=== PATIENT | male | born 1970 | race Caucasian/White ===

== ENCOUNTER 2021-09-20 01:05 | Observation (INO) | payer OTHER ==
[2021-09-20] MEDS ORDERED: Sodium Chloride 0.9% 1000 ML 1,000 ML IV STA (01:18)
[2021-09-20] MEDS ORDERED: BABY ASPIRIN 81 MG CHEW PO ONE (01:19)
--- NOTE | 2021-09-20 01:22 | ERPHSYRPT ---
- History of Present Illness Time Seen by Provider: 09/20/21 01:08 Source: patient Exam Limitations: no limitations Physician History: Location: chest Quality: SOB Radiation: none Severity: moderate Duration: 4-5 days Timing: gradual Modifying factors/associated signs and symptoms: none tried, no PCP Patient having shortness of breath 4 to 5 days. Some very mild chest discomfort. Possibly lower extremity swelling. No falls no trauma. Patient does not follow with the PCP. He has no fever, chills, flulike illness. He has not anything make it better or worse. Patient denies smoking or other illicit drug use. He is up-to-date on his Covid vaccine. Allergies/Adverse Reactions: Penicillins Allergy (Verified 09/20/21 02:15) Home Medications: No Reportable Medications [No Reported Medications] 09/20/21 [History] Hx Tetanus, Diphtheria Vaccination/Date Given: Yes (up to date) Hx Influenza Vaccination/Date Given: No Hx Pneumococcal Vaccination/Date Given: No - Review of Systems Constitutional: No Fever, No Chills Eyes: No Symptoms Ears, Nose, & Throat: No Symptoms Respiratory: Dyspnea, No Cough Cardiac: No Chest Pain, No Edema, No Syncope Abdominal/Gastrointestinal: No Abdominal Pain, No Nausea, No Vomiting, No Diarrhea Genitourinary Symptoms: No Dysuria Musculoskeletal: No Back Pain, No Neck Pain Skin: No Rash Neurological: No Dizziness, No Focal Weakness, No Sensory Changes Psychological: No Symptoms Endocrine: No Symptoms All Other Systems: Reviewed and Negative - Past Medical History Pertinent Past Medical History: No - Past Surgical History Past Surgical History: No - Social History Smoking Status: Current every day smoker How long have you smoked: 24 Exposure to second hand smoke: No Drug Use: none Patient Lives Alone: No - Nursing Vital Signs Nursing Vital Signs: Initial Vital Signs Temperature 97.5 F 09/20/21 01:06 Pulse Rate 103 H 09/20/21 01:06 Respiratory Rate 18 09/20/21 01:06 Blood Pressure 183/136 09/20/21 01:06 O2 Sat by Pulse Oximetry 98 09/20/21 01:06 Pain Scale Pain Intensity 0 - Physical Exam General Appearance: no apparent distress, alert Eye Exam: PERRL/EOMI, eyes nml inspection Ears, Nose, Throat Exam: normal ENT inspection, TMs normal, pharynx normal, moist mucous membranes Neck Exam: normal inspection, non-tender, supple, full range of motion Respiratory Exam: normal breath sounds, lungs clear, No respiratory distress Cardiovascular Exam: regular rate/rhythm, normal heart sounds, normal peripheral pulses Gastrointestinal/Abdomen Exam: soft, normal bowel sounds, No tenderness, No mass Back Exam: normal inspection, normal range of motion, No CVA tenderness, No vertebral tenderness Extremity Exam: normal inspection, normal range of motion, pelvis stable Neurologic Exam: alert, oriented x 3, cooperative, normal mood/affect, nml cerebellar function, nml station & gait, sensation nml, No motor deficits Skin Exam: normal color, warm, dry, No rash Lymphatic Exam: No adenopathy SpO2: 98 - Course Nursing assessment & vital signs reviewed: Yes EKG Interpreted by Me: Sinus Rhythm Ordered Tests: Active Orders 24 hr Category Date Time Status EKG-ER Only STAT Care 09/20/21 01:18 Active IV Insertion STAT Care 09/20/21 01:18 Active CHEST 1 VIEW (PORTABLE) Stat Exams 09/20/21 01:19 Taken CHEST WITH CONTRAST [CT] Stat Exams 09/20/21 02:13 Ordered CBC W DIFF Stat Lab 09/20/21 01:35 Completed CMP Stat Lab 09/20/21 01:35 Completed D-DIMER QUANTITATIVE Stat Lab 09/20/21 01:35 Completed NT PRO BNP Stat Lab 09/20/21 01:35 Completed TROPONIN Q3H Lab 09/20/21 01:35 Completed TROPONIN Q3H Lab 09/20/21 04:10 Completed TROPONIN Q3H Lab 09/20/21 07:30 Ordered TROPONIN Q3H Lab 09/20/21 10:30 Ordered TROPONIN Q3H Lab 09/20/21 13:30 Ordered Medication Summary Discontinued Medications Generic Name Dose Route Start Last Admin Trade Name Freq PRN Reason Stop Dose Admin Aspirin 324 mg 09/20/21 01:19 09/20/21 01:59 Aspirin 81 Mg Tab.Chew PO 09/20/21 01:20 324 mg STAT ONE Administration Furosemide 60 mg 09/20/21 03:28 09/20/21 03:37 Furosemide 100 Mg/10 Ml Vial IV 09/20/21 03:29 60 mg STAT ONE Administration Furosemide Confirm 09/20/21 03:34 Furosemide 100 Mg/10 Ml Vial Administered 09/20/21 03:35 Dose 100 mg .ROUTE .STK-MED ONE Hydralazine HCl 10 mg 09/20/21 03:35 09/20/21 03:54 Hydralazine Hcl 20 Mg/Ml Vial IV 09/20/21 03:36 10 mg STAT ONE Administration Hydralazine HCl Confirm 09/20/21 03:51 Hydralazine Hcl 20 Mg/Ml Vial Administered 09/20/21 03:52 Dose 20 mg .ROUTE .STK-MED ONE Sodium Chloride 1,000 mls @ 999 mls/hr 09/20/21 01:18 09/20/21 04:14 Sodium Chloride 0.9% 1000 Ml IV 09/20/21 02:18 Not Given .Q1H1M STA Lab/Rad Data: Laboratory Result Diagrams 09/20/21 01:35 09/20/21 01:35 Laboratory Results 09/20/21 09/20/21 09/20/21 Range/Units 04:10 01:35 01:35 WBC (4.0-10.5) K/mm3 RBC (4.1-5.6) M/mm3 Hgb (12.5-18.0) gm/dl Hct (42-50) % MCV (78-100) fl MCH (26-32) pg MCHC (32-36) g/dl RDW (11.5-14.0) % Plt Count (150-450) K/mm3 MPV (7.5-11.0) fl Gran % (36.0-66.0) % Eos # (Auto) (0-0.5) Absolute Lymphs (auto) (1.0-4.6) Absolute Monos (auto) (0.0-1.3) Lymphocytes % (24.0-44.0) % Monocytes % (0.0-12.0) % Eosinophils % (0.00-5.0) % Basophils % (0.0-0.4) % Absolute Granulocytes (1.4-6.9) Basophils # (0-0.4) D-Dimer 733 H* (215-500) ng/mL Sodium (137-145) mmol/L Potassium (3.5-5.1) mmol/L Chloride (98-107) mmol/L Carbon Dioxide (22-30) mmol/L Anion Gap (5-15) MEQ/L BUN (9-20) mg/dL Creatinine (0.66-1.25) mg/dL Estimated GFR ML/MIN Glucose (74-106) mg/dL Calcium (8.4-10.2) mg/dL Total Bilirubin (0.2-1.3) mg/dL AST (17-59) U/L ALT (0-50) U/L Alkaline Phosphatase (38-126) U/L Troponin I 0.052 H* 0.055 H* (0.000-0.034) ng/mL NT-Pro-B Natriuret Pep (0-900) pg/mL Serum Total Protein (6.3-8.2) g/dL Albumin (3.5-5.0) g/dL 09/20/21 09/20/21 Range/Units 01:35 01:35 WBC 6.8 (4.0-10.5) K/mm3 RBC 4.74 (4.1-5.6) M/mm3 Hgb 15.1 (12.5-18.0) gm/dl Hct 46.1 (42-50) % MCV 97.3 (78-100) fl MCH 31.9 (26-32) pg MCHC 32.8 (32-36) g/dl RDW 13.3 (11.5-14.0) % Plt Count 245 (150-450) K/mm3 MPV 11.5 H (7.5-11.0) fl Gran % 67.3 H (36.0-66.0) % Eos # (Auto) 0.21 (0-0.5) Absolute Lymphs (auto) 1.22 (1.0-4.6) Absolute Monos (auto) 0.76 (0.0-1.3) Lymphocytes % 17.8 L (24.0-44.0) % Monocytes % 11.1 (0.0-12.0) % Eosinophils % 3.1 (0.00-5.0) % Basophils % 0.7 (0.0-0.4) % Absolute Granulocytes 4.60 (1.4-6.9) Basophils # 0.05 (0-0.4) D-Dimer (215-500) ng/mL Sodium 135 L (137-145) mmol/L Potassium 4.3 (3.5-5.1) mmol/L Chloride 94 L (98-107) mmol/L Carbon Dioxide 34 H (22-30) mmol/L Anion Gap 11.6 (5-15) MEQ/L BUN 12 (9-20) mg/dL Creatinine 1.14 (0.66-1.25) mg/dL Estimated GFR > 60.0 ML/MIN Glucose 315 H (74-106) mg/dL Calcium 9.2 (8.4-10.2) mg/dL Total Bilirubin 0.80 (0.2-1.3) mg/dL AST 57 (17-59) U/L ALT 60 H (0-50) U/L Alkaline Phosphatase 108 (38-126) U/L Troponin I (0.000-0.034) ng/mL NT-Pro-B Natriuret Pep 3980 H (0-900) pg/mL Serum Total Protein 7.3 (6.3-8.2) g/dL Albumin 4.0 (3.5-5.0) g/dL - Progress Progress: improved Progress Note: 09/20/21 01:21 Differential diagnosis includes STEMI, infection, pneumonia, pulmonary embolism. We'll obtain basic labs, fluids, EKG, troponin, chest x-ray - EKG shows no ST changes - my read. See full read below. - O2 saturations consistently greater than 95%. - CXR shows pulmonary effusion cardiomegaly -We will obtain D-dimer as a pretest probability for pulmonary embolism tonight. 09/20/21 03:35 D-dimer is positive. Patient has hyperglycemia. CT scan demonstrates pleural effusions with cardiomegaly. Patient was likely having new onset CHF. Patient has a slight elevation in his troponin as well. We discussed over the phone with on-call physician, Dr. Crawford. She requested a second troponin prior to admission. I do feel this is reasonable. We will make sure that the troponin is staying the same and not elevating. Patient most likely will need to be admitted to the hospital. Either here or transferred. Will give 60 mg of Lasix and IV hydralazine. Will attempt to get some fluid off the patient's lungs and that the patient's blood pressure down. 09/20/21 04:45 Second troponin returned at 0.052. Stable at this point time. We will meet the patient to the hospital. Discussed with Dr.: Federico Perry Will see patient in: hospital (full admit) Counseled pt/family regarding: lab results, diagnosis, need for follow-up, rad results - Departure Departure Disposition: Home Clinical Impression: Acute heart failure, Elevated troponin Condition: Stable Critical Care Time: Yes Critical Care Time(excluding separately billable procedures): Critical 30-74 mins Referrals: DOCTOR,NO FAMILY [Primary Care Provider] -
[2021-09-20 01:42] LABS: BASOPHIL % 0.7 % (0.0-0.4); Basophil (Absolute #) 0.05 (0-0.4); Eosinophil % 3.1 % (0.00-5.0); Eosinophil (Absolute #) 0.21 (0-0.5); Hematocrit 46.1 % (42-50); Hemoglobin 15.1 gm/dl (12.5-18.0); Lymphocyte (Absolute #) 1.22 (1.0-4.6); Lymphocytes % 17.8 % (24.0-44.0); Mean Cell Volume 97.3 fl (78-100); Mean Corpuscular Hemoglobin 31.9 pg (26-32); Mean Corpuscular Hgb Concent. 32.8 g/dl (32-36); Mean Platelet Volume 11.5 fl (7.5-11.0); Monocyte (Absolute #) 0.76 (0.0-1.3); Monocytes % 11.1 % (0.0-12.0); Neutrophil % 67.3 % (36.0-66.0); Platelet Count 245 K/mm3 (150-450); Red Blood Count 4.74 M/mm3 (4.1-5.6); Red Cell Distribution Width 13.3 % (11.5-14.0); White Blood Count 6.8 K/mm3 (4.0-10.5)
[2021-09-20 02:06] LABS: ALKALINE PHOSPHATASE 108 U/L (38-126); ANION GAP 11.6 MEQ/L (5-15); BLOOD UREA NITROGEN 12 mg/dL (9-20); CHLORIDE 94 mmol/L (98-107); Calcium 9.2 mg/dL (8.4-10.2); Carbon Dioxide 34 mmol/L (22-30); Creatinine 1 1.14 mg/dL (0.66-1.25); EST GLOMERULAR FILTRATION RATE > 60.0 ML/MIN; Glucose 315 mg/dL (74-106); NT PRO BNP 3980 pg/mL (0-900); Potassium 4.3 mmol/L (3.5-5.1); SGOT/AST 57 U/L (17-59); SGPT/ALT 60 U/L (0-50); SODIUM 135 mmol/L (137-145); Total Protein 7.3 g/dL (6.3-8.2)
[2021-09-20] MEDS ORDERED: Furosemide 100mg/10 ml Vial IV ONE (03:28)
[2021-09-20] MEDS ORDERED: Furosemide 100mg/10 ml Vial ONE (03:34)
[2021-09-20] MEDS ORDERED: APRESOLINE 20 MG/ML INJ IV ONE ×2 (03:35→11:43)
[2021-09-20] MEDS ORDERED: APRESOLINE 20 MG/ML INJ ONE (03:51)
[2021-09-20] MEDS ORDERED: GI COCKTAIL 45 ML (Maalox/Lidocaine) PO ONE ×2 (04:48→12:13)
[2021-09-20] MEDS ORDERED: MORPHINE SULFATE 4 MG INJ IV ONE (04:48)
[2021-09-20] MEDS ORDERED: Zofran 4 MG/2 ML VIAL IV ONE (04:48)
[2021-09-20] MEDS ORDERED: Zofran 4 MG/2 ML VIAL ONE ×2 (04:51→05:13)
[2021-09-20] MEDS ORDERED: MORPHINE SULFATE 4 MG INJ ONE (04:51)
[2021-09-20] MEDS ORDERED: XYLOCAINE HCl Viscous ONE (04:52)
[2021-09-20] MEDS ORDERED: MAALOX ES 30 ML UNIT DOSE ONE (04:52)
--- NOTE | 2021-09-20 09:02 | XRAY ---
Indication: Short of breath. Elevated d-dimer. Multiple contiguous axial images obtained through the chest using 80 cc Isovue 370 contrast and PE protocol. Comparison: None There is good opacification of the pulmonary arteries to include the lobar and segmental branches. No pulmonary embolus. Heart is enlarged. Aorta is normal in course and caliber. No pathologic mediastinal/hilar lymphadenopathy. Lungs demonstrates mild left and moderate right effusions in the dependent portion with minimal compressive atelectasis. Inferior lingula demonstrates fibrosis/scarring. Bony thorax intact. Limited upper abdomen demonstrates mild diffuse fatty liver and 3 cm left adrenal adenoma. Impression: 1. Negative pulmonary embolus. 2. Cardiomegaly with bilateral pleural effusions favoring cardiac decompensation/CHF. 3. Incidental fatty liver and left adrenal adenoma. Comment: Preliminary interpretation made by C. No critical discrepancy.
--- NOTE | 2021-09-20 09:02 | XRAY ---
Indication: Short of breath. Comparison: None Portable chest demonstrates cardiomegaly, mild central vascular prominence, and small bibasilar effusions favoring cardiac decompensation/CHF. Superimposed pneumonia not completely excluded. Bony thorax intact.
[2021-09-20] MEDS: Toprol-Xl 25MG Tablets PO SCH ×2 (09:03→09:06)
[2021-09-20] MEDS ORDERED: HUMALOG SQ PRN (09:23)
[2021-09-20] MEDS: Lotensin 10 MG PO SCH ×2 (09:26→09:31)
--- NOTE | 2021-09-20 09:37 | PCM.NOTE ---
Date and Time: 09/20/21 0936 OBJECTIVE DATA Vital Signs: Vital Signs - 24 hr Temp Pulse Resp BP Pulse Ox 09/20/21 06:50 97.1 F 99 H 16 167/105 99 09/20/21 06:40 96 09/20/21 05:55 101 H 18 159/100 100 09/20/21 05:00 99 H 16 165/102 100 09/20/21 04:46 98 09/20/21 04:40 104 H 18 142/111 100 09/20/21 04:15 74 16 166/114 99 09/20/21 03:56 102 H 16 180/130 100 09/20/21 02:09 101 H 18 178/131 98 09/20/21 01:12 18 98 09/20/21 01:06 97.5 F 103 H 18 183/136 98 Pain Assessment - Last Documented Pain Intensity 2 Pain Scale Used 0-10 Pain Scale Intake and Output: Intake & Output 09/17/21 09/18/21 09/19/21 09/20/21 11:59 11:59 11:59 11:59 Intake Total 240 Balance 240 Weight 110.4 kg Lab Results: Lab Results-Last 24 Hours 09/20/21 09/20/21 09/20/21 Range/Units 01:30 01:35 01:35 WBC 6.8 (4.0-10.5) K/mm3 RBC 4.74 (4.1-5.6) M/mm3 Hgb 15.1 (12.5-18.0) gm/dl Hct 46.1 (42-50) % MCV 97.3 (78-100) fl MCH 31.9 (26-32) pg MCHC 32.8 (32-36) g/dl RDW 13.3 (11.5-14.0) % Plt Count 245 (150-450) K/mm3 MPV 11.5 H (7.5-11.0) fl Gran % 67.3 H (36.0-66.0) % Eos # (Auto) 0.21 (0-0.5) Absolute Lymphs (auto) 1.22 (1.0-4.6) Absolute Monos (auto) 0.76 (0.0-1.3) Lymphocytes % 17.8 L (24.0-44.0) % Monocytes % 11.1 (0.0-12.0) % Eosinophils % 3.1 (0.00-5.0) % Basophils % 0.7 (0.0-0.4) % Absolute Granulocytes 4.60 (1.4-6.9) Basophils # 0.05 (0-0.4) D-Dimer (215-500) ng/mL Sodium 135 L (137-145) mmol/L Potassium 4.3 (3.5-5.1) mmol/L Chloride 94 L (98-107) mmol/L Carbon Dioxide 34 H (22-30) mmol/L Anion Gap 11.6 (5-15) MEQ/L BUN 12 (9-20) mg/dL Creatinine 1.14 (0.66-1.25) mg/dL Estimated GFR > 60.0 ML/MIN Glucose 315 H (74-106) mg/dL Hemoglobin A1c 11.10 H (4.5-6.0) % Calcium 9.2 (8.4-10.2) mg/dL Total Bilirubin 0.80 (0.2-1.3) mg/dL AST 57 (17-59) U/L ALT 60 H (0-50) U/L Alkaline Phosphatase 108 (38-126) U/L Troponin I (0.000-0.034) ng/mL NT-Pro-B Natriuret Pep 3980 H (0-900) pg/mL Serum Total Protein 7.3 (6.3-8.2) g/dL Albumin 4.0 (3.5-5.0) g/dL SARS-CoV-2 (PCR) (NEGATIVE) 09/20/21 09/20/21 09/20/21 Range/Units 01:35 01:35 04:10 WBC (4.0-10.5) K/mm3 RBC (4.1-5.6) M/mm3 Hgb (12.5-18.0) gm/dl Hct (42-50) % MCV (78-100) fl MCH (26-32) pg MCHC (32-36) g/dl RDW (11.5-14.0) % Plt Count (150-450) K/mm3 MPV (7.5-11.0) fl Gran % (36.0-66.0) % Eos # (Auto) (0-0.5) Absolute Lymphs (auto) (1.0-4.6) Absolute Monos (auto) (0.0-1.3) Lymphocytes % (24.0-44.0) % Monocytes % (0.0-12.0) % Eosinophils % (0.00-5.0) % Basophils % (0.0-0.4) % Absolute Granulocytes (1.4-6.9) Basophils # (0-0.4) D-Dimer 733 H* (215-500) ng/mL Sodium (137-145) mmol/L Potassium (3.5-5.1) mmol/L Chloride (98-107) mmol/L Carbon Dioxide (22-30) mmol/L Anion Gap (5-15) MEQ/L BUN (9-20) mg/dL Creatinine (0.66-1.25) mg/dL Estimated GFR ML/MIN Glucose (74-106) mg/dL Hemoglobin A1c (4.5-6.0) % Calcium (8.4-10.2) mg/dL Total Bilirubin (0.2-1.3) mg/dL AST (17-59) U/L ALT (0-50) U/L Alkaline Phosphatase (38-126) U/L Troponin I 0.055 H* 0.052 H* (0.000-0.034) ng/mL NT-Pro-B Natriuret Pep (0-900) pg/mL Serum Total Protein (6.3-8.2) g/dL Albumin (3.5-5.0) g/dL SARS-CoV-2 (PCR) (NEGATIVE) 09/20/21 09/20/21 Range/Units 05:01 07:32 WBC (4.0-10.5) K/mm3 RBC (4.1-5.6) M/mm3 Hgb (12.5-18.0) gm/dl Hct (42-50) % MCV (78-100) fl MCH (26-32) pg MCHC (32-36) g/dl RDW (11.5-14.0) % Plt Count (150-450) K/mm3 MPV (7.5-11.0) fl Gran % (36.0-66.0) % Eos # (Auto) (0-0.5) Absolute Lymphs (auto) (1.0-4.6) Absolute Monos (auto) (0.0-1.3) Lymphocytes % (24.0-44.0) % Monocytes % (0.0-12.0) % Eosinophils % (0.00-5.0) % Basophils % (0.0-0.4) % Absolute Granulocytes (1.4-6.9) Basophils # (0-0.4) D-Dimer (215-500) ng/mL Sodium (137-145) mmol/L Potassium (3.5-5.1) mmol/L Chloride (98-107) mmol/L Carbon Dioxide (22-30) mmol/L Anion Gap (5-15) MEQ/L BUN (9-20) mg/dL Creatinine (0.66-1.25) mg/dL Estimated GFR ML/MIN Glucose (74-106) mg/dL Hemoglobin A1c (4.5-6.0) % Calcium (8.4-10.2) mg/dL Total Bilirubin (0.2-1.3) mg/dL AST (17-59) U/L ALT (0-50) U/L Alkaline Phosphatase (38-126) U/L Troponin I 0.044 H* (0.000-0.034) ng/mL NT-Pro-B Natriuret Pep (0-900) pg/mL Serum Total Protein (6.3-8.2) g/dL Albumin (3.5-5.0) g/dL SARS-CoV-2 (PCR) NEGATIVE (NEGATIVE) Radiology Exams: Radiology Procedures Category Date Time Status CHEST 1 VIEW (PORTABLE) Stat Exams 09/20/21 01:19 Completed CHEST WITH CONTRAST [CT] Stat Exams 09/20/21 02:13 Completed ECHO W/2D AND DOPPLER [US] Routine Exams 09/20/21 Ordered
--- NOTE | 2021-09-20 09:44 | PCM.HP ---
History of Present Illness - Chief Complaint Chief Complaint: CHF History of Present Illness: is a 51 year old male presented to ER with 4 days of shortness of breath and also "mild mid chest pain" . States he does not have a PCP since Dr Biggs . Admits to "some diabetes" then states he has seen Dr Maguire in [place]. Legs have been swollen and left calf is "sore sometimes". ER eval dg Acute CHF with elevated troponin =0.055 ,repeat =0.052 and 0.044 this morning. He denies chest pain or sob right now seated in bedside chair. States he cannot take Beta blockers "terrible trouble breathing after the beta melly in the past". Is unaware of previous cardiac issues except had been on B/P meds that he stopped taking. Pharmacy reports Norvasc and Benazapril as previous Rx. - Review of Systems Constitutional: Fatigue Eyes: No Symptoms Ears, Nose, & Throat: No Symptoms Respiratory: Short Of Breath Cardiac: Chest Pain, Edema Abdominal/Gastrointestinal: Other (indigestion) Genitourinary Symptoms: No Symptoms Musculoskeletal: Other (no acute symptoms) Skin: No Symptoms Neurological: No Symptoms Medications & Allergies Home Medications: Home Medication List No Reportable Medications [No Reported Medications] 09/20/21 [History Confirmed 09/20/21] Allergies/Adverse Reactions: Allergies Allergy/AdvReac Type Severity Reaction Status Date / Time Penicillins Allergy Verified 09/20/21 06:25 Beta-Blockers AdvReac Wheezing Verified 09/20/21 09:44 (Beta-Adrenergic Bloc - Past Medical History Past Medical History: No Neurological History: No Pertinent History ENT History: No Pertinent History Cardiac History: Congestive Heart Failure, Hypertension Respiratory History: CHF Musculoskelatal History: No Pertinent History GI Medical History: No Pertinent History History: No Pertinent History Pyscho-Social History: No Pertinent History Male Reproductive Disorders: No Pertinent History - Past Surgical History Past Surgical History: No Neuro Surgical History: No Pertinent History Cardiac History: No Pertinent History Respiratory Surgery: No Pertinent History GI Surgical History: No Pertinent History Genitourinary Surgical Hx: No Pertinent History Musculskeletal Surgical Hx: No Pertinent History Male Surgical History: No Pertinent History - Social History Smoking Status: Never smoker How long have you smoked: 24 Exposure to second hand smoke: No Alcohol: Weekly Drug Use: none - Physical Exam Vital Signs: Vital Signs - 24 hr Temp Pulse Resp BP Pulse Ox 09/20/21 06:50 97.1 F 99 H 16 167/105 99 09/20/21 06:40 96 09/20/21 05:55 101 H 18 159/100 100 09/20/21 05:00 99 H 16 165/102 100 09/20/21 04:46 98 09/20/21 04:40 104 H 18 142/111 100 09/20/21 04:15 74 16 166/114 99 09/20/21 03:56 102 H 16 180/130 100 09/20/21 02:09 101 H 18 178/131 98 09/20/21 01:12 18 98 09/20/21 01:06 97.5 F 103 H 18 183/136 98 General Appearance: anxiety Neurologic Exam: alert, oriented x 3 (hesitant to take meds ,questioning ,fearful that they will make him feel funny) Eye Exam: eyes nml inspection Ears, Nose, Throat Exam: normal ENT inspection Neck Exam: normal inspection, other (no JVD,thyroid nontender not enlarged) Respiratory Exam: diminished breath sounds Cardiovascular Exam: regular rate/rhythm (with ectopy) Gastrointestinal/Abdomen Exam: soft (protruberant), normal bowel sounds (nontender) Rectal Exam: deferred Back Exam: normal inspection Extremity Exam: normal range of motion, calf tenderness (left), pedal edema (pitting edema 2+/4 left>right with left calf tenderness) Skin Exam: warm, dry, pale (dusky) Results - Labs Lab/Micro Results: Lab Results-Last 24 Hours 09/20/21 09/20/21 09/20/21 Range/Units 01:30 01:35 01:35 WBC 6.8 (4.0-10.5) K/mm3 RBC 4.74 (4.1-5.6) M/mm3 Hgb 15.1 (12.5-18.0) gm/dl Hct 46.1 (42-50) % MCV 97.3 (78-100) fl MCH 31.9 (26-32) pg MCHC 32.8 (32-36) g/dl RDW 13.3 (11.5-14.0) % Plt Count 245 (150-450) K/mm3 MPV 11.5 H (7.5-11.0) fl Gran % 67.3 H (36.0-66.0) % Eos # (Auto) 0.21 (0-0.5) Absolute Lymphs (auto) 1.22 (1.0-4.6) Absolute Monos (auto) 0.76 (0.0-1.3) Lymphocytes % 17.8 L (24.0-44.0) % Monocytes % 11.1 (0.0-12.0) % Eosinophils % 3.1 (0.00-5.0) % Basophils % 0.7 (0.0-0.4) % Absolute Granulocytes 4.60 (1.4-6.9) Basophils # 0.05 (0-0.4) D-Dimer (215-500) ng/mL Sodium 135 L (137-145) mmol/L Potassium 4.3 (3.5-5.1) mmol/L Chloride 94 L (98-107) mmol/L Carbon Dioxide 34 H (22-30) mmol/L Anion Gap 11.6 (5-15) MEQ/L BUN 12 (9-20) mg/dL Creatinine 1.14 (0.66-1.25) mg/dL Estimated GFR > 60.0 ML/MIN Glucose 315 H (74-106) mg/dL Hemoglobin A1c 11.10 H (4.5-6.0) % Calcium 9.2 (8.4-10.2) mg/dL Total Bilirubin 0.80 (0.2-1.3) mg/dL AST 57 (17-59) U/L ALT 60 H (0-50) U/L Alkaline Phosphatase 108 (38-126) U/L Troponin I (0.000-0.034) ng/mL NT-Pro-B Natriuret Pep 3980 H (0-900) pg/mL Serum Total Protein 7.3 (6.3-8.2) g/dL Albumin 4.0 (3.5-5.0) g/dL SARS-CoV-2 (PCR) (NEGATIVE) 09/20/21 09/20/21 09/20/21 Range/Units 01:35 01:35 04:10 WBC (4.0-10.5) K/mm3 RBC (4.1-5.6) M/mm3 Hgb (12.5-18.0) gm/dl Hct (42-50) % MCV (78-100) fl MCH (26-32) pg MCHC (32-36) g/dl RDW (11.5-14.0) % Plt Count (150-450) K/mm3 MPV (7.5-11.0) fl Gran % (36.0-66.0) % Eos # (Auto) (0-0.5) Absolute Lymphs (auto) (1.0-4.6) Absolute Monos (auto) (0.0-1.3) Lymphocytes % (24.0-44.0) % Monocytes % (0.0-12.0) % Eosinophils % (0.00-5.0) % Basophils % (0.0-0.4) % Absolute Granulocytes (1.4-6.9) Basophils # (0-0.4) D-Dimer 733 H* (215-500) ng/mL Sodium (137-145) mmol/L Potassium (3.5-5.1) mmol/L Chloride (98-107) mmol/L Carbon Dioxide (22-30) mmol/L Anion Gap (5-15) MEQ/L BUN (9-20) mg/dL Creatinine (0.66-1.25) mg/dL Estimated GFR ML/MIN Glucose (74-106) mg/dL Hemoglobin A1c (4.5-6.0) % Calcium (8.4-10.2) mg/dL Total Bilirubin (0.2-1.3) mg/dL AST (17-59) U/L ALT (0-50) U/L Alkaline Phosphatase (38-126) U/L Troponin I 0.055 H* 0.052 H* (0.000-0.034) ng/mL NT-Pro-B Natriuret Pep (0-900) pg/mL Serum Total Protein (6.3-8.2) g/dL Albumin (3.5-5.0) g/dL SARS-CoV-2 (PCR) (NEGATIVE) 09/20/21 09/20/21 Range/Units 05:01 07:32 WBC (4.0-10.5) K/mm3 RBC (4.1-5.6) M/mm3 Hgb (12.5-18.0) gm/dl Hct (42-50) % MCV (78-100) fl MCH (26-32) pg MCHC (32-36) g/dl RDW (11.5-14.0) % Plt Count (150-450) K/mm3 MPV (7.5-11.0) fl Gran % (36.0-66.0) % Eos # (Auto) (0-0.5) Absolute Lymphs (auto) (1.0-4.6) Absolute Monos (auto) (0.0-1.3) Lymphocytes % (24.0-44.0) % Monocytes % (0.0-12.0) % Eosinophils % (0.00-5.0) % Basophils % (0.0-0.4) % Absolute Granulocytes (1.4-6.9) Basophils # (0-0.4) D-Dimer (215-500) ng/mL Sodium (137-145) mmol/L Potassium (3.5-5.1) mmol/L Chloride (98-107) mmol/L Carbon Dioxide (22-30) mmol/L Anion Gap (5-15) MEQ/L BUN (9-20) mg/dL Creatinine (0.66-1.25) mg/dL Estimated GFR ML/MIN Glucose (74-106) mg/dL Hemoglobin A1c (4.5-6.0) % Calcium (8.4-10.2) mg/dL Total Bilirubin (0.2-1.3) mg/dL AST (17-59) U/L ALT (0-50) U/L Alkaline Phosphatase (38-126) U/L Troponin I 0.044 H* (0.000-0.034) ng/mL NT-Pro-B Natriuret Pep (0-900) pg/mL Serum Total Protein (6.3-8.2) g/dL Albumin (3.5-5.0) g/dL SARS-CoV-2 (PCR) NEGATIVE (NEGATIVE) - Radiology Impressions Radiology Exams & Impressions: Radiology Procedures Category Date Time Status CHEST 1 VIEW (PORTABLE) Stat Exams 09/20/21 01:19 Completed CHEST WITH CONTRAST [CT] Stat Exams 09/20/21 02:13 Completed ECHO W/2D AND DOPPLER [US] Routine Exams 09/20/21 Ordered Assessment/Plan (1) Acute heart failure Current Visit: Yes Status: Acute Assessment & Plan: ECHO results pending Code(s): I50.9 - HEART FAILURE, UNSPECIFIED (2) Elevated troponin Current Visit: Yes Status: Acute Assessment & Plan: Troponin trending down,c/o mild chest pain 3-4 days prior to admission Code(s): R77.8 - OTHER SPECIFIED ABNORMALITIES OF PLASMA PROTEINS (3) Hyperglycemia due to type 2 diabetes mellitus Current Visit: Yes Status: Chronic Assessment & Plan: A1C=11% has not been on meds or diet Code(s): E11.65 - TYPE 2 DIABETES MELLITUS WITH HYPERGLYCEMIA (4) Edema, lower extremity Current Visit: Yes Status: Acute Assessment & Plan: ? gradual onset Code(s): R60.0 - LOCALIZED EDEMA (5) Calf pain Current Visit: Yes Status: Acute Assessment & Plan: let calf pain on exam- Venous doppler bilaterall LE pending. Patient was given low dose Lovenox 40mg today. Code(s): M79.669 - PAIN IN UNSPECIFIED LOWER LEG (6) HTN (hypertension) Current Visit: Yes Status: Acute Assessment & Plan: Hx HTN not taking meds Code(s): I10 - ESSENTIAL (PRIMARY) HYPERTENSION (7) Anxiety Current Visit: Yes Status: Acute Assessment & Plan: Xanax given Code(s): F41.9 - ANXIETY DISORDER, UNSPECIFIED
[2021-09-20] MEDS ORDERED: Coreg 3.125 MG PO SCH (10:00)
[2021-09-20] MEDS ORDERED: NORVASC 5 MG PO SCH (10:00)
--- NOTE | 2021-09-20 12:39 | XRAY ---
Indication: Bilateral leg pain and swelling. Two-dimensional sonogram and color Doppler imaging of the major venous vessels of the left and right leg performed. Comparison: None No thrombus seen in the examined deep venous vessels of the left and right leg including greater saphenous vein. Veins demonstrate normal compressibility. Venous waveforms are normal with and without augmentation. Impression: Left and right legs negative for DVT.
[2021-09-20] MEDS: xanAX 0.5 MG PO PRN ×2 (12:50→16:25)
[2021-09-20] MEDS ORDERED: Nitrostat 0.4 MG Tablet SL PRN (13:10)
[2021-09-20] MEDS ORDERED: ENOXAPARIN SODIUM SQ ONE (13:46)
[2021-09-20 14:53] LABS: ANION GAP 16.2 MEQ/L (5-15); BLOOD UREA NITROGEN 15 mg/dL (9-20); CHLORIDE 92 mmol/L (98-107); Calcium 9.2 mg/dL (8.4-10.2); Carbon Dioxide 33 mmol/L (22-30); Creatinine 1 1.31 mg/dL (0.66-1.25); EST GLOMERULAR FILTRATION RATE > 60.0 ML/MIN; Glucose 266 mg/dL (74-106); Potassium 4.2 mmol/L (3.5-5.1); SODIUM 137 mmol/L (137-145)
[2021-09-20 21:21] VITALS: BP 141/79; PULSE 91; O2SAT 96
--- NOTE | 2021-09-22 14:53 | ECHO ---
DATE OF PROCEDURE: 09/20/2021 CLINICAL INFORMATION: Congestive heart failure. The M-mode 2D, and Doppler echocardiogram including color flow Doppler shows the left ventricle is normal in size at 5.3 cm. There is no thrombus present. The septal wall thickness is increased at 1.5 cm. The left ventricular posterior wall thickness is 1.0 cm. The left ventricular systolic function is moderately severe decreased. The ejection fraction is calculated to be 25 to 30%. The right ventricle is grossly normal. The left atrium is moderately dilated with a dimension of 5.1 cm. The interatrial septum is intact. The right atrium is dilated. The aortic valve opens well. There is no aortic regurgitation. There is mitral valve leaflet thickening associated with mild mitral regurgitation. There is mild tricuspid regurgitation. The right ventricular systolic pressure is calculated to be elevated at 47 mm of [place]. The pulmonic valve is not well visualized. The aortic root is borderline dilated with a dimension of 3.8 cm. There is no pericardial effusion present. IMPRESSION: 1) MODERATELY SEVERE LEFT VENTRICULAR SYSTOLIC DYSFUNCTION. 2) MILD MITRAL REGURGITATION. 3) MILD TRICUSPID REGURGITATION. 4) MODERATE PULMONARY HYPERTENSION. 5) MODERATE ASYMMETRIC LEFT VENTRICULAR HYPERTROPHY.
== END 2021-09-20 21:45 ==
LOC: ED 01:05 → INTOOBSV 06:01 → MED SURG 06:01
PROVIDERS: ADMIT Family Medicine; ATTEND Family Medicine
DX: I50.9 Heart failure, unspecified (principal); R07.9 Chest pain, unspecified; R77.8 Other specified abnormalities of plasma proteins; E11.65 Type 2 diabetes mellitus with hyperglycemia; R60.0 Localized edema; M79.662 Pain in left lower leg; M79.661 Pain in right lower leg; I10 Essential (primary) hypertension; F41.9 Anxiety disorder, unspecified; Z20.822 Contact with and (suspected) exposure to COVID-19
CPT/HCPCS: 36000; 36415; 71045; 71260; 80048; 80053; 82947; 83036; 83880; 84484; 85025; 85379; 93005; 93268; 93306; 93970; 94762; 96374; 96375; 99285; 99291; G0378; U0003; J0360; J1650; J1817; J1940; J2270; J2405; A9270-GY

== ENCOUNTER 2024-01-26 17:30 | Inpatient (IN) | payer OTHER ==
[2024-01-26] MEDS ORDERED: Sodium Chloride 0.9% 1000 ML 1,000 ML ONE (17:42)
[2024-01-26] MEDS ORDERED: D50W 50 ml Abboject IV ONE ×2 (17:42→19:19)
[2024-01-26 18:05] LABS: Absolute Neutrophil Ct (ANC) 5.95 x10^3/uL (1.4-6.9); BASOPHIL % 0.6 % (0.0-0.4); Basophil (Absolute #) 0.05 x10^3/uL (0-0.4); Eosinophil % 4.3 % (0.00-5.0); Eosinophil (Absolute #) 0.33 x10^3/uL (0-0.5); Hematocrit 33.4 % (42-50); Hemoglobin 10.3 g/dL (12.5-18.0); IMMATURE GRAN # 0.02 x10^3u/L (0.00-0.03); IMMATURE GRAN % 0.3 % (0.00-0.4); Lymphocyte (Absolute #) 0.87 x10^3/uL (1.0-4.6); Lymphocytes % 11.2 % (24.0-44.0); Mean Cell Volume 92.5 fL (78-100); Mean Corpuscular Hemoglobin 28.5 pg (26-32); Mean Corpuscular Hgb Concent. 30.8 g/dL (32-36); Mean Platelet Volume 11.8 fL (7.5-11.0); Monocyte (Absolute #) 0.52 x10^3/uL (0.0-1.3); Monocytes % 6.7 % (0.0-12.0); Neutrophil % 76.9 % (36.0-66.0); Platelet Count 327 x10^3/uL (150-450); Red Blood Count 3.61 x10^6/uL (4.1-5.6); Red Cell Distribution Width 18.1 % (11.5-14.0); White Blood Count 7.7 x10^3/uL (4.0-10.5)
[2024-01-26] MEDS: D50W 50 ml Abboject IV ONE ×3 (18:05→19:20)
[2024-01-26] MEDS: Sodium Chloride 0.9% 1000 ML 1,000 ML IV STA (18:05)
[2024-01-26 18:19] LABS: ALBUMIN 4.1 g/dL (3.5-5.0); ANION GAP 15.9 MEQ/L (5-15); BILIRUBIN,TOTAL 0.2 mg/dL (0.2-1.3); Calcium 10.3 mg/dL (8.4-10.2); Creatinine 1 1.25 mg/dL (0.66-1.25); EST GLOMERULAR FILTRATION RATE 68.9 ML/MIN; MAGNESIUM 1.3 mg/dL (1.6-2.3); Potassium 4.7 mmol/L (3.5-5.1); Total Protein 7.3 g/dL (6.3-8.2)
--- NOTE | 2024-01-26 18:23 | ERPHSYRPT ---
- History of Present Illness Source: patient, family Timing/Duration: day(s) (2-3 days) Severity: moderate Associated Symptoms: loss of appetite, malaise Hx Tetanus, Diphtheria Vaccination/Date Given: Yes Hx Influenza Vaccination/Date Given: Yes Hx Pneumococcal Vaccination/Date Given: Yes <GARRETT MONETSH - Last Filed: 01/26/24 18:54> <URIEL PEREZ - Last Filed: 01/27/24 00:40> - History of Present Illness Time Seen by Provider: 01/26/24 18:21 Physician History: Patient is 53-year-old male with long history of type 2 diabetes mellitus insulin-dependent has off-and-on multiple episode of hypoglycemia started having low blood sugar spells since morning. He has been having a weak spells for last 2 to 3 days but today it got worse. When he checked his sugar it was below 50. Patient called his son and his son brought him into the emergency room. In the emergency room patient was very lethargic but alert awake oriented to time place and person. He was complaining of generalized weakness. Patient was given D50 once he was admitted in the emergency room. (ORTIZ MONET) Allergies/Adverse Reactions: Penicillins Allergy (Verified 01/26/24 17:51) Beta-Blockers (Beta-Adrenergic Bloc Adverse Reaction (Verified 01/26/24 17:51) Wheezing Home Medications: Aspirin 81 gm Chew [Baby Aspirin 81 mg Chew] 1 tab PO DAILY 02/22/23 [History] Atorvastatin Calcium 80 mg PO HS 02/22/23 [History] Carvedilol 12.5 mg [Coreg 12.5 mg] 2 tab PO BID 02/22/23 [History] Empagliflozin [Jardiance] 25 mg PO DAILY 02/22/23 [History] Furosemide [Lasix] 20 mg PO DAILY 02/22/23 [History] Metformin HCl [Metformin ER Osmotic] 1,000 mg PO BID 02/22/23 [History] Nitroglycerin 0.4 mg Tablet [Nitrostat 0.4 MG Tablet] 1 tab PO UD PRN 02/22/23 [History] Sacubitril/Valsartan [Entresto 24 mg-26 mg Tablet] 1 tab PO BID 02/22/23 [History] Trazodone HCl 50 mg [Desyrel 50 mg] 150 mg PO HS 02/24/23 [History] Amlodipine Besylate [Norvasc] 10 mg PO DAILY 01/26/24 [History] Aripiprazole [Abilify] 2 mg PO DAILY 01/26/24 [History] Bumetanide 0.5 mg PO DAILY 01/26/24 [History] Citalopram Hydrobromide 20 mg* [ceLEXa 20 MG] 20 mg PO DAILY 01/26/24 [History] Folic Acid 1 mg [Folate 1 mg] 1 mg PO DAILY 01/26/24 [History] Glipizide 5 mg [Glucotrol 5 MG] 5 mg PO BID 01/26/24 [History] Losartan Potassium 100 mg PO DAILY 01/26/24 [History] Pioglitazone 30 mg [Actos 30 MG] 30 mg PO DAILY 01/26/24 [History] Potassium Chloride 1 tab PO DAILY 01/26/24 [History] Spironolactone 25 mg [Aldactone 25 MG] 25 mg PO DAILY 01/26/24 [History] Travel Risk - Vaccine Status Have you recieved a Covid-19 vaccination: Yes [employer]: [employer] - Vaccination Dates Date of 2cond Vaccination (if applicable): 2020 <CHIKI - Last Filed: 01/26/24 18:54> - Review of Systems Constitutional: Lethargy, Malaise, Weakness, No Fever, No Chills Eyes: No Symptoms Ears, Nose, & Throat: No Symptoms Respiratory: No Cough, No Dyspnea Cardiac: No Chest Pain, No Edema, No Syncope Abdominal/Gastrointestinal: No Abdominal Pain, No Nausea, No Vomiting, No Diarrhea Genitourinary Symptoms: No Dysuria Musculoskeletal: No Back Pain, No Neck Pain Skin: No Rash Neurological: No Dizziness, No Focal Weakness, No Sensory Changes Psychological: No Symptoms Endocrine: No Symptoms All Other Systems: Reviewed and Negative <CHIKI - Last Filed: 01/26/24 18:54> - Past Medical History Pertinent Past Medical History: Yes Neurological History: No Pertinent History, Peripheral Neuropathy ENT History: No Pertinent History Cardiac History: Angina, Congestive Heart Failure, Myocardial Infarction (MD), High Cholesterol, Hypertension Respiratory History: CHF Endocrine Medical History: Diabetes Type II Musculoskeletal History: No Pertinent History, Other GI Medical History: No Pertinent History, GERD History: No Pertinent History Psycho-Social History: No Pertinent History, Depression Male Reproductive Disorders: No Pertinent History Other Medical History: diabetic foot ulcer that spread and has BKA - Past Surgical History Past Surgical History: Yes Neuro Surgical History: No Pertinent History Cardiac: No Pertinent History Respiratory: No Pertinent History Gastrointestinal: No Pertinent History Genitourinary: No Pertinent History Musculoskeletal: No Pertinent History, Amputation Male Surgical History: No Pertinent History Other Surgical History: BKA - Social History Smoking Status: Former smoker How long have you smoked: 24 Exposure to second hand smoke: No Drug Use: marijuana, none Patient Lives Alone: No <CHIKI, - Last Filed: 01/26/24 18:54> - Physical Exam General Appearance: moderate distress, alert Eye Exam: PERRL/EOMI, eyes nml inspection Ears, Nose, Throat Exam: normal ENT inspection, TMs normal, pharynx normal, moist mucous membranes Neck Exam: normal inspection, non-tender, supple, full range of motion Respiratory Exam: normal breath sounds, lungs clear, No respiratory distress Cardiovascular Exam: regular rate/rhythm, normal heart sounds, normal peripheral pulses Gastrointestinal/Abdomen Exam: soft, normal bowel sounds, No tenderness, No mass Back Exam: normal inspection, normal range of motion, No CVA tenderness, No ve rtebral tenderness Extremity Exam: normal inspection, normal range of motion, pelvis stable Neurologic Exam: alert, oriented x 3, cooperative, normal mood/affect, nml cerebellar function, nml station & gait, sensation nml, No motor deficits Skin Exam: normal color, warm, dry, No rash Lymphatic Exam: No adenopathy SpO2: 95 <CHIKI, - Last Filed: 01/26/24 18:54> - Nursing Vital Signs Nursing Vital Signs: Initial Vital Signs Temperature 97.6 F 01/26/24 17:52 Pulse Rate 79 01/26/24 17:52 Respiratory Rate 20 01/26/24 17:52 Blood Pressure 171/104 01/26/24 17:52 O2 Sat by Pulse Oximetry 95 01/26/24 17:52 Pain Scale Pain Intensity 0 - Course Nursing assessment & vital signs reviewed: Yes <ORTIZ MONET - Last Filed: 01/26/24 18:54> - Course EKG Interpreted by Me: RATE (82), Sinus Rhythm, Right Bundle Branch Block, Other (QTc = 513) - CT Exams Chest CT Interpretation: Tele-radiologist Report (No evidence of PE. Consolidations/ground glass appearances at the lung bases, more prominent on the right side. Findings may be suggestive of pneumonia for clinical correlation. Bilateral pleural effusion with adjacent compression atelectasis. ) <URIEL PEREZ - Last Filed: 01/27/24 00:40> Ordered Tests: Active Orders 24 hr Category Date Time Status EKG-ER Only STAT Care 01/26/24 17:43 Active Oxygen-ED Only Nasal Cannula 2 lpm Care 01/26/24 17:43 Active POCT Glucose Check STAT Care 01/26/24 17:43 Active CHEST 1 VIEW (PORTABLE) Stat Exams 01/26/24 17:43 Completed CHEST WITH CONTRAST [CT] Stat Exams 01/26/24 20:55 Completed BLOOD CULTURE Stat Lab 01/27/24 00:24 Ordered CBC W DIFF Stat Lab 01/26/24 18:00 Completed CMP Stat Lab 01/26/24 18:00 Completed CULTURE,SPUTUM Stat Lab 01/27/24 00:24 Ordered MAGNESIUM Stat Lab 01/26/24 18:00 Completed POCT GLUCOSE Stat Lab 01/26/24 19:17 Completed POCT GLUCOSE Stat Lab 01/26/24 19:49 Completed POCT GLUCOSE Stat Lab 01/26/24 21:05 Completed TROPONIN Q4H Lab 01/26/24 18:00 Completed TROPONIN Q4H Lab 01/26/24 22:45 Completed TROPONIN Q4H Lab 01/27/24 04:30 Ordered UA W/RFX UR CULTURE Stat Lab 01/26/24 17:57 Completed Transfer Order Routine Transfer 01/27/24 Ordered Medication Summary Generic Name Dose Route Start Last Admin Trade Name Freq PRN Reason Stop Dose Admin Magnesium Sulfate/Dextrose 100 mls @ 100 mls/hr 01/26/24 18:45 01/26/24 20:24 Magnesium 1 Gm / 100 Ml D5w IV 01/26/24 20:44 100 mls/hr Q1H BRUNILDA Administration Dextrose 250 mls @ 100 mls/hr 01/26/24 19:30 01/26/24 23:24 Dextrose 10% 250 Ml IV 02/25/24 19:29 100 mls/hr .Q2H30M BRUNILDA Administration Azithromycin 500 mg in 250 mls @ 250 mls/hr 01/27/24 00:24 Zithromax 500 Mg/ 250 Ml Nacl Premix IV 01/27/24 01:23 STAT STA Discontinued Medications Generic Name Dose Route Start Last Admin Trade Name Freq PRN Reason Stop Dose Admin Albuterol Sulfate 2.5 mg 01/27/24 00:24 Albuterol Sulfate 2.5 Mg/3 Ml Neb IH 01/27/24 00:25 STAT ONE Dextrose Confirm 01/26/24 17:42 Dextrose 50%-Water 50 Ml Abboject Administered 01/26/24 17:43 Dose 50 ml IV .STK-MED ONE Dextrose 50 ml 01/26/24 17:43 01/26/24 18:05 Dextrose 50%-Water 50 Ml Abboject IV 01/26/24 17:44 50 ml STAT ONE Administration Dextrose 50 ml 01/26/24 18:31 01/26/24 19:06 Dextrose 50%-Water 50 Ml Abboject IV 01/26/24 18:32 Not Given STAT ONE Dextrose 50 ml 01/26/24 19:18 01/26/24 19:20 Dextrose 50%-Water 50 Ml Abboject IV 01/26/24 19:19 50 ml STAT ONE Administration Dextrose Confirm 01/26/24 19:19 Dextrose 50%-Water 50 Ml Abboject Administered 01/26/24 19:20 Dose 50 ml IV .STK-MED ONE Sodium Chloride Confirm 01/26/24 17:42 Sodium Chloride 0.9% 1000 Ml Administered 01/26/24 17:43 Dose 1,000 mls @ ud .ROUTE .STK-MED ONE Sodium Chloride 1,000 mls @ 999 mls/hr 01/26/24 17:43 01/26/24 19:21 Sodium Chloride 0.9% 1000 Ml IV 01/26/24 18:43 Infused .Q1H1M STA Infusion Ceftriaxone Sodium 1 gm in 100 mls @ 200 mls/hr 01/26/24 18:24 01/26/24 19:46 Rocephin 1 Gm / 100 Ml Nacl IV 01/26/24 18:53 Infused STAT ONE Infusion Ceftriaxone Sodium Confirm 01/26/24 19:07 Rocephin 1 Gm / 100 Ml Nacl Administered 01/26/24 19:08 Dose 1 gm in 100 mls @ IV .K-MED ONE Lab/Rad Data: Laboratory Result Diagrams 01/26/24 18:00 01/26/24 18:00 Laboratory Results 01/26/24 01/26/24 01/26/24 Range/Units 22:45 21:05 19:49 WBC (4.0-10.5) x10^3/uL RBC (4.1-5.6) x10^6/uL Hgb (12.5-18.0) g/dL Hct (42-50) % MCV (78-100) fL MCH (26-32) pg MCHC (32-36) g/dL RDW (11.5-14.0) % Plt Count (150-450) x10^3/uL MPV (7.5-11.0) fL Gran % (36.0-66.0) % Immature Gran % (Auto) (0.00-0.4) % Nucleat RBC Rel Count (0.00-0.1) % Eos # (Auto) (0-0.5) x10^3/uL Immature Gran # (Auto) (0.00-0.03) x10^3u/L Absolute Lymphs (auto) (1.0-4.6) x10^3/uL Absolute Monos (auto) (0.0-1.3) x10^3/uL Absolute Nucleated RBC (0.00-0.01) x10^3u/L Lymphocytes % (24.0-44.0) % Monocytes % (0.0-12.0) % Eosinophils % (0.00-5.0) % Basophils % (0.0-0.4) % Absolute Granulocytes (1.4-6.9) x10^3/uL Basophils # (0-0.4) x10^3/uL Sodium (135-145) mmol/L Potassium (3.5-5.1) mmol/L Chloride (98-107) mmol/L Carbon Dioxide (22-30) mmol/L Anion Gap (5-15) MEQ/L BUN (9-20) mg/dL Creatinine (0.66-1.25) mg/dL Estimated GFR ML/MIN Glucose (74-106) mg/dL POC Glucometer 93 105 (50 to 500) mg/dL Calcium (8.4-10.2) mg/dL Magnesium (1.6-2.3) mg/dL Total Bilirubin (0.2-1.3) mg/dL AST (17-59) U/L ALT (0-50) U/L Alkaline Phosphatase (38-126) U/L Troponin I 0.020 (0.000-0.034) ng/mL Serum Total Protein (6.3-8.2) g/dL Albumin (3.5-5.0) g/dL Urine Color (Yellow) Urine Appearance (Clear) Urine pH (4.6-8.0) Ur Specific [place] (1.005-1.030) Urine Protein (Negative) Urine Glucose (UA) (Negative) mg/dL Urine Ketones (Negative) Urine Blood (Negative) Urine Nitrite (Negative) Urine Bilirubin (Negative) Urine Urobilinogen (0.2) mg/dL Ur Leukocyte Esterase (Negative) U Hyaline Cast (Auto) (0-2) /LPF Urine Microscopic RBC (0-5) /HPF Urine Microscopic WBC (0-5) /HPF Ur Epithelial Cells (None Seen) /HPF Urine Bacteria (None Seen) /HPF Urine Culture Reflexed (NO) Influenza Type A Ag (NEGATIVE) Influenza Type B Ag (NEGATIVE) RSV (PCR) (NEGATIVE) SARS-CoV-2 (PCR) (NEGATIVE) 01/26/24 01/26/24 01/26/24 Range/Units 19:17 18:45 18:00 WBC (4.0-10.5) x10^3/uL RBC (4.1-5.6) x10^6/uL Hgb (12.5-18.0) g/dL Hct (42-50) % MCV (78-100) fL MCH (26-32) pg MCHC (32-36) g/dL RDW (11.5-14.0) % Plt Count (150-450) x10^3/uL MPV (7.5-11.0) fL Gran % (36.0-66.0) % Immature Gran % (Auto) (0.00-0.4) % Nucleat RBC Rel Count (0.00-0.1) % Eos # (Auto) (0-0.5) x10^3/uL Immature Gran # (Auto) (0.00-0.03) x10^3u/L Absolute Lymphs (auto) (1.0-4.6) x10^3/uL Absolute Monos (auto) (0.0-1.3) x10^3/uL Absolute Nucleated RBC (0.00-0.01) x10^3u/L Lymphocytes % (24.0-44.0) % Monocytes % (0.0-12.0) % Eosinophils % (0.00-5.0) % Basophils % (0.0-0.4) % Absolute Granulocytes (1.4-6.9) x10^3/uL Basophils # (0-0.4) x10^3/uL Sodium (135-145) mmol/L Potassium (3.5-5.1) mmol/L Chloride (98-107) mmol/L Carbon Dioxide (22-30) mmol/L Anion Gap (5-15) MEQ/L BUN (9-20) mg/dL Creatinine (0.66-1.25) mg/dL Estimated GFR ML/MIN Glucose (74-106) mg/dL POC Glucometer 36 L* (50 to 500) mg/dL Calcium (8.4-10.2) mg/dL Magnesium (1.6-2.3) mg/dL Total Bilirubin (0.2-1.3) mg/dL AST (17-59) U/L ALT (0-50) U/L Alkaline Phosphatase (38-126) U/L Troponin I 0.023 (0.000-0.034) ng/mL Serum Total Protein (6.3-8.2) g/dL Albumin (3.5-5.0) g/dL Urine Color (Yellow) Urine Appearance (Clear) Urine pH (4.6-8.0) Ur Specific [place] (1.005-1.030) Urine Protein (Negative) Urine Glucose (UA) (Negative) mg/dL Urine Ketones (Negative) Urine Blood (Negative) Urine Nitrite (Negative) Urine Bilirubin (Negative) Urine Urobilinogen (0.2) mg/dL Ur Leukocyte Esterase (Negative) U Hyaline Cast (Auto) (0-2) /LPF Urine Microscopic RBC (0-5) /HPF Urine Microscopic WBC (0-5) /HPF Ur Epithelial Cells (None Seen) /HPF Urine Bacteria (None Seen) /HPF Urine Culture Reflexed (NO) Influenza Type A Ag NEGATIVE (NEGATIVE) Influenza Type B Ag NEGATIVE (NEGATIVE) RSV (PCR) NEGATIVE (NEGATIVE) SARS-CoV-2 (PCR) NEGATIVE (NEGATIVE) 01/26/24 01/26/24 01/26/24 Range/Units 18:00 18:00 17:57 WBC 7.7 (4.0-10.5) x10^3/uL RBC 3.61 L (4.1-5.6) x10^6/uL Hgb 10.3 L (12.5-18.0) g/dL Hct 33.4 L (42-50) % MCV 92.5 (78-100) fL MCH 28.5 (26-32) pg MCHC 30.8 L (32-36) g/dL RDW 18.1 H (11.5-14.0) % Plt Count 327 (150-450) x10^3/uL MPV 11.8 H (7.5-11.0) fL Gran % 76.9 H (36.0-66.0) % Immature Gran % (Auto) 0.3 (0.00-0.4) % Nucleat RBC Rel Count 0.0 (0.00-0.1) % Eos # (Auto) 0.33 (0-0.5) x10^3/uL Immature Gran # (Auto) 0.02 (0.00-0.03) x10^3u/L Absolute Lymphs (auto) 0.87 L (1.0-4.6) x10^3/uL Absolute Monos (auto) 0.52 (0.0-1.3) x10^3/uL Absolute Nucleated RBC 0.00 (0.00-0.01) x10^3u/L Lymphocytes % 11.2 L (24.0-44.0) % Monocytes % 6.7 (0.0-12.0) % Eosinophils % 4.3 (0.00-5.0) % Basophils % 0.6 (0.0-0.4) % Absolute Granulocytes 5.95 (1.4-6.9) x10^3/uL Basophils # 0.05 (0-0.4) x10^3/uL Sodium 139 (135-145) mmol/L Potassium 4.7 (3.5-5.1) mmol/L Chloride 103 (98-107) mmol/L Carbon Dioxide 24 (22-30) mmol/L Anion Gap 15.9 H (5-15) MEQ/L BUN 21 H (9-20) mg/dL Creatinine 1.25 (0.66-1.25) mg/dL Estimated GFR 68.9 ML/MIN Glucose 32 L* (74-106) mg/dL POC Glucometer (50 to 500) mg/dL Calcium 10.3 H (8.4-10.2) mg/dL Magnesium 1.3 L (1.6-2.3) mg/dL Total Bilirubin 0.20 (0.2-1.3) mg/dL AST 44 (17-59) U/L ALT 36 (0-50) U/L Alkaline Phosphatase 55 (38-126) U/L Troponin I (0.000-0.034) ng/mL Serum Total Protein 7.3 (6.3-8.2) g/dL Albumin 4.1 (3.5-5.0) g/dL Urine Color Yellow (Yellow) Urine Appearance Clear (Clear) Urine pH 5.0 (4.6-8.0) Ur Specific [place] 1.015 (1.005-1.030) Urine Protein 100 A (Negative) Urine Glucose (UA) Negative (Negative) mg/dL Urine Ketones Negative (Negative) Urine Blood Trace (Negative) Urine Nitrite Negative (Negative) Urine Bilirubin Negative (Negative) Urine Urobilinogen 0.2 (0.2) mg/dL Ur Leukocyte Esterase Negative (Negative) U Hyaline Cast (Auto) 3-5 A (0-2) /LPF Urine Microscopic RBC 0-2 (0-5) /HPF Urine Microscopic WBC 0-2 (0-5) /HPF Ur Epithelial Cells None Seen (None Seen) /HPF Urine Bacteria None Seen (None Seen) /HPF Urine Culture Reflexed NO (NO) Influenza Type A Ag (NEGATIVE) Influenza Type B Ag (NEGATIVE) RSV (PCR) (NEGATIVE) SARS-CoV-2 (PCR) (NEGATIVE) - Progress Discussed with : Other (Spoke with & discussed case with Dr. Fernandez([id number]) - obs) Will see patient in: hospital (observation) Counseled pt/family regarding: lab results, diagnosis, rad results <URIEL PEREZ - Last Filed: 01/27/24 00:40> - Progress Progress Note: 01/26/24 19:[address] Perez @ 1918: perrl, eomi, pharynx pink, TM's not injected, lungs clear, no cardiac rub, abdominal B.S. normal, right BKA, alert & coop erative. (URIEL PEREZ) Medical Desision Making - Diagnostic Testing Diagnostic test were ordered, analyzed, and reviewed by me: Yes Radiological Interpretation: Teleradiologist Report <URIEL PEREZ - Last Filed: 01/27/24 00:40> <ORTIZ MONET - Last Filed: 01/26/24 18:54> - Departure Departure Disposition: Observation Critical Care Time: No <URIEL PEREZ - Last Filed: 01/27/24 00:40> - Departure Clinical Impression: Bilateral pneumonia, Hypoxia, Hypoglycemia, DM Condition: Stable Referrals: ARNOLDO OSHEA [NON-STAFF PHY W/O PRIVILEGES] - Follow up/PCP as directed
[2024-01-26 18:48] LABS: Appearance Clear (Clear); Bacteria None Seen /HPF (None Seen); Bilirubin Negative (Negative); Blood Trace (Negative); Epithelial Cells None Seen /HPF (None Seen); Glucose, Urine Negative (Negative); Ketones Negative (Negative); Leukocyte Esterase Negative (Negative); Nitrite Negative (Negative); Protein,Urine Dip 100 (Negative); RBC 0-2 /HPF (0-5); Specific Gravity 1.015 (1.005-1.030); Urobilinogen 0.2 mg/dL (0.2); WBC 0-2 /HPF (0-5)
[2024-01-26 18:49] LABS: ADD URINE CULTURE? NO (NO)
[2024-01-26] MEDS ORDERED: ROCEPHIN 1 GM / 100 ML NaCl 1 GM/100 ML IVPB IV ONE (19:07)
[2024-01-26] MEDS: ROCEPHIN 1 GM / 100 ML NaCl 1 GM/100 ML IVPB IV ONE (19:09)
[2024-01-26] MEDS ORDERED: DEXTROSE 10% 250 ML 250 ML IV ONE ×2 (19:19→21:54)
[2024-01-26] MEDS: DEXTROSE 10% 250 ML 250 ML IV SCH (19:20)
[2024-01-26 19:39] LABS: INFLUENZA A NEGATIVE (NEGATIVE); INFLUENZA B NEGATIVE (NEGATIVE); RESPIRATORY SYNCTIAL VIRUS NEGATIVE (NEGATIVE); SARS-CoV-2 Xpert Express NEGATIVE (NEGATIVE)
[2024-01-26] MEDS: Magnesium 1 Gm / 100 Ml D5W*** 100 ML IV SCH (19:49)
--- NOTE | 2024-01-26 20:07 | XRAY ---
Indication: Weakness. Comparison: September 20, 2021 Portable apical lordotic chest now demonstrates borderline cardiomegaly and minimal left base subsegmental atelectasis/scarring. Right lung clear. Bony thorax intact.
--- NOTE | 2024-01-26 23:35 | XRAY ---
CLINICAL HISTORY: hypoxia TECHNIQUE: Contiguous axial CT images of the chest were acquired with the administration of intravenous contrast, 80 CC [id number]. Coronal and sagittal reconstructions were obtained. One of the following dose reduction techniques were utilized for this exam: Automated exposure control, adjustment of the mA and/or kV according to patient size, use of iterative reconstruction. COMPARISON: Previous CT chest dated 09/20/2021. FINDINGS: Bilateral pleural effusion is seen up to 2.5 cm with adjacent compressional atelectasis. There are also mild consolidations with groundglass appearance at the lung bases, more prominent on the right side. No evidence of pulmonary embolism on either side. The scanned pulmonary parenchyma shows no definite consolidative lesions. No free or encysted pleural effusion. Heart size is normal, and there is no pericardial effusion. No pathologically enlarged mediastinal, hilar or axillary lymph node identified. There is no definite mass lesion in the chest wall. Scanned upper abdomen is unremarkable. Normal pulmonary arterial diameter on CT. IMPRESSION: 1. Bilateral pleural effusion with adjacent compressional atelectasis 2. Consolidations / groundglass appearances at the lung bases, more prominent on the right side. Findings may be suggestive of pneumonia for clinical correlation 3. No evidence of pulmonary embolism on either side. Electronically Signed by: Keara Tijerina MD. (01/26/2024 23:32:04 EST)
[2024-01-27] MEDS ORDERED: Zithromax 500 MG/ 250 ML NaCl Premix 500 MG/250 ML IVPB IV ONE (00:38)
[2024-01-27] MEDS: Zithromax 500 MG/ 250 ML NaCl Premix 500 MG/250 ML IVPB IV STA (00:39)
[2024-01-27] MEDS ORDERED: HUMALOG SQ PRN (00:50)
[2024-01-27] MEDS ORDERED: DUONEB 0.5-3 MG/3 ml Neb IH ONE (00:55)
[2024-01-27] MEDS: PROVENTIL 2.5 MG/3 ML NEB IH ONE (00:57)
--- NOTE | 2024-01-27 01:00 | PCM.HP ---
History of Present Illness - Chief Complaint Chief Complaint: pneumonia History of Present Illness: is a 53 year old male with a history of DMII, HTN, CAD, CHF, HLP presented tonight with c/o on-going low blood sugar of the past 2-3 days. His son insisted he came in. Here, BS was in the 30-40s. But he developed SOB while in ER< O2 sat dropped. CT chest negative for PE but shows BL ground glass infiltrates, R > L, and BL pleural effusions. Flu and covid negative. Now being admitted for hypoglycemia and BL pneumonia, with fluid overload. Denies fever, chills, cough, sputum, vomiting, diarrhea, syncope He is somnolent. He was in hospital last week for same complaint. He has poor appetite and his med list shows multiple hypoglycemic meds. He is unsure of what is actually taking. - Review of Systems Constitutional: Weakness Eyes: No Symptoms Ears, Nose, & Throat: No Symptoms Respiratory: Short Of Breath Cardiac: No Symptoms Abdominal/Gastrointestinal: No Symptoms Genitourinary Symptoms: No Symptoms Musculoskeletal: No Symptoms Skin: No Symptoms Neurological: Other (weakness) Psychological: No Symptoms Endocrine: No Symptoms Hematologic/Lymphatic: No Symptoms Immunological/Allergic: No Symptoms Medications & Allergies Home Medications: Home Medication List Aspirin 81 gm Chew [Baby Aspirin 81 mg Chew] 1 tab PO DAILY 02/22/23 [History Confirmed 01/26/24] Atorvastatin Calcium 80 mg PO HS 02/22/23 [History Confirmed 01/26/24] Carvedilol 12.5 mg [Coreg 12.5 mg] 2 tab PO BID 02/22/23 [History Confirmed 01/26/24] Empagliflozin [Jardiance] 25 mg PO DAILY 02/22/23 [History Confirmed 01/26/24] Furosemide [Lasix] 20 mg PO DAILY 02/22/23 [History Confirmed 01/26/24] Metformin HCl [Metformin ER Osmotic] 1,000 mg PO BID 02/22/23 [History Confirmed 01/26/24] Nitroglycerin 0.4 mg Tablet [Nitrostat 0.4 MG Tablet] 1 tab PO UD PRN 02/22/23 [History Confirmed 01/26/24] Sacubitril/Valsartan [Entresto 24 mg-26 mg Tablet] 1 tab PO BID 02/22/23 [History Confirmed 01/26/24] Trazodone HCl 50 mg [Desyrel 50 mg] 150 mg PO HS 02/24/23 [History Conf irmed 01/26/24] Amlodipine Besylate [Norvasc] 10 mg PO DAILY 01/26/24 [History Confirmed 01/26/24] Aripiprazole [Abilify] 2 mg PO DAILY 01/26/24 [History Confirmed 01/26/24] Bumetanide 0.5 mg PO DAILY 01/26/24 [History Confirmed 01/26/24] Citalopram Hydrobromide 20 mg* [ceLEXa 20 MG] 20 mg PO DAILY 01/26/24 [History Confirmed 01/26/24] Folic Acid 1 mg [Folate 1 mg] 1 mg PO DAILY 01/26/24 [History Confirmed 01/26/24] Glipizide 5 mg [Glucotrol 5 MG] 5 mg PO BID 01/26/24 [History Confirmed 01/26/24] Losartan Potassium 100 mg PO DAILY 01/26/24 [History Confirmed 01/26/24] Pioglitazone 30 mg [Actos 30 MG] 30 mg PO DAILY 01/26/24 [History Confirmed 01/26/24] Potassium Chloride 1 tab PO DAILY 01/26/24 [History Confirmed 01/26/24] Spironolactone 25 mg [Aldactone 25 MG] 25 mg PO DAILY 01/26/24 [History Confirmed 01/26/24] Allergies/Adverse Reactions: Allergies Allergy/AdvReac Type Severity Reaction Status Date / Time Penicillins Allergy Verified 01/26/24 17:51 Beta-Blockers AdvReac Wheezing Verified 01/26/24 17:51 (Beta-Adrenergic Bloc - Past Medical History Past Medical History: Yes Neurological History: No Pertinent History, Peripheral Neuropathy ENT History: No Pertinent History Cardiac History: Angina, Congestive Heart Failure, Myocardial Infarction (ID), High Cholesterol, Hypertension Respiratory History: CHF Endocrine Medical History: Diabetes Type II Musculoskelatal History: No Pertinent History, Other GI Medical History: No Pertinent History, GERD History: No Pertinent History Pyscho-Social History: No Pertinent History, Depression Male Reproductive Disorders: No Pertinent History Comment: diabetic foot ulcer that spread and has BKA - Past Surgical History Past Surgical History: Yes Neuro Surgical History: No Pertinent History Cardiac History: No Pertinent History Respiratory Surgery: No Pertinent History GI Surgical History: No Pertinent History Genitourinary Surgical Hx: No Pertinent History Musculskeletal Surgical Hx: No Pertinent History, Amputation Male Surgical History: No Pertinent History Other Surgical History: BKA Significant Family History: no pertinent family hx - Social History Smoking Status: Former smoker How long have you smoked: 24 Exposure to second hand smoke: No Alcohol: Occasionally, Weekly Drug Use: marijuana, none - Physical Exam Vital Signs: Vital Signs - 24 hr Temp Pulse Resp BP BP Pulse Ox 01/27/24 00:00 85 13 143/93 96 01/26/24 23:30 84 16 149/99 01/26/24 23:00 86 16 136/80 96 01/26/24 22:42 82 17 156/104 98 01/26/24 22:41 87 21 93 L 01/26/24 22:40 87 15 93 L 01/26/24 22:38 96 01/26/24 21:30 159/93 01/26/24 21:00 83 16 149/90 97 01/26/24 20:30 87 23 167/95 94 L 01/26/24 20:00 86 17 169/99 92 L 01/26/24 19:30 87 19 157/92 90 L 01/26/24 19:13 80 157/92 93 L 01/26/24 18:54 95 01/26/24 17:52 97.6 F 79 20 171/104 95 General Appearance: mild distress, alert Neurologic Exam: alert, oriented x 3, cooperative Eye Exam: PERRL/EOMI, eyes nml inspection Ears, Nose, Throat Exam: normal ENT inspection, dry mucous membranes Neck Exam: normal inspection, supple, full range of motion Respiratory Exam: diminished breath sounds Cardiovascular Exam: regular rate/rhythm, normal heart sounds Gastrointestinal/Abdomen Exam: soft, normal bowel sounds Rectal Exam: deferred Back Exam: normal inspection Extremity Exam: normal inspection Skin Exam: normal color, dry Results - Labs Lab/Micro Results: Lab Results-Last 24 Hours 01/26/24 01/26/24 01/26/24 Range/Units 17:57 18:00 18:00 WBC 7.7 (4.0-10.5) x10^3/uL RBC 3.61 L (4.1-5.6) x10^6/uL Hgb 10.3 L (12.5-18.0) g/dL Hct 33.4 L (42-50) % MCV 92.5 (78-100) fL MCH 28.5 (26-32) pg MCHC 30.8 L (32-36) g/dL RDW 18.1 H (11.5-14.0) % Plt Count 327 (150-450) x10^3/uL MPV 11.8 H (7.5-11.0) fL Gran % 76.9 H (36.0-66.0) % Immature Gran % (Auto) 0.3 (0.00-0.4) % Nucleat RBC Rel Count 0.0 (0.00-0.1) % Eos # (Auto) 0.33 (0-0.5) x10^3/uL Immature Gran # (Auto) 0.02 (0.00-0.03) x10^3u/L Absolute Lymphs (auto) 0.87 L (1.0-4.6) x10^3/uL Absolute Monos (auto) 0.52 (0.0-1.3) x10^3/uL Absolute Nucleated RBC 0.00 (0.00-0.01) x10^3u/L Lymphocytes % 11.2 L (24.0-44.0) % Monocytes % 6.7 (0.0-12.0) % Eosinophils % 4.3 (0.00-5.0) % Basophils % 0.6 (0.0-0.4) % Absolute Granulocytes 5.95 (1.4-6.9) x10^3/uL Basophils # 0.05 (0-0.4) x10^3/uL Sodium 139 (135-145) mmol/L Potassium 4.7 (3.5-5.1) mmol/L Chloride 103 (98-107) mmol/L Carbon Dioxide 24 (22-30) mmol/L Anion Gap 15.9 H (5-15) MEQ/L BUN 21 H (9-20) mg/dL Creatinine 1.25 (0.66-1.25) mg/dL Estimated GFR 68.9 ML/MIN Glucose 32 L* (74-106) mg/dL POC Glucometer (50 to 500) mg/dL Calcium 10.3 H (8.4-10.2) mg/dL Magnesium 1.3 L (1.6-2.3) mg/dL Total Bilirubin 0.20 (0.2-1.3) mg/dL AST 44 (17-59) U/L ALT 36 (0-50) U/L Alkaline Phosphatase 55 (38-126) U/L Troponin I (0.000-0.034) ng/mL Serum Total Protein 7.3 (6.3-8.2) g/dL Albumin 4.1 (3.5-5.0) g/dL Urine Color Yellow (Yellow) Urine Appearance Clear (Clear) Urine pH 5.0 (4.6-8.0) Ur Specific [place] 1.015 (1.005-1.030) Urine Protein 100 A (Negative) Urine Glucose (UA) Negative (Negative) mg/dL Urine Ketones Negative (Negative) Urine Blood Trace (Negative) Urine Nitrite Negative (Negative) Urine Bilirubin Negative (Negative) Urine Urobilinogen 0.2 (0.2) mg/dL Ur Leukocyte Esterase Negative (Negative) U Hyaline Cast (Auto) 3-5 A (0-2) /LPF Urine Microscopic RBC 0-2 (0-5) /HPF Urine Microscopic WBC 0-2 (0-5) /HPF Ur Epithelial Cells None Seen (None Seen) /HPF Urine Bacteria None Seen (None Seen) /HPF Urine Culture Reflexed NO (NO) Influenza Type A Ag (NEGATIVE) Influenza Type B Ag (NEGATIVE) RSV (PCR) (NEGATIVE) SARS-CoV-2 (PCR) (NEGATIVE) 01/26/24 01/26/24 01/26/24 Range/Units 18:00 18:45 19:17 WBC (4.0-10.5) x10^3/uL RBC (4.1-5.6) x10^6/uL Hgb (12.5-18.0) g/dL Hct (42-50) % MCV (78-100) fL MCH (26-32) pg MCHC (32-36) g/dL RDW (11.5-14.0) % Plt Count (150-450) x10^3/uL MPV (7.5-11.0) fL Gran % (36.0-66.0) % Immature Gran % (Auto) (0.00-0.4) % Nucleat RBC Rel Count (0.00-0.1) % Eos # (Auto) (0-0.5) x10^3/uL Immature Gran # (Auto) (0.00-0.03) x10^3u/L Absolute Lymphs (auto) (1.0-4.6) x10^3/uL Absolute Monos (auto) (0.0-1.3) x10^3/uL Absolute Nucleated RBC (0.00-0.01) x10^3u/L Lymphocytes % (24.0-44.0) % Monocytes % (0.0-12.0) % Eosinophils % (0.00-5.0) % Basophils % (0.0-0.4) % Absolute Granulocytes (1.4-6.9) x10^3/uL Basophils # (0-0.4) x10^3/uL Sodium (135-145) mmol/L Potassium (3.5-5.1) mmol/L Chloride (98-107) mmol/L Carbon Dioxide (22-30) mmol/L Anion Gap (5-15) MEQ/L BUN (9-20) mg/dL Creatinine (0.66-1.25) mg/dL Estimated GFR ML/MIN Glucose (74-106) mg/dL POC Glucometer 36 L* (50 to 500) mg/dL Calcium (8.4-10.2) mg/dL Magnesium (1.6-2.3) mg/dL Total Bilirubin (0.2-1.3) mg/dL AST (17-59) U/L ALT (0-50) U/L Alkaline Phosphatase (38-126) U/L Troponin I 0.023 (0.000-0.034) ng/mL Serum Total Protein (6.3-8.2) g/dL Albumin (3.5-5.0) g/dL Urine Color (Yellow) Urine Appearance (Clear) Urine pH (4.6-8.0) Ur Specific [place] (1.005-1.030) Urine Protein (Negative) Urine Glucose (UA) (Negative) mg/dL Urine Ketones (Negative) Urine Blood (Negative) Urine Nitrite (Negative) Urine Bilirubin (Negative) Urine Urobilinogen (0.2) mg/dL Ur Leukocyte Esterase (Negative) U Hyaline Cast (Auto) (0-2) /LPF Urine Microscopic RBC (0-5) /HPF Urine Microscopic WBC (0-5) /HPF Ur Epithelial Cells (None Seen) /HPF Urine Bacteria (None Seen) /HPF Urine Culture Reflexed (NO) Influenza Type A Ag NEGATIVE (NEGATIVE) Influenza Type B Ag NEGATIVE (NEGATIVE) RSV (PCR) NEGATIVE (NEGATIVE) SARS-CoV-2 (PCR) NEGATIVE (NEGATIVE) 01/26/24 01/26/24 01/26/24 Range/Units 19:49 21:05 22:45 WBC (4.0-10.5) x10^3/uL RBC (4.1-5.6) x10^6/uL Hgb (12.5-18.0) g/dL Hct (42-50) % MCV (78-100) fL MCH (26-32) pg MCHC (32-36) g/dL RDW (11.5-14.0) % Plt Count (150-450) x10^3/uL MPV (7.5-11.0) fL Gran % (36.0-66.0) % Immature Gran % (Auto) (0.00-0.4) % Nucleat RBC Rel Count (0.00-0.1) % Eos # (Auto) (0-0.5) x10^3/uL Immature Gran # (Auto) (0.00-0.03) x10^3u/L Absolute Lymphs (auto) (1.0-4.6) x10^3/uL Absolute Monos (auto) (0.0-1.3) x10^3/uL Absolute Nucleated RBC (0.00-0.01) x10^3u/L Lymphocytes % (24.0-44.0) % Monocytes % (0.0-12.0) % Eosinophils % (0.00-5.0) % Basophils % (0.0-0.4) % Absolute Granulocytes (1.4-6.9) x10^3/uL Basophils # (0-0.4) x10^3/uL Sodium (135-145) mmol/L Potassium (3.5-5.1) mmol/L Chloride (98-107) mmol/L Carbon Dioxide (22-30) mmol/L Anion Gap (5-15) MEQ/L BUN (9-20) mg/dL Creatinine (0.66-1.25) mg/dL Estimated GFR ML/MIN Glucose (74-106) mg/dL POC Glucometer 105 93 (50 to 500) mg/dL Calcium (8.4-10.2) mg/dL Magnesium (1.6-2.3) mg/dL Total Bilirubin (0.2-1.3) mg/dL AST (17-59) U/L ALT (0-50) U/L Alkaline Phosphatase (38-126) U/L Troponin I 0.020 (0.000-0.034) ng/mL Serum Total Protein (6.3-8.2) g/dL Albumin (3.5-5.0) g/dL Urine Color (Yellow) Urine Appearance (Clear) Urine pH (4.6-8.0) Ur Specific [place] (1.005-1.030) Urine Protein (Negative) Urine Glucose (UA) (Negative) mg/dL Urine Ketones (Negative) Urine Blood (Negative) Urine Nitrite (Negative) Urine Bilirubin (Negative) Urine Urobilinogen (0.2) mg/dL Ur Leukocyte Esterase (Negative) U Hyaline Cast (Auto) (0-2) /LPF Urine Microscopic RBC (0-5) /HPF Urine Microscopic WBC (0-5) /HPF Ur Epithelial Cells (None Seen) /HPF Urine Bacteria (None Seen) /HPF Urine Culture Reflexed (NO) Influenza Type A Ag (NEGATIVE) Influenza Type B Ag (NEGATIVE) RSV (PCR) (NEGATIVE) SARS-CoV-2 (PCR) (NEGATIVE) Microbiology 01/27/24 00:24 Blood Culture Gram Stain - Final Blood Not Reportable 01/27/24 00:24 Blood Culture Gram Stain - Final Blood Not Reportable Accuchecks Date 01/26/24 Date 01/26/24 Time 18:21 Time 17:31 - Radiology Impressions Radiology Exams & Impressions: Radiology Procedures Category Date Time Status CHEST 1 VIEW (PORTABLE) Stat Exams 01/26/24 17:43 Completed CHEST WITH CONTRAST [CT] Stat Exams 01/26/24 20:55 Completed - Other Procedures and Tests Respiratory Therapy 01/27/24 00:50 Oxygen Nasal Cannula 2 lpm Assessment/Plan (1) Bilateral pneumonia Current Visit: Yes Status: Acute Assessment & Plan: Seen on CT. No PE. Covid and flu negative. BC and sputum cultures ordered. Rocephin and Azithromycin started Code(s): J18.9 - PNEUMONIA, UNSPECIFIED ORGANISM (2) Hypoxia Current Visit: Yes Status: Acute Assessment & Plan: 2/2 CHF and PNA. Treating each in turn. O2 protocol to keep O2 sat > 92%. [facility] prn Code(s): R09.02 - HYPOXEMIA (3) Acute heart failure Current Visit: No Status: Acute Assessment & Plan: Hx of CHF, unknown EF for me. On diuretic at home. Will give Lasix 40mg IV daily. Reduce D10 to 50-60ml/hr. Has BL pleural effusions - if significant, will need thoracentesis, as diuretic alone will now be effective in moving this 3rd space fluid Code(s): I50.9 - HEART FAILURE, UNSPECIFIED (4) Hypoglycemia Current Visit: Yes Status: Acute Assessment & Plan: Unsure why? perhaps due to poor intake + a multiple hypoglycemic meds. Holding these meds, on D10 at 60ml/hr. Encouraged adequate oral intake He has not been eating qwell and confused as to what meds he is actually taking. Likely will have to reduce the number of oral hypoglycemics for him prior to leaving this time. And he needs to see his PCP soon to help fine-tune his BS and medical management. I told him if he is not eating much, he may not need to take all these DM meds because the combination could be dangerous for him. May need to bring his son in for same discussion and plan Code(s): E16.2 - HYPOGLYCEMIA, UNSPECIFIED (5) Essential (primary) hypertension Current Visit: Yes Status: Acute Assessment & Plan: BP is elevated. On IVF for low BS. Resumed home meds Code(s): I10 - ESSENTIAL (PRIMARY) HYPERTENSION (6) Anemia Current Visit: Yes Status: Acute Assessment & Plan: Hgb 10.3. No black or bloody stools reported. Check iron and monitor Code(s): D64.9 - ANEMIA, UNSPECIFIED (7) Diabetes mellitus Current Visit: Yes Status: Acute Assessment & Plan: He is here with low BS. Holding oral hypoglyccemic for which he is on multiple. D10 at 60ml/hr, monitor Code(s): E11.9 - TYPE 2 DIABETES MELLITUS WITHOUT COMPLICATIONS (8) Hypercalcemia Current Visit: Yes Status: Acute Assessment & Plan: Ca 10.3, barely above normal range. On IVF with D10 for low BS, and Lasix. Both of these should help. Monitor Code(s): E83.52 - HYPERCALCEMIA Telemedicine Encounter - Telemedicine Encounter Telemedicine Encounter: The entirety of this encounter was performed via Telemedicine" Pt gave me verbal consent to have this telemedicine visit
[2024-01-27] MEDS: DUONEB 0.5-3 MG/3 ml Neb IH SCH (01:02)
[2024-01-27] MEDS: PROVENTIL 2.5 MG/3 ML NEB IH SCH (03:02)
[2024-01-27] MEDS: DEXTROSE 10% 250 ML 250 ML IV SCH (03:08)
[2024-01-27] MEDS: ROCEPHIN 1 GM / 100 ML NaCl 1 GM/100 ML IVPB IV SCH ×3 (03:50→22:46)
[2024-01-27] MEDS: TYLENOL 325 MG PO PRN (05:09)
[2024-01-27 06:17] LABS: Hematocrit 28.8 % (42-50); Mean Cell Volume 90.9 fL (78-100); Mean Corpuscular Hemoglobin 28.4 pg (26-32); Mean Corpuscular Hgb Concent. 31.3 g/dL (32-36); Mean Platelet Volume 11.9 fL (7.5-11.0); Platelet Count 291 x10^3/uL (150-450); Red Blood Count 3.17 x10^6/uL (4.1-5.6); Red Cell Distribution Width 18.5 % (11.5-14.0); White Blood Count 9.2 x10^3/uL (4.0-10.5)
[2024-01-27 06:38] LABS: ALBUMIN 3.7 g/dL (3.5-5.0); ANION GAP 11.5 MEQ/L (5-15); BILIRUBIN,TOTAL 0.3 mg/dL (0.2-1.3); Calcium 9.4 mg/dL (8.4-10.2); Creatinine 1 1.08 mg/dL (0.66-1.25); EST GLOMERULAR FILTRATION RATE 82.1 ML/MIN; MAGNESIUM 1.7 mg/dL (1.6-2.3); Potassium 3.9 mmol/L (3.5-5.1); Total Protein 6.9 g/dL (6.3-8.2)
[2024-01-27] MEDS ORDERED: PROVENTIL Solution 2.5 MG/0.5 ML IH ONE (07:48)
[2024-01-27] MEDS ORDERED: Ativan 2 MG/1 ML VIAL IV PRN (08:24)
[2024-01-27] MEDS: ceLEXa 20 MG PO SCH (08:34)
[2024-01-27] MEDS ORDERED: MEDICATION INTERVENTION MC SCH (08:45)
[2024-01-27] MEDS ORDERED: NON-FORMULARY ITEM (Aripiprazole [Abilify] 2 MG Tablet) PO SCH (10:00)
[2024-01-27] MEDS ORDERED: NON-FORMULARY ITEM (Sacubitril/Valsartan [Entresto 24 Mg-26 Mg Tablet] 1 EACH Tablet) PO SCH (10:00)
[2024-01-27] MEDS ORDERED: NON-FORMULARY ITEM (Losartan Potassium [Losartan Potassium] 100 MG Tablet) PO SCH (10:00)
[2024-01-27] MEDS ORDERED: NON-FORMULARY ITEM (Amlodipine Besylate [Norvasc] 10 MG Tablet) PO SCH (10:00)
[2024-01-27] MEDS ORDERED: BABY ASPIRIN 81 MG CHEW PO SCH (10:00)
[2024-01-27] MEDS ORDERED: Zithromax 500 MG/ 250 ML NaCl Premix 500 MG/250 ML IVPB IV SCH (10:00)
[2024-01-27] MEDS: ENOXAPARIN SODIUM SQ SCH (10:49)
[2024-01-27] MEDS: FOLATE 1 MG PO SCH (10:49)
[2024-01-27] MEDS: ENTRESTO 49 MG-51 MG TABLET PO SCH (10:50)
[2024-01-27] MEDS: ECOTRIN 81 MG PO SCH (10:50)
[2024-01-27] MEDS: Lasix 40 MG/4 ML IV SCH (10:51)
[2024-01-27] MEDS: NORVASC 5 MG PO SCH (10:51)
[2024-01-27] MEDS: COREG 12.5 MG PO SCH (10:51)
[2024-01-27] MEDS: Cozaar 50 MG PO SCH (10:51)
[2024-01-27] MEDS: JARDIANCE PO SCH (10:52)
[2024-01-27] MEDS: Aldactone 25 MG PO SCH (10:52)
--- NOTE | 2024-01-27 11:04 | PCM.NOTE ---
is a 53 year old male with a history of DMII, HTN, CAD, CHF, HLP presented tonight with c/o on-going low blood sugar of the past 2-3 days. His son insisted he came in. Here, BS was in the 30-40s. But he developed SOB while in ER< O2 sat dropped. CT chest negative for PE but shows BL ground glass infiltrates, R > L, and BL pleural effusions. Flu and covid negative. Now being admitted for hypoglycemia and BL pneumonia, with fluid overload. Glucose levels stabilizing. Patient with poor appetite chronically. Patient is a chronic daily alcohol consumer, 1 pint of whiskey, with up to 5 beers daily. Will initiate CIWA protocol. Continue current management with AZITH/Rocephin. Hold diabetic meds for now. Denies fever,cough, sob, cp, abdominal pain, DENISE, dizziness, N/V/D. Titrate oxygen, patient baseline RA.
[2024-01-27 13:13] LABS: Basophil 1 % (0.0-1.0); Eosinophil 2 % (0.00-3.0); Lymphocytes 10 % (24-44); Monocyte 4 % (0.0-12.0); Neutrophils 83 % (36.-66.); Platelet Estimate NORMAL (NORMAL); Polychromasia 1+; Total Cells Counted 100
[2024-01-27] MEDS: NORCO 5/325 MG PO PRN (13:25)
[2024-01-27] MEDS ORDERED: NON-FORMULARY ITEM (Atorvastatin Calcium [Atorvastatin Calcium] 80 MG Tablet) PO SCH (22:00)
[2024-01-27] MEDS: ZOCOR 20MG PO SCH (22:44)
[2024-01-27] MEDS: DESYREL 50 MG PO SCH (22:44)
[2024-01-27] MEDS: Zithromax 500 MG/ 250 ML NaCl Premix 500 MG/250 ML IVPB IV SCH (23:30)
[2024-01-28 04:45] VITALS: O2SAT 98
[2024-01-28] MEDS ORDERED: PROVENTIL 2.5 MG/3 ML NEB IH PRN (06:54)
[2024-01-28 07:31] LABS: Hematocrit 28.2 % (42-50); Hemoglobin 8.5 g/dL (12.5-18.0); Mean Cell Volume 93.7 fL (78-100); Mean Corpuscular Hemoglobin 28.2 pg (26-32); Mean Corpuscular Hgb Concent. 30.1 g/dL (32-36); Mean Platelet Volume 10.9 fL (7.5-11.0); Platelet Count 248 x10^3/uL (150-450); Red Blood Count 3.01 x10^6/uL (4.1-5.6); Red Cell Distribution Width 18.8 % (11.5-14.0); White Blood Count 7.3 x10^3/uL (4.0-10.5)
[2024-01-28 07:46] LABS: ALBUMIN 3.5 g/dL (3.5-5.0); ANION GAP 8.9 MEQ/L (5-15); BILIRUBIN,TOTAL 0.4 mg/dL (0.2-1.3); Calcium 9.1 mg/dL (8.4-10.2); Creatinine 1 1.19 mg/dL (0.66-1.25); MAGNESIUM 1.5 mg/dL (1.6-2.3); Total Protein 6.5 g/dL (6.3-8.2)
--- NOTE | 2024-01-28 09:30 | PCM.DS ---
Discharge Summary Date of Admission: 01/27/24 01:38 Date of Discharge: 01/28/24 Admitting Physician: OWEN MUKHERJEE DO Primary Care Provider: MARLYN NOEL MD Allergies Allergies Penicillins Allergy (Verified 01/26/24 17:51) Beta-Blockers (Beta-Adrenergic Bloc Adverse Reaction (Verified 01/26/24 17:51) Wheezing Hospital Summary - Hospital Course Hospital Course: is a 53 year old male with a history of DMII, HTN, CAD, CHF, HLP presented tonight with c/o on-going low blood sugar of the past 2-3 days. His son insisted he came in. Here, BS was in the 30-40s. But he developed SOB while in ER< O2 sat dropped. CT chest negative for PE but shows BL ground glass infiltrates, R > L, and BL pleural effusions. Flu and covid negative. Admitted for hypoglycemia and BL pneumonia, with fluid overload. He was in hospital last week for same complaint. He has poor appetite and his med list shows multiple hypoglycemic meds. He is unsure of what is actually taking. He has an appointment with with his PCP today Dr. Noel and would like to go to this appointment. He is RA 98%. Glucose levels stabilized, Dextrose IVFD stopped. Patient has poor appetite chronically. He is a chronic daily alcohol consumer, 1 pint of whiskey, with up to 5 beers daily. CIWA protocol in place. Continue current management with AZITH/Rocephin. Will d/c with antibiotics. Denies fever,cough, sob, cp, abdominal pain, DENISE, dizziness, N/V/D. - Vitals & Intake/Output Vital Signs: Vital Signs Temperature 97.8 F 01/28/24 07:10 Pulse Rate 85 01/28/24 07:32 Respiratory Rate 18 01/28/24 07:32 Blood Pressure 98/55 01/28/24 07:10 O2 Sat by Pulse Oximetry 98 01/28/24 07:32 Intake & Output: Intake & Output 01/25/24 01/26/24 01/27/24 01/28/24 10:59 10:59 11:59 11:59 Intake Total 3494 Output Total 2300 Balance 1194 Weight - Lab Result Diagrams: 01/28/24 07:25 01/28/24 07:25 Lab Results-Last 24 Hrs: Lab Results-Last 24 Hours 01/27/24 01/27/24 01/27/24 Range/Units 05:53 10:51 11:37 WBC (4.0-10.5) x10^3/uL RBC (4.1-5.6) x10^6/uL Hgb (12.5-18.0) g/dL Hct (42-50) % MCV (78-100) fL MCH (26-32) pg MCHC (32-36) g/dL RDW (11.5-14.0) % Plt Count (150-450) x10^3/uL MPV (7.5-11.0) fL Segmented Neutrophils 83 H (36.-66.) % Lymphocytes (Manual) 10 L (24-44) % Monocytes (Manual) 4 (0.0-12.0) % Eosinophils (Manual) 2 (0.00-3.0) % Basophils (Manual) 1 (0.0-1.0) % Platelet Estimate NORMAL (NORMAL) RBC Morphology NORMAL Polychromasia 1+ Sodium (135-145) mmol/L Potassium (3.5-5.1) mmol/L Chloride (98-107) mmol/L Carbon Dioxide (22-30) mmol/L Anion Gap (5-15) MEQ/L BUN (9-20) mg/dL Creatinine (0.66-1.25) mg/dL Estimated GFR ML/MIN Glucose (74-106) mg/dL POC Glucometer 86 77 (74 to 106) mg/dL Calcium (8.4-10.2) mg/dL Magnesium (1.6-2.3) mg/dL Total Bilirubin (0.2-1.3) mg/dL AST (17-59) U/L ALT (0-50) U/L Alkaline Phosphatase (38-126) U/L Serum Total Protein (6.3-8.2) g/dL Albumin (3.5-5.0) g/dL 01/27/24 01/27/24 01/28/24 Range/Units 16:09 21:01 00:00 WBC (4.0-10.5) x10^3/uL RBC (4.1-5.6) x10^6/uL Hgb (12.5-18.0) g/dL Hct (42-50) % MCV (78-100) fL MCH (26-32) pg MCHC (32-36) g/dL RDW (11.5-14.0) % Plt Count (150-450) x10^3/uL MPV (7.5-11.0) fL Segmented Neutrophils (36.-66.) % Lymphocytes (Manual) (24-44) % Monocytes (Manual) (0.0-12.0) % Eosinophils (Manual) (0.00-3.0) % Basophils (Manual) (0.0-1.0) % Platelet Estimate (NORMAL) RBC Morphology Polychromasia Sodium (135-145) mmol/L Potassium (3.5-5.1) mmol/L Chloride (98-107) mmol/L Carbon Dioxide (22-30) mmol/L Anion Gap (5-15) MEQ/L BUN (9-20) mg/dL Creatinine (0.66-1.25) mg/dL Estimated GFR ML/MIN Glucose (74-106) mg/dL POC Glucometer 99 78 105 (74 to 106) mg/dL Calcium (8.4-10.2) mg/dL Magnesium (1.6-2.3) mg/dL Total Bilirubin (0.2-1.3) mg/dL AST (17-59) U/L ALT (0-50) U/L Alkaline Phosphatase (38-126) U/L Serum Total Protein (6.3-8.2) g/dL Albumin (3.5-5.0) g/dL 01/28/24 01/28/24 01/28/24 Range/Units 04:22 07:19 07:25 WBC 7.3 (4.0-10.5) x10^3/uL RBC 3.01 L (4.1-5.6) x10^6/uL Hgb 8.5 L (12.5-18.0) g/dL Hct 28.2 L (42-50) % MCV 93.7 (78-100) fL MCH 28.2 (26-32) pg MCHC 30.1 L (32-36) g/dL RDW 18.8 H (11.5-14.0) % Plt Count 248 (150-450) x10^3/uL MPV 10.9 (7.5-11.0) fL Segmented Neutrophils (36.-66.) % Lymphocytes (Manual) (24-44) % Monocytes (Manual) (0.0-12.0) % Eosinophils (Manual) (0.00-3.0) % Basophils (Manual) (0.0-1.0) % Platelet Estimate (NORMAL) RBC Morphology Polychromasia Sodium (135-145) mmol/L Potassium (3.5-5.1) mmol/L Chloride (98-107) mmol/L Carbon Dioxide (22-30) mmol/L Anion Gap (5-15) MEQ/L BUN (9-20) mg/dL Creatinine (0.66-1.25) mg/dL Estimated GFR ML/MIN Glucose (74-106) mg/dL POC Glucometer 103 108 H (74 to 106) mg/dL Calcium (8.4-10.2) mg/dL Magnesium (1.6-2.3) mg/dL Total Bilirubin (0.2-1.3) mg/dL AST (17-59) U/L ALT (0-50) U/L Alkaline Phosphatase (38-126) U/L Serum Total Protein (6.3-8.2) g/dL Albumin (3.5-5.0) g/dL 01/28/24 Range/Units 07:25 WBC (4.0-10.5) x10^3/uL RBC (4.1-5.6) x10^6/uL Hgb (12.5-18.0) g/dL Hct (42-50) % MCV (78-100) fL MCH (26-32) pg MCHC (32-36) g/dL RDW (11.5-14.0) % Plt Count (150-450) x10^3/uL MPV (7.5-11.0) fL Segmented Neutrophils (36.-66.) % Lymphocytes (Manual) (24-44) % Monocytes (Manual) (0.0-12.0) % Eosinophils (Manual) (0.00-3.0) % Basophils (Manual) (0.0-1.0) % Platelet Estimate (NORMAL) RBC Morphology Polychromasia Sodium 138 (135-145) mmol/L Potassium 4.0 (3.5-5.1) mmol/L Chloride 104 (98-107) mmol/L Carbon Dioxide 30 (22-30) mmol/L Anion Gap 8.9 (5-15) MEQ/L BUN 13 (9-20) mg/dL Creatinine 1.19 (0.66-1.25) mg/dL Estimated GFR 73.0 ML/MIN Glucose 105 (74-106) mg/dL POC Glucometer (74 to 106) mg/dL Calcium 9.1 (8.4-10.2) mg/dL Magnesium 1.5 L (1.6-2.3) mg/dL Total Bilirubin 0.40 (0.2-1.3) mg/dL AST 37 (17-59) U/L ALT 29 (0-50) U/L Alkaline Phosphatase 50 (38-126) U/L Serum Total Protein 6.5 (6.3-8.2) g/dL Albumin 3.5 (3.5-5.0) g/dL Micro Results-Entire Visit: Microbiology 01/27/24 01:20 Blood Culture - Preliminary Blood 01/27/24 01:25 Blood Culture - Preliminary Blood Accuchecks Date 01/28/24 Date 01/27/24 Date 01/27/24 Date 01/27/24 Date 01/27/24 Date 01/27/24 Time 07:40 Time 17:24 Time 13:33 Time 13:33 Time 11:41 Time 11:09 - Radiology Exams Ordered Rad Exams-Entire Visit: Radiology Procedures Category Date Time Status CHEST 1 VIEW (PORTABLE) Stat Exams 01/26/24 17:43 Completed CHEST WITH CONTRAST [CT] Stat Exams 01/26/24 20:55 Completed - Procedures and Test Procedures and Tests throughout Hospitalization: Therapy Orders & Screens 01/27/24 01:03 Respiratory Therapy Assessment DAILY Comment: Diagnosis: pneumonia 01/27/24 01:50 EKG REPEAT IN AM Comment: Oxygen Nasal Cannula 4 lpm Comment: Respiratory Therapy Consult ONCE Comment: Reason For Exam: 01/27/24 19:51 Incentive Spirometry UD Comment: Diagnosis: pneumonia Discharge Exam General Appearance: no apparent distress, alert Neurologic Exam: alert, oriented x 3, cooperative, normal mood/affect, nml cerebellar function, sensation nml, No motor deficits Eye Exam: PERRL, EOMI, eyes nml inspection Ears, Nose, Throat Exam: normal ENT inspection, pharynx normal, moist mucous membranes Neck Exam: normal inspection, non-tender, supple, full range of motion Respiratory Exam: normal breath sounds, lungs clear, No respiratory distress Cardiovascular Exam: regular rate/rhythm, normal heart sounds Gastrointestinal/Abdomen Exam: soft, No tenderness, No mass Male Genitalia Exam: deferred Rectal Exam: deferred Back Exam: normal inspection, normal range of motion, No CVA tenderness, No vertebral tenderness Extremity Exam: normal inspection, normal range of motion Skin Exam: normal color, warm, dry Final Diagnosis/Problem List - Final Discharge Diagnosis/Problem (1) Hypoglycemia Current Visit: Yes Status: Chronic Assessment & Plan: - 2:2 poor intake and multiple hypoglycemic meds. - D10 stopped today - Encouraged adequate oral intake - Has appointment with PCP today- needs help fine-tune his BS and medical management. If he is not eating much, he may not need to take all these DM meds because the combination could be dangerous for him. Code(s): E16.2 - HYPOGLYCEMIA, UNSPECIFIED (2) Bilateral pneumonia Current Visit: Yes Status: Acute Assessment & Plan: - Seen on CT. - No PE. - Covid and flu negative. - BC x2 negative - sputum culture pending - Rocephin and Azithromycin - will d/c with doxycycline Code(s): J18.9 - PNEUMONIA, UNSPECIFIED ORGANISM (3) Anemia Current Visit: Yes Status: Acute Assessment & Plan: - Hgb stable at 8.5 - F/U with PCP OP for repeat labs Code(s): D64.9 - ANEMIA, UNSPECIFIED (4) Diabetes mellitus Current Visit: Yes Status: Chronic Assessment & Plan: - continue jardiance as this is for heart failure. - discuss all other meds with PCP today. Code(s): E11.9 - TYPE 2 DIABETES MELLITUS WITHOUT COMPLICATIONS (5) Essential (primary) hypertension Current Visit: Yes Status: Chronic Assessment & Plan: - continue home meds - BP stable Code(s): I10 - ESSENTIAL (PRIMARY) HYPERTENSION (6) Hypercalcemia Current Visit: Yes Status: Resolved Assessment & Plan: - Ca+ 9.1 Code(s): E83.52 - HYPERCALCEMIA (7) Hypoxia Current Visit: Yes Status: Resolved Assessment & Plan: - resolved - RA 98% Code(s): R09.02 - HYPOXEMIA (8) Acute heart failure Current Visit: No Status: Resolved Assessment & Plan: -Hx of CHF, unknown EF for me. -On diuretic at home. Will give Lasix 40mg IV daily. - IVF stopped -Has BL pleural effusions - if significant, will need thoracentesis, as diuretic alone will now be effective in moving this 3rd space fluid - RA 98% Code(s): I50.9 - HEART FAILURE, UNSPECIFIED - Discharge Disposition: Home, Self-Care Condition: Stable Prescriptions: Continue Sacubitril/Valsartan [Entresto 24 mg-26 mg Tablet] 1 tab PO BID Nitroglycerin 0.4 mg Tablet [Nitrostat 0.4 MG Tablet] 1 tab PO UD PRN PRN Reason: Chest Pain Furosemide [Lasix] 20 mg PO DAILY Empagliflozin [Jardiance] 25 mg PO DAILY Carvedilol 12.5 mg [Coreg 12.5 mg] 2 tab PO BID Atorvastatin Calcium 80 mg PO HS Aspirin 81 gm Chew [Baby Aspirin 81 mg Chew] 1 tab PO DAILY Trazodone HCl 50 mg [Desyrel 50 mg] 150 mg PO HS Spironolactone 25 mg [Aldactone 25 MG] 25 mg PO DAILY Amlodipine Besylate [Norvasc] 10 mg PO DAILY Folic Acid 1 mg [Folate 1 mg] 1 mg PO DAILY Citalopram Hydrobromide 20 mg* [ceLEXa 20 MG] 20 mg PO DAILY Aripiprazole [Abilify] 2 mg PO DAILY Losartan Potassium 100 mg PO DAILY Bumetanide 0.5 mg PO DAILY Potassium Chloride 1 tab PO DAILY Discontinued Metformin HCl [Metformin ER Osmotic] 1,000 mg PO BID Glipizide 5 mg [Glucotrol 5 MG] 5 mg PO BID Pioglitazone 30 mg [Actos 30 MG] 30 mg PO DAILY Additional Instructions: Discuss with Dr. Noel what meds to restart as you have had 2 episodes of hypoglycemia in 2 weeks with hospital admission. Continue Jardiance as this is also used for heart failure and diabetes. Make sure you are eating well at home. Follow up with: MARLYN NOEL MD [Primary Care Provider] - 02/07/24 1:00 pm
[2024-01-28] MEDS ORDERED: HOLD METFORMIN PRODUCTS FOR 48 HOURS MC SCH (10:20)
[2024-01-28 11:43] VITALS: BP 117/68; PULSE 78; RESP 16; TEMP 97.5
== END 2024-01-28 12:10 | disposition home or self-care (01) | DRG 640 ==
LOC: ED 17:30 → MED SURG 01-27 01:38
PROVIDERS: ADMIT Internal Medicine; ATTEND Internal Medicine
DX: E16.2 Hypoglycemia, unspecified (principal); J18.9 Pneumonia, unspecified organism; D64.9 Anemia, unspecified; I10 Essential (primary) hypertension; E83.52 Hypercalcemia; R09.02 Hypoxemia; I11.0 Hypertensive heart disease with heart failure; I50.9 Heart failure, unspecified; I25.10 Atherosclerotic heart disease of native coronary artery without angina pectoris; I25.2 Old myocardial infarction; Z79.899 Other long term (current) drug therapy; Z20.828 Contact with and (suspected) exposure to other viral communicable diseases; Z89.519 Acquired absence of unspecified leg below knee
CPT/HCPCS: 0241U; 36000; 36415; 71045; 71260; 80053; 81001; 82077; 82947; 83036; 83735; 84484; 85025; 85027; 87040; 93005; 94640; 94760; 94762; 96360; 96361; 96374; 96376; 99285; J0456; J0696; J1650; J1940; J3475; J7609; Q3014; A9270-GY

== ENCOUNTER 2024-02-08 18:43 | Emergency (ER) | payer OTHER ==
--- NOTE | 2024-02-08 18:48 | ERPHSYRPT ---
- History of Present Illness Time Seen by Provider: 02/08/24 18:48 Source: patient Exam Limitations: no limitations Physician History: This is a 53-year-old white male patient of Dr. Canchola who was brought to the emergency department by the ambulance service/paramedics. Patient is a diabetic and has had a right below the knee amputation in the past. Recently, 01/27/2024, patient was seen in our emergency department and admitted to the hospital to treat hypoglycemia. I reviewed that entire hospital stay and note. Today, the patient complained that he was having bilateral hip pain. Patient admits to drinking alcohol daily and had significant amount of alcohol consumption this morning. He also smokes marijuana. Patient denies chest pain. Patient denies shortness of breath. Patient is very teary-eyed. When asked about his tearfulness, he said that he is stressed about his health issues. He also states he is having a hard time dealing with the fact his father recently. Patient denies having any suicidal thoughts or homicidal thoughts. Patient has multiple medical problems including hyperlipidemia, hypertension, diabetes, depression, anxiety, chronic angina, CHF, coronary disease, gastroesophageal reflux disease and peripheral neuropathy. Timing/Duration: today Severity: moderate Modifying Factors: Improves With: nothing Associated Symptoms: denies symptoms Allergies/Adverse Reactions: Penicillins Allergy (Verified 02/08/24 18:54) Beta-Blockers (Beta-Adrenergic Bloc Adverse Reaction (Verified 02/08/24 18:54) Wheezing Home Medications: Aspirin 81 gm Chew [Baby Aspirin 81 mg Chew] 1 tab PO DAILY 02/22/23 [History] Atorvastatin Calcium 80 mg PO HS 02/22/23 [History] Carvedilol 12.5 mg [Coreg 12.5 mg] 2 tab PO BID 02/22/23 [History] Empagliflozin [Jardiance] 25 mg PO DAILY 02/22/23 [History] Furosemide [Lasix] 20 mg PO DAILY 02/22/23 [History] Nitroglycerin 0.4 mg Tablet [Nitrostat 0.4 MG Tablet] 1 tab PO UD PRN 02/22/23 [History] Sacubitril/Valsartan [Entresto 24 mg-26 mg Tablet] 1 tab PO BID 02/22/23 [History] Trazodone HCl 50 mg [Desyrel 50 mg] 150 mg PO HS 02/24/23 [History] Amlodipine Besylate [Norvasc] 10 mg PO DAILY 01/26/24 [History] Aripiprazole [Abilify] 2 mg PO DAILY 01/26/24 [History] Bumetanide 0.5 mg PO DAILY 01/26/24 [History] Citalopram Hydrobromide 20 mg* [ceLEXa 20 MG] 20 mg PO DAILY 01/26/24 [History] Folic Acid 1 mg [Folate 1 mg] 1 mg PO DAILY 01/26/24 [History] Losartan Potassium 100 mg PO DAILY 01/26/24 [History] Potassium Chloride 1 tab PO DAILY 01/26/24 [History] Spironolactone 25 mg [Aldactone 25 MG] 25 mg PO DAILY 01/26/24 [History] Hx Tetanus, Diphtheria Vaccination/Date Given: Yes Hx Influenza Vaccination/Date Given: Yes Hx Pneumococcal Vaccination/Date Given: Yes Travel Risk - International Travel Have you traveled outside of the country in past 3 weeks: No - Emerging Infectious Disease Are you exhibiting symptoms associated with any current EIDs: No - Vaccine Status Hx Covid Vaccintation/Booster/Date Given: No - Review of Systems Constitutional: Other (Patient states "I just feel crappy") Eyes: No Symptoms Ears, Nose, & Throat: No Symptoms Respiratory: No Symptoms Cardiac: No Symptoms Abdominal/Gastrointestinal: No Symptoms Genitourinary Symptoms: No Symptoms Musculoskeletal: Joint Pain (Bilateral hip pain) Skin: No Symptoms Neurological: No Symptoms Psychological: No Symptoms Endocrine: No Symptoms Hematologic/Lymphatic: No Symptoms Immunological/Allergic: No Symptoms All Other Systems: Reviewed and Negative - Past Medical History Pertinent Past Medical History: Yes Neurological History: No Pertinent History, Peripheral Neuropathy ENT History: No Pertinent History Cardiac History: Angina, Congestive Heart Failure, Myocardial Infarction (MD), High Cholesterol, Hypertension Respiratory History: CHF Endocrine Medical History: Diabetes Type II Musculoskeletal History: No Pertinent History, Other GI Medical History: No Pertinent History, GERD History: No Pertinent History Psycho-Social History: No Pertinent History, Depression Male Reproductive Disorders: No Pertinent History Other Medical History: diabetic foot ulcer that spread and has BKA - Past Surgical History Past Surgical History: Yes Neuro Surgical History: No Pertinent History Cardiac: No Pertinent History Respiratory: No Pertinent History Gastrointestinal: No Pertinent History Genitourinary: No Pertinent History Musculoskeletal: No Pertinent History, Amputation Male Surgical History: No Pertinent History Other Surgical History: BKA Significant Family History: no pertinent family hx - Social History Smoking Status: Former smoker How long have you smoked: 24 Exposure to second hand smoke: No Drug Use: marijuana, none Patient Lives Alone: No - Nursing Vital Signs Nursing Vital Signs: Initial Vital Signs Pulse Rate 62 02/08/24 18:44 Blood Pressure 101/72 02/08/24 18:44 O2 Sat by Pulse Oximetry 96 02/08/24 18:44 Pain Scale Pain Intensity 8 - Physical Exam General Appearance: no apparent distress, alert, anxiety Eye Exam: PERRL/EOMI, eyes nml inspection Ears, Nose, Throat Exam: normal ENT inspection, moist mucous membranes Neck Exam: normal inspection, non-tender, supple, full range of motion Respiratory Exam: normal breath sounds, lungs clear, airway intact, No chest tenderness, No respiratory distress Cardiovascular Exam: regular rate/rhythm, normal heart sounds, normal peripheral pulses Gastrointestinal/Abdomen Exam: soft, normal bowel sounds, No tenderness Rectal Exam: not done Back Exam: normal inspection, normal range of motion, No CVA tenderness, No vertebral tenderness Extremity Exam: pelvis stable, tenderness (Complains of bilateral hip pain.), other (BKA site within normal limits) Neurologic Exam: alert, oriented x 3, cooperative, fur cutter II-XII nml as tested, depressed mood/affect Skin Exam: normal color, warm, dry Lymphatic Exam: No adenopathy SpO2 Interpretation: normal O2 Delivery: Room Air - Course Nursing assessment & vital signs reviewed: Yes EKG Interpreted by Me: RATE (62), Sinus Rhythm, NORMAL AXIS, NORMAL INTERVALS, Right Bundle Branch Block, Other (No acute ischemic changes on today's twelve- lead EKG.) Ordered Tests: Active Orders 24 hr Category Date Time Status EKG-ER Only STAT Care 02/08/24 20:13 Active IV Insertion STAT Care 02/08/24 19:36 Active Pulse Oximetry (ED) STAT Care 02/08/24 19:36 Active cath [Cath for Specimen-Straight] STAT Care 02/08/24 20:02 Active CBC W DIFF Stat Lab 02/08/24 19:50 Completed CMP Stat Lab 02/08/24 19:50 Completed CULTURE,URINE Stat Lab 02/08/24 20:02 Received ETHYL ALCOHOL Stat Lab 02/08/24 19:50 Completed Lactic Acid Urgent Lab 02/08/24 19:55 Completed MAGNESIUM Stat Lab 02/08/24 19:50 Completed POCT GLUCOSE Stat Lab 02/08/24 20:19 Completed TROPONIN Q4H Lab 02/08/24 20:15 Completed TROPONIN Q4H Lab 02/09/24 00:15 Ordered TROPONIN Q4H Lab 02/09/24 04:15 Ordered UA W/RFX UR CULTURE Stat Lab 02/08/24 20:01 Completed Urine Triage Profile Stat Lab 02/08/24 20:02 Completed VENOUS BLOOD GAS Urgent Lab 02/08/24 19:55 Completed Medication Summary Discontinued Medications Generic Name Dose Route Start Last Admin Trade Name Freq PRN Reason Stop Dose Admin Sodium Chloride 1,000 mls @ 999 mls/hr 02/08/24 19:36 02/08/24 19:48 Sodium Chloride 0.9% 1000 Ml IV 02/08/24 20:36 999 mls/hr .Q1H1M STA Administration Sodium Chloride Confirm 02/08/24 19:40 Sodium Chloride 0.9% 1000 Ml Administered 02/08/24 19:41 Dose 1,000 mls @ ud .ROUTE .STK-MED ONE Morphine Sulfate 4 mg 02/08/24 19:36 02/08/24 19:49 Morphine Sulfate 4 Mg/Ml Injection IV 02/08/24 19:37 4 mg STAT ONE Administration Morphine Sulfate Confirm 02/08/24 19:40 Morphine Sulfate 4 Mg/Ml Injection Administered 02/08/24 19:41 Dose 4 mg .ROUTE .STK-MED ONE Ondansetron HCl 4 mg 02/08/24 19:36 02/08/24 19:49 Ondansetron Hcl 4 Mg/2 Ml Vial IV 02/08/24 19:37 4 mg STAT ONE Administration Ondansetron HCl Confirm 02/08/24 19:39 Ondansetron Hcl 4 Mg/2 Ml Vial Administered 02/08/24 19:40 Dose 4 mg .ROUTE .STK-MED ONE Lab/Rad Data: Laboratory Result Diagrams 02/08/24 19:50 02/08/24 19:50 Laboratory Results 02/08/24 02/08/24 02/08/24 Range/Units 20:19 20:15 20:02 WBC (4.0-10.5) x10^3/uL RBC (4.1-5.6) x10^6/uL Hgb (12.5-18.0) g/dL Hct (42-50) % MCV (78-100) fL MCH (26-32) pg MCHC (32-36) g/dL RDW (11.5-14.0) % Plt Count (150-450) x10^3/uL MPV (7.5-11.0) fL Gran % (36.0-66.0) % Immature Gran % (Auto) (0.00-0.4) % Nucleat RBC Rel Count (0.00-0.1) % Eos # (Auto) (0-0.5) x10^3/uL Immature Gran # (Auto) (0.00-0.03) x10^3u/L Absolute Lymphs (auto) (1.0-4.6) x10^3/uL Absolute Monos (auto) (0.0-1.3) x10^3/uL Absolute Nucleated RBC (0.00-0.01) x10^3u/L Lymphocytes % (24.0-44.0) % Monocytes % (0.0-12.0) % Eosinophils % (0.00-5.0) % Basophils % (0.0-0.4) % Absolute Granulocytes (1.4-6.9) x10^3/uL Basophils # (0-0.4) x10^3/uL pO2/FiO2 Ratio % VBG pH (7.32-7.42) VBG pCO2 at Pat Temp (42-55) mm/Hg VBG pO2 at Pat Temp (25-40) mm/Hg VBG HCO3 (22-28) meq/L VBG O2 Sat (Mattie) (95-100) VBG Base Excess (-2.0-2.0) VBG Hemoglobin VBG Carboxyhemoglobin (0.0-6.9) % T HGB POC Potassium (3.5-5.1) Sodium (135-145) mmol/L Potassium (3.5-5.1) mmol/L Chloride (98-107) mmol/L Carbon Dioxide (22-30) mmol/L Anion Gap (5-15) MEQ/L BUN (9-20) mg/dL Creatinine (0.66-1.25) mg/dL Estimated GFR ML/MIN Glucose (74-106) mg/dL POC Glucometer 154 H (74 to 106) mg/dL Lactic Acid (0.4-2.0) Calcium (8.4-10.2) mg/dL Magnesium (1.6-2.3) mg/dL Total Bilirubin (0.2-1.3) mg/dL AST (17-59) U/L ALT (0-50) U/L Alkaline Phosphatase (38-126) U/L Troponin I 0.017 (0.000-0.034) ng/mL Serum Total Protein (6.3-8.2) g/dL Albumin (3.5-5.0) g/dL Urine Color (Yellow) Urine Appearance (Clear) Urine pH (4.6-8.0) Ur Specific [place] (1.005-1.030) Urine Protein (Negative) Urine Glucose (UA) (Negative) mg/dL Urine Ketones (Negative) Urine Blood (Negative) Urine Nitrite (Negative) Urine Bilirubin (Negative) Urine Urobilinogen (0.2) mg/dL Ur Leukocyte Esterase (Negative) U Hyaline Cast (Auto) (0-2) /LPF Urine Microscopic RBC (0-5) /HPF Urine Microscopic WBC (0-5) /HPF Ur Epithelial Cells (None Seen) /HPF Urine Bacteria (None Seen) /HPF Urine Culture Reflexed (NO) Urine Opiates Level NEGATIVE (NEGATIVE) Ur Methadone NEGATIVE (NEGATIVE) Urine Barbiturates NEGATIVE (NEGATIVE) Ur Phencyclidine (PCP) NEGATIVE (NEGATIVE) Urine Amphetamine NEGATIVE (NEGATIVE) U Benzodiazepine Level POSITIVE A (NEGATIVE) Urine Cocaine NEGATIVE (NEGATIVE) Urine Marijuana (THC) POSITIVE A (NEGATIVE) Ethyl Alcohol (0-10) mg/dL 02/08/24 02/08/24 02/08/24 Range/Units 20:01 19:55 19:50 WBC (4.0-10.5) x10^3/uL RBC (4.1-5.6) x10^6/uL Hgb (12.5-18.0) g/dL Hct (42-50) % MCV (78-100) fL MCH (26-32) pg MCHC (32-36) g/dL RDW (11.5-14.0) % Plt Count (150-450) x10^3/uL MPV (7.5-11.0) fL Gran % (36.0-66.0) % Immature Gran % (Auto) (0.00-0.4) % Nucleat RBC Rel Count (0.00-0.1) % Eos # (Auto) (0-0.5) x10^3/uL Immature Gran # (Auto) (0.00-0.03) x10^3u/L Absolute Lymphs (auto) (1.0-4.6) x10^3/uL Absolute Monos (auto) (0.0-1.3) x10^3/uL Absolute Nucleated RBC (0.00-0.01) x10^3u/L Lymphocytes % (24.0-44.0) % Monocytes % (0.0-12.0) % Eosinophils % (0.00-5.0) % Basophils % (0.0-0.4) % Absolute Granulocytes (1.4-6.9) x10^3/uL Basophils # (0-0.4) x10^3/uL pO2/FiO2 Ratio 21.0 % VBG pH 7.43 H (7.32-7.42) VBG pCO2 at Pat Temp 37 L (42-55) mm/Hg VBG pO2 at Pat Temp 57 H (25-40) mm/Hg VBG HCO3 24.6 (22-28) meq/L VBG O2 Sat (Mattie) 88.7 L (95-100) VBG Base Excess 0.4 (-2.0-2.0) VBG Hemoglobin 10.7 VBG Carboxyhemoglobin 3.2 (0.0-6.9) % T HGB POC Potassium 4.0 (3.5-5.1) Sodium 141 (135-145) mmol/L Potassium 4.0 (3.5-5.1) mmol/L Chloride 106 (98-107) mmol/L Carbon Dioxide 24 (22-30) mmol/L Anion Gap 14.8 (5-15) MEQ/L BUN 10 (9-20) mg/dL Creatinine 1.63 H (0.66-1.25) mg/dL Estimated GFR 50.1 ML/MIN Glucose 165 H (74-106) mg/dL POC Glucometer (74 to 106) mg/dL Lactic Acid 2.1 H (0.4-2.0) Calcium 10.2 (8.4-10.2) mg/dL Magnesium 1.9 (1.6-2.3) mg/dL Total Bilirubin 0.30 (0.2-1.3) mg/dL AST 37 (17-59) U/L ALT 34 (0-50) U/L Alkaline Phosphatase 52 (38-126) U/L Troponin I (0.000-0.034) ng/mL Serum Total Protein 7.1 (6.3-8.2) g/dL Albumin 3.8 (3.5-5.0) g/dL Urine Color Yellow (Yellow) Urine Appearance Clear (Clear) Urine pH 5.0 (4.6-8.0) Ur Specific [place] 1.020 (1.005-1.030) Urine Protein Trace A (Negative) Urine Glucose (UA) >=1000 A (Negative) mg/dL Urine Ketones Negative (Negative) Urine Blood Negative (Negative) Urine Nitrite Negative (Negative) Urine Bilirubin Negative (Negative) Urine Urobilinogen 0.2 (0.2) mg/dL Ur Leukocyte Esterase Negative (Negative) U Hyaline Cast (Auto) NONE SEEN (0-2) /LPF Urine Microscopic RBC 0-2 (0-5) /HPF Urine Microscopic WBC 0-2 (0-5) /HPF Ur Epithelial Cells None Seen (None Seen) /HPF Urine Bacteria None Seen (None Seen) /HPF Urine Culture Reflexed ORDERED SEPARATELY (NO) Urine Opiates Level (NEGATIVE) Ur Methadone (NEGATIVE) Urine Barbiturates (NEGATIVE) Ur Phencyclidine (PCP) (NEGATIVE) Urine Amphetamine (NEGATIVE) U Benzodiazepine Level (NEGATIVE) Urine Cocaine (NEGATIVE) Urine Marijuana (THC) (NEGATIVE) Ethyl Alcohol 111 H (0-10) mg/dL 02/08/24 Range/Units 19:50 WBC 6.9 (4.0-10.5) x10^3/uL RBC 3.69 L (4.1-5.6) x10^6/uL Hgb 10.5 L (12.5-18.0) g/dL Hct 34.3 L (42-50) % MCV 93.0 (78-100) fL MCH 28.5 (26-32) pg MCHC 30.6 L (32-36) g/dL RDW 19.8 H (11.5-14.0) % Plt Count 412 (150-450) x10^3/uL MPV 11.3 H (7.5-11.0) fL Gran % 73.4 H (36.0-66.0) % Immature Gran % (Auto) 0.3 (0.00-0.4) % Nucleat RBC Rel Count 0.0 (0.00-0.1) % Eos # (Auto) 0.22 (0-0.5) x10^3/uL Immature Gran # (Auto) 0.02 (0.00-0.03) x10^3u/L Absolute Lymphs (auto) 0.92 L (1.0-4.6) x10^3/uL Absolute Monos (auto) 0.62 (0.0-1.3) x10^3/uL Absolute Nucleated RBC 0.00 (0.00-0.01) x10^3u/L Lymphocytes % 13.4 L (24.0-44.0) % Monocytes % 9.0 (0.0-12.0) % Eosinophils % 3.2 (0.00-5.0) % Basophils % 0.7 (0.0-0.4) % Absolute Granulocytes 5.04 (1.4-6.9) x10^3/uL Basophils # 0.05 (0-0.4) x10^3/uL pO2/FiO2 Ratio % VBG pH (7.32-7.42) VBG pCO2 at Pat Temp (42-55) mm/Hg VBG pO2 at Pat Temp (25-40) mm/Hg VBG HCO3 (22-28) meq/L VBG O2 Sat (Mattie) (95-100) VBG Base Excess (-2.0-2.0) VBG Hemoglobin VBG Carboxyhemoglobin (0.0-6.9) % T HGB POC Potassium (3.5-5.1) Sodium (135-145) mmol/L Potassium (3.5-5.1) mmol/L Chloride (98-107) mmol/L Carbon Dioxide (22-30) mmol/L Anion Gap (5-15) MEQ/L BUN (9-20) mg/dL Creatinine (0.66-1.25) mg/dL Estimated GFR ML/MIN Glucose (74-106) mg/dL POC Glucometer (74 to 106) mg/dL Lactic Acid (0.4-2.0) Calcium (8.4-10.2) mg/dL Magnesium (1.6-2.3) mg/dL Total Bilirubin (0.2-1.3) mg/dL AST (17-59) U/L ALT (0-50) U/L Alkaline Phosphatase (38-126) U/L Troponin I (0.000-0.034) ng/mL Serum Total Protein (6.3-8.2) g/dL Albumin (3.5-5.0) g/dL Urine Color (Yellow) Urine Appearance (Clear) Urine pH (4.6-8.0) Ur Specific [place] (1.005-1.030) Urine Protein (Negative) Urine Glucose (UA) (Negative) mg/dL Urine Ketones (Negative) Urine Blood (Negative) Urine Nitrite (Negative) Urine Bilirubin (Negative) Urine Urobilinogen (0.2) mg/dL Ur Leukocyte Esterase (Negative) U Hyaline Cast (Auto) (0-2) /LPF Urine Microscopic RBC (0-5) /HPF Urine Microscopic WBC (0-5) /HPF Ur Epithelial Cells (None Seen) /HPF Urine Bacteria (None Seen) /HPF Urine Culture Reflexed (NO) Urine Opiates Level (NEGATIVE) Ur Methadone (NEGATIVE) Urine Barbiturates (NEGATIVE) Ur Phencyclidine (PCP) (NEGATIVE) Urine Amphetamine (NEGATIVE) U Benzodiazepine Level (NEGATIVE) Urine Cocaine (NEGATIVE) Urine Marijuana (THC) (NEGATIVE) Ethyl Alcohol (0-10) mg/dL - Progress Progress: improved, re-examined Progress Note: 02/08/24 20:16 This patient's medical issue is 1 of moderate complexity. The level of complexity in the workup performed is based on review of the patient's past medical history, review the patient's medication list, review patient drug allergy list, history present illness and physical findings on examination. The workup in this patient includes placement of intravenous line, troponin level, twelve-lead EKG, CBC, CMP, urinalysis, urine drug screen, blood alcohol level and Accu-Chek. Patient complains of bilateral hip pain and we will provide him with intravenous Zofran and intravenous morphine injection. 02/08/24 20:57 I reviewed and interpreted all the laboratory data results. There are no lab oratory results that are concerning for an acute or emergent medical issue. In fact, the patient's troponin level is the lowest its ever been and in the normal range over multiple visits over the last several years. Patient is now feeling much improved. He has no shortness of breath and he does not have chest pain. His blood sugar is 154. Counseled pt/family regarding: lab results, diagnosis Medical Desision Making - Social Determinants of Health Limited access to: transportation, medical care - Diagnostic Testing Diagnostic test were ordered, analyzed, and reviewed by me: Yes - Risk of complications Low Risk: Low risk of morbidity from additional dx testing or treatment - Departure Departure Disposition: Home Clinical Impression: Hyperglycemia, Hip pain, bilateral, Stress at home Condition: Stable Critical Care Time: No Referrals: MARLYN NOEL MD [Primary Care Provider] - Follow up/PCP as directed Additional Instructions: Continue your medication as prescribed. Continue monitoring your blood sugar closely. Make sure you are consuming a diabetic diet. Call your primary care provider on 02/11/2024, to make arrangements for follow-up appointment next 3 to 5 days.
[2024-02-08] MEDS ORDERED: Zofran 4 MG/2 ML VIAL ONE (19:39)
[2024-02-08] MEDS ORDERED: MORPHINE SULFATE 4 MG INJ ONE (19:40)
[2024-02-08] MEDS ORDERED: Sodium Chloride 0.9% 1000 ML 1,000 ML ONE (19:40)
[2024-02-08] MEDS: Sodium Chloride 0.9% 1000 ML 1,000 ML IV STA (19:48)
[2024-02-08] MEDS: MORPHINE SULFATE 4 MG INJ IV ONE (19:49)
[2024-02-08] MEDS: Zofran 4 MG/2 ML VIAL IV ONE (19:49)
[2024-02-08 20:08] LABS: Lactic Acid 2.1 (0.4-2.0); VBG BASE EXCESS 0.4 (-2.0-2.0); VBG CARBOXYHEMOGLOBIN 3.2 % T HGB (0.0-6.9); VBG HCO3- 24.6 meq/L (22-28); VBG HEMOGLOBIN 10.7; VBG O2 SATURATION 88.7 (95-100); VBG pH 7.43 (7.32-7.42)
[2024-02-08 20:23] VITALS: PULSE 77
[2024-02-08 20:24] LABS: Absolute Neutrophil Ct (ANC) 5.04 x10^3/uL (1.4-6.9); BASOPHIL % 0.7 % (0.0-0.4); Basophil (Absolute #) 0.05 x10^3/uL (0-0.4); Eosinophil % 3.2 % (0.00-5.0); Eosinophil (Absolute #) 0.22 x10^3/uL (0-0.5); Hematocrit 34.3 % (42-50); Hemoglobin 10.5 g/dL (12.5-18.0); IMMATURE GRAN # 0.02 x10^3u/L (0.00-0.03); IMMATURE GRAN % 0.3 % (0.00-0.4); Lymphocyte (Absolute #) 0.92 x10^3/uL (1.0-4.6); Lymphocytes % 13.4 % (24.0-44.0); Mean Corpuscular Hemoglobin 28.5 pg (26-32); Mean Corpuscular Hgb Concent. 30.6 g/dL (32-36); Mean Platelet Volume 11.3 fL (7.5-11.0); Monocyte (Absolute #) 0.62 x10^3/uL (0.0-1.3); Neutrophil % 73.4 % (36.0-66.0); Platelet Count 412 x10^3/uL (150-450); Red Blood Count 3.69 x10^6/uL (4.1-5.6); Red Cell Distribution Width 19.8 % (11.5-14.0); White Blood Count 6.9 x10^3/uL (4.0-10.5)
[2024-02-08 20:32] LABS: Appearance Clear (Clear); Bacteria None Seen /HPF (None Seen); Bilirubin Negative (Negative); Blood Negative (Negative); Epithelial Cells None Seen /HPF (None Seen); Glucose, Urine >=1000 mg/dL (Negative); Hyaline Casts NONE SEEN /LPF (0-2); Ketones Negative (Negative); Leukocyte Esterase Negative (Negative); Nitrite Negative (Negative); Protein,Urine Dip Trace (Negative); RBC 0-2 /HPF (0-5); Urobilinogen 0.2 mg/dL (0.2); WBC 0-2 /HPF (0-5)
[2024-02-08 20:33] LABS: ALBUMIN 3.8 g/dL (3.5-5.0); ANION GAP 14.8 MEQ/L (5-15); BILIRUBIN,TOTAL 0.3 mg/dL (0.2-1.3); Calcium 10.2 mg/dL (8.4-10.2); Creatinine 1 1.63 mg/dL (0.66-1.25); EST GLOMERULAR FILTRATION RATE 50.1 ML/MIN; MAGNESIUM 1.9 mg/dL (1.6-2.3); Total Protein 7.1 g/dL (6.3-8.2)
[2024-02-08 20:36] LABS: ADD URINE CULTURE? ORDERED SEPARATELY (NO)
[2024-02-08 20:47] LABS: Amphetamine,Urine NEGATIVE (NEGATIVE); Barbiturate,Urine NEGATIVE (NEGATIVE); Benzodiazepine,Urine POSITIVE (NEGATIVE); Cocaine,Urine NEGATIVE (NEGATIVE); Methadone,Urine NEGATIVE (NEGATIVE); Opiate,Urine NEGATIVE (NEGATIVE); PCP,Urine NEGATIVE (NEGATIVE); THC,Urine POSITIVE (NEGATIVE)
[2024-02-08 21:19] VITALS: BP 107/71; RESP 16; O2SAT 96
== END 2024-02-08 21:40 | disposition home or self-care (01) ==
LOC: ED 18:43
DX: M25.551 Pain in right hip (principal); M25.552 Pain in left hip; E11.65 Type 2 diabetes mellitus with hyperglycemia; Z63.4 Disappearance and death of family member; Z75.9 Unspecified problem related to medical facilities and other health care; Z59.82 Transportation insecurity; E78.5 Hyperlipidemia, unspecified; I11.0 Hypertensive heart disease with heart failure; I50.9 Heart failure, unspecified; E11.42 Type 2 diabetes mellitus with diabetic polyneuropathy; Z79.84 Long term (current) use of oral hypoglycemic drugs; Z79.899 Other long term (current) drug therapy; Z28.310 Unvaccinated for COVID-19
CPT/HCPCS: 36000; 36415; 80053; 80307; 81001; 82077; 82805; 82947; 83605; 83735; 84484; 85025; 87086; 93005; 94760; 96374; 96375; 99284; P9612; J2270; J2405

== ENCOUNTER 2024-02-25 17:02 | Emergency (ER) | payer OTHER ==
[2024-02-25 17:21] VITALS: TEMP 98.9
[2024-02-25] MEDS ORDERED: DUONEB 0.5-3 MG/3 ml Neb IH ONE (17:21)
[2024-02-25] MEDS: DUONEB 0.5-3 MG/3 ml Neb IH ONE (17:27)
[2024-02-25 17:48] LABS: Hematocrit 30.7 % (42-50); Hemoglobin 9.5 g/dL (12.5-18.0); Mean Cell Volume 92.2 fL (78-100); Mean Corpuscular Hemoglobin 28.5 pg (26-32); Mean Corpuscular Hgb Concent. 30.9 g/dL (32-36); Mean Platelet Volume 10.8 fL (7.5-11.0); Platelet Count 305 x10^3/uL (150-450); Red Blood Count 3.33 x10^6/uL (4.1-5.6); Red Cell Distribution Width 19.8 % (11.5-14.0); White Blood Count 15.5 x10^3/uL (4.0-10.5)
--- NOTE | 2024-02-25 18:11 | ERPHSYRPT ---
- History of Present Illness Source: patient Exam Limitations: no limitations Patient Subjective Stated Complaint: SOB Triage Nursing Assessment: Patient brought into per EMS and transferred to bed with assist of 3. Patient A+O X 3. Patient's skin pale, warm and dry. Patient complains of SOB for the past 2 days. Patient complains of non productive dry cough for 2 days. EMS was called for SOB. Upon arrival O2 sat was 87% on room air. Patient was placed on O2 per EMS at 3 liters. Upon assessment O2 sat noted to be 86% on 5 liters per N/C. RT came to bedside to assess and oxymask was applied at 10 liters. Patient denies pain or discomfort, but did state he had been having chest pain earlier in the day. Lungs noted to be diminished throughout. Hx Tetanus, Diphtheria Vaccination/Date Given: Yes Hx Influenza Vaccination/Date Given: Yes Hx Pneumococcal Vaccination/Date Given: Yes Immunizations Up to Date: Yes <RENNY RIZZO - Last Filed: 02/25/24 18:54> <TROY MARTINEZ - Last Filed: 02/25/24 23:09> - History of Present Illness Time Seen by Provider: 02/25/24 17:06 Physician History: Patient brought in via EMS. Patient has a right below the knee amputation. Pat ient complains of shortness of breath and chest pain over the past few days. Dry productive cough for 2 days. Patient's initial O2 is 87% upon room air. However did not improve with cannula, eventually was on 86% on 5 L nasal cannula. Patient eventually placed on oxymask at 10 L. Improved. No active chest pain or discomfort. Was having chest pain earlier today. Lung sounds are diminished throughout. (RENNY RIZZO) Allergies/Adverse Reactions: Penicillins Allergy (Verified 02/25/24 17:12) Beta-Blockers (Beta-Adrenergic Bloc Adverse Reaction (Verified 02/25/24 17:12) Wheezing Home Medications: Aspirin 81 gm Chew [Baby Aspirin 81 mg Chew] 1 tab PO DAILY 02/22/23 [History] Atorvastatin Calcium 80 mg PO HS 02/22/23 [History] Carvedilol 12.5 mg [Coreg 12.5 mg] 2 tab PO BID 02/22/23 [History] Empagliflozin [Jardiance] 25 mg PO DAILY 02/22/23 [History] Furosemide [Lasix] 20 mg PO DAILY 02/22/23 [History] Nitroglycerin 0.4 mg Tablet [Nitrostat 0.4 MG Tablet] 1 tab PO UD PRN 02/22/23 [History] Sacubitril/Valsartan [Entresto 24 mg-26 mg Tablet] 1 tab PO BID 02/22/23 [History] Trazodone HCl 50 mg [Desyrel 50 mg] 150 mg PO HS 02/24/23 [History] Amlodipine Besylate [Norvasc] 10 mg PO DAILY 01/26/24 [History] Aripiprazole [Abilify] 2 mg PO DAILY 01/26/24 [History] Bumetanide 0.5 mg PO DAILY 01/26/24 [History] Citalopram Hydrobromide 20 mg* [ceLEXa 20 MG] 20 mg PO DAILY 01/26/24 [Hi story] Folic Acid 1 mg [Folate 1 mg] 1 mg PO DAILY 01/26/24 [History] Losartan Potassium 100 mg PO DAILY 01/26/24 [History] Potassium Chloride 1 tab PO DAILY 01/26/24 [History] Spironolactone 25 mg [Aldactone 25 MG] 25 mg PO DAILY 01/26/24 [History] Travel Risk - International Travel Have you traveled outside of the country in past 3 weeks: No - Emerging Infectious Disease Are you exhibiting symptoms associated with any current EIDs: Yes Symptoms: Cough: New Onset, Shortness of Breath <RENNY RIZZO - Last Filed: 02/25/24 18:54> - Past Medical History Pertinent Past Medical History: Yes Neurological History: No Pertinent History, Peripheral Neuropathy ENT History: No Pertinent History Cardiac History: Angina, Congestive Heart Failure, Myocardial Infarction ([place]), High Cholesterol, Hypertension Respiratory History: CHF Endocrine Medical History: Diabetes Type II Musculoskeletal History: No Pertinent History, Other GI Medical History: No Pertinent History, GERD History: No Pertinent History Psycho-Social History: No Pertinent History, Depression Male Reproductive Disorders: No Pertinent History Other Medical History: diabetic foot ulcer that spread and has BKA - Past Surgical History Past Surgical History: Yes Neuro Surgical History: No Pertinent History Cardiac: No Pertinent History Respiratory: No Pertinent History Gastrointestinal: No Pertinent History Genitourinary: No Pertinent History Musculoskeletal: No Pertinent History, Amputation Male Surgical History: No Pertinent History Other Surgical History: BKA Significant Family History: no pertinent family hx - Social History Smoking Status: Former smoker How long have you smoked: 24 Exposure to second hand smoke: No Drug Use: marijuana Patient Lives Alone: No <RIZZORENNY LAURA - Last Filed: 02/25/24 18:54> - Physical Exam SpO2 Interpretation: normal SpO2: 94 <RIZZORENNY - Last Filed: 02/25/24 18:54> - Nursing Vital Signs Nursing Vital Signs: Initial Vital Signs Temperature 98.9 F 02/25/24 17:13 Pulse Rate 83 02/25/24 17:13 Respiratory Rate 30 H 02/25/24 17:13 Blood Pressure 144/83 02/25/24 17:13 O2 Sat by Pulse Oximetry 86 L 02/25/24 17:13 Pain Scale Pain Intensity 3 - Physical Exam Comments: 02/25/24 18:11 Review of Systems Constitutional: Negative for fever. HENT: Negative for congestion. Respiratory: Negative for shortness of breath. Cardiovascular: Negative for chest pain. Gastrointestinal: Negative for abdominal pain. Genitourinary: Negative for dysuria. Musculoskeletal: Negative for back pain. Skin: Negative for rash. Neurological: Negative for headaches. Psychiatric/Behavioral: Negative for behavioral problems. All other systems reviewed and are negative. Physical Exam Vitals signs and nursing note reviewed. Constitutional: Appearance: Patient is well-developed. HENT: Head: Normocephalic and atraumatic. Eyes: Conjunctiva/sclera: Conjunctivae normal. Neck: Musculoskeletal: Normal range of motion. Trachea: No tracheal deviation. Cardiovascular: Rate and Rhythm: Normal rate. Pulmonary: Effort: Tachypnea, on the OxyMask, respiratory distress, decreased breath sounds throughout Abdominal: Palpations: Abdomen is soft. Musculoskeletal: General: Right below the knee amputation Skin: General: Skin is warm and dry. Neurological/ Psychiatric: Mental Status: Mental status, behavior, interaction with environment is appropriate for patient's age and condition (RENNY RIZZO) - Course Nursing assessment & vital signs reviewed: Yes EKG Interpreted by Me: Sinus Rhythm (Sinus rhythm, rate of 87, IA interval 160, QRS 155, QTc is 549) <RENNY RIZZO - Last Filed: 02/25/24 18:54> Ordered Tests: Active Orders 24 hr Category Date Time Status Strip Tank Tender STAT Care 02/25/24 17:16 Completed EKG-ER Only STAT Care 02/25/24 17:15 Completed IV Insertion STAT Care 02/25/24 17:15 Completed CHEST 1 VIEW (PORTABLE) Stat Exams 02/25/24 17:16 Taken CHEST WITH CONTRAST [CT] Stat Exams 02/25/24 18:29 Taken BLOOD CULTURE Stat Lab 02/25/24 18:15 Received CBC W DIFF Stat Lab 02/25/24 17:35 Completed CMP Stat Lab 02/25/24 17:35 Completed CULTURE,URINE Stat Lab 02/25/24 20:57 Received Lactic Acid Stat Lab 02/25/24 17:15 Completed Manual Differential NC Stat Lab 02/25/24 17:35 Completed NT PRO BNPII Stat Lab 02/25/24 17:35 Completed PROCALCITONIN Stat Lab 02/25/24 17:35 Completed TROPONIN Q4H Lab 02/25/24 17:35 Completed TROPONIN Q4H Lab 02/25/24 21:35 Completed UA W/RFX UR CULTURE Stat Lab 02/25/24 20:57 Completed Respiratory Therapy Assessment DAILY RT 02/25/24 17:27 Completed Medication Summary Discontinued Medications Generic Name Dose Route Start Last Admin Trade Name Freq PRN Reason Stop Dose Admin Albuterol/Ipratropium 3 ml 02/25/24 17:15 02/25/24 17:27 Ipratropium/Albuterol Sulfate 3 Ml Ampul.Neb IH 02/25/24 17:16 3 ml STAT ONE Administration Albuterol/Ipratropium Confirm 02/25/24 17:21 Ipratropium/Albuterol Sulfate 3 Ml Ampul.Neb Administered 02/25/24 17:22 Dose 3 ml IH .STK-MED ONE Cefepime HCl Confirm 02/25/24 18:42 Cefepime Hcl 2 Gm Vial Administered 02/25/24 18:43 Dose 2 g .ROUTE .STK-MED ONE Methylprednisolone Sodium 0 mg 02/25/24 17:15 02/25/24 18:46 Succinate 125 mg/ Sterile IV 02/25/24 17:16 125 mg Water 2 ml STAT ONE Administration Furosemide 40 mg 02/25/24 21:30 02/25/24 21:50 Furosemide 40 Mg/4 Ml Vial IV 02/25/24 21:31 40 mg STAT ONE Administration Furosemide Confirm 02/25/24 21:45 Furosemide 40 Mg/4 Ml Vial Administered 02/25/24 21:46 Dose 40 mg .ROUTE .STK-MED ONE Sodium Chloride 1,000 mls @ 999 mls/hr 02/25/24 17:15 02/25/24 20:16 Sodium Chloride 0.9% 1000 Ml IV 02/25/24 18:15 Infused .Q1H1M STA Infusion Cefepime HCl 2 g/ Sodium 100 mls @ 200 mls/hr 02/25/24 17:18 02/25/24 18:49 Chloride IV 02/25/24 17:47 200 mls/hr STAT STA Administration Vancomycin HCl 1 gm in 200 mls @ 125 mls/hr 02/25/24 17:19 02/25/24 21:11 Vancomycin 1 Gram/200 Ml Bag IV 02/25/24 18:54 Infused STAT ONE Infusion Sodium Chloride Confirm 02/25/24 18:43 Sodium Chloride 0.9% 1000 Ml Administered 02/25/24 18:44 Dose 1,000 mls @ ud .ROUTE .STK-MED ONE Sodium Chloride Confirm 02/25/24 18:43 Sodium Chloride 0.9% Administered 02/25/24 18:44 Dose 100 mls @ ud .ROUTE .STK-MED ONE Vancomycin HCl Confirm 02/25/24 19:25 Vancomycin 1 Gram/200 Ml Bag Administered 02/25/24 19:26 Dose 1 gm in 200 mls @ ud IV .STK-MED ONE Sodium Chloride 1,000 mls @ 999 mls/hr 02/25/24 19:34 02/25/24 20:17 Sodium Chloride 0.9% 1000 Ml IV 02/25/24 20:34 Not Given .Q1H1M STA Methylprednisolone Sodium Succinate Confirm 02/25/24 18:42 Methylprednis Sod Succ 125 Mg/2 Ml Vial Administered 02/25/24 18:43 Dose 125 mg .ROUTE .STK-MED ONE Sterile Water Confirm 02/25/24 18:42 Water For Injection,Sterile 10 Ml Vial Administered 02/25/24 18:43 Dose 10 ml IJ .STK-MED ONE Lab/Rad Data: Laboratory Result Diagrams 02/25/24 17:35 04/08/24 17:35 Laboratory Results 02/25/24 02/25/24 02/25/24 Range/Units 21:35 20:57 17:38 WBC (4.0-10.5) x10^3/uL RBC (4.1-5.6) x10^6/uL Hgb (12.5-18.0) g/dL Hct (42-50) % MCV (78-100) fL MCH (26-32) pg MCHC (32-36) g/dL RDW (11.5-14.0) % Plt Count (150-450) x10^3/uL MPV (7.5-11.0) fL Segmented Neutrophils (36.-66.) % Lymphocytes (Manual) (24-44) % Monocytes (Manual) (0.0-12.0) % Eosinophils (Manual) (0.00-3.0) % Hypochromia Toxic Granulation Platelet Estimate (NORMAL) RBC Morphology Anisocytosis Sodium (135-145) mmol/L Potassium (3.5-5.1) mmol/L Chloride (98-107) mmol/L Carbon Dioxide (22-30) mmol/L Anion Gap (5-15) MEQ/L BUN (9-20) mg/dL Creatinine (0.66-1.25) mg/dL Estimated GFR ML/MIN Glucose (74-106) mg/dL Lactic Acid (0.4-2.0) Calcium (8.4-10.2) mg/dL Total Bilirubin (0.2-1.3) mg/dL AST (17-59) U/L ALT (0-50) U/L Alkaline Phosphatase (38-126) U/L Troponin I 0.027 (0.000-0.033) ng/mL NT-Pro-B Natriuret Pep (<300) pg/mL Serum Total Protein (6.3-8.2) g/dL Albumin (3.5-5.0) g/dL Procalcitonin (0.030-0.080) ng/mL Urine Color Yellow (Yellow) Urine Appearance Cloudy A (Clear) Urine pH 5.5 (4.6-8.0) Ur Specific [place] >=1.030 A (1.005-1.030) Urine Protein 100 A (Negative) Urine Glucose (UA) >=1000 A (Negative) mg/dL Urine Ketones Negative (Negative) Urine Blood Moderate A (Negative) Urine Nitrite Negative (Negative) Urine Bilirubin Negative (Negative) Urine Urobilinogen 0.2 (0.2) mg/dL Ur Leukocyte Esterase Moderate A (Negative) U Hyaline Cast (Auto) NONE SEEN (0-2) /LPF Urine Microscopic RBC 3-5 (0-5) /HPF Urine Microscopic WBC 51-100 A (0-5) /HPF Ur Epithelial Cells Rare (None Seen) /HPF Urine Bacteria Rare A (None Seen) /HPF Urine Yeast (Budding) Moderate A (None Seen) /HPF Urine Culture Reflexed YES (NO) Influenza Type A Ag NEGATIVE (NEGATIVE) Influenza Type B Ag NEGATIVE (NEGATIVE) RSV (PCR) NEGATIVE (NEGATIVE) SARS-CoV-2 (PCR) NEGATIVE (NEGATIVE) 02/25/24 02/25/24 02/25/24 Range/Units 17:35 17:35 17:35 WBC 15.5 H (4.0-10.5) x10^3/uL RBC 3.33 L (4.1-5.6) x10^6/uL Hgb 9.5 L (12.5-18.0) g/dL Hct 30.7 L (42-50) % MCV 92.2 (78-100) fL MCH 28.5 (26-32) pg MCHC 30.9 L (32-36) g/dL RDW 19.8 H (11.5-14.0) % Plt Count 305 (150-450) x10^3/uL MPV 10.8 (7.5-11.0) fL Segmented Neutrophils 90 H (36.-66.) % Lymphocytes (Manual) 5 L (24-44) % Monocytes (Manual) 2 (0.0-12.0) % Eosinophils (Manual) 3 (0.00-3.0) % Hypochromia 2+ Toxic Granulation 1+ Platelet Estimate NORMAL (NORMAL) RBC Morphology ABNORMAL Anisocytosis 2+ Sodium 141 (135-145) mmol/L Potassium 3.6 (3.5-5.1) mmol/L Chloride 110 H (98-107) mmol/L Carbon Dioxide 24 (22-30) mmol/L Anion Gap 11.4 (5-15) MEQ/L BUN 11 (9-20) mg/dL Creatinine 1.52 H (0.66-1.25) mg/dL Estimated GFR 54.5 ML/MIN Glucose 138 H (74-106) mg/dL Lactic Acid (0.4-2.0) Calcium 9.4 (8.4-10.2) mg/dL Total Bilirubin 0.40 (0.2-1.3) mg/dL AST 53 (17-59) U/L ALT 37 (0-50) U/L Alkaline Phosphatase 67 (38-126) U/L Troponin I 0.024 (0.000-0.033) ng/mL NT-Pro-B Natriuret Pep 6390 (<300) pg/mL Serum Total Protein 7.6 (6.3-8.2) g/dL Albumin 3.8 (3.5-5.0) g/dL Procalcitonin 0.166 H (0.030-0.080) ng/mL Urine Color (Yellow) Urine Appearance (Clear) Urine pH (4.6-8.0) Ur Specific [place] (1.005-1.030) Urine Protein (Negative) Urine Glucose (UA) (Negative) mg/dL Urine Ketones (Negative) Urine Blood (Negative) Urine Nitrite (Negative) Urine Bilirubin (Negative) Urine Urobilinogen (0.2) mg/dL Ur Leukocyte Esterase (Negative) U Hyaline Cast (Auto) (0-2) /LPF Urine Microscopic RBC (0-5) /HPF Urine Microscopic WBC (0-5) /HPF Ur Epithelial Cells (None Seen) /HPF Urine Bacteria (None Seen) /HPF Urine Yeast (Budding) (None Seen) /HPF Urine Culture Reflexed (NO) Influenza Type A Ag (NEGATIVE) Influenza Type B Ag (NEGATIVE) RSV (PCR) (NEGATIVE) SARS-CoV-2 (PCR) (NEGATIVE) 02/25/24 Range/Units 17:15 WBC (4.0-10.5) x10^3/uL RBC (4.1-5.6) x10^6/uL Hgb (12.5-18.0) g/dL Hct (42-50) % MCV (78-100) fL MCH (26-32) pg MCHC (32-36) g/dL RDW (11.5-14.0) % Plt Count (150-450) x10^3/uL MPV (7.5-11.0) fL Segmented Neutrophils (36.-66.) % Lymphocytes (Manual) (24-44) % Monocytes (Manual) (0.0-12.0) % Eosinophils (Manual) (0.00-3.0) % Hypochromia Toxic Granulation Platelet Estimate (NORMAL) RBC Morphology Anisocytosis Sodium (135-145) mmol/L Potassium (3.5-5.1) mmol/L Chloride (98-107) mmol/L Carbon Dioxide (22-30) mmol/L Anion Gap (5-15) MEQ/L BUN (9-20) mg/dL Creatinine (0.66-1.25) mg/dL Estimated GFR ML/MIN Glucose (74-106) mg/dL Lactic Acid 0.9 (0.4-2.0) Calcium (8.4-10.2) mg/dL Total Bilirubin (0.2-1.3) mg/dL AST (17-59) U/L ALT (0-50) U/L Alkaline Phosphatase (38-126) U/L Troponin I (0.000-0.033) ng/mL NT-Pro-B Natriuret Pep (<300) pg/mL Serum Total Protein (6.3-8.2) g/dL Albumin (3.5-5.0) g/dL Procalcitonin (0.030-0.080) ng/mL Urine Color (Yellow) Urine Appearance (Clear) Urine pH (4.6-8.0) Ur Specific [place] (1.005-1.030) Urine Protein (Negative) Urine Glucose (UA) (Negative) mg/dL Urine Ketones (Negative) Urine Blood (Negative) Urine Nitrite (Negative) Urine Bilirubin (Negative) Urine Urobilinogen (0.2) mg/dL Ur Leukocyte Esterase (Negative) U Hyaline Cast (Auto) (0-2) /LPF Urine Microscopic RBC (0-5) /HPF Urine Microscopic WBC (0-5) /HPF Ur Epithelial Cells (None Seen) /HPF Urine Bacteria (None Seen) /HPF Urine Yeast (Budding) (None Seen) /HPF Urine Culture Reflexed (NO) Influenza Type A Ag (NEGATIVE) Influenza Type B Ag (NEGATIVE) RSV (PCR) (NEGATIVE) SARS-CoV-2 (PCR) (NEGATIVE) - Progress Counseled pt/family regarding: lab results, diagnosis, need for follow-up, rad results, smoking cessation <RENNY RIZZO - Last Filed: 02/25/24 18:54> - Progress Progress: re-examined <TROY MARTINEZ - Last Filed: 02/25/24 23:09> - Progress Progress Note: 02/25/24 18:13 Differential diagnosis includes: PNA, STEMI, NSTEMI, other infection, musculoskeletal pain, pneumothorax - We'll obtain basic labs, fluids, EKG, troponin, chest x-ray - EKG shows no ST changes - my read - O2 saturations consistently greater than 90% on oxymask 02/25/24 18:55 Chest x-ray appears to show pneumonia, breathing treatment, steroids, broad- spectrum antibiotics. Patient meeting our sepsis criteria and will need appropriate resuscitation for his acute hypoxic respiratory failure. CTA of the chest pending. Patient will need to be admitted to the hospital. Transfer of care to Dr. Troy Martinez at 7 PM. He will follow-up on all labs and images. Disposition through Dr. Martinez. (RENNY RIZZO) 02/25/24 19:11 I took over care for this pt from Dr Rizzo at 1900. 02/25/24 21:26 CT chest w/ contrast showed: compared to 01/26/24. Continued negative PE worsening CM and worsening moderate b/l effusions/ATX - r/o CHF stable small L adrenal adenoma and tiny gallstone will plan for transfer for sepsis, pna, CHF exacerbation, acute hypoxic respiratory failure 02/25/24 23:05 discussed transfer w/ [facility] - Dr Person - accept for ED-ED transfer at 22:02 transport arranged and pt taken by ALS ground transport to [facility] (TROY MARTINEZ) Medical Desision Making - Discussion of managment Care discussed with:: specialist (Dr Person ER) Reviewed:: Test results, Need for additional workup Agreed on:: Treatment plan, need for follow-up Will see patient: in ED - Diagnostic Testing Diagnostic test were ordered, analyzed, and reviewed by me: Yes Radiological Interpretation: Reviewed by me, Teleradiologist Report - Risk of complications The pt has a high risk of morbidity or mortality based on: Decision regarding hospitilization or escalation of hosp level of care <TROY MARTINEZ - Last Filed: 02/25/24 23:09> - Departure Critical Care Time: Yes Critical Care Time(excluding separately billable procedures): Critical 30-74 mins (Acute hypoxic respiratory failure from pneumonia requiring oxygen support and antibiotics) <RENNY RIZZO - Last Filed: 02/25/24 18:54> - Departure Critical Care Time: Yes Critical Care Time(excluding separately billable procedures): Critical 30-74 m ins <TROY MARTINEZ - Last Filed: 02/25/24 23:09> - Departure Clinical Impression: Acute hypoxic respiratory failure Pneumonia Qualifiers: Pneumonia type: due to unspecified organism Laterality: bilateral Lung location: lower lobe of lung Qualified Code(s): J18.9 - Pneumonia, unspecified organism Sepsis Qualifiers: Sepsis type: sepsis due to unspecified organism Sepsis acute organ dysfunction status: without acute organ dysfunction Qualified Code(s): A41.9 - Sepsis, unspecified organism Condition: Stable Referrals: MARLYN NOEL MD [Primary Care Provider] - Follow up/PCP as directed
[2024-02-25 18:16] LABS: ALBUMIN 3.8 g/dL (3.5-5.0); ANION GAP 11.4 MEQ/L (5-15); BILIRUBIN,TOTAL 0.4 mg/dL (0.2-1.3); Calcium 9.4 mg/dL (8.4-10.2); Creatinine 1 1.52 mg/dL (0.66-1.25); EST GLOMERULAR FILTRATION RATE 54.5 ML/MIN; PROCALCITONIN 0.166 ng/mL (0.030-0.080); Potassium 3.6 mmol/L (3.5-5.1); Total Protein 7.6 g/dL (6.3-8.2)
[2024-02-25 18:23] LABS: INFLUENZA A NEGATIVE (NEGATIVE); INFLUENZA B NEGATIVE (NEGATIVE); RESPIRATORY SYNCTIAL VIRUS NEGATIVE (NEGATIVE); SARS-CoV-2 Xpert Express NEGATIVE (NEGATIVE)
[2024-02-25] MEDS ORDERED: Sterile H2O 10 ml IJ ONE (18:42)
[2024-02-25] MEDS ORDERED: Maxipime 2 GM ONE (18:42)
[2024-02-25] MEDS ORDERED: solu-MEDROL ONE (18:42)
[2024-02-25] MEDS ORDERED: Sodium Chloride 0.9% 100 ML ONE (18:43)
[2024-02-25] MEDS ORDERED: Sodium Chloride 0.9% 1000 ML 1,000 ML ONE (18:43)
[2024-02-25] MEDS: Sodium Chloride 0.9% 1000 ML 1,000 ML IV STA ×2 (18:44→20:17)
[2024-02-25] MEDS: solu-MEDROL 125 MG, Sterile H2O 10 ml 2 ML IV ONE (18:46)
[2024-02-25] MEDS: Maxipime 2 GM** 2 G in Sodium Chloride 0.9% 100 ML IV STA (18:49)
[2024-02-25] MEDS ORDERED: VANCOMYCIN 1 GRAM/200 ML BAG 1 GM/200 ML PIGGYBACK IV ONE (19:25)
[2024-02-25] MEDS: VANCOMYCIN 1 GRAM/200 ML BAG 1 GM/200 ML PIGGYBACK IV ONE (19:29)
[2024-02-25 20:03] LABS: Eosinophil 3 % (0.00-3.0); Lymphocytes 5 % (24-44); Monocyte 2 % (0.0-12.0); Neutrophils 90 % (36.-66.); Total Cells Counted 100
[2024-02-25 20:04] LABS: ANISOCYTOSIS 2+; Hypochromia 2+; Platelet Estimate NORMAL (NORMAL); Toxic Granulation 1+
[2024-02-25 21:27] LABS: ADD URINE CULTURE? YES (NO); Appearance Cloudy (Clear); Bacteria Rare /HPF (None Seen); Bilirubin Negative (Negative); Blood Moderate (Negative); Budding Yeast Moderate /HPF (None Seen); Epithelial Cells Rare /HPF (None Seen); Glucose, Urine >=1000 mg/dL (Negative); Hyaline Casts NONE SEEN /LPF (0-2); Ketones Negative (Negative); Leukocyte Esterase Moderate (Negative); Nitrite Negative (Negative); Ph 5.5 (4.6-8.0); Protein,Urine Dip 100 (Negative); Specific Gravity >=1.030 (1.005-1.030); Urobilinogen 0.2 mg/dL (0.2); WBC 51-100 /HPF (0-5)
[2024-02-25] MEDS ORDERED: Lasix 40 MG/4 ML ONE (21:45)
[2024-02-25] MEDS: Lasix 40 MG/4 ML IV ONE (21:50)
[2024-02-25 22:40] VITALS: BP 154/89; PULSE 78; RESP 22; O2SAT 96
--- NOTE | 2024-02-26 08:38 | XRAY ---
Indication: Short of breath and cough. Pulmonary embolus. Multiple contiguous axial images obtained through the chest using 100 cc Isovue 370 contrast and PE protocol. Comparison: January 26, 2024 Good opacification of the pulmonary arteries to include the lobar and segmental branches. No pulmonary embolus. Heart is now enlarged again with scattered coronary calcifications. Aorta is normal in course and caliber. No pathologic mediastinal/hilar lymphadenopathy. Lungs demonstrates worsening moderate bilateral pleural effusions and worsening bibasilar compressive atelectasis. Bony thorax intact again with minimal degenerative changes throughout the spine. Limited upper abdomen again demonstrates small left adrenal adenoma and tiny gallstone. Impression: 1. Continued negative pulmonary embolus. 2. Cardiomegaly with worsening moderate bilateral effusions/atelectasis. Rule out cardiac decompensation/CHF. 3. Again chronic findings including degenerative spondylosis, left adrenal adenoma, and gallstone.
--- NOTE | 2024-02-26 08:40 | XRAY ---
Indication: Pneumonia. Short of breath and cough. Comparison: January 26, 2024 Portable chest again demonstrates cardiomegaly. New bibasilar infiltrates/atelectasis/effusions along with cardiomegaly concerning for cardiac decompensation/CHF. Superimposed pneumonia not completely excluded.
== END 2024-02-25 22:56 | disposition short-term general hospital (02) ==
LOC: ED 17:02
DX: A41.9 Sepsis, unspecified organism (principal); J18.9 Pneumonia, unspecified organism; J96.01 Acute respiratory failure with hypoxia; I11.0 Hypertensive heart disease with heart failure; I50.9 Heart failure, unspecified; R05.1 Acute cough; R07.9 Chest pain, unspecified; E78.5 Hyperlipidemia, unspecified; E11.42 Type 2 diabetes mellitus with diabetic polyneuropathy; Z79.84 Long term (current) use of oral hypoglycemic drugs; Z79.899 Other long term (current) drug therapy
CPT/HCPCS: 0241U; 36000; 36415; 71045; 71260; 80053; 81001; 83605; 83880; 84145; 84484; 85025; 87040; 87086; 93005; 93041; 94640; 96360; 96365; 96367; 96374; 96375; 99285; 99291; J0692; J1940; J2930; A9270-GY; J3370

== ENCOUNTER 2024-03-06 07:45 | Inpatient (IN) | payer OTHER ==
--- NOTE | 2024-03-06 08:12 | ERPHSYRPT ---
- History of Present Illness Time Seen by Provider: 03/06/24 08:02 Source: patient, EMS Exam Limitations: no limitations Patient Subjective Stated Complaint: pt here for increase sob, was recently admitted at [facility] for CHF. states low grade fever, cough, pain to left hip, states he feel this morning trying to get in wc. Triage Nursing Assessment: pt arrived per ambulance, alert, moaning out in pain, resp labored at times, o2 on arrival at 3 l nc, skin w/d/p. is bka on right leg, has large abrasion to stump he states is from falling today, has bruising to upper left arm he states from last hosptial stay. swelling to lower left leg. occ dry cough Physician History: 53 years old male with history of congestive heart failure, diabetes mellitus with right below-knee amputations presented in the ER with increasing shortness of breath for the last 2 to 3 days with minimal productive cough. Patient reports taking diuretics as recommended on recent admission at [place] but does not seem helping. Patient oxygen saturation was in 80s on EMS arrival, was given DuoNeb and placed on 2 L oxygen and currently in mid 90s. Reports generalized chest congestion and tightness. Subjective feeling of fever and chills as well. Earlier today he was trying to transfer himself from wheelchair to his car and fell and hit the stump and is complaining of pain in the right leg/stump area. Denies any known sick contact Allergies/Adverse Reactions: Penicillins Allergy (Verified 02/25/24 17:12) Beta-Blockers (Beta-Adrenergic Bloc Adverse Reaction (Verified 02/25/24 17:12) Wheezing Home Medications: Aspirin 81 gm Chew [Baby Aspirin 81 mg Chew] 1 tab PO DAILY 02/22/23 [History] Atorvastatin Calcium 80 mg PO HS 02/22/23 [History] Carvedilol 12.5 mg [Coreg 12.5 mg] 2 tab PO BID 02/22/23 [History] Empagliflozin [Jardiance] 25 mg PO DAILY 02/22/23 [History] Furosemide [Lasix] 20 mg PO DAILY 02/22/23 [History] Nitroglycerin 0.4 mg Tablet [Nitrostat 0.4 MG Tablet] 1 tab PO UD PRN 02/22/23 [History] Sacubitril/Valsartan [Entresto 24 mg-26 mg Tablet] 1 tab PO BID 02/22/23 [History] Trazodone HCl 50 mg [Desyrel 50 mg] 150 mg PO HS 02/24/23 [History] Amlodipine Besylate [Norvasc] 10 mg PO DAILY 01/26/24 [History] Aripiprazole [Abilify] 2 mg PO DAILY 01/26/24 [History] Bumetanide 0.5 mg PO DAILY 01/26/24 [History] Citalopram Hydrobromide 20 mg* [ceLEXa 20 MG] 20 mg PO DAILY 01/26/24 [History] Folic Acid 1 mg [Folate 1 mg] 1 mg PO DAILY 01/26/24 [History] Losartan Potassium 100 mg PO DAILY 01/26/24 [History] Potassium Chloride 1 tab PO DAILY 01/26/24 [History] Spironolactone 25 mg [Aldactone 25 MG] 25 mg PO DAILY 01/26/24 [History] Hx Tetanus, Diphtheria Vaccination/Date Given: Yes Hx Influenza Vaccination/Date Given: Yes Hx Pneumococcal Vaccination/Date Given: Yes Immunizations Up to Date: Yes Travel Risk - International Travel Have you traveled outside of the country in past 3 weeks: No - Emerging Infectious Disease Are you exhibiting symptoms associated with any current EIDs: Yes Symptoms: Cough: New Onset, Shortness of Breath - Review of Systems Constitutional: Fever, Chills, Fatigue Eyes: No Symptoms Ears, Nose, & Throat: No Symptoms Respiratory: Cough, Dyspnea Cardiac: Edema Abdominal/Gastrointestinal: No Symptoms Genitourinary Symptoms: No Symptoms Musculoskeletal: Injury Skin: No Symptoms Neurological: No Symptoms Endocrine: No Symptoms Hematologic/Lymphatic: No Symptoms - Past Medical History Pertinent Past Medical History: Yes Neurological History: No Pertinent History, Peripheral Neuropathy ENT History: No Pertinent History Cardiac History: Angina, Congestive Heart Failure, Myocardial Infarction ([place]), High Cholesterol, Hypertension Respiratory History: CHF Endocrine Medical History: Diabetes Type II Musculoskeletal History: No Pertinent History, Other GI Medical History: No Pertinent History, GERD History: No Pertinent History Psycho-Social History: No Pertinent History, Depression Male Reproductive Disorders: No Pertinent History Other Medical History: diabetic foot ulcer that spread and has BKA - Past Surgical History Past Surgical History: Yes Neuro Surgical History: No Pertinent History Cardiac: No Pertinent History Respiratory: No Pertinent History Gastrointestinal: No Pertinent History Genitourinary: No Pertinent History Musculoskeletal: No Pertinent History, Amputation Male Surgical History: No Pertinent History Other Surgical History: BKA Significant Family History: no pertinent family hx - Social History Smoking Status: Former smoker How long have you smoked: 24 Exposure to second hand smoke: No Drug Use: marijuana Patient Lives Alone: No - Nursing Vital Signs Nursing Vital Signs: Initial Vital Signs Temperature 98.1 F 03/06/24 07:48 Pulse Rate 81 03/06/24 07:48 Respiratory Rate 24 03/06/24 07:48 Blood Pressure 150/91 03/06/24 07:48 O2 Sat by Pulse Oximetry 85 L 03/06/24 07:48 Pain Scale Pain Intensity 4 - Physical Exam General Appearance: no apparent distress, alert Eye Exam: PERRL/EOMI Ears, Nose, Throat Exam: hearing grossly normal, normal ENT inspection, normal pharynx Neck Exam: normal inspection, supple, full range of motion Respiratory Exam: diminished breath sounds, rhonchi Cardiovascular/Chest Exam: normal heart sounds, regular rate/rhythm Abdominal/Gastrointestinal Exam: normal bowel sounds, No tenderness Extremity Exam: swelling (Swelling right below-knee the stump area with skin abrasion.) Neurologic Exam: alert, oriented x 3, cooperative, 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 II-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 nml as tested Skin Exam: normal color SpO2 Interpretation: hypoxic, O2 applied SpO2: 92 O2 Delivery: Nasal Cannula (2 L) - Course EKG Interpreted by Me: RATE (82), Sinus Rhythm, Right [place] Deviation, prolonged QT interval, Right Bundle Branch Block, Other (ST depression in lateral leads) Ordered Tests: Active Orders 24 hr Category Date Time Status Endoscopy Support Specialist STAT Care 03/06/24 08:03 Active EKG-ER Only STAT Care 03/06/24 08:02 Active Oxygen-ED Only Nasal Cannula 2 lpm Care 03/06/24 08:02 Active CHEST 1 VIEW (PORTABLE) Stat Exams 03/06/24 08:03 Completed CHEST WITH CONTRAST [CT] Stat Exams 03/06/24 12:25 Completed HIP UNI (2V) INCL PEL IF DONE Stat Exams 03/06/24 10:49 Completed KNEE (3 VIEWS) Stat Exams 03/06/24 10:49 Completed BLOOD CULTURE Stat Lab 03/06/24 09:52 Received CBC W DIFF Stat Lab 03/06/24 08:02 Completed CK-Creatinine Phosphokinase Stat Lab 03/06/24 08:35 Completed CMP Stat Lab 03/06/24 08:35 Completed Lactic Acid Stat Lab 03/06/24 08:03 Completed MAGNESIUM Stat Lab 03/06/24 08:35 Completed NT PRO BNPII Stat Lab 03/06/24 08:35 Completed PROCALCITONIN Stat Lab 03/06/24 08:35 Completed TROPONIN Q4H Lab 03/06/24 08:35 Completed TROPONIN Q4H Lab 03/06/24 11:55 Completed TROPONIN Q4H Lab 03/06/24 16:15 Ordered Respiratory Therapy Assessment DAILY RT 03/06/24 12:47 Active Transfer Order Routine Transfer 03/06/24 Ordered Medication Summary Discontinued Medications Generic Name Dose Route Start Last Admin Trade Name Freq PRN Reason Stop Dose Admin Albuterol/Ipratropium 3 ml 03/06/24 12:38 03/06/24 12:47 Ipratropium/Albuterol Sulfate 3 Ml Ampul.Neb IH 03/06/24 12:39 3 ml STAT ONE Administration Albuterol/Ipratropium Confirm 03/06/24 12:43 Ipratropium/Albuterol Sulfate 3 Ml Ampul.Neb Administered 03/06/24 12:44 Dose 3 ml IH .STK-MED ONE Aspirin 324 mg 03/06/24 08:02 03/06/24 08:21 Aspirin 81 Mg Tab.Chew PO 03/06/24 08:03 324 mg STAT ONE Administration Aspirin Confirm 03/06/24 08:15 Aspirin 81 Mg Tab.Chew Administered 03/06/24 08:16 Dose 324 mg .ROUTE .STK-MED ONE Fentanyl Citrate 50 mcg 03/06/24 08:02 03/06/24 08:22 Fentanyl Citrate 100 Mcg/2 Ml* Vial IV 03/06/24 08:03 50 mcg STAT ONE Administration Fentanyl Citrate Confirm 03/06/24 08:15 Fentanyl Citrate 100 Mcg/2 Ml* Vial Administered 03/06/24 08:16 Dose 100 mcg .ROUTE .STK-MED ONE Furosemide 40 mg 03/06/24 08:04 03/06/24 08:21 Furosemide 40 Mg/4 Ml Vial IV 03/06/24 08:05 40 mg STAT ONE Administration Furosemide Confirm 03/06/24 08:16 Furosemide 40 Mg/4 Ml Vial Administered 03/06/24 08:17 Dose 40 mg .ROUTE .STK-MED ONE Levofloxacin/Dextrose 750 mg in 150 mls @ 100 mls/hr 03/06/24 11:02 03/06/24 13:17 Levofloxacin 750mg/150ml D5w IV 03/06/24 12:31 Infused STAT STA Infusion Levofloxacin/Dextrose Confirm 03/06/24 11:17 Levofloxacin 750mg/150ml D5w Administered 03/06/24 11:18 Dose 750 mg in 150 mls @ ud IV .STK-MED ONE Ondansetron HCl 4 mg 03/06/24 08:02 03/06/24 08:21 Ondansetron Hcl 4 Mg/2 Ml Vial IV 03/06/24 08:03 4 mg STAT ONE Administration Ondansetron HCl Confirm 03/06/24 08:15 Ondansetron Hcl 4 Mg/2 Ml Vial Administered 03/06/24 08:16 Dose 4 mg .ROUTE .STK-MED ONE Lab/Rad Data: Laboratory Result Diagrams 03/06/24 08:02 03/06/24 08:35 Laboratory Results 03/06/24 03/06/24 03/06/24 Range/Units 11:55 08:35 08:35 WBC (4.0-10.5) x10^3/uL RBC (4.1-5.6) x10^6/uL Hgb (12.5-18.0) g/dL Hct (42-50) % MCV (78-100) fL MCH (26-32) pg MCHC (32-36) g/dL RDW (11.5-14.0) % Plt Count (150-450) x10^3/uL MPV (7.5-11.0) fL Gran % (36.0-66.0) % Immature Gran % (Auto) (0.00-0.4) % Nucleat RBC Rel Count (0.00-0.1) % Eos # (Auto) (0-0.5) x10^3/uL Immature Gran # (Auto) (0.00-0.03) x10^3u/L Absolute Lymphs (auto) (1.0-4.6) x10^3/uL Absolute Monos (auto) (0.0-1.3) x10^3/uL Absolute Nucleated RBC (0.00-0.01) x10^3u/L Lymphocytes % (24.0-44.0) % Monocytes % (0.0-12.0) % Eosinophils % (0.00-5.0) % Basophils % (0.0-0.4) % Absolute Granulocytes (1.4-6.9) x10^3/uL Basophils # (0-0.4) x10^3/uL Sodium (135-145) mmol/L Potassium (3.5-5.1) mmol/L Chloride (98-107) mmol/L Carbon Dioxide (22-30) mmol/L Anion Gap (5-15) MEQ/L BUN (9-20) mg/dL Creatinine (0.66-1.25) mg/dL Estimated GFR ML/MIN Glucose (74-106) mg/dL Lactic Acid (0.4-2.0) Calcium (8.4-10.2) mg/dL Magnesium (1.6-2.3) mg/dL Total Bilirubin (0.2-1.3) mg/dL AST (17-59) U/L ALT (0-50) U/L Alkaline Phosphatase (38-126) U/L Creatine Kinase (55-170) U/L Troponin I 0.030 0.025 (0.000-0.033) ng/mL NT-Pro-B Natriuret Pep (<300) pg/mL Serum Total Protein (6.3-8.2) g/dL Albumin (3.5-5.0) g/dL Procalcitonin (0.030-0.080) ng/mL Influenza Type A Ag NEGATIVE (NEGATIVE) Influenza Type B Ag NEGATIVE (NEGATIVE) RSV (PCR) NEGATIVE (NEGATIVE) SARS-CoV-2 (PCR) NEGATIVE (NEGATIVE) 03/06/24 03/06/24 03/06/24 Range/Units 08:35 08:03 08:02 WBC 12.6 H (4.0-10.5) x10^3/uL RBC 2.91 L (4.1-5.6) x10^6/uL Hgb 8.3 L (12.5-18.0) g/dL Hct 26.7 L (42-50) % MCV 91.8 (78-100) fL MCH 28.5 (26-32) pg MCHC 31.1 L (32-36) g/dL RDW 19.0 H (11.5-14.0) % Plt Count 337 (150-450) x10^3/uL MPV 12.2 H (7.5-11.0) fL Gran % 80.1 H (36.0-66.0) % Immature Gran % (Auto) 0.5 H (0.00-0.4) % Nucleat RBC Rel Count 0.0 (0.00-0.1) % Eos # (Auto) 0.32 (0-0.5) x10^3/uL Immature Gran # (Auto) 0.06 H (0.00-0.03) x10^3u/L Absolute Lymphs (auto) 0.71 L (1.0-4.6) x10^3/uL Absolute Monos (auto) 1.37 H (0.0-1.3) x10^3/uL Absolute Nucleated RBC 0.00 (0.00-0.01) x10^3u/L Lymphocytes % 5.6 L (24.0-44.0) % Monocytes % 10.9 (0.0-12.0) % Eosinophils % 2.5 (0.00-5.0) % Basophils % 0.4 (0.0-0.4) % Absolute Granulocytes 10.07 H (1.4-6.9) x10^3/uL Basophils # 0.05 (0-0.4) x10^3/uL Sodium 141 (135-145) mmol/L Potassium 3.7 (3.5-5.1) mmol/L Chloride 104 (98-107) mmol/L Carbon Dioxide 28 (22-30) mmol/L Anion Gap 13.1 (5-15) MEQ/L BUN 18 (9-20) mg/dL Creatinine 1.22 (0.66-1.25) mg/dL Estimated GFR 70.9 ML/MIN Glucose 191 H (74-106) mg/dL Lactic Acid 1.8 (0.4-2.0) Calcium 10.9 H (8.4-10.2) mg/dL Magnesium 1.9 (1.6-2.3) mg/dL Total Bilirubin 0.30 (0.2-1.3) mg/dL AST 32 (17-59) U/L ALT 27 (0-50) U/L Alkaline Phosphatase 58 (38-126) U/L Creatine Kinase 369 H (55-170) U/L Troponin I (0.000-0.033) ng/mL NT-Pro-B Natriuret Pep 4060 (<300) pg/mL Serum Total Protein 7.4 (6.3-8.2) g/dL Albumin 3.8 (3.5-5.0) g/dL Procalcitonin 0.108 H (0.030-0.080) ng/mL Influenza Type A Ag (NEGATIVE) Influenza Type B Ag (NEGATIVE) RSV (PCR) (NEGATIVE) SARS-CoV-2 (PCR) (NEGATIVE) - Progress Progress: improved, re-examined Air Movement: fair Progress Note: 03/06/24 14:20 53 years old is evaluated for worsening shortness of breath with minimal productive cough. Patient was hypoxic, placed on oxygen, given DuoNeb, feeling better on reevaluation but still having trouble with maintaining saturation, placed on a Venturi mask with 6 L. Patient saturation is around 95%. He is given a dose of IV Lasix and symptomatic treatment for pain. Chest x-ray did show some improvement from previous infiltrative process but does have some congestion reviewed by me followed by official read. Patient troponins are negative. White count is 12, has positive procalcitonin of point 1 and chemistries fairly unremarkable. With positive Pro-Aubrey I have given a dose of Levaquin as patient possibly have some leftover element of pneumonia. I have obtained CTA chest as patient continues to need oxygen with no obvious infiltrative process, does have congestion and cardiomegaly but BNP is not excessively elevated. CTA is negative for PE but did show finding consistent wi th CHF exacerbation. Patient discussed with Dr. Amato, reviewed history, workup and agreed with admission. I have shared the results of workup with patient, agreed with admission. X-rays right knee and hip are negative for fracture dislocation reviewed by me and official report as patient fell earlier. CK level is mildly elevated but patient has CHF, will hold off on fluids. 03/06/24 14:25 Blood Culture(s) Obtained: Yes Antibiotics given: Yes Discussed with : Other (Dr. Amato) Will see patient in: hospital (observation) Counseled pt/family regarding: lab results, diagnosis, rad results Medical Desision Making - Independent Historian Additional History obtained from: Showplace Manager/EMT - Discussion of managment Care discussed with:: hospitalist (:) Reviewed:: Test results, Need for additional workup Agreed on:: Treatment plan Will see patient: in hospital - Diagnostic Testing Diagnostic test were ordered, analyzed, and reviewed by me: Yes Radiological Interpretation: Interpreted by me, Reviewed by me - Risk of complications The pt has a high risk of morbidity or mortality based on: Decision regarding hospitilization or escalation of hosp level of care - Departure Departure Disposition: Observation Clinical Impression: CHF exacerbation, Pneumonia Respiratory failure Qualifiers: Chronicity: acute Respiratory failure complication: hypoxia Qualified Code(s): J96.01 - Acute respiratory failure with hypoxia Condition: Stable Critical Care Time: No Referrals: MARLYN NOEL MD [Primary Care Provider] - Follow up/PCP as directed Instructions: Heart Failure
[2024-03-06] MEDS ORDERED: BABY ASPIRIN 81 MG CHEW ONE (08:15)
[2024-03-06] MEDS ORDERED: Zofran 4 MG/2 ML VIAL ONE (08:15)
[2024-03-06] MEDS ORDERED: SUBLIMAZE 100 MCG/2 ML ONE (08:15)
[2024-03-06] MEDS ORDERED: Lasix 40 MG/4 ML ONE (08:16)
[2024-03-06] MEDS: Zofran 4 MG/2 ML VIAL IV ONE (08:21)
[2024-03-06] MEDS: Lasix 40 MG/4 ML IV ONE (08:21)
[2024-03-06] MEDS: BABY ASPIRIN 81 MG CHEW PO ONE (08:21)
[2024-03-06] MEDS: SUBLIMAZE 100 MCG/2 ML IV ONE (08:22)
[2024-03-06 08:47] LABS: Absolute Neutrophil Ct (ANC) 10.07 x10^3/uL (1.4-6.9); BASOPHIL % 0.4 % (0.0-0.4); Basophil (Absolute #) 0.05 x10^3/uL (0-0.4); Eosinophil % 2.5 % (0.00-5.0); Eosinophil (Absolute #) 0.32 x10^3/uL (0-0.5); Hematocrit 26.7 % (42-50); Hemoglobin 8.3 g/dL (12.5-18.0); IMMATURE GRAN # 0.06 x10^3u/L (0.00-0.03); IMMATURE GRAN % 0.5 % (0.00-0.4); Lymphocyte (Absolute #) 0.71 x10^3/uL (1.0-4.6); Lymphocytes % 5.6 % (24.0-44.0); Mean Cell Volume 91.8 fL (78-100); Mean Corpuscular Hemoglobin 28.5 pg (26-32); Mean Corpuscular Hgb Concent. 31.1 g/dL (32-36); Mean Platelet Volume 12.2 fL (7.5-11.0); Monocyte (Absolute #) 1.37 x10^3/uL (0.0-1.3); Monocytes % 10.9 % (0.0-12.0); Neutrophil % 80.1 % (36.0-66.0); Platelet Count 337 x10^3/uL (150-450); Red Blood Count 2.91 x10^6/uL (4.1-5.6); White Blood Count 12.6 x10^3/uL (4.0-10.5)
--- NOTE | 2024-03-06 08:47 | XRAY ---
Indication: Short of breath. Comparison: February 25, 2024 Portable chest demonstrates clearing previous bilateral infiltrates/atelectasis/effusions with mild residual left base. Heart remains enlarged. No new cardiopulmonary abnormalities.
[2024-03-06 09:18] LABS: ALBUMIN 3.8 g/dL (3.5-5.0); ANION GAP 13.1 MEQ/L (5-15); BILIRUBIN,TOTAL 0.3 mg/dL (0.2-1.3); Calcium 10.9 mg/dL (8.4-10.2); Creatinine 1 1.22 mg/dL (0.66-1.25); EST GLOMERULAR FILTRATION RATE 70.9 ML/MIN; MAGNESIUM 1.9 mg/dL (1.6-2.3); PROCALCITONIN 0.108 ng/mL (0.030-0.080); Potassium 3.7 mmol/L (3.5-5.1); Total Protein 7.4 g/dL (6.3-8.2)
[2024-03-06 09:33] LABS: INFLUENZA A NEGATIVE (NEGATIVE); INFLUENZA B NEGATIVE (NEGATIVE); RESPIRATORY SYNCTIAL VIRUS NEGATIVE (NEGATIVE); SARS-CoV-2 Xpert Express NEGATIVE (NEGATIVE)
[2024-03-06] MEDS ORDERED: LEVOFLOXACIN 750MG/150ML D5W 750 MG/150 ML BAG IV ONE (11:17)
[2024-03-06] MEDS: LEVOFLOXACIN 750MG/150ML D5W 750 MG/150 ML BAG IV STA (11:47)
--- NOTE | 2024-03-06 12:12 | XRAY ---
Indication: Pain following fall. Comparison: None AP pelvis and 2 view right hip demonstrates osteopenia and extensive scattered vascular calcifications. No other bony, articular, or soft tissue abnormalities.
--- NOTE | 2024-03-06 12:12 | XRAY ---
Indication: Pain following fall. Comparison: None 3 view right knee demonstrates osteopenia, below-knee amputation, and extensive scatter vascular calcifications. No other bony, articular, or soft tissue abnormalities.
[2024-03-06] MEDS ORDERED: DUONEB 0.5-3 MG/3 ml Neb IH ONE (12:43)
[2024-03-06] MEDS: DUONEB 0.5-3 MG/3 ml Neb IH ONE (12:47)
--- NOTE | 2024-03-06 14:03 | XRAY ---
Indication: Short of breath. Multiple contiguous images obtained through the chest using 100 cc Isovue 370 contrast and pulmonary most protocol. Comparison: January 25 and February 25, 2024. Good opacification of the pulmonary arteries to include the lobar and segmental branches. However mild respiration artifact limits evaluation of the more distal lobar and segmental branches. No obvious pulmonary embolus. Heart remains enlarged. Aorta remains normal in course and caliber. No pathologic mediastinal/hilar lymphadenopathy. Lungs again demonstrates moderate bilateral pleural effusions with moderate bibasilar compressive atelectasis, both less than before. Bony thorax intact again with minimal degenerative changes throughout the spine. Limited upper abdomen again demonstrates small left adrenal adenoma and tiny gallstone. Impression: 1. Continued negative for pulmonary embolus compared to the [address] chest pulmonary embolus exams. 2. Again cardiomegaly with bilateral effusions/atelectasis favoring cardiac decompensation/CHF versus fluid overload. No new cardiopulmonary abnormalities. 3. Again chronic findings including degenerative spondylosis, left adrenal adenoma, and gallstone.
--- NOTE | 2024-03-06 15:10 | PCM.HP ---
History of Present Illness - Chief Complaint Chief Complaint: SOB, fever Date: 03/06/24 History of Present Illness: is a 53 year old male with pmhx congestive heart failure, diabetes mellitus with right below-knee amputations, ME, HLD, HTN, GERD, and peripheral neuropathy presented to ED 03/06/24 experiencing a two day history of progressive shortness of breath. Patient reports he was just released from [facility] for CHF exacerbation 03/02/24. He denies fever, cough, sick contacts, chest pain, abdominal pain, nausea, or vomiting. He does endorse that his pants have felt tighter the last few days and he has had some burning when he urinates. He also fell with transfer from his wheelchair to vehicle to his right side hitting his right stump and hip. He endorses 8/10 right hip/stump pain. Upon presentation, patient hypoxic with spo2 at 85% on RA and hypertensive. EKG -Sinus Rhythm, Right [place] Deviation, prolonged QT interval, Right Bundle Branch Block, Other (ST depression in lateral leads)CXR with no new cardiopulmonary abnormalities. CT chest negative for PE demonstrating cardiomegaly with bilateral effusions/atelectasis favoring cardiac decompensation/CHF versus fluid overload. Right knee xray with no acute findings. Right hip XR with no acute findings. Lab findings remarkable for leukocytosis with WBC at 12.4, normocytic anemia with hgb at 8.3, CK elevated at 369, procal elevated at 0.108, hypercalcemia at 10.9. BNP 4060. Patient admitted with CHF exacerbation and residual pneumonia. Patient given lasix in ED as well as levaquin. - Review of Systems Constitutional: Weakness Eyes: No Symptoms Ears, Nose, & Throat: No Symptoms Respiratory: Short Of Breath Cardiac: Edema (LLE 4+ pitting edema) Abdominal/Gastrointestinal: No Symptoms Genitourinary Symptoms: Dysuria Musculoskeletal: Joint Pain (right hip/right stump) Skin: Skin Lesions (LLE, Right stump with abrasion) Neurological: No Symptoms Psychological: No Symptoms Endocrine: No Symptoms Hematologic/Lymphatic: Anemia Immunological/Allergic: No Symptoms Medications & Allergies Home Medications: Home Medication List Aspirin 81 gm Chew [Baby Aspirin 81 mg Chew] 1 tab PO DAILY 02/22/23 [History Confirmed 03/06/24] Atorvastatin Calcium 80 mg PO HS 02/22/23 [History Confirmed 03/06/24] Carvedilol 12.5 mg [Coreg 12.5 mg] 2 tab PO BID 02/22/23 [History Confirmed 03/06/24] Empagliflozin [Jardiance] 25 mg PO DAILY 02/22/23 [History Confirmed 03/06/24] Furosemide [Lasix] 20 mg PO DAILY 02/22/23 [History Confirmed 03/06/24] Nitroglycerin 0.4 mg Tablet [Nitrostat 0.4 MG Tablet] 1 tab PO UD PRN 02/22/23 [History Confirmed 03/06/24] Sacubitril/Valsartan [Entresto 24 mg-26 mg Tablet] 1 tab PO BID 02/22/23 [History Confirmed 03/06/24] Trazodone HCl 50 mg [Desyrel 50 mg] 150 mg PO HS 02/24/23 [History Confirmed 03/06/24] Amlodipine Besylate [Norvasc] 10 mg PO DAILY 01/26/24 [History Confirmed 03/06/24] Aripiprazole [Abilify] 2 mg PO DAILY 01/26/24 [History Confirmed 03/06/24] Bumetanide 0.5 mg PO DAILY 01/26/24 [History Confirmed 03/06/24] Citalopram Hydrobromide 20 mg* [ceLEXa 20 MG] 20 mg PO DAILY 01/26/24 [History Confirmed 03/06/24] Folic Acid 1 mg [Folate 1 mg] 1 mg PO DAILY 01/26/24 [History Confirmed 03/06/24] Losartan Potassium 100 mg PO DAILY 01/26/24 [History Confirmed 03/06/24] Potassium Chloride 1 tab PO DAILY 01/26/24 [History Confirmed 03/06/24] Spironolactone 25 mg [Aldactone 25 MG] 25 mg PO DAILY 01/26/24 [History Confirmed 03/06/24] Allergies/Adverse Reactions: Allergies Allergy/AdvReac Type Severity Reaction Status Date / Time Penicillins Allergy Verified 02/25/24 17:12 Beta-Blockers AdvReac Wheezing Verified 02/25/24 17:12 (Beta-Adrenergic Bloc - Past Medical History Past Medical History: Yes Neurological History: No Pertinent History, Peripheral Neuropathy ENT History: No Pertinent History Cardiac History: Angina, Congestive Heart Failure, Myocardial Infarction (ME), High Cholesterol, Hypertension Respiratory History: CHF Endocrine Medical History: Diabetes Type II Musculoskelatal History: No Pertinent History, Other GI Medical History: No Pertinent History, GERD History: No Pertinent History Pyscho-Social History: No Pertinent History, Depression Male Reproductive Disorders: No Pertinent History Comment: diabetic foot ulcer that spread and has BKA - Past Surgical History Past Surgical History: Yes Neuro Surgical History: No Pertinent History Cardiac History: No Pertinent History Respiratory Surgery: No Pertinent History GI Surgical History: No Pertinent History Genitourinary Surgical Hx: No Pertinent History Musculskeletal Surgical Hx: No Pertinent History, Amputation Male Surgical History: No Pertinent History Other Surgical History: BKA Significant Family History: no pertinent family hx - Social History Smoking Status: Former smoker How long have you smoked: 24 Exposure to second hand smoke: No Alcohol: None Drug Use: marijuana - Social Determinants of Health Will the patient participate in the screening: Yes Do you worry about a steady place to live?: No Do you have any problems with any of the following?: No known problems In the past 12 months,have you had to go without utilities?: No Have you or anyone in your house had to go without enough: No Transportation Issues: No Has anyone in your support network made you feel unsafe?: No Does the patient want assistance with any of the above?: No - Physical Exam Vital Signs: Vital Signs - 24 hr Temp Pulse Resp BP BP Pulse Ox 03/06/24 14:25 92 L 03/06/24 14:11 72 20 148/87 96 03/06/24 13:00 0 L 157/89 03/06/24 12:52 76 20 93 L 03/06/24 12:30 71 19 158/91 03/06/24 12:00 89 16 149/96 03/06/24 11:40 75 19 147/79 94 L 03/06/24 11:00 167/98 03/06/24 10:30 79 21 166/99 03/06/24 10:00 75 21 172/100 03/06/24 09:31 75 22 153/96 03/06/24 09:00 75 20 187/99 94 L 03/06/24 08:02 24 92 L 03/06/24 08:00 79 19 155/88 84 L 03/06/24 07:48 98.1 F 81 24 150/91 85 L General Appearance: no apparent distress Neurologic Exam: alert, oriented x 3, cooperative Eye Exam: PERRL/EOMI Ears, Nose, Throat Exam: moist mucous membranes Neck Exam: full range of motion Respiratory Exam: crackles/rales Cardiovascular Exam: regular rate/rhythm, normal heart sounds Gastrointestinal/Abdomen Exam: soft, normal bowel sounds Rectal Exam: deferred Back Exam: normal inspection Extremity Exam: amputations (RBKA) Skin Exam: pale Results - Labs Lab/Micro Results: Lab Results-Last 24 Hours 03/06/24 03/06/24 03/06/24 Range/Units 08:02 08:03 08:35 WBC 12.6 H (4.0-10.5) x10^3/uL RBC 2.91 L (4.1-5.6) x10^6/uL Hgb 8.3 L (12.5-18.0) g/dL Hct 26.7 L (42-50) % MCV 91.8 (78-100) fL MCH 28.5 (26-32) pg MCHC 31.1 L (32-36) g/dL RDW 19.0 H (11.5-14.0) % Plt Count 337 (150-450) x10^3/uL MPV 12.2 H (7.5-11.0) fL Gran % 80.1 H (36.0-66.0) % Immature Gran % (Auto) 0.5 H (0.00-0.4) % Nucleat RBC Rel Count 0.0 (0.00-0.1) % Eos # (Auto) 0.32 (0-0.5) x10^3/uL Immature Gran # (Auto) 0.06 H (0.00-0.03) x10^3u/L Absolute Lymphs (auto) 0.71 L (1.0-4.6) x10^3/uL Absolute Monos (auto) 1.37 H (0.0-1.3) x10^3/uL Absolute Nucleated RBC 0.00 (0.00-0.01) x10^3u/L Lymphocytes % 5.6 L (24.0-44.0) % Monocytes % 10.9 (0.0-12.0) % Eosinophils % 2.5 (0.00-5.0) % Basophils % 0.4 (0.0-0.4) % Absolute Granulocytes 10.07 H (1.4-6.9) x10^3/uL Basophils # 0.05 (0-0.4) x10^3/uL Sodium 141 (135-145) mmol/L Potassium 3.7 (3.5-5.1) mmol/L Chloride 104 (98-107) mmol/L Carbon Dioxide 28 (22-30) mmol/L Anion Gap 13.1 (5-15) MEQ/L BUN 18 (9-20) mg/dL Creatinine 1.22 (0.66-1.25) mg/dL Estimated GFR 70.9 ML/MIN Glucose 191 H (74-106) mg/dL Lactic Acid 1.8 (0.4-2.0) Calcium 10.9 H (8.4-10.2) mg/dL Magnesium 1.9 (1.6-2.3) mg/dL Total Bilirubin 0.30 (0.2-1.3) mg/dL AST 32 (17-59) U/L ALT 27 (0-50) U/L Alkaline Phosphatase 58 (38-126) U/L Creatine Kinase 369 H (55-170) U/L Troponin I (0.000-0.033) ng/mL NT-Pro-B Natriuret Pep 4060 (<300) pg/mL Serum Total Protein 7.4 (6.3-8.2) g/dL Albumin 3.8 (3.5-5.0) g/dL Procalcitonin 0.108 H (0.030-0.080) ng/mL Influenza Type A Ag (NEGATIVE) Influenza Type B Ag (NEGATIVE) RSV (PCR) (NEGATIVE) SARS-CoV-2 (PCR) (NEGATIVE) 03/06/24 03/06/24 03/06/24 Range/Units 08:35 08:35 11:55 WBC (4.0-10.5) x10^3/uL RBC (4.1-5.6) x10^6/uL Hgb (12.5-18.0) g/dL Hct (42-50) % MCV (78-100) fL MCH (26-32) pg MCHC (32-36) g/dL RDW (11.5-14.0) % Plt Count (150-450) x10^3/uL MPV (7.5-11.0) fL Gran % (36.0-66.0) % Immature Gran % (Auto) (0.00-0.4) % Nucleat RBC Rel Count (0.00-0.1) % Eos # (Auto) (0-0.5) x10^3/uL Immature Gran # (Auto) (0.00-0.03) x10^3u/L Absolute Lymphs (auto) (1.0-4.6) x10^3/uL Absolute Monos (auto) (0.0-1.3) x10^3/uL Absolute Nucleated RBC (0.00-0.01) x10^3u/L Lymphocytes % (24.0-44.0) % Monocytes % (0.0-12.0) % Eosinophils % (0.00-5.0) % Basophils % (0.0-0.4) % Absolute Granulocytes (1.4-6.9) x10^3/uL Basophils # (0-0.4) x10^3/uL Sodium (135-145) mmol/L Potassium (3.5-5.1) mmol/L Chloride (98-107) mmol/L Carbon Dioxide (22-30) mmol/L Anion Gap (5-15) MEQ/L BUN (9-20) mg/dL Creatinine (0.66-1.25) mg/dL Estimated GFR ML/MIN Glucose (74-106) mg/dL Lactic Acid (0.4-2.0) Calcium (8.4-10.2) mg/dL Magnesium (1.6-2.3) mg/dL Total Bilirubin (0.2-1.3) mg/dL AST (17-59) U/L ALT (0-50) U/L Alkaline Phosphatase (38-126) U/L Creatine Kinase (55-170) U/L Troponin I 0.025 0.030 (0.000-0.033) ng/mL NT-Pro-B Natriuret Pep (<300) pg/mL Serum Total Protein (6.3-8.2) g/dL Albumin (3.5-5.0) g/dL Procalcitonin (0.030-0.080) ng/mL Influenza Type A Ag NEGATIVE (NEGATIVE) Influenza Type B Ag NEGATIVE (NEGATIVE) RSV (PCR) NEGATIVE (NEGATIVE) SARS-CoV-2 (PCR) NEGATIVE (NEGATIVE) - Radiology Impressions Radiology Exams & Impressions: Radiology Procedures Category Date Time Status CHEST 1 VIEW (PORTABLE) Stat Exams 03/06/24 08:03 Completed CHEST WITH CONTRAST [CT] Stat Exams 03/06/24 12:25 Completed HIP UNI (2V) INCL PEL IF DONE Stat Exams 03/06/24 10:49 Completed KNEE (3 VIEWS) Stat Exams 03/06/24 10:49 Completed - Other Procedures and Tests Respiratory Therapy 03/06/24 14:38 Oxygen Nasal Cannula 4 lpm Respiratory Therapy Consult ONCE Assessment/Plan (1) CHF exacerbation Current Visit: Yes Status: Acute Assessment & Plan: -Supplemental oxygen with spo2 goal 88-92% -Elevated HOB -Daily weight -Strict I&) -tele -BNP reviewed at 4060 -ECHO reviewed from 02/23/23: In the parasternal long axis view the ejection fraction is estimated to be 25 and 30%. In the apical view the ejection fraction was calculated to be 60%. IMPRESSION: 1) MILD DECREASE IN LEFT VENTRICULAR SYSTOLIC FUNCTION. 2) MILD CONCENTRIC LEFT VENTRICULAR HYPERTROPHY. 3) MILD MITRAL REGURGITATION. 4) MILD TRICUSPID REGURGITATION. 5) NORMAL RIGHT VENTRICULAR SYSTOLIC PRESSURE. 6) MODERATE LEFT ATRIAL DILATATION -Lasix 40mg BID -Monitor renal/lytes , Keep K>4, Mg>2 -Continue home meds entresto/jardiance Code(s): I50.9 - HEART FAILURE, UNSPECIFIED (2) Pneumonia Current Visit: Yes Status: Acute Assessment & Plan: -CT favoring CHF vs pna -Levaquin given in ED, procal is mildly elevated, will continue -Supplemental oxygen with spo2 goal 88-92% -RT eval -Nebs/INH prn Code(s): J18.9 - PNEUMONIA, UNSPECIFIED ORGANISM (3) Acute hypoxic respiratory failure Current Visit: No Status: Acute Assessment & Plan: -Secondary to CHF/pneumonia -see above Code(s): J96.01 - ACUTE RESPIRATORY FAILURE WITH HYPOXIA (4) Anemia Current Visit: No Status: Acute Assessment & Plan: -chronic, baseline around 9 - will order iron studies Code(s): D64.9 - ANEMIA, UNSPECIFIED (5) HTN (hypertension) Current Visit: No Status: Acute Assessment & Plan: -continue home meds Code(s): I10 - ESSENTIAL (PRIMARY) HYPERTENSION (6) Diabetes mellitus Current Visit: No Status: Chronic Assessment & Plan: -Most recent a1c 01/27/24 showing good glycemic control at 6.24 -ADA diet -SSI Code(s): E11.9 - TYPE 2 DIABETES MELLITUS WITHOUT COMPLICATIONS (7) Dysuria Current Visit: Yes Status: Acute Assessment & Plan: -will order UA for evaluation, recent ucult 02/25/24 with no growth VTE: lovenox PPI PRotonix Dispo: 1-2 days Code(s): R30.0 - DYSURIA Telemedicine Encounter - Telemedicine Encounter Telemedicine Encounter: The entirety of this encounter was performed via Telemedicine"
[2024-03-06] MEDS ORDERED: HUMALOG SQ PRN (15:47)
[2024-03-06] MEDS: NORCO 5/325 MG PO PRN (16:29)
[2024-03-06] MEDS: Lasix 40 MG/4 ML IV SCH (16:30)
[2024-03-06] MEDS: TYLENOL 325 MG PO PRN (17:58)
[2024-03-06 18:29] LABS: Iron 33 ug/dL (49-181); Iron Saturation 10 % (20-39); TIBC 345 ug/dL (261-497)
[2024-03-06 19:30] LABS: Ferritin 41.1 ng/mL (17.9-464); Folate (Folic Acid) > 16.6 ng/mL (2.76 - >20); Vitamin B12 882 pg/mL (239-931)
[2024-03-06 21:35] LABS: Appearance Turbid (Clear); Bilirubin Negative (Negative); Blood Moderate (Negative); Epithelial Cells None Seen /HPF (None Seen); Glucose, Urine 500 mg/dL (Negative); Hyaline Casts NONE SEEN /LPF (0-2); Ketones Negative (Negative); Leukocyte Esterase Large (Negative); Nitrite Negative (Negative); Protein,Urine Dip 100 (Negative); RBC 0-2 /HPF (0-5); Specific Gravity 1.025 (1.005-1.030); Urobilinogen 0.2 mg/dL (0.2); WBC >100 /HPF (0-5)
[2024-03-06 21:36] LABS: ADD URINE CULTURE? YES (NO); Bacteria Rare /HPF (None Seen); Budding Yeast Moderate /HPF (None Seen)
[2024-03-06] MEDS: NYSTOP POWDER 15 GM TP SCH (23:12)
[2024-03-07] MEDS ORDERED: Ativan 2 MG/1 ML VIAL ONE (01:06)
[2024-03-07 05:36] LABS: Hematocrit 24.1 % (42-50); Hemoglobin 7.4 g/dL (12.5-18.0); Mean Cell Volume 93.8 fL (78-100); Mean Corpuscular Hemoglobin 28.8 pg (26-32); Mean Corpuscular Hgb Concent. 30.7 g/dL (32-36); Mean Platelet Volume 12.3 fL (7.5-11.0); Platelet Count 283 x10^3/uL (150-450); Red Blood Count 2.57 x10^6/uL (4.1-5.6); Red Cell Distribution Width 19.5 % (11.5-14.0); White Blood Count 8.5 x10^3/uL (4.0-10.5)
[2024-03-07 06:07] LABS: ALBUMIN 3.3 g/dL (3.5-5.0); ALKALINE PHOSPHATASE 48 U/L (38-126); ANION GAP 7.4 MEQ/L (5-15); BLOOD UREA NITROGEN 20 mg/dL (9-20); CHLORIDE 103 mmol/L (98-107); Calcium 9.7 mg/dL (8.4-10.2); Carbon Dioxide 31 mmol/L (22-30); Creatinine 1 1.34 mg/dL (0.66-1.25); EST GLOMERULAR FILTRATION RATE 63.3 ML/MIN; ETHYL ALCOHOL < 10 mg/dL (0-10); Glucose 103 mg/dL (74-106); MAGNESIUM 1.7 mg/dL (1.6-2.3); Potassium 3.4 mmol/L (3.5-5.1); SGOT/AST 21 U/L (17-59); SGPT/ALT 22 U/L (0-50); SODIUM 137 mmol/L (135-145); Total Protein 6.8 g/dL (6.3-8.2)
[2024-03-07 06:33] LABS: Eosinophil 2 % (0.00-3.0); Lymphocytes 9 % (24-44); Monocyte 8 % (0.0-12.0); Neutrophils 81 % (36.-66.); Total Cells Counted 100
[2024-03-07 06:34] LABS: ANISOCYTOSIS 1+; Hypochromia 2+; Platelet Estimate NORMAL (NORMAL)
[2024-03-07] MEDS: Klor Con PO SCH (08:33)
--- NOTE | 2024-03-07 09:50 | PCM.NOTE ---
Date and Time: 03/07/24 0950 Subjective Assessment: is a 53 year old male with pmhx congestive heart failure, diabetes mellitus with right below-knee amputations, CA, HLD, HTN, GERD, and peripheral neuropathy presented to ED 03/06/24 experiencing a two day history of progressive shortness of breath admitted with CHF exacerbation and pneumonia. Upon presentation, patient hypoxic with spo2 at 85% on RA and hypertensive. EKG - Sinus Rhythm, Right [place] Deviation, prolonged QT interval, Right Bundle Branch Block, Other (ST depression in lateral leads)CXR with no new cardiopulmonary abnormalities. CT chest negative for PE demonstrating cardiomegaly with bilateral effusions/atelectasis favoring cardiac decompensation/CHF versus fluid overload. Right knee xray with no acute findings. Right hip XR with no acute findings. Lab findings remarkable for leukocytosis with WBC at 12.4, normocytic anemia with hgb at 8.3, CK elevated at 369, procal elevated at 0.108, hypercalcemia at 10.9. BNP 4060. IP treatment with IV lasix and ceftriaxone. 03/07/24: Met with patient bedside. Endorses improvement of shortness of breath, feeling emotional this morning and tearful during interview. Patient states he has been consuming 1 pint of whiskey every other day and he has been trying to quit. Last drink 3 days ago. Patient states he doesn't think he abusing alcohol, nor does he want op treatment. [facility] has been consulted. [facility] protocol initiated. Patient is diuresing well with 8.8 pound weight loss. Currently on 4L oxygen which we will attempt to wean. Hgb is at 7.4 today, patient appears to have chronic iron deficiency anemia with TIBC at 10%, denies hematuria, hematemesis , or hematochezia. Will infusion iron today, may need further GI /hematology consult pending stool results. - Review of Systems Constitutional: No Symptoms Eyes: No Symptoms Ears, Nose, & Throat: No Symptoms Respiratory: Short Of Breath Cardiac: No Symptoms, Edema (LLE 4+ pitting) Abdominal/Gastrointestinal: No Symptoms Genitourinary Symptoms: Dysuria Musculoskeletal: Joint Pain (right hip/right stump) Neurological: No Symptoms Psychological: Alcohol Abuse, Anxiety, Depression Endocrine: No Symptoms Hematologic/Lymphatic: No Symptoms Immunological/Allergic: No Symptoms Objective Exam General Appearance: no apparent distress Neurologic Exam: alert, oriented x 3, cooperative Skin Exam: pale Wound Assessment: Skin/Wound Assessment Wound/Incision Assessment Start: 03/06/24 15:18 Text: Status: Active Freq: Q6H Protocol: Document 03/07/24 02:00 NIMESH (Rec: 03/07/24 03:09 JJarod [id number]) Wound/Incision Assessment LEFT ANTERIOR SECOND TOE Wound Assessment Shift Assessment Wound Stage Non Pressure Wound Drainage Amount None Drainage Odor None/Absent General Appearance Well Approximated Comment HEALING WOUND NOTED TO ANTERIOR SECOND TOE, OPEN TO AIR, DRY AND INTACT, PT DENIES KNOWING HOW LONG WOUND HAS BEEN THERE OR HOW IT HAPPENED. DOES NOT APPEAR TO BE A PRESSURE WOUND, SURROUNDING SKIN IS VERY DRY AND SCALEY. Remains true Right Posterior Finger Wound Assessment Shift Assessment Wound Type Burn Wound Stage Non Pressure Wound Drainage Amount None Drainage Odor None/Absent General Appearance Well Approximated Comment WOUND APPEARS TO BE A HEALING BURN, PT STATES HE DOES NOT KNOW WHAT HAPPENED, NO DRAINAGE OR BLEEDING NOTED, OPEN TO AIR. Remains true. Left Lower Posterior Calf Wound Assessment Shift Assessment Wound Type Abrasion Wound Stage Non Pressure Wound Drainage Odor None/Absent General Appearance Well Approximated Wound Bed Greatest Portion Red (Granulation) Surrounding Tissue [place] Comment OPEN TO AIR, SCABBED AREAS NOTED TO POSTERIOR LLE, OPEN AREA WHERE SCAB HAS BEEN SCRAPPED OFF BY MOVEMENT PER PT. Remains true. RIGHT STUMP Wound Assessment Shift Assessment Wound Type Abrasion Wound Stage Non Pressure Wound Drainage Amount Minimal Drainage Description Serous Drainage Odor None/Absent General Appearance Well Approximated Wound Bed Greatest Portion Red (Granulation) Surrounding Tissue [place] Comment OPEN TO AIR, MILD WEEPING NOTED ON SHEET. Remains true. Pt refuses dressing. Left Knee Wound Assessment Shift Assessment Wound Type Abrasion Wound Stage Non Pressure Wound Drainage Amount None Drainage Odor None/Absent General Appearance Well Approximated Surrounding Tissue [place] Comment SCABBED AREAS NOTED, NO DRAINAGE OR BLEEDING, Open to air. Remains true. Eye Exam: PERRL Ears, Nose, Throat Exam: moist mucous membranes Neck Exam: normal inspection Respiratory Exam: crackles/rales Cardiovascular Exam: regular rate/rhythm, normal heart sounds Gastrointestinal/Abdomen Exam: soft, normal bowel sounds Extremity Exam: amputations (RBKA) Back Exam: normal inspection Male Genitalia Exam: deferred Rectal Exam: deferred Objective Data Vital Signs: Vital Signs - 24 hr Temp Pulse Resp BP BP Pulse Ox 03/07/24 07:05 97.9 F 76 16 126/66 96 03/07/24 05:04 92 L 03/07/24 04:00 97.1 F 70 20 127/71 94 L 03/06/24 23:30 98.4 F 66 20 116/64 92 L 03/06/24 20:46 96 03/06/24 20:00 98 F 71 19 129/75 96 03/06/24 19:31 94 L 03/06/24 19:16 95 03/06/24 15:26 93 L 03/06/24 14:39 97.4 F 72 20 125/72 96 03/06/24 14:38 96 03/06/24 14:25 92 L 03/06/24 14:11 72 20 148/87 96 03/06/24 13:00 0 L 157/89 03/06/24 12:52 76 20 93 L 03/06/24 12:30 71 19 158/91 03/06/24 12:00 89 16 149/96 03/06/24 11:40 75 19 147/79 94 L 03/06/24 11:00 167/98 03/06/24 10:30 79 21 166/99 03/06/24 10:00 75 21 172/100 Pain Assessment - Last Documented Pain Intensity 7 Pain Scale Used 0-10 Pain Scale Intake and Output: Intake & Output 03/04/24 03/05/24 03/06/24 03/07/24 11:59 11:59 11:59 11:59 Intake Total 1220 Output Total 550 Balance 670 Weight 136 kg 132.1 kg Lab Results: Lab Results-Last 24 Hours 03/06/24 03/06/24 03/06/24 Range/Units 11:55 16:21 16:30 WBC (4.0-10.5) x10^3/uL RBC (4.1-5.6) x10^6/uL Hgb (12.5-18.0) g/dL Hct (42-50) % MCV (78-100) fL MCH (26-32) pg MCHC (32-36) g/dL RDW (11.5-14.0) % Plt Count (150-450) x10^3/uL MPV (7.5-11.0) fL Segmented Neutrophils (36.-66.) % Lymphocytes (Manual) (24-44) % Monocytes (Manual) (0.0-12.0) % Eosinophils (Manual) (0.00-3.0) % Hypochromia Platelet Estimate (NORMAL) RBC Morphology Anisocytosis Sodium (135-145) mmol/L Potassium (3.5-5.1) mmol/L Chloride (98-107) mmol/L Carbon Dioxide (22-30) mmol/L Anion Gap (5-15) MEQ/L BUN (9-20) mg/dL Creatinine (0.66-1.25) mg/dL Estimated GFR ML/MIN Glucose (74-106) mg/dL POC Glucometer 117 H (74 to 106) mg/dL Calcium (8.4-10.2) mg/dL Magnesium (1.6-2.3) mg/dL Iron (49-181) ug/dL TIBC (261-497) ug/dL Iron Saturation (20-39) % Ferritin (17.9-464) ng/mL Total Bilirubin (0.2-1.3) mg/dL AST (17-59) U/L ALT (0-50) U/L Alkaline Phosphatase (38-126) U/L Troponin I 0.030 0.048 H* (0.000-0.033) ng/mL Serum Total Protein (6.3-8.2) g/dL Albumin (3.5-5.0) g/dL Prealbumin (17.6-36.0) mg/dL Vitamin B12 (239-931) pg/mL Folic Acid (2.76 - >20) ng/mL Urine Color (Yellow) Urine Appearance (Clear) Urine pH (4.6-8.0) Ur Specific [place] (1.005-1.030) Urine Protein (Negative) Urine Glucose (UA) (Negative) mg/dL Urine Ketones (Negative) Urine Blood (Negative) Urine Nitrite (Negative) Urine Bilirubin (Negative) Urine Urobilinogen (0.2) mg/dL Ur Leukocyte Esterase (Negative) U Hyaline Cast (Auto) (0-2) /LPF Urine Microscopic RBC (0-5) /HPF Urine Microscopic WBC (0-5) /HPF Ur Epithelial Cells (None Seen) /HPF Urine Bacteria (None Seen) /HPF Urine Yeast (Budding) (None Seen) /HPF Urine Culture Reflexed (NO) Ethyl Alcohol (0-10) mg/dL 03/06/24 03/06/24 03/06/24 Range/Units 16:30 16:30 21:02 WBC (4.0-10.5) x10^3/uL RBC (4.1-5.6) x10^6/uL Hgb (12.5-18.0) g/dL Hct (42-50) % MCV (78-100) fL MCH (26-32) pg MCHC (32-36) g/dL RDW (11.5-14.0) % Plt Count (150-450) x10^3/uL MPV (7.5-11.0) fL Segmented Neutrophils (36.-66.) % Lymphocytes (Manual) (24-44) % Monocytes (Manual) (0.0-12.0) % Eosinophils (Manual) (0.00-3.0) % Hypochromia Platelet Estimate (NORMAL) RBC Morphology Anisocytosis Sodium (135-145) mmol/L Potassium (3.5-5.1) mmol/L Chloride (98-107) mmol/L Carbon Dioxide (22-30) mmol/L Anion Gap (5-15) MEQ/L BUN (9-20) mg/dL Creatinine (0.66-1.25) mg/dL Estimated GFR ML/MIN Glucose (74-106) mg/dL POC Glucometer 115 H (74 to 106) mg/dL Calcium (8.4-10.2) mg/dL Magnesium (1.6-2.3) mg/dL Iron 33 L (49-181) ug/dL TIBC 345 (261-497) ug/dL Iron Saturation 10 L (20-39) % Ferritin 41.1 (17.9-464) ng/mL Total Bilirubin (0.2-1.3) mg/dL AST (17-59) U/L ALT (0-50) U/L Alkaline Phosphatase (38-126) U/L Troponin I (0.000-0.033) ng/mL Serum Total Protein (6.3-8.2) g/dL Albumin (3.5-5.0) g/dL Prealbumin (17.6-36.0) mg/dL Vitamin B12 882 (239-931) pg/mL Folic Acid > 16.6 (2.76 - >20) ng/mL Urine Color (Yellow) Urine Appearance (Clear) Urine pH (4.6-8.0) Ur Specific [place] (1.005-1.030) Urine Protein (Negative) Urine Glucose (UA) (Negative) mg/dL Urine Ketones (Negative) Urine Blood (Negative) Urine Nitrite (Negative) Urine Bilirubin (Negative) Urine Urobilinogen (0.2) mg/dL Ur Leukocyte Esterase (Negative) U Hyaline Cast (Auto) (0-2) /LPF Urine Microscopic RBC (0-5) /HPF Urine Microscopic WBC (0-5) /HPF Ur Epithelial Cells (None Seen) /HPF Urine Bacteria (None Seen) /HPF Urine Yeast (Budding) (None Seen) /HPF Urine Culture Reflexed (NO) Ethyl Alcohol (0-10) mg/dL 03/06/24 03/07/24 03/07/24 Range/Units 21:16 05:05 05:05 WBC 8.5 (4.0-10.5) x10^3/uL RBC 2.57 L (4.1-5.6) x10^6/uL Hgb 7.4 L (12.5-18.0) g/dL Hct 24.1 L (42-50) % MCV 93.8 (78-100) fL MCH 28.8 (26-32) pg MCHC 30.7 L (32-36) g/dL RDW 19.5 H (11.5-14.0) % Plt Count 283 (150-450) x10^3/uL MPV 12.3 H (7.5-11.0) fL Segmented Neutrophils 81 H (36.-66.) % Lymphocytes (Manual) 9 L (24-44) % Monocytes (Manual) 8 (0.0-12.0) % Eosinophils (Manual) 2 (0.00-3.0) % Hypochromia 2+ Platelet Estimate NORMAL (NORMAL) RBC Morphology ABNORMAL Anisocytosis 1+ Sodium 137 (135-145) mmol/L Potassium 3.4 L (3.5-5.1) mmol/L Chloride 103 (98-107) mmol/L Carbon Dioxide 31 H (22-30) mmol/L Anion Gap 7.4 (5-15) MEQ/L BUN 20 (9-20) mg/dL Creatinine 1.34 H (0.66-1.25) mg/dL Estimated GFR 63.3 ML/MIN Glucose 103 (74-106) mg/dL POC Glucometer (74 to 106) mg/dL Calcium 9.7 (8.4-10.2) mg/dL Magnesium 1.7 (1.6-2.3) mg/dL Iron (49-181) ug/dL TIBC (261-497) ug/dL Iron Saturation (20-39) % Ferritin (17.9-464) ng/mL Total Bilirubin 0.50 (0.2-1.3) mg/dL AST 21 (17-59) U/L ALT 22 (0-50) U/L Alkaline Phosphatase 48 (38-126) U/L Troponin I (0.000-0.033) ng/mL Serum Total Protein 6.8 (6.3-8.2) g/dL Albumin 3.3 L (3.5-5.0) g/dL Prealbumin 21.00 (17.6-36.0) mg/dL Vitamin B12 (239-931) pg/mL Folic Acid (2.76 - >20) ng/mL Urine Color Yellow (Yellow) Urine Appearance Turbid A (Clear) Urine pH 5.0 (4.6-8.0) Ur Specific [place] 1.025 (1.005-1.030) Urine Protein 100 A (Negative) Urine Glucose (UA) 500 A (Negative) mg/dL Urine Ketones Negative (Negative) Urine Blood Moderate A (Negative) Urine Nitrite Negative (Negative) Urine Bilirubin Negative (Negative) Urine Urobilinogen 0.2 (0.2) mg/dL Ur Leukocyte Esterase Large A (Negative) U Hyaline Cast (Auto) NONE SEEN (0-2) /LPF Urine Microscopic RBC 0-2 (0-5) /HPF Urine Microscopic WBC >100 A (0-5) /HPF Ur Epithelial Cells None Seen (None Seen) /HPF Urine Bacteria Rare A (None Seen) /HPF Urine Yeast (Budding) Moderate A (None Seen) /HPF Urine Culture Reflexed YES (NO) Ethyl Alcohol < 10 (0-10) mg/dL 03/07/24 03/07/24 Range/Units 05:05 07:12 WBC (4.0-10.5) x10^3/uL RBC (4.1-5.6) x10^6/uL Hgb (12.5-18.0) g/dL Hct (42-50) % MCV (78-100) fL MCH (26-32) pg MCHC (32-36) g/dL RDW (11.5-14.0) % Plt Count (150-450) x10^3/uL MPV (7.5-11.0) fL Segmented Neutrophils (36.-66.) % Lymphocytes (Manual) (24-44) % Monocytes (Manual) (0.0-12.0) % Eosinophils (Manual) (0.00-3.0) % Hypochromia Platelet Estimate (NORMAL) RBC Morphology Anisocytosis Sodium (135-145) mmol/L Potassium (3.5-5.1) mmol/L Chloride (98-107) mmol/L Carbon Dioxide (22-30) mmol/L Anion Gap (5-15) MEQ/L BUN (9-20) mg/dL Creatinine (0.66-1.25) mg/dL Estimated GFR ML/MIN Glucose (74-106) mg/dL POC Glucometer 90 (74 to 106) mg/dL Calcium (8.4-10.2) mg/dL Magnesium (1.6-2.3) mg/dL Iron (49-181) ug/dL TIBC (261-497) ug/dL Iron Saturation (20-39) % Ferritin (17.9-464) ng/mL Total Bilirubin (0.2-1.3) mg/dL AST (17-59) U/L ALT (0-50) U/L Alkaline Phosphatase (38-126) U/L Troponin I 0.045 H* (0.000-0.033) ng/mL Serum Total Protein (6.3-8.2) g/dL Albumin (3.5-5.0) g/dL Prealbumin (17.6-36.0) mg/dL Vitamin B12 (239-931) pg/mL Folic Acid (2.76 - >20) ng/mL Urine Color (Yellow) Urine Appearance (Clear) Urine pH (4.6-8.0) Ur Specific [place] (1.005-1.030) Urine Protein (Negative) Urine Glucose (UA) (Negative) mg/dL Urine Ketones (Negative) Urine Blood (Negative) Urine Nitrite (Negative) Urine Bilirubin (Negative) Urine Urobilinogen (0.2) mg/dL Ur Leukocyte Esterase (Negative) U Hyaline Cast (Auto) (0-2) /LPF Urine Microscopic RBC (0-5) /HPF Urine Microscopic WBC (0-5) /HPF Ur Epithelial Cells (None Seen) /HPF Urine Bacteria (None Seen) /HPF Urine Yeast (Budding) (None Seen) /HPF Urine Culture Reflexed (NO) Ethyl Alcohol (0-10) mg/dL Radiology Exams: Radiology Procedures Category Date Time Status CHEST 1 VIEW (PORTABLE) Stat Exams 03/06/24 08:03 Completed CHEST WITH CONTRAST [CT] Stat Exams 03/06/24 12:25 Completed HIP UNI (2V) INCL PEL IF DONE Stat Exams 03/06/24 10:49 Completed KNEE (3 VIEWS) Stat Exams 03/06/24 10:49 Completed Assessment/Plan (1) CHF exacerbation Current Visit: Yes Status: Acute Assessment & Plan: -Supplemental oxygen with spo2 goal 88-92% -Elevated HOB -Daily weight -Strict I&) -tele -BNP reviewed at 4060 -ECHO reviewed from 02/23/23: In the parasternal long axis view the ejection fraction is estimated to be 25 and 30%. In the apical view the ejection fraction was calculated to be 60%. IMPRESSION: 1) MILD DECREASE IN LEFT VENTRICULAR SYSTOLIC FUNCTION. 2) MILD CONCENTRIC LEFT VENTRICULAR HYPERTROPHY. 3) MILD MITRAL REGURGITATION. 4) MILD TRICUSPID REGURGITATION. 5) NORMAL RIGHT VENTRICULAR SYSTOLIC PRESSURE. 6) MODERATE LEFT ATRIAL DILATATION -Lasix 40mg BID -Monitor renal/lytes , Keep K>4, Mg>2 -Continue home meds entresto/jardiance 03/07/24: -Diuresing well, 8 lb weight loss -Continue lasix BID - Code(s): I50.9 - HEART FAILURE, UNSPECIFIED (2) Pneumonia Current Visit: Yes Status: Acute Assessment & Plan: -CT favoring CHF vs pna -Levaquin given in ED, procal is mildly elevated, will continue -Supplemental oxygen with spo2 goal 88-92% -RT eval -Nebs/INH prn 03/07: -Levaquin interaction with home meds, has tolerated ceftriaxone in the past, will switch Code(s): J18.9 - PNEUMONIA, UNSPECIFIED ORGANISM (3) Acute hypoxic respiratory failure Current Visit: No Status: Acute Assessment & Plan: -Secondary to CHF/pneumonia -see above Code(s): J96.01 - ACUTE RESPIRATORY FAILURE WITH HYPOXIA (4) Anemia Current Visit: No Status: Acute Assessment & Plan: -chronic, baseline around 9 - will order iron studies 03/07: -Hgb at 7.4, iron studies showing iron deficiency -Injectafer x 1 dose with TIBC at 10% -Monitor H&H Q6, if hgb <7 will transfuse -Occult stools -Consider surg consult for egd/colo if + occult stools -Consider heme/onc consult for further anemia workup op Code(s): D64.9 - ANEMIA, UNSPECIFIED (5) HTN (hypertension) Current Visit: No Status: Acute Assessment & Plan: -continue home meds Code(s): I10 - ESSENTIAL (PRIMARY) HYPERTENSION (6) Diabetes mellitus Current Visit: No Status: Chronic Assessment & Plan: -Most recent a1c 01/27/24 showing good glycemic control at 6.24 -ADA diet -SSI Code(s): E11.9 - TYPE 2 DIABETES MELLITUS WITHOUT COMPLICATIONS (7) Dysuria Current Visit: Yes Status: Acute Assessment & Plan: -will order UA for evaluation, recent ucult 02/25/24 with no growth 03/07: -abx changed to ceftriaxone (8) hypokalemia/ GHANSHYAM -most likely secondary to diuresis, will decrease lasix to BID -Replenish potassium per protocol VTE: lovenox PPI PRotonix Dispo: 1-2 days Code(s): R30.0 - DYSURIA Code(s): I50.9 - HEART FAILURE, UNSPECIFIED (2) Pneumonia Current Visit: Yes Status: Acute Code(s): J18.9 - PNEUMONIA, UNSPECIFIED ORGANISM (3) Acute hypoxic respiratory failure Current Visit: No Status: Acute Code(s): J96.01 - ACUTE RESPIRATORY FAILURE WITH HYPOXIA (4) Anemia Current Visit: No Status: Acute Code(s): D64.9 - ANEMIA, UNSPECIFIED (5) HTN (hypertension) Current Visit: No Status: Acute Code(s): I10 - ESSENTIAL (PRIMARY) HYPERTENSION (6) Diabetes mellitus Current Visit: No Status: Chronic Code(s): E11.9 - TYPE 2 DIABETES MELLITUS WITHOUT COMPLICATIONS (7) Dysuria Current Visit: Yes Status: Acute Code(s): R30.0 - DYSURIA (8) Hypokalemia Current Visit: Yes Status: Acute Code(s): E87.6 - HYPOKALEMIA (9) GHANSHYAM (acute kidney injury) Current Visit: Yes Status: Acute Code(s): N17.9 - ACUTE KIDNEY FAILURE, UNSPECIFIED
[2024-03-07] MEDS ORDERED: INJECTAFER 750 MG IV ONE (10:00)
[2024-03-07] MEDS ORDERED: Levofloxacin 500MG/100ML D5W 500 MG/100 ML BAG IV SCH (10:00)
[2024-03-07] MEDS ORDERED: Klor Con PO SCH (10:00)
[2024-03-07] MEDS ORDERED: LEVOFLOXACIN 750MG/150ML D5W 750 MG/150 ML BAG IV SCH (10:00)
[2024-03-07] MEDS: Abilify 10 MG PO SCH (10:06)
[2024-03-07] MEDS: ENTRESTO 49 MG-51 MG TABLET PO SCH (10:07)
[2024-03-07] MEDS: FOLATE 1 MG PO SCH (10:08)
[2024-03-07] MEDS: ECOTRIN 81 MG PO SCH (10:09)
[2024-03-07] MEDS: Lexapro PO SCH (10:09)
[2024-03-07] MEDS: ceLEXa 20 MG PO SCH (10:09)
[2024-03-07] MEDS: Protonix 40MG Tablet PO SCH (10:09)
[2024-03-07] MEDS: Pepcid 20 MG PO SCH (10:10)
[2024-03-07] MEDS: COREG 12.5 MG PO SCH (10:10)
[2024-03-07] MEDS: Cozaar 50 MG PO SCH (10:10)
[2024-03-07] MEDS: NORVASC 5 MG PO SCH (10:11)
[2024-03-07] MEDS: ENOXAPARIN SODIUM SQ SCH (10:17)
[2024-03-07] MEDS: INJECTAFER 750 MG 750 MG in Sodium Chloride 0.9% 250 ML 250 ML IV SCH (10:23)
[2024-03-07] MEDS: ROCEPHIN 2 GM/100 ML NACL 2 GM/100 ML IVPB IV SCH (10:24)
[2024-03-07 14:26] LABS: Hematocrit 22.7 % (42-50)
[2024-03-07] MEDS: Ativan 2 MG/1 ML VIAL IV PRN (14:46)
[2024-03-07 15:51] LABS: ABO TYPING A; Antibody Screen NEGATIVE (NEGATIVE); RH TYPING POSITIVE
[2024-03-07 15:52] LABS: CROSS MATCH (PRBC) COMPATIBLE (COMPATIBLE)
[2024-03-07] MEDS ORDERED: Sodium Chloride 0.9% 500 ML 500 ML IV ONE (16:11)
[2024-03-07 20:20] LABS: Hematocrit 25.1 % (42-50); Hemoglobin 7.7 g/dL (12.5-18.0)
[2024-03-07] MEDS: Desyrel 150 MG PO SCH (23:27)
[2024-03-07] MEDS: ZOCOR 20MG PO SCH (23:28)
[2024-03-07] MEDS: Lasix 40 MG/4 ML IV SCH (23:29)
[2024-03-08 06:04] LABS: Hematocrit 24.2 % (42-50); Hemoglobin 7.4 g/dL (12.5-18.0); Mean Cell Volume 91.3 fL (78-100); Mean Corpuscular Hemoglobin 27.9 pg (26-32); Mean Corpuscular Hgb Concent. 30.6 g/dL (32-36); Mean Platelet Volume 12.4 fL (7.5-11.0); Platelet Count 268 x10^3/uL (150-450); Red Blood Count 2.65 x10^6/uL (4.1-5.6); Red Cell Distribution Width 19.1 % (11.5-14.0)
[2024-03-08 06:35] LABS: ALBUMIN 3.4 g/dL (3.5-5.0); ANION GAP 10.8 MEQ/L (5-15); BILIRUBIN,TOTAL 0.8 mg/dL (0.2-1.3); Calcium 9.5 mg/dL (8.4-10.2); Creatinine 1 2.15 mg/dL (0.66-1.25); EST GLOMERULAR FILTRATION RATE 35.9 ML/MIN; MAGNESIUM 1.8 mg/dL (1.6-2.3)
[2024-03-08 06:57] LABS: Potassium 4.1 mmol/L (3.5-5.1)
[2024-03-08] MEDS: PROVENTIL 2.5 MG/3 ML NEB IH PRN (08:09)
[2024-03-08 08:24] LABS: ANISOCYTOSIS 1+; BAND 1 % (0.0-2.0); Basophil 2 % (0.0-1.0); Lymphocytes 9 % (24-44); Monocyte 13 % (0.0-12.0); Neutrophils 75 % (36.-66.); Platelet Estimate NORMAL (NORMAL); Total Cells Counted 100
--- NOTE | 2024-03-08 10:28 | PCM.NOTE ---
Date and Time: 03/08/24 1023 Subjective Assessment: is a 53 year old male with pmhx congestive heart failure, diabetes mellitus with right below-knee amputations, [place], HLD, HTN, GERD, and peripheral neuropathy presented to ED 03/06/24 experiencing a two day history of progressive shortness of breath admitted with CHF exacerbation and pneumonia. Upon presentation, patient hypoxic with spo2 at 85% on RA and hypertensive. EKG - Sinus Rhythm, Right Lorimor Deviation, prolonged QT interval, Right Bundle Branch Block, Other (ST depression in lateral leads)CXR with no new cardiopulmonary abnormalities. CT chest negative for PE demonstrating cardiomegaly with bilateral effusions/atelectasis favoring cardiac decompensation/CHF versus fluid overload. Right knee xray with no acute findings. Right hip XR with no acute findings. Lab findings remarkable for leukocytosis with WBC at 12.4, normocytic anemia with hgb at 8.3, CK elevated at 369, procal elevated at 0.108, hypercalcemia at 10.9. BNP 4060. IP treatment with IV lasix and ceftriaxone. 03/07/24: Met with patient bedside. Endorses improvement of shortness of breath, feeling emotional this morning and tearful during interview. Patient states he has been consuming 1 pint of whiskey every other day and he has been trying to quit. Last drink 3 days ago. Patient states he doesn't think he abusing alcohol, nor does he want op treatment. [facility] has been consulted. [facility] protocol initiated. Patient is diuresing well with 8.8 pound weight loss. Currently on 4L oxygen which we will attempt to wean. Hgb is at 7.4 today, patient appears to have chronic iron deficiency anemia with TIBC at 10%, denies hematuria, hematemesis , or hematochezia. Will infusion iron today, may need further GI /hematology consult pending stool results. 03/07/24: Met with patient this morning. Mood has improved, no longer tearful. No signs/symptoms of withdrawal. Patient still requiring oxygen at 5l Oxymask. He reports shortness of breath has improved. LLE edema improving. Patient did receiving IV iron and 1 unit of blood yesterday. Hemoglobin remains low at 7.4 today. Occult stools are pending collection. Creat level is elevated today, will cut back on lasix, hold entresto, hold losartan. - Review of Systems Constitutional: No Symptoms Eyes: No Symptoms Ears, Nose, & Throat: No Symptoms Respiratory: Cough, Short Of Breath Cardiac: Edema Abdominal/Gastrointestinal: No Symptoms Genitourinary Symptoms: No Symptoms Musculoskeletal: No Symptoms Skin: No Symptoms Neurological: No Symptoms Psychological: No Symptoms Endocrine: No Symptoms Hematologic/Lymphatic: Anemia Immunological/Allergic: No Symptoms Objective Exam General Appearance: no apparent distress Neurologic Exam: alert, oriented x 3, cooperative Skin Exam: pale Wound Assessment: Skin/Wound Assessment Wound/Incision Assessment Start: 03/06/24 15:18 Text: Status: Active Freq: Q6H Protocol: Document 03/08/24 03:00 AF (Rec: 03/08/24 03:12 AF [id number]) Wound/Incision Assessment LEFT ANTERIOR SECOND TOE Wound Assessment Shift Assessment Wound Stage Non Pressure Wound Drainage Amount None Drainage Odor None/Absent General Appearance Well Approximated Comment HEALING WOUND NOTED TO ANTERIOR SECOND TOE, OPEN TO AIR, DRY AND INTACT, PT DENIES KNOWING HOW LONG WOUND HAS BEEN THERE OR HOW IT HAPPENED. DOES NOT APPEAR TO BE A PRESSURE WOUND, SURROUNDING SKIN IS VERY DRY AND SCALEY. Remains true Right Posterior Finger Wound Assessment Shift Assessment Wound Type Burn Wound Stage Non Pressure Wound Drainage Amount None Drainage Odor None/Absent General Appearance Well Approximated Comment WOUND APPEARS TO BE A HEALING BURN, PT STATES HE DOES NOT KNOW WHAT HAPPENED, NO DRAINAGE OR BLEEDING NOTED, OPEN TO AIR. Remains true. Left Lower Posterior Calf Wound Assessment Shift Assessment Wound Type Abrasion Wound Stage Non Pressure Wound Drainage Odor None/Absent General Appearance Well Approximated Wound Bed Greatest Portion Red (Granulation) Surrounding Tissue Betances Comment OPEN TO AIR, SCABBED AREAS NOTED TO POSTERIOR LLE, OPEN AREA WHERE SCAB HAS BEEN SCRAPPED OFF BY MOVEMENT PER PT. Remains true. RIGHT STUMP Wound Assessment Shift Assessment Wound Type Abrasion Wound Stage Non Pressure Wound Drainage Amount Minimal Drainage Description Serous Drainage Odor None/Absent General Appearance Well Approximated Wound Bed Greatest Portion Red (Granulation) Surrounding Tissue Betances Comment OPEN TO AIR, MILD WEEPING NOTED ON SHEET. Remains true. Pt refuses dressing. Left Knee Wound Assessment Shift Assessment Wound Type Abrasion Wound Stage Non Pressure Wound Drainage Amount None Drainage Odor None/Absent General Appearance Well Approximated Surrounding Tissue Betances Comment SCABBED AREAS NOTED, NO DRAINAGE OR BLEEDING, Open to air. Remains true. Wound Photo Photo Taken Yes Date: 03/06/24 Time: 17:00 Ears, Nose, Throat Exam: moist mucous membranes Neck Exam: full range of motion Respiratory Exam: crackles/rales Cardiovascular Exam: regular rate/rhythm, normal heart sounds Gastrointestinal/Abdomen Exam: distention Extremity Exam: amputations (RBKA), other (LLE edema +3 pitting) Back Exam: normal range of motion Objective Data Vital Signs: Vital Signs - 24 hr Temp Pulse Resp BP BP Pulse Ox 03/08/24 08:12 65 16 95 03/08/24 08:00 97.5 F 64 19 130/74 92 L 03/08/24 04:00 97.9 F 61 14 118/76 94 L 03/07/24 23:46 98.4 F 66 22 129/83 94 L 03/07/24 20:57 68 20 108/52 03/07/24 19:41 97.8 F 68 20 106/51 89 L 03/07/24 19:14 95 03/07/24 16:00 97.8 F 67 16 126/73 87 L 03/07/24 14:46 72 16 03/07/24 14:19 88 L 03/07/24 11:04 98.2 F 72 16 105/55 96 Pain Assessment - Last Documented Pain Intensity 6 Pain Scale Used 0-10 Pain Scale Intake and Output: Intake & Output 03/05/24 03/06/24 03/07/24 03/08/24 11:59 11:59 11:59 11:59 Intake Total 1600 1180 Output Total 550 400 Balance 1050 780 Weight 136 kg 132.1 kg 133.7 kg Lab Results: Lab Results-Last 24 Hours 03/07/24 03/07/24 03/07/24 Range/Units 11:18 13:50 14:31 WBC (4.0-10.5) x10^3/uL RBC (4.1-5.6) x10^6/uL Hgb 7.0 L* (12.5-18.0) g/dL Hct 22.7 L (42-50) % MCV (78-100) fL MCH (26-32) pg MCHC (32-36) g/dL RDW (11.5-14.0) % Plt Count (150-450) x10^3/uL MPV (7.5-11.0) fL Segmented Neutrophils (36.-66.) % Band Neutrophils (0.0-2.0) % Lymphocytes (Manual) (24-44) % Monocytes (Manual) (0.0-12.0) % Basophils (Manual) (0.0-1.0) % Platelet Estimate (NORMAL) RBC Morphology Anisocytosis Sodium (135-145) mmol/L Potassium (3.5-5.1) mmol/L Chloride (98-107) mmol/L Carbon Dioxide (22-30) mmol/L Anion Gap (5-15) MEQ/L BUN (9-20) mg/dL Creatinine (0.66-1.25) mg/dL Estimated GFR ML/MIN Glucose (74-106) mg/dL POC Glucometer 86 (74 to 106) mg/dL Calcium (8.4-10.2) mg/dL Magnesium (1.6-2.3) mg/dL Total Bilirubin (0.2-1.3) mg/dL AST (17-59) U/L ALT (0-50) U/L Alkaline Phosphatase (38-126) U/L NT-Pro-B Natriuret Pep (<300) pg/mL Serum Total Protein (6.3-8.2) g/dL Albumin (3.5-5.0) g/dL ABO Group A Rh Factor POSITIVE Antibody Screen NEGATIVE (NEGATIVE) Crossmatch (COMPATIBLE) 03/07/24 03/07/24 03/07/24 Range/Units 14:32 16:33 20:10 WBC (4.0-10.5) x10^3/uL RBC (4.1-5.6) x10^6/uL Hgb 7.7 L (12.5-18.0) g/dL Hct 25.1 L (42-50) % MCV (78-100) fL MCH (26-32) pg MCHC (32-36) g/dL RDW (11.5-14.0) % Plt Count (150-450) x10^3/uL MPV (7.5-11.0) fL Segmented Neutrophils (36.-66.) % Band Neutrophils (0.0-2.0) % Lymphocytes (Manual) (24-44) % Monocytes (Manual) (0.0-12.0) % Basophils (Manual) (0.0-1.0) % Platelet Estimate (NORMAL) RBC Morphology Anisocytosis Sodium (135-145) mmol/L Potassium (3.5-5.1) mmol/L Chloride (98-107) mmol/L Carbon Dioxide (22-30) mmol/L Anion Gap (5-15) MEQ/L BUN (9-20) mg/dL Creatinine (0.66-1.25) mg/dL Estimated GFR ML/MIN Glucose (74-106) mg/dL POC Glucometer 93 (74 to 106) mg/dL Calcium (8.4-10.2) mg/dL Magnesium (1.6-2.3) mg/dL Total Bilirubin (0.2-1.3) mg/dL AST (17-59) U/L ALT (0-50) U/L Alkaline Phosphatase (38-126) U/L NT-Pro-B Natriuret Pep (<300) pg/mL Serum Total Protein (6.3-8.2) g/dL Albumin (3.5-5.0) g/dL ABO Group Rh Factor Antibody Screen (NEGATIVE) Crossmatch COMPATIBLE (COMPATIBLE) 03/07/24 03/08/24 03/08/24 Range/Units 21:28 05:00 05:51 WBC 8.0 (4.0-10.5) x10^3/uL RBC 2.65 L (4.1-5.6) x10^6/uL Hgb 7.4 L (12.5-18.0) g/dL Hct 24.2 L (42-50) % MCV 91.3 (78-100) fL MCH 27.9 (26-32) pg MCHC 30.6 L (32-36) g/dL RDW 19.1 H (11.5-14.0) % Plt Count 268 (150-450) x10^3/uL MPV 12.4 H (7.5-11.0) fL Segmented Neutrophils 75 H (36.-66.) % Band Neutrophils 1 (0.0-2.0) % Lymphocytes (Manual) 9 L (24-44) % Monocytes (Manual) 13 H (0.0-12.0) % Basophils (Manual) 2 H (0.0-1.0) % Platelet Estimate NORMAL (NORMAL) RBC Morphology ABNORMAL Anisocytosis 1+ Sodium (135-145) mmol/L Potassium (3.5-5.1) mmol/L Chloride (98-107) mmol/L Carbon Dioxide (22-30) mmol/L Anion Gap (5-15) MEQ/L BUN (9-20) mg/dL Creatinine (0.66-1.25) mg/dL Estimated GFR ML/MIN Glucose (74-106) mg/dL POC Glucometer 95 (74 to 106) mg/dL Calcium (8.4-10.2) mg/dL Magnesium (1.6-2.3) mg/dL Total Bilirubin (0.2-1.3) mg/dL AST (17-59) U/L ALT (0-50) U/L Alkaline Phosphatase (38-126) U/L NT-Pro-B Natriuret Pep 6810 (<300) pg/mL Serum Total Protein (6.3-8.2) g/dL Albumin (3.5-5.0) g/dL ABO Group Rh Factor Antibody Screen (NEGATIVE) Crossmatch (COMPATIBLE) 03/08/24 03/08/24 Range/Units 05:51 08:09 WBC (4.0-10.5) x10^3/uL RBC (4.1-5.6) x10^6/uL Hgb (12.5-18.0) g/dL Hct (42-50) % MCV (78-100) fL MCH (26-32) pg MCHC (32-36) g/dL RDW (11.5-14.0) % Plt Count (150-450) x10^3/uL MPV (7.5-11.0) fL Segmented Neutrophils (36.-66.) % Band Neutrophils (0.0-2.0) % Lymphocytes (Manual) (24-44) % Monocytes (Manual) (0.0-12.0) % Basophils (Manual) (0.0-1.0) % Platelet Estimate (NORMAL) RBC Morphology Anisocytosis Sodium 137 (135-145) mmol/L Potassium 4.1 D (3.5-5.1) mmol/L Chloride 104 (98-107) mmol/L Carbon Dioxide 27 (22-30) mmol/L Anion Gap 10.8 (5-15) MEQ/L BUN 30 H (9-20) mg/dL Creatinine 2.15 H (0.66-1.25) mg/dL Estimated GFR 35.9 ML/MIN Glucose 93 (74-106) mg/dL POC Glucometer 70 L (74 to 106) mg/dL Calcium 9.5 (8.4-10.2) mg/dL Magnesium 1.8 (1.6-2.3) mg/dL Total Bilirubin 0.80 (0.2-1.3) mg/dL AST 28 (17-59) U/L ALT 23 (0-50) U/L Alkaline Phosphatase 55 (38-126) U/L NT-Pro-B Natriuret Pep (<300) pg/mL Serum Total Protein 7.0 (6.3-8.2) g/dL Albumin 3.4 L (3.5-5.0) g/dL ABO Group Rh Factor Antibody Screen (NEGATIVE) Crossmatch (COMPATIBLE) Radiology Exams: Radiology Procedures Category Date Time Status CHEST WITH CONTRAST [CT] Stat Exams 03/06/24 12:25 Completed HIP UNI (2V) INCL PEL IF DONE Stat Exams 03/06/24 10:49 Completed KNEE (3 VIEWS) Stat Exams 03/06/24 10:49 Completed Multi-Disciplinary Progress Notes: Multi-Disciplinary Progress Notes 03/07/24 18:12 Nutrition Note by Adriana Saldivar patient received one unit of PRBC's. Tolerated well. Start time 1630. End time 1850. Initialized on 03/07/24 18:12 - END OF NOTE 03/07/24 18:06 Respiratory Note by Julieth Patterson NURSE CALLED THAT SATS 83% ON 6L NC. PT LOOKS LIKE HE HAS KASANDRA. PLACED ON 10L OXYMASK. SATS TO THE LOW 90S. Initialized on 03/07/24 18:06 - END OF NOTE 03/07/24 12:48 Case Management Note by Thuy Merrill OXYGEN ORDER FORM GIVEN TO MUSIC ENGRAVER FOR USE OVER THE WEEKEND IF NEEDED Initialized on 03/07/24 12:48 - END OF NOTE Assessment/Plan (1) CHF exacerbation Current Visit: Yes Status: Acute Assessment & Plan: -Supplemental oxygen with spo2 goal 88-92% -Elevated HOB -Daily weight -Strict I&) -tele -BNP reviewed at 4060 -ECHO reviewed from 02/23/23: In the parasternal long axis view the ejection fraction is estimated to be 25 and 30%. In the apical view the ejection fraction was calculated to be 60%. IMPRESSION: 1) MILD DECREASE IN LEFT VENTRICULAR SYSTOLIC FUNCTION. 2) MILD CONCENTRIC LEFT VENTRICULAR HYPERTROPHY. 3) MILD MITRAL REGURGITATION. 4) MILD TRICUSPID REGURGITATION. 5) NORMAL RIGHT VENTRICULAR SYSTOLIC PRESSURE. 6) MODERATE LEFT ATRIAL DILATATION -Lasix 40mg BID -Monitor renal/lytes , Keep K>4, Mg>2 -Continue home meds entresto/jardiance 03/07/24: -Diuresing well, 8 lb weight loss -Continue lasix BID - Code(s): I50.9 - HEART FAILURE, UNSPECIFIED (2) Pneumonia Current Visit: Yes Status: Acute Assessment & Plan: -CT favoring CHF vs pna -Levaquin given in ED, procal is mildly elevated, will continue -Supplemental oxygen with spo2 goal 88-92% -RT eval -Nebs/INH prn 03/07: -Levaquin interaction with home meds, has tolerated ceftriaxone in the past, will switch Code(s): J18.9 - PNEUMONIA, UNSPECIFIED ORGANISM (3) Acute hypoxic respiratory failure Current Visit: No Status: Acute Assessment & Plan: -Secondary to CHF/pneumonia -see above Code(s): J96.01 - ACUTE RESPIRATORY FAILURE WITH HYPOXIA (4) Anemia Current Visit: No Status: Acute Assessment & Plan: -chronic, baseline around 9 - will order iron studies 03/07: -Hgb at 7.4, iron studies showing iron deficiency -Injectafer x 1 dose with TIBC at 10% -Monitor H&H Q6, if hgb <7 will transfuse -Occult stools -Consider surg consult for egd/colo if + occult stools -Consider heme/onc consult for further anemia workup op 03/08: -Patient received 1 unit of blood 03/07, Hgb at 7.4, occult stools pending collection -s/p iron infusion -Hold asa Code(s): D64.9 - ANEMIA, UNSPECIFIED (5) HTN (hypertension) Current Visit: No Status: Acute Assessment & Plan: -continue home meds Code(s): I10 - ESSENTIAL (PRIMARY) HYPERTENSION (6) Diabetes mellitus Current Visit: No Status: Chronic Assessment & Plan: -Most recent a1c 01/27/24 showing good glycemic control at 6.24 -ADA diet -SSI Code(s): E11.9 - TYPE 2 DIABETES MELLITUS WITHOUT COMPLICATIONS (7) Dysuria Current Visit: Yes Status: Acute Assessment & Plan: -will order UA for evaluation, recent ucult 02/25/24 with no growth 03/07: -abx changed to ceftriaxone 03/08: -Urine culture with no growth, will d/c abx (8) hypokalemia/ GHANSHYAM -most likely secondary to diuresis, will decrease lasix to BID -Replenish potassium per protocol 03/08: -hypokalemia resolved -GHANSHYAM worsening, will decrease lasix to 40mg daily, hold losartan, hold entresto VTE: lovenox PPI PRotonix Dispo: 1-2 days Code(s): I50.9 - HEART FAILURE, UNSPECIFIED (2) Pneumonia Current Visit: Yes Status: Acute Code(s): J18.9 - PNEUMONIA, UNSPECIFIED ORGANISM (3) Acute hypoxic respiratory failure Current Visit: No Status: Acute Code(s): J96.01 - ACUTE RESPIRATORY FAILURE WITH HYPOXIA (4) Anemia Current Visit: No Status: Acute Code(s): D64.9 - ANEMIA, UNSPECIFIED (5) HTN (hypertension) Current Visit: No Status: Acute Code(s): I10 - ESSENTIAL (PRIMARY) HYPERTENSION (6) Diabetes mellitus Current Visit: No Status: Chronic Code(s): E11.9 - TYPE 2 DIABETES MELLITUS WITHOUT COMPLICATIONS (7) Dysuria Current Visit: Yes Status: Acute Code(s): R30.0 - DYSURIA (8) Hypokalemia Current Visit: Yes Status: Acute Code(s): E87.6 - HYPOKALEMIA (9) GHANSHYAM (acute kidney injury) Current Visit: Yes Status: Acute Code(s): N17.9 - ACUTE KIDNEY FAILURE, UNSPECIFIED
[2024-03-08] MEDS: Lasix 40 MG/4 ML IV SCH (10:32)
[2024-03-08] MEDS: NORVASC 5 MG PO SCH (10:34)
[2024-03-08 19:29] LABS: BASOPHIL % 0.5 % (0.0-0.4); Basophil (Absolute #) 0.04 x10^3/uL (0-0.4); Eosinophil % 2.1 % (0.00-5.0); Eosinophil (Absolute #) 0.18 x10^3/uL (0-0.5); Hematocrit 24.7 % (42-50); Hemoglobin 7.8 g/dL (12.5-18.0); IMMATURE GRAN # 0.03 x10^3u/L (0.00-0.03); IMMATURE GRAN % 0.4 % (0.00-0.4); Lymphocyte (Absolute #) 0.47 x10^3/uL (1.0-4.6); Lymphocytes % 5.5 % (24.0-44.0); Mean Cell Volume 91.8 fL (78-100); Mean Corpuscular Hgb Concent. 31.6 g/dL (32-36); Mean Platelet Volume 11.8 fL (7.5-11.0); Monocyte (Absolute #) 0.84 x10^3/uL (0.0-1.3); Monocytes % 9.8 % (0.0-12.0); Neutrophil % 81.7 % (36.0-66.0); Platelet Count 275 x10^3/uL (150-450); Red Blood Count 2.69 x10^6/uL (4.1-5.6); Red Cell Distribution Width 18.9 % (11.5-14.0); White Blood Count 8.6 x10^3/uL (4.0-10.5)
[2024-03-08 20:51] LABS: Slide Review 1 YES
[2024-03-09 05:35] LABS: Absolute Neutrophil Ct (ANC) 6.26 x10^3/uL (1.4-6.9); BASOPHIL % 0.5 % (0.0-0.4); Basophil (Absolute #) 0.04 x10^3/uL (0-0.4); Eosinophil % 2.7 % (0.00-5.0); Eosinophil (Absolute #) 0.22 x10^3/uL (0-0.5); Hematocrit 24.5 % (42-50); Hemoglobin 7.6 g/dL (12.5-18.0); IMMATURE GRAN # 0.02 x10^3u/L (0.00-0.03); IMMATURE GRAN % 0.2 % (0.00-0.4); Lymphocyte (Absolute #) 0.67 x10^3/uL (1.0-4.6); Lymphocytes % 8.4 % (24.0-44.0); Mean Cell Volume 91.8 fL (78-100); Mean Corpuscular Hemoglobin 28.5 pg (26-32); Mean Platelet Volume 11.8 fL (7.5-11.0); Monocyte (Absolute #) 0.81 x10^3/uL (0.0-1.3); Monocytes % 10.1 % (0.0-12.0); Neutrophil % 78.1 % (36.0-66.0); Platelet Count 288 x10^3/uL (150-450); Red Blood Count 2.67 x10^6/uL (4.1-5.6); Red Cell Distribution Width 18.7 % (11.5-14.0)
[2024-03-09 05:55] LABS: ALBUMIN 3.4 g/dL (3.5-5.0); ANION GAP 12.5 MEQ/L (5-15); BILIRUBIN,TOTAL 0.8 mg/dL (0.2-1.3); Calcium 9.3 mg/dL (8.4-10.2); Creatinine 1 2.14 mg/dL (0.66-1.25); EST GLOMERULAR FILTRATION RATE 36.1 ML/MIN; MAGNESIUM 1.9 mg/dL (1.6-2.3); Potassium 3.9 mmol/L (3.5-5.1); Total Protein 7.2 g/dL (6.3-8.2)
[2024-03-09] MEDS: ROCEPHIN 1 GM / 100 ML NaCl 1 GM/100 ML IVPB IV SCH (08:13)
--- NOTE | 2024-03-09 09:37 | PCM.NOTE ---
Date and Time: 03/09/24 0932 Subjective Assessment: is a 53 year old male with pmhx congestive heart failure, diabetes mellitus with right below-knee amputations, VT, HLD, HTN, GERD, and peripheral neuropathy presented to ED 03/06/24 experiencing a two day history of progressive shortness of breath admitted with CHF exacerbation and pneumonia. Upon presentation, patient hypoxic with spo2 at 85% on RA and hypertensive. EKG - Sinus Rhythm, Right [place] Deviation, prolonged QT interval, Right Bundle Branch Block, Other (ST depression in lateral leads)CXR with no new cardiopulmonary abnormalities. CT chest negative for PE demonstrating cardiomegaly with bilateral effusions/atelectasis favoring cardiac decompensation/CHF versus fluid overload. Right knee xray with no acute findings. Right hip XR with no acute findings. Lab findings remarkable for leukocytosis with WBC at 12.4, normocytic anemia with hgb at 8.3, CK elevated at 369, procal elevated at 0.108, hypercalcemia at 10.9. BNP 4060. IP treatment with IV lasix and ceftriaxone. 03/07/24: Met with patient bedside. Endorses improvement of shortness of breath, feeling emotional this morning and tearful during interview. Patient states he has been consuming 1 pint of whiskey every other day and he has been trying to quit. Last drink 3 days ago. Patient states he doesn't think he abusing alcohol, nor does he want op treatment. [facility] has been consulted. [facility] protocol initiated. Patient is diuresing well with 8.8 pound weight loss. Currently on 4L oxygen which we will attempt to wean. Hgb is at 7.4 today, patient appears to have chronic iron deficiency anemia with TIBC at 10%, denies hematuria, hematemesis , or hematochezia. Will infusion iron today, may need further GI /hematology consult pending stool results. 03/07/24: Met with patient this morning. Mood has improved, no longer tearful. No signs/symptoms of withdrawal. Patient still requiring oxygen at 5l Oxymask. He reports shortness of breath has improved. LLE edema improving. Patient did receiving IV iron and 1 unit of blood yesterday. Hemoglobin remains low at 7.4 today. Occult stools are pending collection. Creat level is elevated today, will cut back on lasix, hold entresto, hold losartan. 4/20/24: Patient endorsing increased shortness of breath most likely from his chf exacerbation but there may be a component of pneumonia as well. Of note, patient was not wearing his oxygen both times I was in there. I did discuss the importance of keeping it on. LLE edema is improving although vitals showing a 4lb weight gain since admission. Bladder scan with 150ml. Plan for blood transfusion today. Increase lasix to BID dosing. Continue ceftriaxone. - Review of Systems Constitutional: No Symptoms Eyes: No Symptoms Ears, Nose, & Throat: No Symptoms Respiratory: Cough, Short Of Breath Cardiac: Edema (LLE) Abdominal/Gastrointestinal: No Symptoms Genitourinary Symptoms: No Symptoms Musculoskeletal: No Symptoms Skin: No Symptoms Neurological: No Symptoms Psychological: Alcohol Abuse Endocrine: No Symptoms Hematologic/Lymphatic: No Symptoms Objective Exam General Appearance: no apparent distress Neurologic Exam: alert, oriented x 3, cooperative Skin Exam: normal color Wound Assessment: Skin/Wound Assessment Wound/Incision Assessment Start: 03/06/24 15:18 Text: Status: Active Freq: Q6H Protocol: Document 03/09/24 03:00 AF (Rec: 03/09/24 03:30 AF [id number]) Wound/Incision Assessment LEFT ANTERIOR SECOND TOE Wound Assessment Shift Assessment Wound Stage Non Pressure Wound Drainage Amount None Drainage Odor None/Absent General Appearance Well Approximated Comment HEALING WOUND NOTED TO ANTERIOR SECOND TOE, OPEN TO AIR, DRY AND INTACT, PT DENIES KNOWING HOW LONG WOUND HAS BEEN THERE OR HOW IT HAPPENED. DOES NOT APPEAR TO BE A PRESSURE WOUND, SURROUNDING SKIN IS VERY DRY AND SCALEY. Remains true Right Posterior Finger Wound Assessment Shift Assessment Wound Type Burn Wound Stage Non Pressure Wound Drainage Amount None Drainage Odor None/Absent General Appearance Well Approximated Comment WOUND APPEARS TO BE A HEALING BURN, PT STATES HE DOES NOT KNOW WHAT HAPPENED, NO DRAINAGE OR BLEEDING NOTED, OPEN TO AIR. Remains true. Left Lower Posterior Calf Wound Assessment Shift Assessment Wound Type Abrasion Wound Stage Non Pressure Wound Drainage Odor None/Absent General Appearance Well Approximated Wound Bed Greatest Portion Red (Granulation) Surrounding Tissue [place] Comment OPEN TO AIR, SCABBED AREAS NOTED TO POSTERIOR LLE, OPEN AREA WHERE SCAB HAS BEEN SCRAPPED OFF BY MOVEMENT PER PT. Remains true. RIGHT STUMP Wound Assessment Shift Assessment Wound Type Abrasion Wound Stage Non Pressure Wound Drainage Amount Minimal Drainage Description Serous Drainage Odor None/Absent General Appearance Well Approximated Wound Bed Greatest Portion Red (Granulation) Surrounding Tissue [place] Comment OPEN TO AIR, MILD WEEPING NOTED ON SHEET. Remains true. Pt refuses dressing. Left Knee Wound Assessment Shift Assessment Wound Type Abrasion Wound Stage Non Pressure Wound Drainage Amount None Drainage Odor None/Absent General Appearance Well Approximated Surrounding Tissue [place] Comment SCABBED AREAS NOTED, NO DRAINAGE OR BLEEDING, Open to air. Remains true. Wound Photo Photo Taken Yes Date: 03/06/24 Time: 17:00 Ears, Nose, Throat Exam: moist mucous membranes Neck Exam: full range of motion, No JVD Respiratory Exam: crackles/rales Cardiovascular Exam: regular rate/rhythm, normal heart sounds Gastrointestinal/Abdomen Exam: soft, normal bowel sounds Extremity Exam: amputations (RBKA, LLE 2+ pitting edema) Back Exam: normal inspection Male Genitalia Exam: deferred Rectal Exam: deferred Objective Data Vital Signs: Vital Signs - 24 hr Temp Pulse Resp BP BP Pulse Ox 03/09/24 07:59 92 L 03/09/24 07:00 98.2 F 67 20 136/82 94 L 03/09/24 03:59 88 20 122/81 03/09/24 03:55 97.5 F 73 18 120/72 99 03/09/24 01:00 97.8 F 73 19 122/75 91 L 03/09/24 00:03 97.8 F 73 19 122/75 91 L 03/08/24 22:26 90 20 03/08/24 21:00 99.5 F 72 20 128/64 91 L 03/08/24 19:46 99.5 F 72 20 128/64 91 L 03/08/24 19:27 92 L 03/08/24 16:00 98.7 F 75 18 156/81 89 L 03/08/24 12:27 67 18 89 L 03/08/24 12:00 98.4 F 72 18 136/76 89 L Pain Assessment - Last Documented Pain Intensity 2 Pain Scale Used 0-10 Pain Scale Intake and Output: Intake & Output 03/06/24 03/07/24 03/08/24 03/09/24 11:59 11:59 11:59 11:59 Intake Total 1600 1180 1322 Output Total 550 400 825 Balance 1050 780 497 Weight 136 kg 132.1 kg 133.7 kg 135.1 kg Lab Results: Lab Results-Last 24 Hours 03/06/24 03/08/24 03/08/24 Range/Units 16:30 11:53 16:23 WBC (4.0-10.5) x10^3/uL RBC (4.1-5.6) x10^6/uL Hgb (12.5-18.0) g/dL Hct (42-50) % MCV (78-100) fL MCH (26-32) pg MCHC (32-36) g/dL RDW (11.5-14.0) % Plt Count (150-450) x10^3/uL MPV (7.5-11.0) fL Gran % (36.0-66.0) % Immature Gran % (Auto) (0.00-0.4) % Nucleat RBC Rel Count (0.00-0.1) % Eos # (Auto) (0-0.5) x10^3/uL Immature Gran # (Auto) (0.00-0.03) x10^3u/L Absolute Lymphs (auto) (1.0-4.6) x10^3/uL Absolute Monos (auto) (0.0-1.3) x10^3/uL Absolute Nucleated RBC (0.00-0.01) x10^3u/L Lymphocytes % (24.0-44.0) % Monocytes % (0.0-12.0) % Eosinophils % (0.00-5.0) % Basophils % (0.0-0.4) % Absolute Granulocytes (1.4-6.9) x10^3/uL Basophils # (0-0.4) x10^3/uL Haptoglobin 263 (29-370) mg/dL Sodium (135-145) mmol/L Potassium (3.5-5.1) mmol/L Chloride (98-107) mmol/L Carbon Dioxide (22-30) mmol/L Anion Gap (5-15) MEQ/L BUN (9-20) mg/dL Creatinine (0.66-1.25) mg/dL Estimated GFR ML/MIN Glucose (74-106) mg/dL POC Glucometer 77 79 (74 to 106) mg/dL Calcium (8.4-10.2) mg/dL Magnesium (1.6-2.3) mg/dL Total Bilirubin (0.2-1.3) mg/dL AST (17-59) U/L ALT (0-50) U/L Alkaline Phosphatase (38-126) U/L Serum Total Protein (6.3-8.2) g/dL Albumin (3.5-5.0) g/dL Slides for Path Review 03/08/24 03/08/24 03/09/24 Range/Units 19:25 22:19 05:31 WBC 8.6 8.0 (4.0-10.5) x10^3/uL RBC 2.69 L 2.67 L (4.1-5.6) x10^6/uL Hgb 7.8 L 7.6 L (12.5-18.0) g/dL Hct 24.7 L 24.5 L (42-50) % MCV 91.8 91.8 (78-100) fL MCH 29.0 28.5 (26-32) pg MCHC 31.6 L 31.0 L (32-36) g/dL RDW 18.9 H 18.7 H (11.5-14.0) % Plt Count 275 288 (150-450) x10^3/uL MPV 11.8 H 11.8 H (7.5-11.0) fL Gran % 81.7 H 78.1 H (36.0-66.0) % Immature Gran % (Auto) 0.4 0.2 (0.00-0.4) % Nucleat RBC Rel Count 0.0 0.0 (0.00-0.1) % Eos # (Auto) 0.18 0.22 (0-0.5) x10^3/uL Immature Gran # (Auto) 0.03 0.02 (0.00-0.03) x10^3u/L Absolute Lymphs (auto) 0.47 L 0.67 L (1.0-4.6) x10^3/uL Absolute Monos (auto) 0.84 0.81 (0.0-1.3) x10^3/uL Absolute Nucleated RBC 0.00 0.00 (0.00-0.01) x10^3u/L Lymphocytes % 5.5 L 8.4 L (24.0-44.0) % Monocytes % 9.8 10.1 (0.0-12.0) % Eosinophils % 2.1 2.7 (0.00-5.0) % Basophils % 0.5 0.5 (0.0-0.4) % Absolute Granulocytes 7.00 H 6.26 (1.4-6.9) x10^3/uL Basophils # 0.04 0.04 (0-0.4) x10^3/uL Haptoglobin (29-370) mg/dL Sodium (135-145) mmol/L Potassium (3.5-5.1) mmol/L Chloride (98-107) mmol/L Carbon Dioxide (22-30) mmol/L Anion Gap (5-15) MEQ/L BUN (9-20) mg/dL Creatinine (0.66-1.25) mg/dL Estimated GFR ML/MIN Glucose (74-106) mg/dL POC Glucometer 75 (74 to 106) mg/dL Calcium (8.4-10.2) mg/dL Magnesium (1.6-2.3) mg/dL Total Bilirubin (0.2-1.3) mg/dL AST (17-59) U/L ALT (0-50) U/L Alkaline Phosphatase (38-126) U/L Serum Total Protein (6.3-8.2) g/dL Albumin (3.5-5.0) g/dL Slides for Path Review YES 03/09/24 03/09/24 Range/Units 05:31 07:50 WBC (4.0-10.5) x10^3/uL RBC (4.1-5.6) x10^6/uL Hgb (12.5-18.0) g/dL Hct (42-50) % MCV (78-100) fL MCH (26-32) pg MCHC (32-36) g/dL RDW (11.5-14.0) % Plt Count (150-450) x10^3/uL MPV (7.5-11.0) fL Gran % (36.0-66.0) % Immature Gran % (Auto) (0.00-0.4) % Nucleat RBC Rel Count (0.00-0.1) % Eos # (Auto) (0-0.5) x10^3/uL Immature Gran # (Auto) (0.00-0.03) x10^3u/L Absolute Lymphs (auto) (1.0-4.6) x10^3/uL Absolute Monos (auto) (0.0-1.3) x10^3/uL Absolute Nucleated RBC (0.00-0.01) x10^3u/L Lymphocytes % (24.0-44.0) % Monocytes % (0.0-12.0) % Eosinophils % (0.00-5.0) % Basophils % (0.0-0.4) % Absolute Granulocytes (1.4-6.9) x10^3/uL Basophils # (0-0.4) x10^3/uL Haptoglobin (29-370) mg/dL Sodium 139 (135-145) mmol/L Potassium 3.9 (3.5-5.1) mmol/L Chloride 104 (98-107) mmol/L Carbon Dioxide 26 (22-30) mmol/L Anion Gap 12.5 (5-15) MEQ/L BUN 34 H (9-20) mg/dL Creatinine 2.14 H (0.66-1.25) mg/dL Estimated GFR 36.1 ML/MIN Glucose 100 (74-106) mg/dL POC Glucometer 95 (74 to 106) mg/dL Calcium 9.3 (8.4-10.2) mg/dL Magnesium 1.9 (1.6-2.3) mg/dL Total Bilirubin 0.80 (0.2-1.3) mg/dL AST 26 (17-59) U/L ALT 22 (0-50) U/L Alkaline Phosphatase 57 (38-126) U/L Serum Total Protein 7.2 (6.3-8.2) g/dL Albumin 3.4 L (3.5-5.0) g/dL Slides for Path Review Multi-Disciplinary Progress Notes: Multi-Disciplinary Progress Notes 03/08/24 19:28 Respiratory Note by Pao Dey Patient was 90% on 6LNC, Per Christina PUBLICATIONS EDITOR, SPO2 goal is greater that 92%, placed on 10L oxymask. SPO2 92% Initialized on 03/08/24 19:28 - END OF NOTE Assessment/Plan (1) CHF exacerbation Current Visit: Yes Status: Acute Assessment & Plan: -Supplemental oxygen with spo2 goal >92% -Elevated HOB -Daily weight -Strict I&) -tele -BNP reviewed at 4060 -ECHO reviewed from 02/23/23: In the parasternal long axis view the ejection fraction is estimated to be 25 and 30%. In the apical view the ejection fraction was calculated to be 60%. IMPRESSION: 1) MILD DECREASE IN LEFT VENTRICULAR SYSTOLIC FUNCTION. 2) MILD CONCENTRIC LEFT VENTRICULAR HYPERTROPHY. 3) MILD MITRAL REGURGITATION. 4) MILD TRICUSPID REGURGITATION. 5) NORMAL RIGHT VENTRICULAR SYSTOLIC PRESSURE. 6) MODERATE LEFT ATRIAL DILATATION -Lasix 40mg BID -Monitor renal/lytes , Keep K>4, Mg>2 -Continue home meds entresto/jardiance 03/07/24: -Diuresing well, 8 lb weight loss -Continue lasix 03/08: -Lasix decrease to daily due to kidney function 03/09: -3lb weight gain overnight, will increase lasix bid -Hold entresto/losartan due to renal function Code(s): I50.9 - HEART FAILURE, UNSPECIFIED (2) Pneumonia Current Visit: Yes Status: Acute Assessment & Plan: -CT favoring CHF vs pna -Levaquin given in ED, procal is mildly elevated, will continue -Supplemental oxygen with spo2 goal >92% -RT eval -Nebs/INH prn 03/07: -Levaquin interaction with home meds, has tolerated ceftriaxone in the past, will switch Code(s): J18.9 - PNEUMONIA, UNSPECIFIED ORGANISM (3) Acute hypoxic respiratory failure Current Visit: No Status: Acute Assessment & Plan: -Secondary to CHF/pneumonia -see above Code(s): J96.01 - ACUTE RESPIRATORY FAILURE WITH HYPOXIA (4) Anemia Current Visit: No Status: Acute Assessment & Plan: -chronic, baseline around 9 - will order iron studies 03/07: -Hgb at 7.4, iron studies showing iron deficiency -Injectafer x 1 dose with TIBC at 10% -Monitor H&H Q6, if hgb <7 will transfuse -Occult stools -Consider surg consult for egd/colo if + occult stools -Consider heme/onc consult for further anemia workup op 03/08: -Patient received 1 unit of blood 03/07, Hgb at 7.4, occult stools pending collection -s/p iron infusion -Hold asa 03/09: -1 unit of blood Code(s): D64.9 - ANEMIA, UNSPECIFIED (5) HTN (hypertension) Current Visit: No Status: Acute Assessment & Plan: -continue home meds Code(s): I10 - ESSENTIAL (PRIMARY) HYPERTENSION (6) Diabetes mellitus Current Visit: No Status: Chronic Assessment & Plan: -Most recent a1c 01/27/24 showing good glycemic control at 6.24 -ADA diet -SSI Code(s): E11.9 - TYPE 2 DIABETES MELLITUS WITHOUT COMPLICATIONS (7) Dysuria Current Visit: Yes Status: Acute Assessment & Plan: -will order UA for evaluation, recent ucult 02/25/24 with no growth 03/07: -abx changed to ceftriaxone 03/08: -Urine culture with no growth (8) hypokalemia/ GHANSHYAM -most likely secondary to diuresis, will decrease lasix to BID -Replenish potassium per protocol 03/08: -hypokalemia resolved -GHANSHYAM worsening, will decrease lasix to 40mg daily, hold losartan, hold entresto 03/09: -lasix increased to bid dosing, continue to hold entresto/losartan, creat minimally improved VTE: lovenox PPI PRotonix Dispo: 1-2 days Code(s): I50.9 - HEART FAILURE, UN Code(s): I50.9 - HEART FAILURE, UNSPECIFIED (2) Pneumonia Current Visit: Yes Status: Acute Code(s): J18.9 - PNEUMONIA, UNSPECIFIED ORGANISM (3) Acute hypoxic respiratory failure Current Visit: No Status: Acute Code(s): J96.01 - ACUTE RESPIRATORY FAILURE WITH HYPOXIA (4) Anemia Current Visit: No Status: Acute Code(s): D64.9 - ANEMIA, UNSPECIFIED (5) HTN (hypertension) Current Visit: No Status: Acute Code(s): I10 - ESSENTIAL (PRIMARY) HYPERTENSION (6) Diabetes mellitus Current Visit: No Status: Chronic Code(s): E11.9 - TYPE 2 DIABETES MELLITUS WITHOUT COMPLICATIONS (7) Dysuria Current Visit: Yes Status: Acute Code(s): R30.0 - DYSURIA (8) Hypokalemia Current Visit: Yes Status: Acute Code(s): E87.6 - HYPOKALEMIA (9) GHANSHYAM (acute kidney injury) Current Visit: Yes Status: Acute Code(s): N17.9 - ACUTE KIDNEY FAILURE, UNSPECIFIED
[2024-03-09] MEDS: Lasix 40 MG/4 ML IV SCH (09:58)
[2024-03-09 10:18] LABS: CROSS MATCH (PRBC) COMPATIBLE (COMPATIBLE)
[2024-03-09] MEDS: Sodium Chloride 0.9% 500 ML 500 ML IV SCH (13:01)
--- NOTE | 2024-03-09 14:08 | XRAY ---
CLINICAL HISTORY: increased sob COMPARISON: 01/26/2024 CT, a comparison was made with rubber compounder mixer and axial images. TECHNIQUE: X-ray chest, AP upright portable. FINDINGS: There is diffuse faint airspace opacity is seen involving the right lung. Clear left lung field with no evidence of gross consolidations. Clear both costophrenic angles. Evaluation of the cardiac size is limited given an AP projection. No acute osseous abnormality. IMPRESSION: 1. Right lung diffuse airspace opacity which has progressed since the last study. Follow-up by CT is advised. 2. Clear both costophrenic angles. However, this doesn't exclude pleural effusions as the rubber compounder mixer images (resembling the X-ray images) of the previous study showed normal costophrenic angles yet axial images revealed bilateral pleural effusions. 3. Evaluation of the cardiac size is limited given an AP projection yet no significant time interval changes. Electronically Signed by: Keara Tijeirna MD. (03/09/2024 14:05:02 EDT)
[2024-03-10 04:50] LABS: Absolute Neutrophil Ct (ANC) 7.07 x10^3/uL (1.4-6.9); BASOPHIL % 0.6 % (0.0-0.4); Basophil (Absolute #) 0.05 x10^3/uL (0-0.4); Eosinophil (Absolute #) 0.26 x10^3/uL (0-0.5); Hematocrit 26.3 % (42-50); Hemoglobin 8.3 g/dL (12.5-18.0); IMMATURE GRAN # 0.02 x10^3u/L (0.00-0.03); IMMATURE GRAN % 0.2 % (0.00-0.4); Lymphocyte (Absolute #) 0.52 x10^3/uL (1.0-4.6); Lymphocytes % 5.9 % (24.0-44.0); Mean Cell Volume 90.7 fL (78-100); Mean Corpuscular Hemoglobin 28.6 pg (26-32); Mean Corpuscular Hgb Concent. 31.6 g/dL (32-36); Mean Platelet Volume 11.8 fL (7.5-11.0); Monocyte (Absolute #) 0.89 x10^3/uL (0.0-1.3); Monocytes % 10.1 % (0.0-12.0); Neutrophil % 80.2 % (36.0-66.0); Platelet Count 339 x10^3/uL (150-450); Red Cell Distribution Width 18.4 % (11.5-14.0); White Blood Count 8.8 x10^3/uL (4.0-10.5)
[2024-03-10 05:16] LABS: ALBUMIN 3.4 g/dL (3.5-5.0); ANION GAP 12.7 MEQ/L (5-15); Calcium 8.7 mg/dL (8.4-10.2); Creatinine 1 1.71 mg/dL (0.66-1.25); EST GLOMERULAR FILTRATION RATE 47.3 ML/MIN; MAGNESIUM 1.9 mg/dL (1.6-2.3); Potassium 3.8 mmol/L (3.5-5.1); Total Protein 7.1 g/dL (6.3-8.2)
[2024-03-10 07:05] LABS: Slide Review 1 YES
[2024-03-10 09:12] LABS: INR 1.07 (0.8-3.0); PROTIME 11.6 SECONDS (9.4-12.5)
[2024-03-10 09:22] LABS: IFOB TEST RESULTS NEGATIVE (NEGATIVE)
--- NOTE | 2024-03-10 09:36 | PCM.NOTE ---
Date and Time: 03/10/2420 Subjective Assessment: is a 53 year old male with pmhx congestive heart failure, diabetes mellitus with right below-knee amputations, MA, HLD, HTN, GERD, and peripheral neuropathy presented to ED 03/06/24 experiencing a two day history of progressive shortness of breath admitted with CHF exacerbation and pneumonia. Upon presentation, patient hypoxic with spo2 at 85% on RA and hypertensive. EKG - Sinus Rhythm, Right [place] Deviation, prolonged QT interval, Right Bundle Branch Block, Other (ST depression in lateral leads)CXR with no new cardiopulmonary abnormalities. CT chest negative for PE demonstrating cardiomegaly with bilateral effusions/atelectasis favoring cardiac decompensation/CHF versus fluid overload. Right knee xray with no acute findings. Right hip XR with no acute findings. Pt again feeling emotional this morning and tearful during interview. Patient admitted on 03/07 consuming 1 pint of whiskey every other day and he has been trying to quit. Last drink 3 days prior to admission. Patient stated he doesn't think he abusing alcohol, nor does he want op treatment. Psych consulted, CIWA protocol initiated on 03/07. On 03/08 pt received 1 unit of blood and IV iron. Hgb is 8.3 and improved. He is still requiring 10L of O2 and on oxymizer at 95%. Baseline is room air at home. CXR and chest CT show mod BL pleural effusions. BL thoracentesis ordered for today with labs. If this does not improve his breathing will order cardiology consult. Pt's EJ on 02/23/23 was 25-30%. Since Echo was over 1 year ago will order new echo today. Kidney function appears near baseline today per old labs reviewed. He denies CP, Abd. pain, N/V/D. - Review of Systems Constitutional: No Fever, No Chills Eyes: No Symptoms Ears, Nose, & Throat: No Symptoms Respiratory: Short Of Breath, No Cough Cardiac: No Chest Pain, No Edema, No Syncope Abdominal/Gastrointestinal: No Abdominal Pain, No Nausea, No Vomiting, No Diarrhea Genitourinary Symptoms: No Dysuria Musculoskeletal: Other (R BKA), No Back Pain, No Neck Pain Skin: No Rash Neurological: No Dizziness, No Focal Weakness, No Sensory Changes Psychological: No Symptoms, Anxiety, Emotional Lability Endocrine: No Symptoms Hematologic/Lymphatic: No Symptoms Immunological/Allergic: No Symptoms Objective Exam General Appearance: no apparent distress, alert, obese Neurologic Exam: alert, oriented x 3, cooperative, normal mood/affect, nml cerebellar function, sensation nml, depressed mood/affect, No motor deficits Skin Exam: normal color, warm, dry Wound Assessment: Skin/Wound Assessment Wound/Incision Assessment Start: 03/06/24 15:18 Text: Status: Active Freq: Q6H Protocol: Document 03/10/24 03:00 AF (Rec: 03/10/24 03:27 AF [id number]) Wound/Incision Assessment LEFT ANTERIOR SECOND TOE Wound Assessment Shift Assessment Wound Stage Non Pressure Wound Drainage Amount None Drainage Odor None/Absent General Appearance Well Approximated Comment HEALING WOUND NOTED TO ANTERIOR SECOND TOE, OPEN TO AIR, DRY AND INTACT, PT DENIES KNOWING HOW LONG WOUND HAS BEEN THERE OR HOW IT HAPPENED. DOES NOT APPEAR TO BE A PRESSURE WOUND, SURROUNDING SKIN IS VERY DRY AND SCALEY. Remains true Right Posterior Finger Wound Assessment Shift Assessment Wound Type Burn Wound Stage Non Pressure Wound Drainage Amount None Drainage Odor None/Absent General Appearance Well Approximated Comment WOUND APPEARS TO BE A HEALING BURN, PT STATES HE DOES NOT KNOW WHAT HAPPENED, NO DRAINAGE OR BLEEDING NOTED, OPEN TO AIR. Remains true. Left Lower Posterior Calf Wound Assessment Shift Assessment Wound Type Abrasion Wound Stage Non Pressure Wound Drainage Odor None/Absent General Appearance Well Approximated Wound Bed Greatest Portion Red (Granulation) Surrounding Tissue [place] Comment OPEN TO AIR, SCABBED AREAS NOTED TO POSTERIOR LLE, OPEN AREA WHERE SCAB HAS BEEN SCRAPPED OFF BY MOVEMENT PER PT. Remains true. RIGHT STUMP Wound Assessment Shift Assessment Wound Type Abrasion Wound Stage Non Pressure Wound Dressing Status Changed Drainage Odor None/Absent General Appearance Well Approximated,Open to air Wound Bed Greatest Portion Red (Granulation) Surrounding Tissue [place] Topical Solution/Irrigant Saline Irrigant Primary Dressing Bandaid Comment pt picked open part of scab causing partial bleeding Left Knee Wound Assessment Shift Assessment Wound Type Abrasion Wound Stage Non Pressure Wound Drainage Amount None Drainage Odor None/Absent General Appearance Well Approximated,Clean/Dry Surrounding Tissue [place] Comment SCABBED AREAS NOTED, NO DRAINAGE OR BLEEDING, Open to air. Remains true. Wound Photo Photo Taken Yes Date: 03/06/24 Time: 17:00 Eye Exam: PERRL, EOMI, eyes nml inspection Ears, Nose, Throat Exam: normal ENT inspection, pharynx normal, moist mucous membranes Neck Exam: normal inspection, non-tender, supple, full range of motion Respiratory Exam: normal breath sounds, lungs clear, diminished breath sounds (BLLL), No respiratory distress Cardiovascular Exam: regular rate/rhythm, normal heart sounds Gastrointestinal/Abdomen Exam: soft, No tenderness, No mass Extremity Exam: normal inspection, normal range of motion, other (R BKA) Back Exam: normal inspection, normal range of motion, No CVA tenderness, No vertebral tenderness Male Genitalia Exam: deferred Rectal Exam: deferred Objective Data Vital Signs: Vital Signs - 24 hr Temp Pulse Resp BP Pulse Ox 03/10/24 07:13 63 16 95 03/10/24 07:00 97.5 F 66 20 131/81 97 03/10/24 03:00 97.8 F 67 16 141/73 90 L 03/09/24 23:00 98.1 F 65 18 130/77 95 03/09/24 20:32 69 16 94 L 03/09/24 19:00 98.2 F 69 26 H 132/80 93 L 03/09/24 15:00 98.4 F 69 20 139/83 90 L 03/09/24 11:00 97.8 F 73 20 139/80 94 L Pain Assessment - Last Documented Pain Intensity 6 Pain Scale Used 0-10 Pain Scale Intake and Output: Intake & Output 03/07/24 03/08/24 03/09/24 03/10/24 11:59 11:59 11:59 11:59 Intake Total 1600 1180 1322 1458 Output Total 550 400 825 780 Balance 1050 780 497 678 Weight 132.1 kg 133.7 kg 135.1 kg 135.1 kg Lab Results: Lab Results-Last 24 Hours 03/07/24 03/09/24 03/09/24 Range/Units 14:32 11:41 16:36 WBC (4.0-10.5) x10^3/uL RBC (4.1-5.6) x10^6/uL Hgb (12.5-18.0) g/dL Hct (42-50) % MCV (78-100) fL MCH (26-32) pg MCHC (32-36) g/dL RDW (11.5-14.0) % Plt Count (150-450) x10^3/uL MPV (7.5-11.0) fL Gran % (36.0-66.0) % Immature Gran % (Auto) (0.00-0.4) % Nucleat RBC Rel Count (0.00-0.1) % Eos # (Auto) (0-0.5) x10^3/uL Immature Gran # (Auto) (0.00-0.03) x10^3u/L Absolute Lymphs (auto) (1.0-4.6) x10^3/uL Absolute Monos (auto) (0.0-1.3) x10^3/uL Absolute Nucleated RBC (0.00-0.01) x10^3u/L Lymphocytes % (24.0-44.0) % Monocytes % (0.0-12.0) % Eosinophils % (0.00-5.0) % Basophils % (0.0-0.4) % Absolute Granulocytes (1.4-6.9) x10^3/uL Basophils # (0-0.4) x10^3/uL PT (9.4-12.5) SECONDS INR (0.8-3.0) APTT (25.1-36.5) SECONDS Sodium (135-145) mmol/L Potassium (3.5-5.1) mmol/L Chloride (98-107) mmol/L Carbon Dioxide (22-30) mmol/L Anion Gap (5-15) MEQ/L BUN (9-20) mg/dL Creatinine (0.66-1.25) mg/dL Estimated GFR ML/MIN Glucose (74-106) mg/dL POC Glucometer 89 92 (74 to 106) mg/dL Calcium (8.4-10.2) mg/dL Magnesium (1.6-2.3) mg/dL Total Bilirubin (0.2-1.3) mg/dL AST (17-59) U/L ALT (0-50) U/L Alkaline Phosphatase (38-126) U/L Lactate Dehydrogenase (120-246) U/L Serum Total Protein (6.3-8.2) g/dL Albumin (3.5-5.0) g/dL Slides for Path Review Crossmatch COMPATIBLE (COMPATIBLE) 04/22/24 04/22/24 04/22/24 Range/Units 04:35 04:35 07:26 WBC 8.8 (4.0-10.5) x10^3/uL RBC 2.90 L (4.1-5.6) x10^6/uL Hgb 8.3 L (12.5-18.0) g/dL Hct 26.3 L (42-50) % MCV 90.7 (78-100) fL MCH 28.6 (26-32) pg MCHC 31.6 L (32-36) g/dL RDW 18.4 H (11.5-14.0) % Plt Count 339 (150-450) x10^3/uL MPV 11.8 H (7.5-11.0) fL Gran % 80.2 H (36.0-66.0) % Immature Gran % (Auto) 0.2 (0.00-0.4) % Nucleat RBC Rel Count 0.0 (0.00-0.1) % Eos # (Auto) 0.26 (0-0.5) x10^3/uL Immature Gran # (Auto) 0.02 (0.00-0.03) x10^3u/L Absolute Lymphs (auto) 0.52 L (1.0-4.6) x10^3/uL Absolute Monos (auto) 0.89 (0.0-1.3) x10^3/uL Absolute Nucleated RBC 0.00 (0.00-0.01) x10^3u/L Lymphocytes % 5.9 L (24.0-44.0) % Monocytes % 10.1 (0.0-12.0) % Eosinophils % 3.0 (0.00-5.0) % Basophils % 0.6 (0.0-0.4) % Absolute Granulocytes 7.07 H (1.4-6.9) x10^3/uL Basophils # 0.05 (0-0.4) x10^3/uL PT (9.4-12.5) SECONDS INR (0.8-3.0) APTT (25.1-36.5) SECONDS Sodium 138 (135-145) mmol/L Potassium 3.8 (3.5-5.1) mmol/L Chloride 105 (98-107) mmol/L Carbon Dioxide 24 (22-30) mmol/L Anion Gap 12.7 (5-15) MEQ/L BUN 32 H (9-20) mg/dL Creatinine 1.71 H (0.66-1.25) mg/dL Estimated GFR 47.3 ML/MIN Glucose 88 (74-106) mg/dL POC Glucometer 89 (74 to 106) mg/dL Calcium 8.7 (8.4-10.2) mg/dL Magnesium 1.9 (1.6-2.3) mg/dL Total Bilirubin 1.00 (0.2-1.3) mg/dL AST 29 (17-59) U/L ALT 22 (0-50) U/L Alkaline Phosphatase 52 (38-126) U/L Lactate Dehydrogenase (120-246) U/L Serum Total Protein 7.1 (6.3-8.2) g/dL Albumin 3.4 L (3.5-5.0) g/dL Slides for Path Review YES Crossmatch (COMPATIBLE) 03/10/24 03/10/24 03/10/24 Range/Units 08:15 08:15 08:44 WBC (4.0-10.5) x10^3/uL RBC (4.1-5.6) x10^6/uL Hgb (12.5-18.0) g/dL Hct (42-50) % MCV (78-100) fL MCH (26-32) pg MCHC (32-36) g/dL RDW (11.5-14.0) % Plt Count (150-450) x10^3/uL MPV (7.5-11.0) fL Gran % (36.0-66.0) % Immature Gran % (Auto) (0.00-0.4) % Nucleat RBC Rel Count (0.00-0.1) % Eos # (Auto) (0-0.5) x10^3/uL Immature Gran # (Auto) (0.00-0.03) x10^3u/L Absolute Lymphs (auto) (1.0-4.6) x10^3/uL Absolute Monos (auto) (0.0-1.3) x10^3/uL Absolute Nucleated RBC (0.00-0.01) x10^3u/L Lymphocytes % (24.0-44.0) % Monocytes % (0.0-12.0) % Eosinophils % (0.00-5.0) % Basophils % (0.0-0.4) % Absolute Granulocytes (1.4-6.9) x10^3/uL Basophils # (0-0.4) x10^3/uL PT 11.6 (9.4-12.5) SECONDS INR 1.07 (0.8-3.0) APTT 38.2 H (25.1-36.5) SECONDS Sodium (135-145) mmol/L Potassium (3.5-5.1) mmol/L Chloride (98-107) mmol/L Carbon Dioxide (22-30) mmol/L Anion Gap (5-15) MEQ/L BUN (9-20) mg/dL Creatinine (0.66-1.25) mg/dL Estimated GFR ML/MIN Glucose (74-106) mg/dL POC Glucometer (74 to 106) mg/dL Calcium (8.4-10.2) mg/dL Magnesium (1.6-2.3) mg/dL Total Bilirubin (0.2-1.3) mg/dL AST (17-59) U/L ALT (0-50) U/L Alkaline Phosphatase (38-126) U/L Lactate Dehydrogenase 222 (120-246) U/L Serum Total Protein (6.3-8.2) g/dL Albumin (3.5-5.0) g/dL Slides for Path Review Crossmatch (COMPATIBLE) Radiology Exams: Radiology Procedures Category Date Time Status CHEST 1 VIEW (PORTABLE) Urgent Exams 03/09/24 09:45 Completed THORACENTESIS [US] Routine Exams 03/10/24 07:25 Ordered Assessment/Plan (1) CHF exacerbation Current Visit: Yes Status: Acute Assessment & Plan: -ECHO reviewed from 02/23/23: In the parasternal long axis view the ejection fraction is estimated to be 25 and 30%. In the apical view the ejection fraction was calculated to be 60%. IMPRESSION: 1) MILD DECREASE IN LEFT VENTRICULAR SYSTOLIC FUNCTION. 2) MILD CONCENTRIC LEFT VENTRICULAR HYPERTROPHY. 3) MILD MITRAL REGURGITATION. 4) MILD TRICUSPID REGURGITATION. 5) NORMAL RIGHT VENTRICULAR SYSTOLIC PRESSURE. 6) MODERATE LEFT ATRIAL DILATATION - Echo ordered 03/10 - Lasix BID - Kidney function near baseline per old records, Creat 1.71 - restart Entresto 03/10 - On 10L oxymizer @ 95%- Baseline room air - CXR 03/09 IMPRESSION: 1. Right lung diffuse airspace opacity which has progressed since the last study. Follow-up by CT is advised. 2. Clear both costophrenic angles. However, this doesn't exclude pleural effusions as the set up person images (resembling the X-ray images) of the previous study showed normal costophrenic angles yet axial images revealed bilateral pleural effusions. 3. Evaluation of the cardiac size is limited given an AP projection yet no significant time interval changes. - Thoracentesis ordered for today - Initial trops + x2 2:2 CHF exacerbation. - denies CP Code(s): I50.9 - HEART FAILURE, UNSPECIFIED (2) Alcohol withdrawal Current Visit: Yes Status: Acute Assessment & Plan: - ciwa protocol in place Code(s): F10.939 - ALCOHOL USE, UNSPECIFIED WITH WITHDRAWAL, UNSPECIFIED (3) Dysuria Current Visit: Yes Status: Resolved Assessment & Plan: - UC negative- antibiotics stopped Code(s): R30.0 - DYSURIA (4) Pneumonia Current Visit: Yes Status: Resolved Assessment & Plan: - WBC normal - Antibiotics stopped - Appears to be more CHF - BC x2 negative Code(s): J18.9 - PNEUMONIA, UNSPECIFIED ORGANISM (5) Acute hypoxic respiratory failure Current Visit: No Status: Acute Assessment & Plan: - On 10l oxymizer- baseline RA - 2:2 CHF - Continue lasix Code(s): J96.01 - ACUTE RESPIRATORY FAILURE WITH HYPOXIA (6) Anemia Current Visit: No Status: Chronic Qualifiers: Anemia type: due to chronic kidney disease Assessment & Plan: - Creat improved 1.71 - 1 unit of blood gave on 03/08 + IV iron infusion - Hgb stable 8.3 - ferrous sulfate daily Code(s): D64.9 - ANEMIA, UNSPECIFIED (7) HTN (hypertension) Current Visit: No Status: Acute Qualifiers: Hypertension type: renovascular hypertension Qualified Code(s): I15.0 - Renovascular hypertension Assessment & Plan: - stable- continue home meds Code(s): I10 - ESSENTIAL (PRIMARY) HYPERTENSION (8) Diabetes mellitus Current Visit: No Status: Chronic Qualifiers: Diabetes mellitus type: type 2 Diabetes mellitus rodent exterminator insulin use: without rodent exterminator use Diabetes mellitus complication status: with circulatory complication Assessment & Plan: - last A1C 01/27/24 6.24- controlled - ADA diet - SSI - Hx right BKA 2:2 DM per pt. Code(s): E11.9 - TYPE 2 DIABETES MELLITUS WITHOUT COMPLICATIONS (9) Obesity, morbid, BMI 40.0-49.9 Current Visit: Yes Status: Acute Assessment & Plan: - advised ADA diet and exercise control Code(s): E66.01 - MORBID (SEVERE) OBESITY DUE TO EXCESS CALORIES (10) Pleural effusion due to CHF (congestive heart failure) Current Visit: Yes Status: Acute Assessment & Plan: - As seen on CXR and Chest CT - BL US guided thoracentesis today with labs - O2 10L oxymizer 95%- baseline RA - NPO until procedure completed - Hold Lovenox today - Torsemide BID VTE: Hold lovenox today PPI: Pantoprazole Next of KIN: Billy Cuevas [phone] Code status: Full code D/c plan: when oxygen status improves Code(s): I50.9 - HEART FAILURE, UNSPECIFIED
[2024-03-10] MEDS: ENTRESTO 49 MG-51 MG TABLET PO SCH (13:03)
[2024-03-10] MEDS: FEOSOL 325 MG PO SCH (13:04)
[2024-03-10] MEDS: VITAMIN B-1 100 MG PO SCH (13:42)
[2024-03-10 13:46] LABS: BODY FLUID CELL COUNT RBC 0.002 x10^6u/L; BODY FLUID CELL COUNT WBC 0.244 x10^3u/L
[2024-03-10 13:50] LABS: BF CLARITY CLEAR (CLEAR); BF SPECIMEN TYPE PLEURAL; BF-COLOR XANTHROCHORMIC (COLORLESS)
--- NOTE | 2024-03-10 13:56 | XRAY ---
Indication: Bilateral pleural effusions. Procedure was performed bedside. Informed consent obtained. Initial bilateral chest ultrasound performed for localization. Largest on the right. The right back was prepped and draped in sterile fashion. 1% lidocaine plain was used for local anesthesia. Tiny skin incision made. 5 [place] [employer] paracentesis needle/catheter was then percutaneously inserted. Once fluid was aspirating, the outer catheter was then advanced with the inner needle removed. Catheter was connected to a Vacutainer. Approximately 1.3 L of brown tea colored fluid aspirated and was disposed of properly. Approximately 60 cc was collected and sent to laboratory for analysis as ordered by the clinician. Repeat sonogram demonstrates near complete aspiration. Catheter removed. Hemostasis achieved using digital pressure over the puncture site. Band-Aid applied over the puncture site. Postthoracentesis chest radiograph pending. Impression: Technically successful ultrasound guided right thoracentesis for both diagnostic and therapeutic purpose. No immediate complications or blood loss.
--- NOTE | 2024-03-10 14:04 | XRAY ---
Indication: Status post right thoracentesis. Comparison: One day earlier Portable chest demonstrates clearing right effusion consistent with recent thoracentesis. No pneumothorax. Remaining chest unchanged again with right mid to upper lung groundglass airspace opacities, cardiomegaly and mild left base infiltrate/atelectasis/effusion.
[2024-03-10] MEDS: Zithromax 500 MG/ 250 ML NaCl Premix 500 MG/250 ML IVPB IV SCH (15:12)
[2024-03-11 04:55] LABS: Absolute Neutrophil Ct (ANC) 6.49 x10^3/uL (1.4-6.9); BASOPHIL % 0.7 % (0.0-0.4); Basophil (Absolute #) 0.06 x10^3/uL (0-0.4); Eosinophil % 4.3 % (0.00-5.0); Eosinophil (Absolute #) 0.36 x10^3/uL (0-0.5); Hematocrit 27.5 % (42-50); Hemoglobin 8.7 g/dL (12.5-18.0); IMMATURE GRAN # 0.03 x10^3u/L (0.00-0.03); IMMATURE GRAN % 0.4 % (0.00-0.4); Lymphocytes % 7.2 % (24.0-44.0); Mean Cell Volume 91.1 fL (78-100); Mean Corpuscular Hemoglobin 28.8 pg (26-32); Mean Corpuscular Hgb Concent. 31.6 g/dL (32-36); Mean Platelet Volume 11.7 fL (7.5-11.0); Monocyte (Absolute #) 0.84 x10^3/uL (0.0-1.3); Neutrophil % 77.4 % (36.0-66.0); Platelet Count 372 x10^3/uL (150-450); Red Blood Count 3.02 x10^6/uL (4.1-5.6); Red Cell Distribution Width 18.4 % (11.5-14.0); White Blood Count 8.4 x10^3/uL (4.0-10.5)
[2024-03-11 05:12] LABS: ALBUMIN 3.3 g/dL (3.5-5.0); ANION GAP 12.3 MEQ/L (5-15); Calcium 8.9 mg/dL (8.4-10.2); Creatinine 1 1.38 mg/dL (0.66-1.25); EST GLOMERULAR FILTRATION RATE 61.2 ML/MIN; MAGNESIUM 1.9 mg/dL (1.6-2.3); Potassium 3.7 mmol/L (3.5-5.1); Total Protein 7.2 g/dL (6.3-8.2)
[2024-03-11] MEDS: Zofran 4 MG/2 ML VIAL IV PRN (08:54)
--- NOTE | 2024-03-11 10:51 | PCM.NOTE ---
Date and Time: 03/11/24 1046 Subjective Assessment: 03/10/24 is a 53 year old male with pmhx congestive heart failure, diabetes mellitus with right below-knee amputations, MD, HLD, HTN, GERD, and peripheral neuropathy presented to ED 03/06/24 experiencing a two day history of progressive shortness of breath admitted with CHF exacerbation and pneumonia. Upon presentation, patient hypoxic with spo2 at 85% on RA and hypertensive. EKG - Sinus Rhythm, Right [place] Deviation, prolonged QT interval, Right Bundle Branch Block, Other (ST depression in lateral leads)CXR with no new cardiopulmonary abnormalities. CT chest negative for PE demonstrating cardiomegaly with bilateral effusions/atelectasis favoring cardiac decompensation/CHF versus fluid overload. Right knee xray with no acute findings. Right hip XR with no acute findings. Pt again feeling emotional this morning and tearful during interview. Patient admitted on 03/07 consuming 1 pint of whiskey every other day and he has been trying to quit. Last drink 3 days prior to admission. Patient stated he doesn't think he abusing alcohol, nor does he want op treatment. Psych consulted, CIWA protocol initiated on 03/07. On 03/08 pt received 1 unit of blood and IV iron. Hgb is 8.3 and improved. He is still requiring 10L of O2 and on oxymizer at 95%. Baseline is room air at home. CXR and chest CT show mod BL pleural effusions. BL thoracentesis ordered for today with labs. If this does not improve his breathing will order cardiology consult. Pt's EJ on 02/23/23 was 25-30%. Since Echo was over 1 year ago will order new echo today. Kidney function appears near baseline today per old labs reviewed. He denies CP, Abd. pain, N/V/D. 03/11/24 Pt resting in bed. He reports SOB has improved with thoracentesis yesterday, 60ml removed from right side. He is now n 6lNC, baseline RA. Will continue Lasix BID. Pt up to chair with total assist x3. Pt refusing to go to rehab. He wants to go home with son and HHC. Creat at baseline. Hgb stable. Most likley will d/c tomorrow. Will continue to encourage pt to consider rehab as he is very weak. He denies CP, SOB, abd. pain, N/V/D. - Review of Systems Constitutional: Weakness, No Fever, No Chills Eyes: No Symptoms Ears, Nose, & Throat: No Symptoms Respiratory: No Cough, No Short Of Breath Cardiac: No Chest Pain, No Edema, No Syncope Abdominal/Gastrointestinal: No Abdominal Pain, No Nausea, No Vomiting, No Diarrhea Genitourinary Symptoms: No Dysuria Musculoskeletal: No Back Pain, No Neck Pain Skin: No Rash Neurological: No Dizziness, No Focal Weakness, No Sensory Changes Psychological: No Symptoms Endocrine: No Symptoms Hematologic/Lymphatic: No Symptoms Immunological/Allergic: No Symptoms Objective Exam General Appearance: no apparent distress, alert, obese Neurologic Exam: alert, oriented x 3, cooperative, normal mood/affect, nml cerebellar function, sensation nml, motor weakness, No motor deficits Skin Exam: normal color, warm, dry Wound Assessment: Skin/Wound Assessment Wound/Incision Assessment Start: 03/06/24 15:18 Text: Status: Active Freq: Q6H Protocol: Document 03/11/24 09:00 AR (Rec: 03/11/24 09:17 AR [id number]) Wound/Incision Assessment LEFT ANTERIOR SECOND TOE Wound Assessment Shift Assessment Wound Stage Non Pressure Wound Drainage Amount None General Appearance Well Approximated Comment HEALING WOUND NOTED TO ANTERIOR SECOND TOE, OPEN TO AIR, DRY AND INTACT, PT DENIES KNOWING HOW LONG WOUND HAS BEEN THERE OR HOW IT HAPPENED. SURROUNDING SKIN IS VERY DRY AND SCALEY. Remains true Right Posterior Finger Wound Assessment Shift Assessment Wound Type Burn Wound Stage Non Pressure Wound Drainage Amount None General Appearance Well Approximated Comment WOUND APPEARS TO BE A HEALING BURN, PT STATES HE DOES NOT KNOW WHAT HAPPENED, OPEN TO AIR. Remains true. Left Lower Posterior Calf Wound Assessment Shift Assessment Wound Type Abrasion Wound Stage Non Pressure Wound Drainage Amount None General Appearance Well Approximated Wound Bed Greatest Portion Red (Granulation) Surrounding Tissue Parcoal Comment OPEN TO AIR, SCABBED AREAS NOTED TO POSTERIOR LLE, OPEN AREA WHERE SCAB HAS BEEN SCRAPPED OFF BY MOVEMENT PER PT. Remains true. RIGHT STUMP Wound Assessment Shift Assessment Wound Type Abrasion Wound Stage Non Pressure Wound Dressing Status Dry & Intact Drainage Amount None General Appearance Well Approximated,Open to air Wound Bed Greatest Portion Red (Granulation) Surrounding Tissue Parcoal Comment DRESSING CDI Left Knee Wound Assessment Shift Assessment Wound Type Abrasion Wound Stage Non Pressure Wound Drainage Amount None General Appearance Well Approximated,Open to air, Clean/Dry Surrounding Tissue Parcoal Comment SCABBED AREAS NOTED, NO DRAINAGE OR BLEEDING, Open to air. Remains true. Wound Photo Photo Taken No Eye Exam: PERRL, EOMI, eyes nml inspection Ears, Nose, Throat Exam: normal ENT inspection, pharynx normal, moist mucous membranes Neck Exam: normal inspection, non-tender, supple, full range of motion Respiratory Exam: normal breath sounds, lungs clear, No respiratory distress Cardiovascular Exam: regular rate/rhythm, normal heart sounds Gastrointestinal/Abdomen Exam: soft, No tenderness, No mass Extremity Exam: normal inspection, normal range of motion Back Exam: normal inspection, normal range of motion, No CVA tenderness, No vertebral tenderness Male Genitalia Exam: deferred Rectal Exam: deferred Objective Data Vital Signs: Vital Signs - 24 hr Temp Pulse Resp BP Pulse Ox 03/11/24 07:26 66 14 93 L 03/11/24 04:33 97.7 F 65 16 137/76 89 L 03/10/24 23:40 97.3 F 65 18 139/79 92 L 03/10/24 21:48 72 18 93 L 03/10/24 18:38 97.3 F 67 18 129/79 96 03/10/24 17:52 93 L 03/10/24 16:00 100 03/10/24 15:30 97 03/10/24 14:20 94 L 03/10/24 13:59 94 L 03/10/24 11:00 97.5 F 67 20 153/82 88 L Pain Assessment - Last Documented Pain Intensity 7 Pain Scale Used 0-10 Pain Scale Intake and Output: Intake & Output 03/08/24 03/09/24 03/10/24 03/11/24 11:59 11:59 11:59 11:59 Intake Total 1180 1322 1458 680 Output Total 636 286 9063 1550 Balance 780 497 128 -870 Weight 133.7 kg 135.1 kg 135.1 kg Lab Results: Lab Results-Last 24 Hours 03/10/24 03/10/24 03/10/24 Range/Units 11:25 13:25 21:45 Specimen Type PLEURAL WBC (4.0-10.5) x10^3/uL RBC (4.1-5.6) x10^6/uL Hgb (12.5-18.0) g/dL Hct (42-50) % MCV (78-100) fL MCH (26-32) pg MCHC (32-36) g/dL RDW (11.5-14.0) % Plt Count (150-450) x10^3/uL MPV (7.5-11.0) fL Gran % (36.0-66.0) % Immature Gran % (Auto) (0.00-0.4) % Nucleat RBC Rel Count (0.00-0.1) % Eos # (Auto) (0-0.5) x10^3/uL Immature Gran # (Auto) (0.00-0.03) x10^3u/L Absolute Lymphs (auto) (1.0-4.6) x10^3/uL Absolute Monos (auto) (0.0-1.3) x10^3/uL Absolute Nucleated RBC (0.00-0.01) x10^3u/L Lymphocytes % (24.0-44.0) % Monocytes % (0.0-12.0) % Eosinophils % (0.00-5.0) % Basophils % (0.0-0.4) % Absolute Granulocytes (1.4-6.9) x10^3/uL Basophils # (0-0.4) x10^3/uL Sodium (135-145) mmol/L Potassium (3.5-5.1) mmol/L Chloride (98-107) mmol/L Carbon Dioxide (22-30) mmol/L Anion Gap (5-15) MEQ/L BUN (9-20) mg/dL Creatinine (0.66-1.25) mg/dL Estimated GFR ML/MIN Glucose (74-106) mg/dL POC Glucometer 74 75 (74 to 106) mg/dL Calcium (8.4-10.2) mg/dL Magnesium (1.6-2.3) mg/dL Total Bilirubin (0.2-1.3) mg/dL AST (17-59) U/L ALT (0-50) U/L Alkaline Phosphatase (38-126) U/L Serum Total Protein (6.3-8.2) g/dL Albumin (3.5-5.0) g/dL Fluid Color XANTHROCHORMIC A (COLORLESS) Fluid Clarity CLEAR (CLEAR) Fluid WBC (Auto) 0.244 x10^3u/L Fluid RBC (Auto) 0.002 x10^6u/L Fld Polynuclear WBCs % 16.900 % Fl Mononuclear % Auto 83.100 % 03/11/24 03/11/24 03/11/24 Range/Units 04:35 04:35 07:28 Specimen Type WBC 8.4 (4.0-10.5) x10^3/uL RBC 3.02 L (4.1-5.6) x10^6/uL Hgb 8.7 L (12.5-18.0) g/dL Hct 27.5 L (42-50) % MCV 91.1 (78-100) fL MCH 28.8 (26-32) pg MCHC 31.6 L (32-36) g/dL RDW 18.4 H (11.5-14.0) % Plt Count 372 (150-450) x10^3/uL MPV 11.7 H (7.5-11.0) fL Gran % 77.4 H (36.0-66.0) % Immature Gran % (Auto) 0.4 (0.00-0.4) % Nucleat RBC Rel Count 0.0 (0.00-0.1) % Eos # (Auto) 0.36 (0-0.5) x10^3/uL Immature Gran # (Auto) 0.03 (0.00-0.03) x10^3u/L Absolute Lymphs (auto) 0.60 L (1.0-4.6) x10^3/uL Absolute Monos (auto) 0.84 (0.0-1.3) x10^3/uL Absolute Nucleated RBC 0.00 (0.00-0.01) x10^3u/L Lymphocytes % 7.2 L (24.0-44.0) % Monocytes % 10.0 (0.0-12.0) % Eosinophils % 4.3 (0.00-5.0) % Basophils % 0.7 (0.0-0.4) % Absolute Granulocytes 6.49 (1.4-6.9) x10^3/uL Basophils # 0.06 (0-0.4) x10^3/uL Sodium 140 (135-145) mmol/L Potassium 3.7 (3.5-5.1) mmol/L Chloride 104 (98-107) mmol/L Carbon Dioxide 27 (22-30) mmol/L Anion Gap 12.3 (5-15) MEQ/L BUN 25 H (9-20) mg/dL Creatinine 1.38 H (0.66-1.25) mg/dL Estimated GFR 61.2 ML/MIN Glucose 106 (74-106) mg/dL POC Glucometer 96 (74 to 106) mg/dL Calcium 8.9 (8.4-10.2) mg/dL Magnesium 1.9 (1.6-2.3) mg/dL Total Bilirubin 1.00 (0.2-1.3) mg/dL AST 26 (17-59) U/L ALT 22 (0-50) U/L Alkaline Phosphatase 58 (38-126) U/L Serum Total Protein 7.2 (6.3-8.2) g/dL Albumin 3.3 L (3.5-5.0) g/dL Fluid Color (COLORLESS) Fluid Clarity (CLEAR) Fluid WBC (Auto) x10^3u/L Fluid RBC (Auto) x10^6u/L Fld Polynuclear WBCs % % Fl Mononuclear % Auto % Radiology Exams: Radiology Procedures Category Date Time Status CHEST 1 VIEW (PORTABLE) Stat Exams 03/10/24 13:36 Completed ECHO W/2D AND DOPPLER [US] Routine Exams 03/10/24 09:33 Taken THORACENTESIS [US] Routine Exams 03/10/24 07:25 Completed Multi-Disciplinary Progress Notes: Multi-Disciplinary Progress Notes 03/11/24 10:25 Respiratory Note by Nicole Jones pts spo2 93% on 7L opxymask at rest. pt placed on rm air and spo2 down to 81% at rest.pt placed on 6l n/c and pts spo2 92% at rest. Initialized on 03/11/24 10:25 - END OF NOTE 03/10/24 11:53 Case Management Note by Thuy Merrill S/W PATIENT- HE CONTINUES TO DENY ANY NEW NEEDS REGARDING DC. [facility] HAS BEEN SET UP WITH [facility] BUT THEY HAVE NOT GOT A CHANCE TO START YET. PATIENT CURRENTLY ON OXYGEN- THIS WILL NEED SET AT UP AT DC IF NEEDED. Initialized on 03/10/24 11:53 - END OF NOTE 03/10/24 11:46 Case Management Note by Thuy Merrill PATIENT HAS [facility]. THEY WERE NOTIFIED PATIENT HERE INPATIENT. THEY WILL NEED NOTIFIED AT TIME OF DC AT [phone]. THEY WILL NEED FAXED THE DC INSTRUCTIONS, DC MED LIST AND DC SUMMARY TO [phone] Initialized on 03/10/24 11:46 - END OF NOTE Assessment/Plan (1) CHF exacerbation Current Visit: Yes Status: Acute Code(s): I50.9 - HEART FAILURE, UNSPECIFIED (2) Alcohol withdrawal Current Visit: Yes Status: Acute Code(s): F10.939 - ALCOHOL USE, UNSPECIFIED WITH WITHDRAWAL, UNSPECIFIED (3) Dysuria Current Visit: Yes Status: Resolved Code(s): R30.0 - DYSURIA (4) Pneumonia Current Visit: Yes Status: Resolved Code(s): J18.9 - PNEUMONIA, UNSPECIFIED ORGANISM (5) Acute hypoxic respiratory failure Current Visit: No Status: Acute Code(s): J96.01 - ACUTE RESPIRATORY FAILURE WITH HYPOXIA (6) Anemia Current Visit: No Status: Chronic Qualifiers: Anemia type: due to chronic kidney disease Code(s): D64.9 - ANEMIA, UNSPECIFIED (7) HTN (hypertension) Current Visit: No Status: Acute Qualifiers: Hypertension type: renovascular hypertension Qualified Code(s): I15.0 - Renovascular hypertension Code(s): I10 - ESSENTIAL (PRIMARY) HYPERTENSION (8) Diabetes mellitus Current Visit: No Status: Chronic Qualifiers: Diabetes mellitus type: type 2 Diabetes mellitus exterminator insulin use: without exterminator use Diabetes mellitus complication status: with circulatory complication Code(s): E11.9 - TYPE 2 DIABETES MELLITUS WITHOUT COMPLICATIONS (9) Obesity, morbid, BMI 40.0-49.9 Current Visit: Yes Status: Acute Code(s): E66.01 - MORBID (SEVERE) OBESITY DUE TO EXCESS CALORIES (10) Pleural effusion due to CHF (congestive heart failure) Current Visit: Yes Status: Acute Assessment & Plan: (1) CHF exacerbation Current Visit: Yes Status: Acute Assessment & Plan: -ECHO reviewed from 02/23/23: In the parasternal long axis view the ejection fraction is estimated to be 25 and 30%. In the apical view the ejection fraction was calculated to be 60%. IMPRESSION: 1) MILD DECREASE IN LEFT VENTRICULAR SYSTOLIC FUNCTION. 2) MILD CONCENTRIC LEFT VENTRICULAR HYPERTROPHY. 3) MILD MITRAL REGURGITATION. 4) MILD TRICUSPID REGURGITATION. 5) NORMAL RIGHT VENTRICULAR SYSTOLIC PRESSURE. 6) MODERATE LEFT ATRIAL DILATATION - Echo 03/10 EF 52% per weight reducing technician- awaiting official read by cardiology. - Lasix BID - Kidney function near baseline per old records, Creat 1.71 - restart Entresto 03/10 - On 10L oxymizer @ 95%- Baseline room air - CXR 03/09 IMPRESSION: 1. Right lung diffuse airspace opacity which has progressed since the last study. Follow-up by CT is advised. 2. Clear both costophrenic angles. However, this doesn't exclude pleural effusions as the drivers license examiner images (resembling the X-ray images) of the previous study showed normal costophrenic angles yet axial images revealed bilateral pleural effusions. 3. Evaluation of the cardiac size is limited given an AP projection yet no significant time interval changes. - Thoracentesis ordered for today - Initial trops + x2 2:2 CHF exacerbation. - denies CP 03/11 - On 6 LNC, SOB improved Code(s): I50.9 - HEART FAILURE, UNSPECIFIED (2) Alcohol withdrawal Current Visit: Yes Status: Acute Assessment & Plan: - ciwa protocol in place Code(s): F10.939 - ALCOHOL USE, UNSPECIFIED WITH WITHDRAWAL, UNSPECIFIED (3) Dysuria Current Visit: Yes Status: Resolved Assessment & Plan: - UC negative- antibiotics stopped Code(s): R30.0 - DYSURIA (4) Pneumonia Current Visit: Yes Status: Resolved Assessment & Plan: - WBC normal - Antibiotics stopped - Appears to be more CHF - BC x2 negative Code(s): J18.9 - PNEUMONIA, UNSPECIFIED ORGANISM (5) Acute hypoxic respiratory failure Current Visit: No Status: Acute Assessment & Plan: - On 10l oxymizer- baseline RA - 2:2 CHF - Continue lasix 03/11 - 6LNC - did qualify for home O2 per RT - PT/OT Code(s): J96.01 - ACUTE RESPIRATORY FAILURE WITH HYPOXIA (6) Anemia Current Visit: No Status: Chronic Qualifiers: Anemia type: due to chronic kidney disease Assessment & Plan: - Creat improved 1.71 - 1 unit of blood gave on 03/08 + IV iron infusion - Hgb stable 8.3 - ferrous sulfate daily 03/11 - Hgb 8.7- stable Code(s): D64.9 - ANEMIA, UNSPECIFIED (7) HTN (hypertension) Current Visit: No Status: Acute Qualifiers: Hypertension type: renovascular hypertension Qualified Code(s): I15.0 - Renovascular hypertension Assessment & Plan: - stable- continue home meds Code(s): I10 - ESSENTIAL (PRIMARY) HYPERTENSION (8) Diabetes mellitus Current Visit: No Status: Chronic Qualifiers: Diabetes mellitus type: type 2 Diabetes mellitus exterminator insulin use: without exterminator use Diabetes mellitus complication status: with circulatory complication Assessment & Plan: - last A1C 01/27/24 6.24- controlled - ADA diet - SSI - Hx right BKA 2:2 DM per pt. Code(s): E11.9 - TYPE 2 DIABETES MELLITUS WITHOUT COMPLICATIONS (9) Obesity, morbid, BMI 40.0-49.9 Current Visit: Yes Status: Acute Assessment & Plan: - advised ADA diet and exercise control Code(s): E66.01 - MORBID (SEVERE) OBESITY DUE TO EXCESS CALORIES (10) Pleural effusion due to CHF (congestive heart failure) Current Visit: Yes Status: Acute Assessment & Plan: - As seen on CXR and Chest CT - BL US guided thoracentesis today with labs - O2 10L oxymizer 95%- baseline RA - NPO until procedure completed - Hold Lovenox today - Torsemide BID 03/11 - 60ml drained from right side - SOB has improved and now on 6lNC. - Continue Lasix VTE: Hold lovenox today PPI: Pantoprazole Next of KIN: Billy Mason [phone] Code status: Full code D/c plan: when oxygen status improves Code(s): I50.9 - HEART FAILURE, UNSPECIFIED Code(s): I50.9 - HEART FAILURE, UNSPECIFIED
[2024-03-11 14:04] LABS: Protein, Body Fluid 1.7 g/dL (.)
[2024-03-12 05:18] LABS: Hematocrit 27.7 % (42-50); Hemoglobin 8.4 g/dL (12.5-18.0); Mean Cell Volume 93.9 fL (78-100); Mean Corpuscular Hemoglobin 28.5 pg (26-32); Mean Corpuscular Hgb Concent. 30.3 g/dL (32-36); Mean Platelet Volume 11.4 fL (7.5-11.0); Platelet Count 370 x10^3/uL (150-450); Red Blood Count 2.95 x10^6/uL (4.1-5.6); Red Cell Distribution Width 18.5 % (11.5-14.0); White Blood Count 7.8 x10^3/uL (4.0-10.5)
[2024-03-12 05:38] LABS: ALBUMIN 3.3 g/dL (3.5-5.0); ANION GAP 10.8 MEQ/L (5-15); BILIRUBIN,TOTAL 0.7 mg/dL (0.2-1.3); Calcium 8.6 mg/dL (8.4-10.2); Creatinine 1 1.52 mg/dL (0.66-1.25); EST GLOMERULAR FILTRATION RATE 54.5 ML/MIN; MAGNESIUM 1.9 mg/dL (1.6-2.3); Potassium 3.6 mmol/L (3.5-5.1)
[2024-03-12 05:42] LABS: Eosinophil 1 % (0.00-3.0); Lymphocytes 8 % (24-44); Monocyte 7 % (0.0-12.0); Neutrophils 84 % (36.-66.); Total Cells Counted 100
[2024-03-12 05:43] LABS: ANISOCYTOSIS 1+; Spherocyte 1+
[2024-03-12 05:44] LABS: Platelet Estimate NORMAL (NORMAL)
[2024-03-12 07:04] VITALS: RESP 18
[2024-03-12 11:48] VITALS: BP 145/82; PULSE 70; TEMP 98; O2SAT 91
--- NOTE | 2024-03-12 12:56 | PCM.DS ---
Discharge Summary Date of Admission: 03/08/24 10:23 Date of Discharge: 01/12/24 Admitting Physician: SAÚL BANERJEE MD Consults: Consults on Case 03/07/24 07:19 Psychiatric Consult STAT Primary Care Provider: MARLYN NOEL MD Allergies Allergies Penicillins Allergy (Verified 02/25/24 17:12) Beta-Blockers (Beta-Adrenergic Bloc Adverse Reaction (Verified 02/25/24 17:12) Wheezing Hospital Summary - Hospital Course Hospital Course: 03/10/24 is a 53 year old male with pmhx congestive heart failure, diabetes mellitus with right below-knee amputations, ND, HLD, HTN, GERD, and peripheral neuropathy presented to ED 03/06/24 experiencing a two day history of progressive shortness of breath admitted with CHF exacerbation and pneumonia. Upon presentation, patient hypoxic with spo2 at 85% on RA and hypertensive. EKG - Sinus Rhythm, Right [place] Deviation, prolonged QT interval, Right Bundle Branch Block, Other (ST depression in lateral leads)CXR with no new cardiopulmonary abnormalities. CT chest negative for PE demonstrating cardiomegaly with bilateral effusions/atelectasis favoring cardiac decompensation/CHF versus fluid overload. Right knee xray with no acute findings. Right hip XR with no acute findings. Pt again feeling emotional this morning and tearful during interview. Patient admitted on 03/07 consuming 1 pint of whiskey every other day and he has been trying to quit. Last drink 3 days prior to admission. Patient stated he doesn't think he abusing alcohol, nor does he want op treatment. Psych consulted, CIWA protocol initiated on 03/07. On 03/08 pt received 1 unit of blood and IV iron. Hgb is 8.3 and improved. He is still requiring 10L of O2 and on oxymizer at 95%. Baseline is room air at home. CXR and chest CT show mod BL pleural effusions. BL thoracentesis ordered for today with labs. If this does not improve his breathing will order cardiology consult. Pt's EJ on 02/23/23 was 25-30%. Since Echo was over 1 year ago will order new echo today. Kidney function appears near baseline today per old labs reviewed. He denies CP, Abd. pain, N/V/D. 03/11/24 Pt resting in bed. He reports SOB has improved with thoracentesis yesterday, 60ml removed from right side. He is now n 6lNC, baseline RA. Will continue Lasix BID. Pt up to chair with total assist x3. Pt refusing to go to rehab. He wants to go home with son and HHC. Creat at baseline. Hgb stable. Most likley will d/c tomorrow. Will continue to encourage pt to consider rehab as he is very weak. He denies CP, SOB, abd. pain, N/V/D. 03/12/24 Pt resting in bed. CM discussed OP rehab and originally he was willing. However, he required a level 2 eval for psych hx and would have to wait up to a week for this eval. Therefore, he refuses to wait and wants to go home today. He states his son is able to help him. Labs are stable and he is now on 5- 6 lNC. O2 set up for home use by case management. OP appointments set up with PCP and specialist. He denies any further concerns at this time and states he feels much better. - Vitals & Intake/Output Vital Signs: Vital Signs Temperature 98.0 F 03/12/24 11:48 Pulse Rate 70 03/12/24 11:48 Respiratory Rate 18 03/12/24 11:48 Blood Pressure 145/82 03/12/24 11:48 O2 Sat by Pulse Oximetry 91 L 03/12/24 11:48 Intake & Output: Intake & Output 03/10/24 03/11/24 03/12/24 03/13/24 11:59 11:59 11:59 11:59 Intake Total 1760 324 5220 Output Total 1330 1550 950 Balance 128 -870 1107 Weight 135.1 kg 131 kg 135.1 kg - Lab Result Diagrams: 03/12/24 05:05 03/12/24 05:05 Lab Results-Last 24 Hrs: Lab Results-Last 24 Hours 03/10/24 03/10/24 03/10/24 Range/Units 08:15 13:25 13:25 WBC (4.0-10.5) x10^3/uL RBC (4.1-5.6) x10^6/uL Hgb (12.5-18.0) g/dL Hct (42-50) % MCV (78-100) fL MCH (26-32) pg MCHC (32-36) g/dL RDW (11.5-14.0) % Plt Count (150-450) x10^3/uL MPV (7.5-11.0) fL Segmented Neutrophils (36.-66.) % Lymphocytes (Manual) (24-44) % Monocytes (Manual) (0.0-12.0) % Eosinophils (Manual) (0.00-3.0) % Platelet Estimate (NORMAL) RBC Morphology Anisocytosis Spherocytes Total Protein S 107 (60-150) % Sodium (135-145) mmol/L Potassium (3.5-5.1) mmol/L Chloride (98-107) mmol/L Carbon Dioxide (22-30) mmol/L Anion Gap (5-15) MEQ/L BUN (9-20) mg/dL Creatinine (0.66-1.25) mg/dL Estimated GFR ML/MIN Glucose (74-106) mg/dL POC Glucometer (74 to 106) mg/dL Calcium (8.4-10.2) mg/dL Magnesium (1.6-2.3) mg/dL Total Bilirubin (0.2-1.3) mg/dL AST (17-59) U/L ALT (0-50) U/L Alkaline Phosphatase (38-126) U/L Serum Total Protein (6.3-8.2) g/dL Albumin (3.5-5.0) g/dL Fluid pH Pending Fluid Glucose 82 (.) mg/dL Fluid Total Protein 1.7 (.) g/dL Fluid LDH 72 (.) IU/L Non-Gen Cyto Rpt Notes SEE COMMENTS 03/11/24 03/11/24 03/12/24 Range/Units 16:43 21:32 05:05 WBC 7.8 (4.0-10.5) x10^3/uL RBC 2.95 L (4.1-5.6) x10^6/uL Hgb 8.4 L (12.5-18.0) g/dL Hct 27.7 L (42-50) % MCV 93.9 (78-100) fL MCH 28.5 (26-32) pg MCHC 30.3 L (32-36) g/dL RDW 18.5 H (11.5-14.0) % Plt Count 370 (150-450) x10^3/uL MPV 11.4 H (7.5-11.0) fL Segmented Neutrophils 84 H (36.-66.) % Lymphocytes (Manual) 8 L (24-44) % Monocytes (Manual) 7 (0.0-12.0) % Eosinophils (Manual) 1 (0.00-3.0) % Platelet Estimate NORMAL (NORMAL) RBC Morphology ABNORMAL Anisocytosis 1+ Spherocytes 1+ Total Protein S (60-150) % Sodium (135-145) mmol/L Potassium (3.5-5.1) mmol/L Chloride (98-107) mmol/L Carbon Dioxide (22-30) mmol/L Anion Gap (5-15) MEQ/L BUN (9-20) mg/dL Creatinine (0.66-1.25) mg/dL Estimated GFR ML/MIN Glucose (74-106) mg/dL POC Glucometer 107 H 93 (74 to 106) mg/dL Calcium (8.4-10.2) mg/dL Magnesium (1.6-2.3) mg/dL Total Bilirubin (0.2-1.3) mg/dL AST (17-59) U/L ALT (0-50) U/L Alkaline Phosphatase (38-126) U/L Serum Total Protein (6.3-8.2) g/dL Albumin (3.5-5.0) g/dL Fluid pH Fluid Glucose (.) mg/dL Fluid Total Protein (.) g/dL Fluid LDH (.) IU/L Non-Gen Cyto Rpt Notes 03/12/24 03/12/24 03/12/24 Range/Units 05:05 07:18 11:25 WBC (4.0-10.5) x10^3/uL RBC (4.1-5.6) x10^6/uL Hgb (12.5-18.0) g/dL Hct (42-50) % MCV (78-100) fL MCH (26-32) pg MCHC (32-36) g/dL RDW (11.5-14.0) % Plt Count (150-450) x10^3/uL MPV (7.5-11.0) fL Segmented Neutrophils (36.-66.) % Lymphocytes (Manual) (24-44) % Monocytes (Manual) (0.0-12.0) % Eosinophils (Manual) (0.00-3.0) % Platelet Estimate (NORMAL) RBC Morphology Anisocytosis Spherocytes Total Protein S (60-150) % Sodium 141 (135-145) mmol/L Potassium 3.6 (3.5-5.1) mmol/L Chloride 105 (98-107) mmol/L Carbon Dioxide 29 (22-30) mmol/L Anion Gap 10.8 (5-15) MEQ/L BUN 24 H (9-20) mg/dL Creatinine 1.52 H (0.66-1.25) mg/dL Estimated GFR 54.5 ML/MIN Glucose 120 H (74-106) mg/dL POC Glucometer 102 105 (74 to 106) mg/dL Calcium 8.6 (8.4-10.2) mg/dL Magnesium 1.9 (1.6-2.3) mg/dL Total Bilirubin 0.70 (0.2-1.3) mg/dL AST 28 (17-59) U/L ALT 21 (0-50) U/L Alkaline Phosphatase 54 (38-126) U/L Serum Total Protein 7.0 (6.3-8.2) g/dL Albumin 3.3 L (3.5-5.0) g/dL Fluid pH Fluid Glucose (.) mg/dL Fluid Total Protein (.) g/dL Fluid LDH (.) IU/L Non-Gen Cyto Rpt Notes Micro Results-Entire Visit: Microbiology 03/10/24 13:25 Gram Stain - Final Thoracic Fluid Gram Stain Result 1 - Final Gram Stain Result 2 - Final 03/06/24 09:52 Blood Culture - Final Blood 03/06/24 08:35 Blood Culture - Final Blood 03/06/24 21:16 Urine Culture - Final Clean Catch Midstream NO GROWTH Accuchecks Date 03/12/24 Date 03/12/24 Date 03/11/24 Time 17:34 - Radiology Exams Ordered Rad Exams-Entire Visit: Radiology Procedures Category Date Time Status CHEST 1 VIEW (PORTABLE) Stat Exams 03/10/24 13:36 Completed - Procedures and Test Procedures and Tests throughout Hospitalization: Therapy Orders & Screens 03/06/24 12:47 Respiratory Therapy Assessment DAILY Comment: 03/06/24 14:38 Oxygen Nasal Cannula 4 lpm Comment: Respiratory Therapy Consult ONCE Comment: Reason For Exam: 03/06/24 15:47 Respiratory Therapy Consult ONCE Comment: Reason For Exam: Diagnosis: SOB, fever 03/06/24 17:42 EKG REPEAT IN AM Comment: Diagnosis: SOB, fever 03/07/24 12:43 RT Miscellaneous Order ROUTINE Comment: Physician Instructions: WEAN O2 TOLERATED Reason For Exam: Diagnosis: SOB, fever 03/08/24 08:11 Respiratory Therapy Assessment DAILY Comment: Diagnosis: SOB, fever 03/09/24 20:29 Incentive Spirometry TID Comment: Diagnosis: SOB, fever 03/10/24 13:59 RT Miscellaneous Order ROUTINE Comment: Physician Instructions: Reason For Exam: please wean O2 keep sat >92% Diagnosis: EXAC CHF, PNEUMONIA 03/10/24 17:49 PT Eval & Treat (MD Order) ONCE Reason for Eval:: weakness, SOB Diagnosis: EXAC CHF, PNEUMONIA 03/11/24 07:10 RT Miscellaneous Order ROUTINE Comment: Physician Instructions: Reason For Exam: eval for home O2 Diagnosis: EXAC CHF, PNEUMONIA 03/11/24 08:48 OT Eval and Treat (MD Order) ONCE Comment: Physician Instructions: Reason For Exam: Diagnosis: EXAC CHF, PNEUMONIA Discharge Exam General Appearance: no apparent distress, alert Neurologic Exam: alert, oriented x 3, cooperative, normal mood/affect, nml cerebellar function, sensation nml, No motor deficits Eye Exam: PERRL, EOMI, eyes nml inspection Ears, Nose, Throat Exam: normal ENT inspection, pharynx normal, moist mucous membranes Neck Exam: normal inspection, non-tender, supple, full range of motion Respiratory Exam: normal breath sounds, lungs clear, No respiratory distress Cardiovascular Exam: regular rate/rhythm, normal heart sounds Gastrointestinal/Abdomen Exam: soft, No tenderness, No mass Male Genitalia Exam: deferred Rectal Exam: deferred Back Exam: normal inspection, normal range of motion, No CVA tenderness, No vertebral tenderness Extremity Exam: normal inspection, normal range of motion Skin Exam: normal color, warm, dry Wound Assessment: Skin/Wound Assessment Wound/Incision Assessment Start: 03/06/24 15:18 Text: Status: Active Freq: Q6H Protocol: Document 03/12/24 09:00 AW (Rec: 03/12/24 11:36 AW [id number]) Wound/Incision Assessment LEFT ANTERIOR SECOND TOE Wound Assessment Shift Assessment Wound Stage Non Pressure Wound Drainage Amount None General Appearance Well Approximated Comment HEALING WOUND NOTED TO ANTERIOR SECOND TOE, OPEN TO AIR, DRY AND INTACT, PT DENIES KNOWING HOW LONG WOUND HAS BEEN THERE OR HOW IT HAPPENED. SURROUNDING SKIN IS VERY DRY AND SCALEY. Remains true Right Posterior Finger Wound Assessment Shift Assessment Wound Type Burn Wound Stage Non Pressure Wound Drainage Amount None General Appearance Well Approximated Comment WOUND APPEARS TO BE A HEALING BURN, PT STATES HE DOES NOT KNOW WHAT HAPPENED, OPEN TO AIR. Remains true. Left Lower Posterior Calf Wound Assessment Shift Assessment Wound Type Abrasion Wound Stage Non Pressure Wound Drainage Amount None General Appearance Well Approximated Wound Bed Greatest Portion Red (Granulation) Surrounding Tissue [place] Comment OPEN TO AIR, SCABBED AREAS NOTED TO POSTERIOR LLE, OPEN AREA WHERE SCAB HAS BEEN SCRAPPED OFF BY MOVEMENT PER PT. Remains true. RIGHT STUMP Wound Assessment Shift Assessment Wound Type Abrasion Wound Stage Non Pressure Wound Dressing Status Dry & Intact Drainage Amount None General Appearance Well Approximated,Open to air Wound Bed Greatest Portion Red (Granulation) Surrounding Tissue [place] Comment DRESSING CDI-remains true Left Knee Wound Assessment Shift Assessment Wound Type Abrasion Wound Stage Non Pressure Wound Drainage Amount None General Appearance Well Approximated,Open to air, Clean/Dry Surrounding Tissue [place] Comment SCABBED AREAS NOTED, NO DRAINAGE OR BLEEDING, Open to air. Remains true. Wound Photo Photo Taken No Final Diagnosis/Problem List - Final Discharge Diagnosis/Problem (1) CHF exacerbation Current Visit: Yes Status: Acute Code(s): I50.9 - HEART FAILURE, UNSPECIFIED (2) Alcohol withdrawal Current Visit: Yes Status: Acute Code(s): F10.939 - ALCOHOL USE, UNSPECIFIED WITH WITHDRAWAL, UNSPECIFIED (3) Dysuria Current Visit: Yes Status: Resolved Code(s): R30.0 - DYSURIA (4) Pneumonia Current Visit: Yes Status: Resolved Code(s): J18.9 - PNEUMONIA, UNSPECIFIED ORGANISM (5) Acute hypoxic respiratory failure Current Visit: No Status: Acute Code(s): J96.01 - ACUTE RESPIRATORY FAILURE WITH HYPOXIA (6) Anemia Current Visit: No Status: Chronic Code(s): D64.9 - ANEMIA, UNSPECIFIED (7) HTN (hypertension) Current Visit: No Status: Acute Code(s): I10 - ESSENTIAL (PRIMARY) HYPERTENSION (8) Diabetes mellitus Current Visit: No Status: Chronic Code(s): E11.9 - TYPE 2 DIABETES MELLITUS WITHOUT COMPLICATIONS (9) Obesity, morbid, BMI 40.0-49.9 Current Visit: Yes Status: Acute Code(s): E66.01 - MORBID (SEVERE) OBESITY DUE TO EXCESS CALORIES (10) Pleural effusion due to CHF (congestive heart failure) Current Visit: Yes Status: Acute Assessment & Plan: (1) CHF exacerbation Current Visit: Yes Status: Acute Assessment & Plan: -ECHO reviewed from 02/23/23: In the parasternal long axis view the ejection fraction is estimated to be 25 and 30%. In the apical view the ejection fraction was calculated to be 60%. IMPRESSION: 1) MILD DECREASE IN LEFT VENTRICULAR SYSTOLIC FUNCTION. 2) MILD CONCENTRIC LEFT VENTRICULAR HYPERTROPHY. 3) MILD MITRAL REGURGITATION. 4) MILD TRICUSPID REGURGITATION. 5) NORMAL RIGHT VENTRICULAR SYSTOLIC PRESSURE. 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 - Lasix BID - Kidney function near baseline per old records, Creat 1.71 - restart Entresto 03/10 - On 10L oxymizer @ 95%- Baseline room air - CXR 03/09 IMPRESSION: 1. Right lung diffuse airspace opacity which has progressed since the last study. Follow-up by CT is advised. 2. Clear both costophrenic angles. However, this doesn't exclude pleural effusions as the access liaison images (resembling the X-ray images) of the previous study showed normal costophrenic angles yet axial images revealed bilateral pleural effusions. 3. Evaluation of the cardiac size is limited given an AP projection yet no significant time interval changes. - Thoracentesis ordered for today - Initial trops + x2 2:2 CHF exacerbation. - denies CP 03/11 - On 6 LNC, SOB improved 03/12 - on 5-6 LNC 93-99% Code(s): I50.9 - HEART FAILURE, UNSPECIFIED (2) Alcohol withdrawal Current Visit: Yes Status: Acute Assessment & Plan: - ciwa protocol in place Code(s): F10.939 - ALCOHOL USE, UNSPECIFIED WITH WITHDRAWAL, UNSPECIFIED (3) Dysuria Current Visit: Yes Status: Resolved Assessment & Plan: - UC negative- antibiotics stopped Code(s): R30.0 - DYSURIA (4) Pneumonia Current Visit: Yes Status: Resolved Assessment & Plan: - WBC normal - Antibiotics stopped - Appears to be more CHF - BC x2 negative Code(s): J18.9 - PNEUMONIA, UNSPECIFIED ORGANISM (5) Acute hypoxic respiratory failure Current Visit: No Status: Acute Assessment & Plan: - On 10l oxymizer- baseline RA - 2:2 CHF - Continue lasix 03/11 - 6LNC - did qualify for home O2 per RT - PT/OT 03/12 - CM set up OP O2 for home use Code(s): J96.01 - ACUTE RESPIRATORY FAILURE WITH HYPOXIA (6) Anemia Current Visit: No Status: Chronic Qualifiers: Anemia type: due to chronic kidney disease Assessment & Plan: - Creat improved 1.71 - 1 unit of blood gave on 03/08 + IV iron infusion - Hgb stable 8.3 - ferrous sulfate daily 03/11 - Hgb 8.7- stable 03/12 - Hgb 8.4 stable Code(s): D64.9 - ANEMIA, UNSPECIFIED (7) HTN (hypertension) Current Visit: No Status: Acute Qualifiers: Hypertension type: renovascular hypertension Qualified Code(s): I15.0 - Renovascular hypertension Assessment & Plan: - stable- continue home meds Code(s): I10 - ESSENTIAL (PRIMARY) HYPERTENSION (8) Diabetes mellitus Current Visit: No Status: Chronic Qualifiers: Diabetes mellitus type: type 2 Diabetes mellitus penitentiary insulin use: without penitentiary use Diabetes mellitus complication status: with circulatory complication Assessment & Plan: - last A1C 01/27/24 6.24- controlled - ADA diet - SSI - Hx right BKA 2:2 DM per pt. Code(s): E11.9 - TYPE 2 DIABETES MELLITUS WITHOUT COMPLICATIONS (9) Obesity, morbid, BMI 40.0-49.9 Current Visit: Yes Status: Acute Assessment & Plan: - advised ADA diet and exercise control Code(s): E66.01 - MORBID (SEVERE) OBESITY DUE TO EXCESS CALORIES (10) Pleural effusion due to CHF (congestive heart failure) Current Visit: Yes Status: Acute Assessment & Plan: - As seen on CXR and Chest CT - BL US guided thoracentesis today with labs - O2 10L oxymizer 95%- baseline RA - NPO until procedure completed - Hold Lovenox today - Torsemide BID 03/11 - 60ml drained from right side - SOB has improved and now on 6lNC. - Continue Lasix Code(s): I50.9 - HEART FAILURE, UNSPECIFIED - Discharge Discharge Date: 03/12/24 Disposition: HOME HEALTH SERVICE Condition: Stable Prescriptions: New Ferrous Sulfate 325 mg [Feosol 325 mg] 325 mg PO DAILY 30 Days #30 tablet Continue Sacubitril/Valsartan [Entresto 24 mg-26 mg Tablet] 1 tab PO BID Nitroglycerin 0.4 mg Tablet [Nitrostat 0.4 MG Tablet] 1 tab PO UD PRN PRN Reason: Chest Pain Empagliflozin [Jardiance] 25 mg PO DAILY Carvedilol 12.5 mg [Coreg 12.5 mg] 2 tab PO BID Atorvastatin Calcium 80 mg PO HS Aspirin 81 gm Chew [Baby Aspirin 81 mg Chew] 1 tab PO DAILY Trazodone HCl 50 mg [Desyrel 50 mg] 150 mg PO HS Spironolactone 25 mg [Aldactone 25 MG] 25 mg PO DAILY Amlodipine Besylate [Norvasc] 10 mg PO DAILY Folic Acid 1 mg [Folate 1 mg] 1 mg PO DAILY Citalopram Hydrobromide 20 mg* [ceLEXa 20 MG] 20 mg PO DAILY Aripiprazole [Abilify] 2 mg PO DAILY Losartan Potassium 100 mg PO DAILY Bumetanide 0.5 mg PO DAILY Potassium Chloride 1 tab PO DAILY Testosterone Cypionate 1 ml IJ UD Escitalopram Oxalate [Lexapro] 10 mg PO DAILY Glipizide 5 mg [Glucotrol 5 MG] 5 mg PO BID Famotidine 20 mg [Pepcid 20 MG] 20 mg PO DAILY Metformin HCl 500 mg [Glucophage 500 MG] 1,000 mg PO DAILY Instructions: Oxygen Therapy, Adult (DC) Additional Instructions: -CALL [facility] AT [phone] WHEN YOUR READY TO LEAVE [facility]- SO THEY CAN MEET YOU AT HOME TO DELIVER YOUR CONCENTRATOR. -WEAR 6L BY NASAL CANNULA AT ALL TIMES AT HOME -IF YOU ARE INTERESTED IN OUTPT MENTAL HEALTH SERVICES YOU CAN FOLLOW UP WITH [facility] [phone] ([place]) OR [phone] ([place]) Follow up with: LORIE YANG [CONSULTING PHYSICIAN] - 03/19/24 1:10 pm ([place] [facility]- [address] [place] [address] [address] [place] [address]) MARLYN NOEL MD [Primary Care Provider] - 03/17/24 9:20 am
--- NOTE | 2024-03-13 14:01 | ECHO ---
DATE: 03/10/2024 INDICATION: Shortness of breath with a history of an ejection fraction of 25-30%. The M-mode, 2D, and Doppler echocardiogram including color flow Doppler shows the left ventricle is normal in size. There is mild concentric left ventricular hypertrophy. The left ventricular systolic function is at the lower limits of normal. The ejection fraction is estimated to be 50-55%. The right ventricle is grossly normal. The left atrium is moderately dilated. The interatrial septum is intact. The right atrium is normal. The aortic valve opens well. There is mitral valve leaflet thickening associated with mild to moderate mitral regurgitation. There is mild tricuspid regurgitation. The right ventricular systolic pressure is calculated to be 35 mm Hg. There is mild pulmonic regurgitation. The aortic root is normal. There is no pericardial effusion present. IMPRESSION: 1. LOW NORMAL CONTRACTILITY OF THE LEFT VENTRICLE. 2. MILD CONCENTRIC LEFT VENTRICULAR HYPERTROPHY. 3. MILD TO MODERATE MITRAL REGURGITATION. 4. MILD TRICUSPID REGURGITATION. 5. MILD PULMONARY HYPERTENSION. 6. MILD PULMONIC REGURGITATION.
== END 2024-03-12 15:30 | disposition home health service (06) | DRG 291 ==
LOC: ED 07:45 → MED SURG 14:30 → ED 03-08 07:45 → OBSVTOIN 03-08 10:23 → MED SURG 03-08 14:30
PROVIDERS: ADMIT Internal Medicine; ATTEND Internal Medicine
DX: I11.0 Hypertensive heart disease with heart failure (principal); J18.9 Pneumonia, unspecified organism; J96.01 Acute respiratory failure with hypoxia; F10.939 Alcohol use, unspecified with withdrawal, unspecified; J90 Pleural effusion, not elsewhere classified; N17.9 Acute kidney failure, unspecified; I50.9 Heart failure, unspecified; R30.0 Dysuria; D64.9 Anemia, unspecified; E11.9 Type 2 diabetes mellitus without complications; E66.01 Morbid (severe) obesity due to excess calories; W19.XXXA Unspecified fall, initial encounter; R60.0 Localized edema; I25.2 Old myocardial infarction; E78.5 Hyperlipidemia, unspecified; E87.6 Hypokalemia; Z89.511 Acquired absence of right leg below knee; Z79.899 Other long term (current) drug therapy
CPT/HCPCS: 0241U; 32555; 36000; 36415; 36430; 71045; 71260; 73502; 73562; 80053; 81001; 82077; 82550; 82607; 82728; 82746; 82945; 82947; 83010; 83540; 83550; 83605; 83615; 83735; 83880; 83986; 84134; 84145; 84157; 84484; 85014; 85018; 85025; 85305; 85610; 85730; 86850; 86900; 86901; 86922; 87040; 87070; 87075; 87086; 87205; 89051; 93005; 93041; 93268; 93306; 94640; 94762; 96374; 96375; 97161; 97165; 99284; 82274; J0696; J1439; J1650; J1940; J1956; J2060; J2405; J3010; J7609; P9016; Q3014; A9270-GY; G0328; G0378

== ENCOUNTER 2024-03-21 07:22 | Observation (INO) | payer OTHER ==
--- NOTE | 2024-03-21 07:28 | ERPHSYRPT ---
- History of Present Illness Time Seen by Provider: 03/21/24 07:28 Source: patient, EMS, old records Exam Limitations: no limitations Physician History: This is an overweight 53-year-old white male patient who presents to our emergency department with a complaint of "panic attack". Patient was brought in by the paramedics from [facility]. Patient's description of panic attack is shortness of breath and anxious and a feeling of "impending doom". Patient was placed in the inpatient here at [facility] on 03/08/2024 and discharged on 03/12/2024. The diagnosis during that hospitalization was CHF exacerbation and pneumonia. I reviewed that inpatient stay and discharge summary. The chest x-ray on 03/10/2024 showed clearing of right side effusion, cardiomegaly, right side opacities, left side infiltrate/atelectasis. An EKG performed on 03/08/2024 showed the patient in normal sinus rhythm with a heart rate of 62 and with a right bundle branch block. Patient denies chest pain. He denies abdominal pain. Patient has a history of CHF, diabetes, gastroesophageal reflux disease, coronary artery disease, hyperlipidemia, hypertension, peripheral neuropathy and panic attacks. He is also had a right below the knee amputation in the past. Patient arrived to the emergency department off of his usual 6 L of oxygen via nasal cannula and was running a room air oxygen saturation level of 82 to 84%. Once he was placed on his usual 6 L of oxygen via nasal cannula his oxygenation saturation levels increased to 94 to 95%. Timing/Duration: day(s) (Last few days), worse Severity: mild (Moderate) Modifying Factors: Improves With: nothing Associated Symptoms: shortness of breath, other (mild soa, sense of impending doom) Allergies/Adverse Reactions: Penicillins Allergy (Verified 03/21/24 07:44) Beta-Blockers (Beta-Adrenergic Bloc Adverse Reaction (Verified 03/21/24 07:44) Wheezing Home Medications: Aspirin 81 gm Chew [Baby Aspirin 81 mg Chew] 1 tab PO DAILY 02/22/23 [History] Atorvastatin Calcium 80 mg PO HS 02/22/23 [History] Carvedilol 12.5 mg [Coreg 12.5 mg] 2 tab PO BID 02/22/23 [History] Empagliflozin [Jardiance] 25 mg PO DAILY 02/22/23 [History] Nitroglycerin 0.4 mg Tablet [Nitrostat 0.4 MG Tablet] 1 tab PO UD PRN 02/22/23 [History] Sacubitril/Valsartan [Entresto 24 mg-26 mg Tablet] 1 tab PO BID 02/22/23 [History] Trazodone HCl 50 mg [Desyrel 50 mg] 150 mg PO HS 02/24/23 [History] Amlodipine Besylate [Norvasc] 10 mg PO DAILY 01/26/24 [History] Aripiprazole [Abilify] 2 mg PO DAILY 01/26/24 [History] Bumetanide 0.5 mg PO DAILY 01/26/24 [History] Citalopram Hydrobromide 20 mg* [ceLEXa 20 MG] 20 mg PO DAILY 01/26/24 [History] Folic Acid 1 mg [Folate 1 mg] 1 mg PO DAILY 01/26/24 [History] Losartan Potassium 100 mg PO DAILY 01/26/24 [History] Potassium Chloride 1 tab PO DAILY 01/26/24 [History] Spironolactone 25 mg [Aldactone 25 MG] 25 mg PO DAILY 01/26/24 [History] Escitalopram Oxalate [Lexapro] 10 mg PO DAILY 03/06/24 [History] Famotidine 20 mg [Pepcid 20 MG] 20 mg PO DAILY 03/06/24 [History] Glipizide 5 mg [Glucotrol 5 MG] 5 mg PO BID 03/06/24 [History] Metformin HCl 500 mg [Glucophage 500 MG] 1,000 mg PO DAILY 03/06/24 [History] Testosterone Cypionate 1 ml IJ UD 03/06/24 [History] Hx Tetanus, Diphtheria Vaccination/Date Given: Yes Hx Influenza Vaccination/Date Given: Yes Hx Pneumococcal Vaccination/Date Given: Yes Travel Risk - Emerging Infectious Disease Are you exhibiting symptoms associated with any current EIDs: Yes Symptoms: Cough: New Onset, Shortness of Breath - Review of Systems Constitutional: No Symptoms Eyes: No Symptoms Ears, Nose, & Throat: No Symptoms Respiratory: Dyspnea Cardiac: No Symptoms Abdominal/Gastrointestinal: No Symptoms Genitourinary Symptoms: No Symptoms Musculoskeletal: No Symptoms Skin: No Symptoms Neurological: No Symptoms Psychological: No Symptoms Endocrine: No Symptoms Hematologic/Lymphatic: No Symptoms Immunological/Allergic: No Symptoms All Other Systems: Reviewed and Negative - Past Medical History Pertinent Past Medical History: Yes Neurological History: No Pertinent History, Peripheral Neuropathy ENT History: No Pertinent History Cardiac History: Angina, Congestive Heart Failure, Myocardial Infarction (AR), High Cholesterol, Hypertension Respiratory History: CHF Endocrine Medical History: Diabetes Type II Musculoskeletal History: No Pertinent History, Other GI Medical History: No Pertinent History, GERD History: No Pertinent History Psycho-Social History: No Pertinent History, Depression Male Reproductive Disorders: No Pertinent History Other Medical History: diabetic foot ulcer that spread and has BKA - Past Surgical History Past Surgical History: Yes Neuro Surgical History: No Pertinent History Cardiac: No Pertinent History Respiratory: No Pertinent History Gastrointestinal: No Pertinent History Genitourinary: No Pertinent History Musculoskeletal: No Pertinent History, Amputation Male Surgical History: No Pertinent History Other Surgical History: BKA Significant Family History: no pertinent family hx - Social History Smoking Status: Former smoker How long have you smoked: 24 Exposure to second hand smoke: No Drug Use: marijuana Patient Lives Alone: No - Nursing Vital Signs Nursing Vital Signs: Initial Vital Signs Temperature 97.7 F 03/21/24 07:24 Pulse Rate 72 03/21/24 07:24 Blood Pressure 138/88 03/21/24 07:24 O2 Sat by Pulse Oximetry 82 L 03/21/24 07:24 Pain Scale Pain Intensity 0 - Physical Exam General Appearance: no apparent distress, alert, anxiety Eye Exam: PERRL/EOMI, eyes nml inspection Ears, Nose, Throat Exam: normal ENT inspection, moist mucous membranes Neck Exam: normal inspection, non-tender, supple, full range of motion Respiratory Exam: normal breath sounds, lungs clear, airway intact, No chest tenderness, No respiratory distress Cardiovascular Exam: regular rate/rhythm, normal heart sounds, normal peripheral pulses Gastrointestinal/Abdomen Exam: soft, normal bowel sounds, tenderness Rectal Exam: not done Back Exam: normal inspection, normal range of motion, No CVA tenderness, No vertebral tenderness Extremity Exam: pelvis stable, other (Right BKA) Neurologic Exam: alert, oriented x 3, cooperative, manager intern II-XII nml as tested - Course Nursing assessment & vital signs reviewed: Yes EKG Interpreted by Me: RATE (70), Sinus Rhythm, NORMAL AXIS, NORMAL INTERVALS, Other (no acute ischemia, no change from 12 lead ekg dated 03/08/24) Ordered Tests: Active Orders 24 hr Category Date Time Status Bull Ladle Tender STAT Care 03/21/24 07:29 Active EKG-ER Only STAT Care 03/21/24 07:28 Active IV Insertion STAT Care 03/21/24 07:28 Active Oxygen-ED Only Nasal Cannula 2 lpm Care 03/21/24 07:28 Active CHEST 1 VIEW (PORTABLE) Stat Exams 03/21/24 07:28 Completed CHEST WITH CONTRAST [CT] Stat Exams 03/21/24 08:05 Completed BLOOD CULTURE Stat Lab 03/21/24 08:19 Received CBC W DIFF Stat Lab 03/21/24 07:35 Completed CMP Stat Lab 03/21/24 07:35 Completed CULTURE,URINE Stat Lab 03/21/24 08:15 Received D-DIMER QUANTITATIVE Stat Lab 03/21/24 07:35 Completed MAG [MAGNESIUM] Stat Lab 03/21/24 07:35 Completed MONO SCREEN Stat Lab 03/21/24 07:35 Completed NT PRO BNPII Stat Lab 03/21/24 07:35 Completed PROTIME WITH INR Stat Lab 03/21/24 07:35 Completed TROPONIN Q4H Lab 03/21/24 07:35 Completed TROPONIN Q4H Lab 03/21/24 11:30 Ordered TROPONIN Q4H Lab 03/21/24 15:30 Ordered UA W/RFX UR CULTURE Stat Lab 03/21/24 08:15 Completed Transfer Order Routine Transfer 03/21/24 Ordered Medication Summary Discontinued Medications Generic Name Dose Route Start Last Admin Trade Name Freq PRN Reason Stop Dose Admin Aspirin 324 mg 03/21/24 07:28 03/21/24 07:50 Aspirin 81 Mg Tab.Chew PO 03/21/24 07:29 324 mg STAT ONE Administration Aspirin Confirm 03/21/24 07:49 Aspirin 81 Mg Tab.Chew Administered 03/21/24 07:50 Dose 324 mg .ROUTE .STK-MED ONE Furosemide 40 mg 03/21/24 08:05 03/21/24 08:17 Furosemide 40 Mg/4 Ml Vial IV 03/21/24 08:06 40 mg STAT ONE Administration Furosemide Confirm 03/21/24 08:14 Furosemide 40 Mg/4 Ml Vial Administered 03/21/24 08:15 Dose 40 mg .ROUTE .STK-MED ONE Levofloxacin/Dextrose 500 mg in 100 mls @ 100 mls/hr 03/21/24 09:31 03/21/24 10:49 Levofloxacin 500mg/100ml D5w IV 03/21/24 10:30 Infused STAT STA Infusion Levofloxacin/Dextrose Confirm 03/21/24 09:45 Levofloxacin 500mg/100ml D5w Administered 03/21/24 09:46 Dose 500 mg in 100 mls @ ud IV .STK-MED ONE Lorazepam 1 mg 03/21/24 08:02 03/21/24 08:17 Lorazepam 2 Mg/1 Ml 2 Mg Vial IV 03/21/24 08:03 1 mg STAT ONE Administration Lorazepam Confirm 03/21/24 08:14 Lorazepam 2 Mg/1 Ml 2 Mg Vial Administered 03/21/24 08:15 Dose 2 mg .ROUTE .STK-MED ONE Lab/Rad Data: Laboratory Result Diagrams 03/21/24 07:35 03/21/24 07:35 Laboratory Results 03/21/24 03/21/24 03/21/24 Range/Units 08:15 08:15 07:35 WBC (4.0-10.5) x10^3/uL RBC (4.1-5.6) x10^6/uL Hgb (12.5-18.0) g/dL Hct (42-50) % MCV (78-100) fL MCH (26-32) pg MCHC (32-36) g/dL RDW (11.5-14.0) % Plt Count (150-450) x10^3/uL MPV (7.5-11.0) fL Gran % (36.0-66.0) % Immature Gran % (Auto) (0.00-0.4) % Nucleat RBC Rel Count (0.00-0.1) % Eos # (Auto) (0-0.5) x10^3/uL Immature Gran # (Auto) (0.00-0.03) x10^3u/L Absolute Lymphs (auto) (1.0-4.6) x10^3/uL Absolute Monos (auto) (0.0-1.3) x10^3/uL Absolute Nucleated RBC (0.00-0.01) x10^3u/L Lymphocytes % (24.0-44.0) % Monocytes % (0.0-12.0) % Eosinophils % (0.00-5.0) % Basophils % (0.0-0.4) % Absolute Granulocytes (1.4-6.9) x10^3/uL Basophils # (0-0.4) x10^3/uL PT (9.4-12.5) SECONDS INR (0.8-3.0) D-Dimer (0.0-0.50) mg/L Sodium (135-145) mmol/L Potassium (3.5-5.1) mmol/L Chloride (98-107) mmol/L Carbon Dioxide (22-30) mmol/L Anion Gap (5-15) MEQ/L BUN (9-20) mg/dL Creatinine (0.66-1.25) mg/dL Estimated GFR ML/MIN Glucose (74-106) mg/dL Calcium (8.4-10.2) mg/dL Magnesium (1.6-2.3) mg/dL Total Bilirubin (0.2-1.3) mg/dL AST (17-59) U/L ALT (0-50) U/L Alkaline Phosphatase (38-126) U/L Troponin I (0.000-0.033) ng/mL NT-Pro-B Natriuret Pep (<300) pg/mL Serum Total Protein (6.3-8.2) g/dL Albumin (3.5-5.0) g/dL Urine Color Yellow (Yellow) Urine Appearance Turbid A (Clear) Urine pH 5.5 (4.6-8.0) Ur Specific Bolton 1.020 (1.005-1.030) Urine Protein 300 A (Negative) Urine Glucose (UA) >=1000 A (Negative) mg/dL Urine Ketones Negative (Negative) Urine Blood Large A (Negative) Urine Nitrite Negative (Negative) Urine Bilirubin Negative (Negative) Urine Urobilinogen 0.2 (0.2) mg/dL Ur Leukocyte Esterase Large A (Negative) U Hyaline Cast (Auto) NONE SEEN (0-2) /LPF Urine Microscopic RBC >100 A (0-5) /HPF Urine Microscopic WBC >100 A (0-5) /HPF Ur Epithelial Cells Few (None Seen) /HPF Urine Bacteria None Seen (None Seen) /HPF Urine Yeast (Budding) (None Seen) /HPF Urine Culture Reflexed YES (NO) Monoscreen NEGATIVE (NEGATIVE) Influenza Type A Ag NEGATIVE (NEGATIVE) Influenza Type B Ag NEGATIVE (NEGATIVE) RSV (PCR) NEGATIVE (NEGATIVE) SARS-CoV-2 (PCR) NEGATIVE (NEGATIVE) 03/21/24 03/21/24 03/21/24 Range/Units 07:35 07:35 07:35 WBC (4.0-10.5) x10^3/uL RBC (4.1-5.6) x10^6/uL Hgb (12.5-18.0) g/dL Hct (42-50) % MCV (78-100) fL MCH (26-32) pg MCHC (32-36) g/dL RDW (11.5-14.0) % Plt Count (150-450) x10^3/uL MPV (7.5-11.0) fL Gran % (36.0-66.0) % Immature Gran % (Auto) (0.00-0.4) % Nucleat RBC Rel Count (0.00-0.1) % Eos # (Auto) (0-0.5) x10^3/uL Immature Gran # (Auto) (0.00-0.03) x10^3u/L Absolute Lymphs (auto) (1.0-4.6) x10^3/uL Absolute Monos (auto) (0.0-1.3) x10^3/uL Absolute Nucleated RBC (0.00-0.01) x10^3u/L Lymphocytes % (24.0-44.0) % Monocytes % (0.0-12.0) % Eosinophils % (0.00-5.0) % Basophils % (0.0-0.4) % Absolute Granulocytes (1.4-6.9) x10^3/uL Basophils # (0-0.4) x10^3/uL PT 11.4 (9.4-12.5) SECONDS INR 1.05 (0.8-3.0) D-Dimer 2.06 H* (0.0-0.50) mg/L Sodium (135-145) mmol/L Potassium (3.5-5.1) mmol/L Chloride (98-107) mmol/L Carbon Dioxide (22-30) mmol/L Anion Gap (5-15) MEQ/L BUN (9-20) mg/dL Creatinine (0.66-1.25) mg/dL Estimated GFR ML/MIN Glucose (74-106) mg/dL Calcium (8.4-10.2) mg/dL Magnesium 1.7 (1.6-2.3) mg/dL Total Bilirubin (0.2-1.3) mg/dL AST (17-59) U/L ALT (0-50) U/L Alkaline Phosphatase (38-126) U/L Troponin I 0.018 (0.000-0.033) ng/mL NT-Pro-B Natriuret Pep (<300) pg/mL Serum Total Protein (6.3-8.2) g/dL Albumin (3.5-5.0) g/dL Urine Color (Yellow) Urine Appearance (Clear) Urine pH (4.6-8.0) Ur Specific Bolton (1.005-1.030) Urine Protein (Negative) Urine Glucose (UA) (Negative) mg/dL Urine Ketones (Negative) Urine Blood (Negative) Urine Nitrite (Negative) Urine Bilirubin (Negative) Urine Urobilinogen (0.2) mg/dL Ur Leukocyte Esterase (Negative) U Hyaline Cast (Auto) (0-2) /LPF Urine Microscopic RBC (0-5) /HPF Urine Microscopic WBC (0-5) /HPF Ur Epithelial Cells (None Seen) /HPF Urine Bacteria (None Seen) /HPF Urine Yeast (Budding) (None Seen) /HPF Urine Culture Reflexed (NO) Monoscreen (NEGATIVE) Influenza Type A Ag (NEGATIVE) Influenza Type B Ag (NEGATIVE) RSV (PCR) (NEGATIVE) SARS-CoV-2 (PCR) (NEGATIVE) 03/21/24 03/21/24 Range/Units 07:35 07:35 WBC 9.3 (4.0-10.5) x10^3/uL RBC 2.80 L (4.1-5.6) x10^6/uL Hgb 8.2 L (12.5-18.0) g/dL Hct 26.6 L (42-50) % MCV 95.0 (78-100) fL MCH 29.3 (26-32) pg MCHC 30.8 L (32-36) g/dL RDW 18.3 H (11.5-14.0) % Plt Count 350 (150-450) x10^3/uL MPV 11.0 (7.5-11.0) fL Gran % 71.9 H (36.0-66.0) % Immature Gran % (Auto) 0.2 (0.00-0.4) % Nucleat RBC Rel Count 0.0 (0.00-0.1) % Eos # (Auto) 0.65 H (0-0.5) x10^3/uL Immature Gran # (Auto) 0.02 (0.00-0.03) x10^3u/L Absolute Lymphs (auto) 0.91 L (1.0-4.6) x10^3/uL Absolute Monos (auto) 0.99 (0.0-1.3) x10^3/uL Absolute Nucleated RBC 0.00 (0.00-0.01) x10^3u/L Lymphocytes % 9.8 L (24.0-44.0) % Monocytes % 10.6 (0.0-12.0) % Eosinophils % 7.0 H (0.00-5.0) % Basophils % 0.5 (0.0-0.4) % Absolute Granulocytes 6.69 (1.4-6.9) x10^3/uL Basophils # 0.05 (0-0.4) x10^3/uL PT (9.4-12.5) SECONDS INR (0.8-3.0) D-Dimer (0.0-0.50) mg/L Sodium 139 (135-145) mmol/L Potassium 4.5 (3.5-5.1) mmol/L Chloride 102 (98-107) mmol/L Carbon Dioxide 30 (22-30) mmol/L Anion Gap 11.6 (5-15) MEQ/L BUN 9 (9-20) mg/dL Creatinine 1.14 (0.66-1.25) mg/dL Estimated GFR 76.9 ML/MIN Glucose 120 H (74-106) mg/dL Calcium 12.0 H (8.4-10.2) mg/dL Magnesium (1.6-2.3) mg/dL Total Bilirubin 0.80 (0.2-1.3) mg/dL AST 30 (17-59) U/L ALT 25 (0-50) U/L Alkaline Phosphatase 54 (38-126) U/L Troponin I (0.000-0.033) ng/mL NT-Pro-B Natriuret Pep 4760 (<300) pg/mL Serum Total Protein 7.3 (6.3-8.2) g/dL Albumin 3.7 (3.5-5.0) g/dL Urine Color (Yellow) Urine Appearance (Clear) Urine pH (4.6-8.0) Ur Specific Bolton (1.005-1.030) Urine Protein (Negative) Urine Glucose (UA) (Negative) mg/dL Urine Ketones (Negative) Urine Blood (Negative) Urine Nitrite (Negative) Urine Bilirubin (Negative) Urine Urobilinogen (0.2) mg/dL Ur Leukocyte Esterase (Negative) U Hyaline Cast (Auto) (0-2) /LPF Urine Microscopic RBC (0-5) /HPF Urine Microscopic WBC (0-5) /HPF Ur Epithelial Cells (None Seen) /HPF Urine Bacteria (None Seen) /HPF Urine Yeast (Budding) (None Seen) /HPF Urine Culture Reflexed (NO) Monoscreen (NEGATIVE) Influenza Type A Ag (NEGATIVE) Influenza Type B Ag (NEGATIVE) RSV (PCR) (NEGATIVE) SARS-CoV-2 (PCR) (NEGATIVE) - Progress Progress: improved Progress Note: 03/21/24 08:00 My medical decision making and the assignment of moderate to high complexity of this patient's medical issue today is based on review of the patient's past medical history, review of the patient's medication list, review the patient drug allergy list, history present illness and physical findings on examination. The workup in this patient includes placement of intravenous line, CBC, CMP, BNP, troponin level, D-dimer level, chest x-ray, twelve-lead EKG, urinalysis. Will also order viral swabs. 03/21/24 10:18 Differential diagnosis includes coronary artery disease/myocardial infarction, CHF exacerbation, COPD, pneumonia I interpreted the patient's laboratory data results. Patient has worsening anemia when compared to the last few hemoglobin levels. In addition, there is an elevated D-dimer level which is prompting me to order a CT scan of the chest with contrast to evaluate for pulmonary embolism. Chest x-ray was interpreted by the radiologist and I reviewed the impression. The impression states moderate right pleural effusion. Cardiomegaly is present. There is mild left base infiltrate/atelectasis. This is stable. CT scan of the chest with contrast was interpreted by the radiologist and I reviewed the impression. Impression states that the study is negative for pulmonary embolism. There is cardiomegaly present with worsening moderate bilateral pleural effusions. There is new diffuse bilateral groundglass airspace disease. 03/21/24 11:07 I spoke with hospitalist, Dr. Lolita Person. I reviewed the patient history, presenting complaint, and results from today's workup as well as patient's response to our intervention. Dr. Person agrees that we should place this patient in observation. Counseled pt/family regarding: lab results, diagnosis, rad results Medical Desision Making - Independent Historian Additional History obtained from: Architectural Associate/EMT - Diagnostic Testing Diagnostic test were ordered, analyzed, and reviewed by me: Yes Radiological Interpretation: Reviewed by me, Teleradiologist Report - Risk of complications The pt has a high risk of morbidity or mortality based on: Decision regarding hospitilization or escalation of hosp level of care - Departure Departure Disposition: Observation Clinical Impression: CHF exacerbation, Infiltrate of both lungs present on imaging study, UTI (urinary tract infection), Anemia, Bilateral pleural effusion, Hypercalcemia Condition: Fair Critical Care Time: No Referrals: MARLYN NOEL MD [Primary Care Provider] - Follow up/PCP as directed Instructions: Heart Failure
[2024-03-21 07:40] LABS: Absolute Neutrophil Ct (ANC) 6.69 x10^3/uL (1.4-6.9); BASOPHIL % 0.5 % (0.0-0.4); Basophil (Absolute #) 0.05 x10^3/uL (0-0.4); Eosinophil (Absolute #) 0.65 x10^3/uL (0-0.5); Hematocrit 26.6 % (42-50); Hemoglobin 8.2 g/dL (12.5-18.0); IMMATURE GRAN # 0.02 x10^3u/L (0.00-0.03); IMMATURE GRAN % 0.2 % (0.00-0.4); Lymphocyte (Absolute #) 0.91 x10^3/uL (1.0-4.6); Lymphocytes % 9.8 % (24.0-44.0); Mean Corpuscular Hemoglobin 29.3 pg (26-32); Mean Corpuscular Hgb Concent. 30.8 g/dL (32-36); Monocyte (Absolute #) 0.99 x10^3/uL (0.0-1.3); Monocytes % 10.6 % (0.0-12.0); Neutrophil % 71.9 % (36.0-66.0); Platelet Count 350 x10^3/uL (150-450); Red Cell Distribution Width 18.3 % (11.5-14.0); White Blood Count 9.3 x10^3/uL (4.0-10.5)
[2024-03-21] MEDS ORDERED: BABY ASPIRIN 81 MG CHEW ONE (07:49)
[2024-03-21] MEDS: BABY ASPIRIN 81 MG CHEW PO ONE (07:50)
[2024-03-21 08:02] LABS: INR 1.05 (0.8-3.0); PROTIME 11.4 SECONDS (9.4-12.5)
[2024-03-21 08:03] LABS: ALBUMIN 3.7 g/dL (3.5-5.0); ANION GAP 11.6 MEQ/L (5-15); BILIRUBIN,TOTAL 0.8 mg/dL (0.2-1.3); Creatinine 1 1.14 mg/dL (0.66-1.25); EST GLOMERULAR FILTRATION RATE 76.9 ML/MIN; Potassium 4.5 mmol/L (3.5-5.1); Total Protein 7.3 g/dL (6.3-8.2)
[2024-03-21 08:04] LABS: D-DIMER QUANTITATIVE 2.06 mg/L (0.0-0.50)
[2024-03-21] MEDS ORDERED: Ativan 2 MG/1 ML VIAL ONE (08:14)
[2024-03-21] MEDS ORDERED: Lasix 40 MG/4 ML ONE (08:14)
[2024-03-21] MEDS: Ativan 2 MG/1 ML VIAL IV ONE (08:17)
[2024-03-21] MEDS: Lasix 40 MG/4 ML IV ONE (08:17)
[2024-03-21 08:58] LABS: ADD URINE CULTURE? YES (NO); Appearance Turbid (Clear); Bacteria None Seen /HPF (None Seen); Bilirubin Negative (Negative); Blood Large (Negative); Epithelial Cells Few /HPF (None Seen); Glucose, Urine >=1000 mg/dL (Negative); Hyaline Casts NONE SEEN /LPF (0-2); Ketones Negative (Negative); Leukocyte Esterase Large (Negative); Nitrite Negative (Negative); Ph 5.5 (4.6-8.0); Protein,Urine Dip 300 (Negative); RBC >100 /HPF (0-5); Urobilinogen 0.2 mg/dL (0.2); WBC >100 /HPF (0-5)
[2024-03-21 09:11] LABS: INFLUENZA A NEGATIVE (NEGATIVE); INFLUENZA B NEGATIVE (NEGATIVE); RESPIRATORY SYNCTIAL VIRUS NEGATIVE (NEGATIVE); SARS-CoV-2 Xpert Express NEGATIVE (NEGATIVE)
--- NOTE | 2024-03-21 09:20 | XRAY ---
Indication: Short of breath. Comparison: March 10, 2024 Portable apical lordotic demonstrates reaccumulation moderate right effusion. Stable mild left base infiltrate/atelectasis/effusion and cardiomegaly. Bony thorax intact.
[2024-03-21] MEDS ORDERED: Levofloxacin 500MG/100ML D5W 500 MG/100 ML BAG IV ONE (09:45)
[2024-03-21] MEDS: Levofloxacin 500MG/100ML D5W 500 MG/100 ML BAG IV STA (09:46)
--- NOTE | 2024-03-21 10:12 | XRAY ---
Indication: Short of breath. Elevated d-dimer. Multiple contiguous axial images obtained through the chest using 100 cc Isovue 370 contrast and PE protocol. Comparison: Multiple priors, most recent March 06, 2024. Again good opacification of the pulmonary arteries to include the lobar and segmental branches. No pulmonary embolus. Heart remains borderline enlarged. Aorta is normal in course and caliber. No pathologic mediastinal/hilar lymphadenopathy. Lungs demonstrates worsening moderate bilateral pleural effusions with again mild bilateral lower lobe compressive atelectasis. Remaining aerated lungs demonstrates new diffuse groundglass airspace disease. Bony thorax intact again with minimal degenerative changes throughout the spine. Limited upper abdomen again demonstrate small left adrenal adenoma and tiny gallstone. Impression: 1. Continued negative for pulmonary embolus compared to CT PE exams January 25, February 24, and March 06, 2024. 2. Again cardiomegaly with interval worsening moderate bilateral pleural effusions. Rule out cardiac decapitation/CHF versus fluid overload. 3. New diffuse bilateral groundglass airspace disease. 4. Chronic findings including degenerative spondylosis, left adrenal adenoma, and tiny gallstone.
[2024-03-21] MEDS ORDERED: Zofran 4 MG/2 ML VIAL IV PRN (11:49)
[2024-03-21] MEDS ORDERED: HUMULIN R SQ PRN (11:49)
--- NOTE | 2024-03-21 13:54 | PCM.HP ---
History of Present Illness - Chief Complaint Chief Complaint: pneumonia Date: 03/21/24 History of Present Illness: is a 53 year old male with PMHX of congestive heart failure, diabetes mellitus with right below-knee amputations, VA, HLD, HTN, GERD, and peripheral neuropathy. He was recently admitted here from 03/06/24- for CHF and pneumonia. He was d/c'd with 6LO2 and recommended for rehab placement and he refused. Today he presented to our emergency department with a complaint of "panic attack". Patient was brought in by the paramedics from [facility]. Patient's description of panic attack is shortness of breath and anxious and a feeling of "impending doom". Patient arrived to the emergency department off of his usual 6 L of oxygen via nasal cannula and with room air oxygen saturation level of 82 to 84%. Once he was placed on his usual 6 L of oxygen via nasal cannula his oxygenation saturation levels increased to 94 to 95%. D-Dimer 2.06, CT chest negative for PE. Will start lasix BID. He was started on levaquin in ER for pneumonia and UTI- will continue. Since admission he denies CP, SOB, abd. pain, N/V/D. Case management discussed with pt rehab again and he is refusing. He states the feeling of impending doom has resolved. - Review of Systems Constitutional: No Fever, No Chills Eyes: No Symptoms Ears, Nose, & Throat: No Symptoms Respiratory: No Cough, No Short Of Breath Cardiac: No Chest Pain, No Edema, No Syncope Abdominal/Gastrointestinal: No Abdominal Pain, No Nausea, No Vomiting, No Diarrhea Genitourinary Symptoms: No Dysuria Musculoskeletal: No Back Pain, No Neck Pain Skin: No Rash Neurological: No Dizziness, No Focal Weakness, No Sensory Changes Psychological: No Symptoms Endocrine: No Symptoms Hematologic/Lymphatic: No Symptoms Immunological/Allergic: No Symptoms Medications & Allergies Home Medications: Home Medication List Aspirin 81 gm Chew [Baby Aspirin 81 mg Chew] 1 tab PO DAILY 02/22/23 [History Confirmed 03/21/24] Atorvastatin Calcium 80 mg PO HS 02/22/23 [History Confirmed 03/21/24] Carvedilol 12.5 mg [Coreg 12.5 mg] 2 tab PO BID 02/22/23 [History Confirmed 03/21/24] Empagliflozin [Jardiance] 25 mg PO DAILY 02/22/23 [History Confirmed 03/21/24] Nitroglycerin 0.4 mg Tablet [Nitrostat 0.4 MG Tablet] 1 tab PO UD PRN 02/22/23 [History Confirmed 03/21/24] Sacubitril/Valsartan [Entresto 24 mg-26 mg Tablet] 1 tab PO BID 02/22/23 [History Confirmed 03/21/24] Trazodone HCl 50 mg [Desyrel 50 mg] 150 mg PO HS 02/24/23 [History Confirmed 03/21/24] Amlodipine Besylate [Norvasc] 10 mg PO DAILY 01/26/24 [History Confirmed 03/21/24] Aripiprazole [Abilify] 2 mg PO DAILY 01/26/24 [History Confirmed 03/21/24] Bumetanide 0.5 mg PO DAILY 01/26/24 [History Confirmed 03/21/24] Citalopram Hydrobromide 20 mg* [ceLEXa 20 MG] 20 mg PO DAILY 01/26/24 [History Confirmed 03/21/24] Folic Acid 1 mg [Folate 1 mg] 1 mg PO DAILY 01/26/24 [History Confirmed 03/21/24] Losartan Potassium 100 mg PO DAILY 01/26/24 [History Confirmed 03/21/24] Potassium Chloride 1 tab PO DAILY 01/26/24 [History Confirmed 03/21/24] Spironolactone 25 mg [Aldactone 25 MG] 25 mg PO DAILY 01/26/24 [History Confirmed 03/21/24] Escitalopram Oxalate [Lexapro] 10 mg PO DAILY 03/06/24 [History Confirmed 03/21/24] Famotidine 20 mg [Pepcid 20 MG] 20 mg PO DAILY 03/06/24 [History Confirmed 03/21/24] Glipizide 5 mg [Glucotrol 5 MG] 5 mg PO BID 03/06/24 [History Confirmed 03/21/24] Metformin HCl 500 mg [Glucophage 500 MG] 1,000 mg PO DAILY 03/06/24 [History Confirmed 03/21/24] Testosterone Cypionate 1 ml IJ UD 03/06/24 [History Confirmed 03/21/24] Ferrous Sulfate 325 mg [Feosol 325 mg] 325 mg PO DAILY 30 Days #30 tablet 03/12/24 [Rx Confirmed 03/21/24] Allergies/Adverse Reactions: Allergies Allergy/AdvReac Type Severity Reaction Status Date / Time Penicillins Allergy Verified 03/21/24 07:44 Beta-Blockers AdvReac Wheezing Verified 03/21/24 07:44 (Beta-Adrenergic Bloc - Past Medical History Past Medical History: Yes Neurological History: No Pertinent History, Peripheral Neuropathy ENT History: No Pertinent History Cardiac History: Angina, Congestive Heart Failure, Myocardial Infarction (VA), High Cholesterol, Hypertension Respiratory History: CHF Endocrine Medical History: Diabetes Type II Musculoskelatal History: No Pertinent History, Other GI Medical History: No Pertinent History, GERD History: No Pertinent History Pyscho-Social History: No Pertinent History, Depression Male Reproductive Disorders: No Pertinent History Comment: diabetic foot ulcer that spread and has BKA - Past Surgical History Past Surgical History: Yes Neuro Surgical History: No Pertinent History Cardiac History: No Pertinent History Respiratory Surgery: No Pertinent History GI Surgical History: No Pertinent History Genitourinary Surgical Hx: No Pertinent History Musculskeletal Surgical Hx: No Pertinent History, Amputation Male Surgical History: No Pertinent History Other Surgical History: BKA Significant Family History: no pertinent family hx - Social History Smoking Status: Former smoker How long have you smoked: 24 Exposure to second hand smoke: Yes Alcohol: None Drug Use: marijuana - Social Determinants of Health Will the patient participate in the screening: Yes Do you worry about a steady place to live?: No Do you have any problems with any of the following?: No known problems In the past 12 months,have you had to go without utilities?: No Have you or anyone in your house had to go without enough: No Transportation Issues: No Has anyone in your support network made you feel unsafe?: No Does the patient want assistance with any of the above?: No - Physical Exam Vital Signs: Vital Signs - 24 hr Temp Pulse Resp BP BP Pulse Ox 03/21/24 13:38 67 16 97 03/21/24 13:20 98 03/21/24 12:08 97.7 F 69 15 138/88 03/21/24 11:47 97.7 F 69 15 138/88 03/21/24 11:30 135/95 03/21/24 11:15 131/90 03/21/24 11:06 145/76 03/21/24 09:00 134/84 03/21/24 08:45 138/94 03/21/24 08:30 69 15 139/106 03/21/24 08:20 70 18 96 03/21/24 08:10 70 16 98 03/21/24 08:02 71 20 03/21/24 07:45 70 16 154/98 95 03/21/24 07:24 97.7 F 72 138/88 82 L General Appearance: no apparent distress, alert, obese Neurologic Exam: alert, oriented x 3, cooperative, normal mood/affect, nml cerebellar function, nml station & gait, sensation nml, No motor deficits Eye Exam: PERRL/EOMI, eyes nml inspection Ears, Nose, Throat Exam: normal ENT inspection, TMs normal, pharynx normal, moist mucous membranes Neck Exam: normal inspection, non-tender, supple, full range of motion Respiratory Exam: normal breath sounds, lungs clear, diminished breath sounds (BLLL), No respiratory distress Cardiovascular Exam: regular rate/rhythm, normal heart sounds, normal peripheral pulses Gastrointestinal/Abdomen Exam: soft, normal bowel sounds, No tenderness, No mass Back Exam: normal inspection, normal range of motion, No CVA tenderness, No vertebral tenderness Extremity Exam: normal inspection, normal range of motion, pelvis stable Skin Exam: normal color, warm, dry, No rash Lymphatic Exam: No adenopathy Results - Labs Lab/Micro Results: Lab Results-Last 24 Hours 03/21/24 03/21/24 03/21/24 Range/Units 07:35 07:35 07:35 WBC 9.3 (4.0-10.5) x10^3/uL RBC 2.80 L (4.1-5.6) x10^6/uL Hgb 8.2 L (12.5-18.0) g/dL Hct 26.6 L (42-50) % MCV 95.0 (78-100) fL MCH 29.3 (26-32) pg MCHC 30.8 L (32-36) g/dL RDW 18.3 H (11.5-14.0) % Plt Count 350 (150-450) x10^3/uL MPV 11.0 (7.5-11.0) fL Gran % 71.9 H (36.0-66.0) % Immature Gran % (Auto) 0.2 (0.00-0.4) % Nucleat RBC Rel Count 0.0 (0.00-0.1) % Eos # (Auto) 0.65 H (0-0.5) x10^3/uL Immature Gran # (Auto) 0.02 (0.00-0.03) x10^3u/L Absolute Lymphs (auto) 0.91 L (1.0-4.6) x10^3/uL Absolute Monos (auto) 0.99 (0.0-1.3) x10^3/uL Absolute Nucleated RBC 0.00 (0.00-0.01) x10^3u/L Lymphocytes % 9.8 L (24.0-44.0) % Monocytes % 10.6 (0.0-12.0) % Eosinophils % 7.0 H (0.00-5.0) % Basophils % 0.5 (0.0-0.4) % Absolute Granulocytes 6.69 (1.4-6.9) x10^3/uL Basophils # 0.05 (0-0.4) x10^3/uL PT 11.4 (9.4-12.5) SECONDS INR 1.05 (0.8-3.0) D-Dimer 2.06 H* (0.0-0.50) mg/L Sodium 139 (135-145) mmol/L Potassium 4.5 (3.5-5.1) mmol/L Chloride 102 (98-107) mmol/L Carbon Dioxide 30 (22-30) mmol/L Anion Gap 11.6 (5-15) MEQ/L BUN 9 (9-20) mg/dL Creatinine 1.14 (0.66-1.25) mg/dL Estimated GFR 76.9 ML/MIN Glucose 120 H (74-106) mg/dL Calcium 12.0 H (8.4-10.2) mg/dL Magnesium (1.6-2.3) mg/dL Total Bilirubin 0.80 (0.2-1.3) mg/dL AST 30 (17-59) U/L ALT 25 (0-50) U/L Alkaline Phosphatase 54 (38-126) U/L Troponin I (0.000-0.033) ng/mL NT-Pro-B Natriuret Pep 4760 (<300) pg/mL Serum Total Protein 7.3 (6.3-8.2) g/dL Albumin 3.7 (3.5-5.0) g/dL Urine Color (Yellow) Urine Appearance (Clear) Urine pH (4.6-8.0) Ur Specific [place] (1.005-1.030) Urine Protein (Negative) Urine Glucose (UA) (Negative) mg/dL Urine Ketones (Negative) Urine Blood (Negative) Urine Nitrite (Negative) Urine Bilirubin (Negative) Urine Urobilinogen (0.2) mg/dL Ur Leukocyte Esterase (Negative) U Hyaline Cast (Auto) (0-2) /LPF Urine Microscopic RBC (0-5) /HPF Urine Microscopic WBC (0-5) /HPF Ur Epithelial Cells (None Seen) /HPF Urine Bacteria (None Seen) /HPF Urine Yeast (Budding) (None Seen) /HPF Urine Culture Reflexed (NO) Monoscreen (NEGATIVE) Influenza Type A Ag (NEGATIVE) Influenza Type B Ag (NEGATIVE) RSV (PCR) (NEGATIVE) SARS-CoV-2 (PCR) (NEGATIVE) 03/21/24 03/21/24 03/21/24 Range/Units 07:35 07:35 07:35 WBC (4.0-10.5) x10^3/uL RBC (4.1-5.6) x10^6/uL Hgb (12.5-18.0) g/dL Hct (42-50) % MCV (78-100) fL MCH (26-32) pg MCHC (32-36) g/dL RDW (11.5-14.0) % Plt Count (150-450) x10^3/uL MPV (7.5-11.0) fL Gran % (36.0-66.0) % Immature Gran % (Auto) (0.00-0.4) % Nucleat RBC Rel Count (0.00-0.1) % Eos # (Auto) (0-0.5) x10^3/uL Immature Gran # (Auto) (0.00-0.03) x10^3u/L Absolute Lymphs (auto) (1.0-4.6) x10^3/uL Absolute Monos (auto) (0.0-1.3) x10^3/uL Absolute Nucleated RBC (0.00-0.01) x10^3u/L Lymphocytes % (24.0-44.0) % Monocytes % (0.0-12.0) % Eosinophils % (0.00-5.0) % Basophils % (0.0-0.4) % Absolute Granulocytes (1.4-6.9) x10^3/uL Basophils # (0-0.4) x10^3/uL PT (9.4-12.5) SECONDS INR (0.8-3.0) D-Dimer (0.0-0.50) mg/L Sodium (135-145) mmol/L Potassium (3.5-5.1) mmol/L Chloride (98-107) mmol/L Carbon Dioxide (22-30) mmol/L Anion Gap (5-15) MEQ/L BUN (9-20) mg/dL Creatinine (0.66-1.25) mg/dL Estimated GFR ML/MIN Glucose (74-106) mg/dL Calcium (8.4-10.2) mg/dL Magnesium 1.7 (1.6-2.3) mg/dL Total Bilirubin (0.2-1.3) mg/dL AST (17-59) U/L ALT (0-50) U/L Alkaline Phosphatase (38-126) U/L Troponin I 0.018 (0.000-0.033) ng/mL NT-Pro-B Natriuret Pep (<300) pg/mL Serum Total Protein (6.3-8.2) g/dL Albumin (3.5-5.0) g/dL Urine Color (Yellow) Urine Appearance (Clear) Urine pH (4.6-8.0) Ur Specific [place] (1.005-1.030) Urine Protein (Negative) Urine Glucose (UA) (Negative) mg/dL Urine Ketones (Negative) Urine Blood (Negative) Urine Nitrite (Negative) Urine Bilirubin (Negative) Urine Urobilinogen (0.2) mg/dL Ur Leukocyte Esterase (Negative) U Hyaline Cast (Auto) (0-2) /LPF Urine Microscopic RBC (0-5) /HPF Urine Microscopic WBC (0-5) /HPF Ur Epithelial Cells (None Seen) /HPF Urine Bacteria (None Seen) /HPF Urine Yeast (Budding) (None Seen) /HPF Urine Culture Reflexed (NO) Monoscreen NEGATIVE (NEGATIVE) Influenza Type A Ag (NEGATIVE) Influenza Type B Ag (NEGATIVE) RSV (PCR) (NEGATIVE) SARS-CoV-2 (PCR) (NEGATIVE) 03/21/24 03/21/24 03/21/24 Range/Units 08:15 08:15 11:35 WBC (4.0-10.5) x10^3/uL RBC (4.1-5.6) x10^6/uL Hgb (12.5-18.0) g/dL Hct (42-50) % MCV (78-100) fL MCH (26-32) pg MCHC (32-36) g/dL RDW (11.5-14.0) % Plt Count (150-450) x10^3/uL MPV (7.5-11.0) fL Gran % (36.0-66.0) % Immature Gran % (Auto) (0.00-0.4) % Nucleat RBC Rel Count (0.00-0.1) % Eos # (Auto) (0-0.5) x10^3/uL Immature Gran # (Auto) (0.00-0.03) x10^3u/L Absolute Lymphs (auto) (1.0-4.6) x10^3/uL Absolute Monos (auto) (0.0-1.3) x10^3/uL Absolute Nucleated RBC (0.00-0.01) x10^3u/L Lymphocytes % (24.0-44.0) % Monocytes % (0.0-12.0) % Eosinophils % (0.00-5.0) % Basophils % (0.0-0.4) % Absolute Granulocytes (1.4-6.9) x10^3/uL Basophils # (0-0.4) x10^3/uL PT (9.4-12.5) SECONDS INR (0.8-3.0) D-Dimer (0.0-0.50) mg/L Sodium (135-145) mmol/L Potassium (3.5-5.1) mmol/L Chloride (98-107) mmol/L Carbon Dioxide (22-30) mmol/L Anion Gap (5-15) MEQ/L BUN (9-20) mg/dL Creatinine (0.66-1.25) mg/dL Estimated GFR ML/MIN Glucose (74-106) mg/dL Calcium (8.4-10.2) mg/dL Magnesium (1.6-2.3) mg/dL Total Bilirubin (0.2-1.3) mg/dL AST (17-59) U/L ALT (0-50) U/L Alkaline Phosphatase (38-126) U/L Troponin I 0.018 (0.000-0.033) ng/mL NT-Pro-B Natriuret Pep (<300) pg/mL Serum Total Protein (6.3-8.2) g/dL Albumin (3.5-5.0) g/dL Urine Color Yellow (Yellow) Urine Appearance Turbid A (Clear) Urine pH 5.5 (4.6-8.0) Ur Specific [place] 1.020 (1.005-1.030) Urine Protein 300 A (Negative) Urine Glucose (UA) >=1000 A (Negative) mg/dL Urine Ketones Negative (Negative) Urine Blood Large A (Negative) Urine Nitrite Negative (Negative) Urine Bilirubin Negative (Negative) Urine Urobilinogen 0.2 (0.2) mg/dL Ur Leukocyte Esterase Large A (Negative) U Hyaline Cast (Auto) NONE SEEN (0-2) /LPF Urine Microscopic RBC >100 A (0-5) /HPF Urine Microscopic WBC >100 A (0-5) /HPF Ur Epithelial Cells Few (None Seen) /HPF Urine Bacteria None Seen (None Seen) /HPF Urine Yeast (Budding) (None Seen) /HPF Urine Culture Reflexed YES (NO) Monoscreen (NEGATIVE) Influenza Type A Ag NEGATIVE (NEGATIVE) Influenza Type B Ag NEGATIVE (NEGATIVE) RSV (PCR) NEGATIVE (NEGATIVE) SARS-CoV-2 (PCR) NEGATIVE (NEGATIVE) - Radiology Impressions Radiology Exams & Impressions: Radiology Procedures Category Date Time Status CHEST 1 VIEW (PORTABLE) Stat Exams 03/21/24 07:28 Completed CHEST WITH CONTRAST [CT] Stat Exams 03/21/24 08:05 Completed - Other Procedures and Tests Respiratory Therapy 03/21/24 11:49 EKG REPEAT IN AM 03/21/24 13:38 Oxygen NASAL CANNULA 6 lpm Assessment/Plan (1) CHF exacerbation Current Visit: Yes Status: Acute Assessment & Plan: - BNP 4760 - ECHO 03/10- EF 50-55% IMPRESSION: 1. LOW NORMAL CONTRACTILITY OF THE LEFT VENTRICLE. 2. MILD CONCENTRIC LEFT VENTRICULAR HYPERTROPHY. 3. MILD TO MODERATE MITRAL REGURGITATION. 4. MILD TRICUSPID REGURGITATION. 5. MILD PULMONARY HYPERTENSION. 6. MILD PULMONIC REGURGITATION. - On BL O2 6lNC-97% - CXR 03/21 Portable apical lordotic demonstrates reaccumulation moderate right effusion. Stable mild left base infiltrate/atelectasis/effusion and cardiomegaly. Bony thorax intact - Chest CTA 03/21 Impression: 1. Continued negative for pulmonary embolus compared to CT PE exams January 25, February 24, and March 06, 2024. 2. Again cardiomegaly with interval worsening moderate bilateral pleural effusions. Rule out cardiac decapitation/CHF versus fluid overload. 3. New diffuse bilateral groundglass airspace disease. 4. Chronic findings including degenerative spondylosis, left adrenal adenoma, and tiny gallstone. - Lasix 20mg IV BID - Monitor electrolytes - TELE - Daily weights, I&O's Code(s): I50.9 - HEART FAILURE, UNSPECIFIED (2) Pneumonia Current Visit: No Status: Acute Assessment & Plan: - As seen on CT -IV levaquin, steriods - tele - On BL O2 of 6LNC 97% Code(s): J18.9 - PNEUMONIA, UNSPECIFIED ORGANISM (3) Panic attack Current Visit: Yes Status: Resolved Assessment & Plan: - resolved since admission - Gave IV ativan in ER - has not been wearing oxygen at times - admits to turning down O2 to 4lNC when needs 6lNC at baseline Code(s): F41.0 - PANIC DISORDER [EPISODIC PAROXYSMAL ANXIETY] (4) UTI (urinary tract infection) Current Visit: Yes Status: Acute Assessment & Plan: - Levaquin IV - UC pending Code(s): N39.0 - URINARY TRACT INFECTION, SITE NOT SPECIFIED (5) Hypercalcemia Current Visit: No Status: Acute Assessment & Plan: - Ca+ 12.0- recheck in AM - IV steroids Code(s): E83.52 - HYPERCALCEMIA (6) Type II diabetes mellitus Current Visit: Yes Status: Acute Assessment & Plan: - hold metformin since had CTA - Continue all other home meds - accuchecks AC/HS - Humalog s/s - ADA diet (7) Anemia Current Visit: Yes Status: Chronic Qualifiers: Anemia type: iron deficiency Assessment & Plan: - chronic iron def - Hgb 8.2 stable - Continue ferrous sulfate Code(s): D64.9 - ANEMIA, UNSPECIFIED (8) Obesity (BMI 30-39.9) Current Visit: Yes Status: Chronic Assessment & Plan: - advised ADA diet and exercise control VTE: Lovenox PPI: Pepcid Next of KIN: Daughter Billy D/C plan: 2-3 days Code status: Full Code(s): E66.9 - OBESITY, UNSPECIFIED
[2024-03-21] MEDS ORDERED: TESTOSTERONE CYPIONATE 200 MG/ML IJ SCH (14:00)
[2024-03-21] MEDS ORDERED: MEDICATION INTERVENTION MC SCH ×2 (15:30→15:45)
[2024-03-21] MEDS: Glucotrol 5 MG PO SCH (16:15)
[2024-03-21] MEDS: Lasix 20 MG/2 ML IV SCH (16:15)
[2024-03-21] MEDS: PROVENTIL 2.5 MG/3 ML NEB IH PRN (18:44)
[2024-03-21 19:08] LABS: A-aADO2 149; ABG HEMOGLOBIN 9.8; ABG POTASSIUM 4.4 (3.5-5.1); ABG SITE LEFT RADIAL; ALLEN TEST OK? YES; ARTERIAL BLD GAS O2 SATURATION 99.2 % (95-100); ARTERIAL BLOOD GAS BASE EXCESS 7.8 (-2.0-2.0); ARTERIAL BLOOD GAS FIO2 45 %; ARTERIAL BLOOD GAS PCO2 50 mmHg (35-45); ARTERIAL BLOOD GAS PO2 109 mmHg (75-100); ARTERIAL BLOOD GAS pH 7.43 (7.35-7.45); CARBOXYHEMOGLOBIN 1.4 % THgb (0.0-6.9); HCO3- 33.2 (22-28); HGB O2 SAT 96.8 g/dF (94-100); paO2 pAO1 0.42
[2024-03-21] MEDS: Sodium Chloride 0.9% 1000 ML 1,000 ML IV SCH (19:25)
[2024-03-21] MEDS: TYLENOL 325 MG PO PRN (20:45)
[2024-03-21] MEDS ORDERED: DESYREL 50 MG PO SCH (22:00)
[2024-03-21] MEDS ORDERED: Desyrel 150 MG PO SCH (22:00)
[2024-03-21] MEDS ORDERED: NON-FORMULARY ITEM (Sacubitril/Valsartan [Entresto 24 Mg-26 Mg Tablet] 1 EACH Tablet) PO SCH (22:00)
[2024-03-21] MEDS ORDERED: NON-FORMULARY ITEM (Atorvastatin Calcium [Atorvastatin Calcium] 80 MG Tablet) PO SCH (22:00)
[2024-03-21] MEDS: COREG 12.5 MG PO SCH (22:40)
[2024-03-21] MEDS: ZOCOR 20MG PO SCH (22:40)
[2024-03-21] MEDS: solu-MEDROL 20 MG, Sterile H2O 10 ml 1 ML IV SCH (22:40)
[2024-03-21] MEDS: ENTRESTO 49 MG-51 MG TABLET PO SCH (22:41)
[2024-03-22] MEDS: DESYREL 50 MG PO SCH ×2 (00:46→22:20)
[2024-03-22 05:39] LABS: Hemoglobin 8.2 g/dL (12.5-18.0); Mean Cell Volume 94.7 fL (78-100); Mean Corpuscular Hemoglobin 28.8 pg (26-32); Mean Corpuscular Hgb Concent. 30.4 g/dL (32-36); Mean Platelet Volume 11.9 fL (7.5-11.0); Platelet Count 365 x10^3/uL (150-450); Red Blood Count 2.85 x10^6/uL (4.1-5.6); Red Cell Distribution Width 18.3 % (11.5-14.0); White Blood Count 11.1 x10^3/uL (4.0-10.5)
[2024-03-22 06:00] LABS: ALBUMIN 3.6 g/dL (3.5-5.0); ANION GAP 11.7 MEQ/L (5-15); BILIRUBIN,TOTAL 0.8 mg/dL (0.2-1.3); Calcium 10.7 mg/dL (8.4-10.2); Creatinine 1 1.43 mg/dL (0.66-1.25); EST GLOMERULAR FILTRATION RATE 58.6 ML/MIN; Potassium 4.8 mmol/L (3.5-5.1); Total Protein 7.4 g/dL (6.3-8.2)
[2024-03-22] MEDS: LEVOFLOXACIN 750MG/150ML D5W 750 MG/150 ML BAG IV SCH (08:46)
[2024-03-22] MEDS: FEOSOL 325 MG PO SCH (08:49)
[2024-03-22] MEDS: Pepcid 20 MG PO SCH (08:49)
[2024-03-22] MEDS: ECOTRIN 81 MG PO SCH (08:49)
[2024-03-22] MEDS: VITAMIN D PO SCH (08:49)
[2024-03-22] MEDS: FOLATE 1 MG PO SCH (08:49)
[2024-03-22] MEDS: Klor Con PO SCH (08:49)
[2024-03-22] MEDS: NORVASC 5 MG PO SCH (08:50)
[2024-03-22] MEDS: ENOXAPARIN SODIUM SQ SCH (08:50)
[2024-03-22] MEDS: Aldactone 25 MG PO SCH (08:52)
[2024-03-22] MEDS: ceLEXa 20 MG PO SCH (08:53)
[2024-03-22] MEDS: JARDIANCE PO SCH (08:53)
--- NOTE | 2024-03-22 08:58 | PCM.NOTE ---
Date and Time: 03/22/24 0845 Subjective Assessment: 03/21/24 is a 53 year old male with PMHX of congestive heart failure, diabetes mellitus with right below-knee amputations, ND, HLD, HTN, GERD, and peripheral neuropathy. He was recently admitted here from 03/06/24- for CHF and pneumonia. He was d/c'd with 6LO2 and recommended for rehab placement and he refused. Today he presented to our emergency department with a complaint of "panic attack". Patient was brought in by the paramedics from [facility]. Patient's description of panic attack is shortness of breath and anxious and a feeling of "impending doom". Patient arrived to the emergency department off of his usual 6 L of oxygen via nasal cannula and with room air oxygen saturation level of 82 to 84%. Once he was placed on his usual 6 L of oxygen via nasal cannula his oxygenation saturation levels increased to 94 to 95%. D-Dimer 2.06, CT chest negative for PE. Will start lasix BID. He was started on levaquin in ER for pneumonia and UTI- will continue. Since admission he denies CP, SOB, abd. pain, N/V/D. Case management discussed with pt rehab again and he is refusing. He states the feeling of impending doom has resolved. 03/22/24 Pt resting in bed. He reports he is feeling much better today. He is awake and alert. Trazodone was held last night as he was rather sleepy after getting IV Atvan in ER. Calcium remains elevated at 10.7 but improved. Pt reports having this in the past with unknown cause. It appears per old records pt has a hx of Vitamin D deficiency and has not been taking any medication for this. Vit D supplement started today. PTH and TSH ordered for further evaluation. Pt denies Abd. pain. He was having witnessed apneas overnight and an OP sleep study was ordered. He is currently on baseline oxygen at 6LNC. Continue Lasix for CHF, antibiotics and steroids for pneumonia. He denies CP, SOB, Abd.pain, N/V/D. - Review of Systems Constitutional: No Fever, No Chills Eyes: No Symptoms Ears, Nose, & Throat: No Symptoms Respiratory: No Cough, No Short Of Breath Cardiac: No Chest Pain, No Edema, No Syncope Abdominal/Gastrointestinal: No Abdominal Pain, No Nausea, No Vomiting, No Diarrhea Genitourinary Symptoms: No Dysuria Musculoskeletal: No Back Pain, No Neck Pain Skin: No Rash Neurological: No Dizziness, No Focal Weakness, No Sensory Changes Psychological: No Symptoms Endocrine: No Symptoms Hematologic/Lymphatic: No Symptoms Immunological/Allergic: No Symptoms Objective Exam General Appearance: no apparent distress, alert, obese Neurologic Exam: alert, oriented x 3, cooperative, normal mood/affect, nml cerebellar function, sensation nml, No motor deficits Skin Exam: warm, dry, pale Wound Assessment: Skin/Wound Assessment Wound/Incision Assessment Start: 03/21/24 12:07 Text: Status: Active Freq: Q6H Protocol: Document 03/22/24 02:00 KD (Rec: 03/22/24 02:19 KD [id number]) Wound/Incision Assessment LEFT OWER LEG Wound Assessment Shift Assessment Wound Type Abrasion Wound Stage Non Pressure Wound Dressing Status Dry & Intact Drainage Amount None General Appearance Well Approximated Comment SMALL ABRASION NOTED TO BACK OF LOWER LEG, DRESSED PER [facility] THIS AM, NO BLEEDING OR DRAINAGE SMALL SCABBED AREAS NOTED TO ANTERIOR LEG - remains true Wound Photo Photo Taken No Eye Exam: PERRL, EOMI, eyes nml inspection Ears, Nose, Throat Exam: normal ENT inspection, pharynx normal, moist mucous mem branes Neck Exam: normal inspection, non-tender, supple, full range of motion Respiratory Exam: normal breath sounds, lungs clear, diminished breath sounds (BLLL), No respiratory distress Cardiovascular Exam: regular rate/rhythm, normal heart sounds Gastrointestinal/Abdomen Exam: soft, No tenderness, No mass Extremity Exam: normal inspection, normal range of motion Back Exam: normal inspection, normal range of motion, No CVA tenderness, No vertebral tenderness Male Genitalia Exam: deferred Rectal Exam: deferred Objective Data Vital Signs: Vital Signs - 24 hr Temp Pulse Resp BP BP Pulse Ox 03/22/24 07:48 70 12 92 L 03/22/24 04:00 96.4 F 69 13 138/83 92 L 03/22/24 00:00 97.6 F 70 18 109/62 93 L 03/21/24 20:00 97 F 69 15 131/81 96 03/21/24 18:44 72 16 96 03/21/24 16:00 98.2 F 70 17 117/76 96 03/21/24 13:38 67 16 97 03/21/24 13:20 98 03/21/24 12:08 97.7 F 69 15 138/88 03/21/24 11:47 97.7 F 69 15 138/88 03/21/24 11:30 135/95 03/21/24 11:15 131/90 03/21/24 11:06 145/76 03/21/24 09:00 134/84 Pain Assessment - Last Documented Pain Intensity 7 Pain Scale Used 0-10 Pain Scale Intake and Output: Intake & Output 03/19/24 03/20/24 03/21/24 03/22/24 11:59 11:59 11:59 11:59 Intake Total 830 Output Total 950 Balance -120 Weight 132.5 kg 130.2 kg Lab Results: Lab Results-Last 24 Hours 03/21/24 03/21/24 03/21/24 Range/Units 07:35 08:15 08:15 WBC (4.0-10.5) x10^3/uL RBC (4.1-5.6) x10^6/uL Hgb (12.5-18.0) g/dL Hct (42-50) % MCV (78-100) fL MCH (26-32) pg MCHC (32-36) g/dL RDW (11.5-14.0) % Plt Count (150-450) x10^3/uL MPV (7.5-11.0) fL Puncture Site pCO2 (35-45) mmHg pO2 (75-100) mmHg Base Excess (-2.0-2.0) O2 Saturation (94-100) g/dF ABG pH (7.35-7.45) ABG HCO3 (22-28) ABG O2 Sat (Measured) (95-100) % Brad Test A-a Gradient a/A Ratio Hemoglobin Carboxyhemoglobin (0.0-6.9) % THgb Methemoglobin (1.4-1.5) % Potassium (3.5-5.1) Temperature C POC O2 Flow Rate % Sodium (135-145) mmol/L Chloride (98-107) mmol/L Carbon Dioxide (22-30) mmol/L Anion Gap (5-15) MEQ/L BUN (9-20) mg/dL Creatinine (0.66-1.25) mg/dL Estimated GFR ML/MIN Glucose (74-106) mg/dL POC Glucometer (74 to 106) mg/dL Calcium (8.4-10.2) mg/dL Magnesium 1.7 (1.6-2.3) mg/dL Total Bilirubin (0.2-1.3) mg/dL AST (17-59) U/L ALT (0-50) U/L Alkaline Phosphatase (38-126) U/L Troponin I (0.000-0.033) ng/mL NT-Pro-B Natriuret Pep (<300) pg/mL Serum Total Protein (6.3-8.2) g/dL Albumin (3.5-5.0) g/dL Procalcitonin (0.030-0.080) ng/mL Urine Color Yellow (Yellow) Urine Appearance Turbid A (Clear) Urine pH 5.5 (4.6-8.0) Ur Specific Buda 1.020 (1.005-1.030) Urine Protein 300 A (Negative) Urine Glucose (UA) >=1000 A (Negative) mg/dL Urine Ketones Negative (Negative) Urine Blood Large A (Negative) Urine Nitrite Negative (Negative) Urine Bilirubin Negative (Negative) Urine Urobilinogen 0.2 (0.2) mg/dL Ur Leukocyte Esterase Large A (Negative) U Hyaline Cast (Auto) NONE SEEN (0-2) /LPF Urine Microscopic RBC >100 A (0-5) /HPF Urine Microscopic WBC >100 A (0-5) /HPF Ur Epithelial Cells Few (None Seen) /HPF Urine Bacteria None Seen (None Seen) /HPF Urine Yeast (Budding) (None Seen) /HPF Urine Culture Reflexed YES (NO) Influenza Type A Ag NEGATIVE (NEGATIVE) Influenza Type B Ag NEGATIVE (NEGATIVE) RSV (PCR) NEGATIVE (NEGATIVE) SARS-CoV-2 (PCR) NEGATIVE (NEGATIVE) 03/21/24 03/21/24 03/21/24 Range/Units 11:35 16:18 16:25 WBC (4.0-10.5) x10^3/uL RBC (4.1-5.6) x10^6/uL Hgb (12.5-18.0) g/dL Hct (42-50) % MCV (78-100) fL MCH (26-32) pg MCHC (32-36) g/dL RDW (11.5-14.0) % Plt Count (150-450) x10^3/uL MPV (7.5-11.0) fL Puncture Site pCO2 (35-45) mmHg pO2 (75-100) mmHg Base Excess (-2.0-2.0) O2 Saturation (94-100) g/dF ABG pH (7.35-7.45) ABG HCO3 (22-28) ABG O2 Sat (Measured) (95-100) % Brad Test A-a Gradient a/A Ratio Hemoglobin Carboxyhemoglobin (0.0-6.9) % THgb Methemoglobin (1.4-1.5) % Potassium (3.5-5.1) Temperature C POC O2 Flow Rate % Sodium (135-145) mmol/L Chloride (98-107) mmol/L Carbon Dioxide (22-30) mmol/L Anion Gap (5-15) MEQ/L BUN (9-20) mg/dL Creatinine (0.66-1.25) mg/dL Estimated GFR ML/MIN Glucose (74-106) mg/dL POC Glucometer 69 L (74 to 106) mg/dL Calcium (8.4-10.2) mg/dL Magnesium (1.6-2.3) mg/dL Total Bilirubin (0.2-1.3) mg/dL AST (17-59) U/L ALT (0-50) U/L Alkaline Phosphatase (38-126) U/L Troponin I 0.018 0.019 (0.000-0.033) ng/mL NT-Pro-B Natriuret Pep (<300) pg/mL Serum Total Protein (6.3-8.2) g/dL Albumin (3.5-5.0) g/dL Procalcitonin (0.030-0.080) ng/mL Urine Color (Yellow) Urine Appearance (Clear) Urine pH (4.6-8.0) Ur Specific Buda (1.005-1.030) Urine Protein (Negative) Urine Glucose (UA) (Negative) mg/dL Urine Ketones (Negative) Urine Blood (Negative) Urine Nitrite (Negative) Urine Bilirubin (Negative) Urine Urobilinogen (0.2) mg/dL Ur Leukocyte Esterase (Negative) U Hyaline Cast (Auto) (0-2) /LPF Urine Microscopic RBC (0-5) /HPF Urine Microscopic WBC (0-5) /HPF Ur Epithelial Cells (None Seen) /HPF Urine Bacteria (None Seen) /HPF Urine Yeast (Budding) (None Seen) /HPF Urine Culture Reflexed (NO) Influenza Type A Ag (NEGATIVE) Influenza Type B Ag (NEGATIVE) RSV (PCR) (NEGATIVE) SARS-CoV-2 (PCR) (NEGATIVE) 03/21/24 03/21/24 03/21/24 Range/Units 17:01 19:02 21:58 WBC (4.0-10.5) x10^3/uL RBC (4.1-5.6) x10^6/uL Hgb (12.5-18.0) g/dL Hct (42-50) % MCV (78-100) fL MCH (26-32) pg MCHC (32-36) g/dL RDW (11.5-14.0) % Plt Count (150-450) x10^3/uL MPV (7.5-11.0) fL Puncture Site LEFT RADIAL pCO2 50 H (35-45) mmHg pO2 109 H (75-100) mmHg Base Excess 7.8 H (-2.0-2.0) O2 Saturation 96.8 (94-100) g/dF ABG pH 7.43 (7.35-7.45) ABG HCO3 33.2 H* (22-28) ABG O2 Sat (Measured) 99.2 (95-100) % Brad Test YES A-a Gradient 149 a/A Ratio 0.42 Hemoglobin 9.8 Carboxyhemoglobin 1.4 (0.0-6.9) % THgb Methemoglobin 1.0 L (1.4-1.5) % Potassium 4.4 (3.5-5.1) Temperature 37.0 C POC O2 Flow Rate 45 % Sodium (135-145) mmol/L Chloride (98-107) mmol/L Carbon Dioxide (22-30) mmol/L Anion Gap (5-15) MEQ/L BUN (9-20) mg/dL Creatinine (0.66-1.25) mg/dL Estimated GFR ML/MIN Glucose (74-106) mg/dL POC Glucometer 83 58 L (74 to 106) mg/dL Calcium (8.4-10.2) mg/dL Magnesium (1.6-2.3) mg/dL Total Bilirubin (0.2-1.3) mg/dL AST (17-59) U/L ALT (0-50) U/L Alkaline Phosphatase (38-126) U/L Troponin I (0.000-0.033) ng/mL NT-Pro-B Natriuret Pep (<300) pg/mL Serum Total Protein (6.3-8.2) g/dL Albumin (3.5-5.0) g/dL Procalcitonin (0.030-0.080) ng/mL Urine Color (Yellow) Urine Appearance (Clear) Urine pH (4.6-8.0) Ur Specific Buda (1.005-1.030) Urine Protein (Negative) Urine Glucose (UA) (Negative) mg/dL Urine Ketones (Negative) Urine Blood (Negative) Urine Nitrite (Negative) Urine Bilirubin (Negative) Urine Urobilinogen (0.2) mg/dL Ur Leukocyte Esterase (Negative) U Hyaline Cast (Auto) (0-2) /LPF Urine Microscopic RBC (0-5) /HPF Urine Microscopic WBC (0-5) /HPF Ur Epithelial Cells (None Seen) /HPF Urine Bacteria (None Seen) /HPF Urine Yeast (Budding) (None Seen) /HPF Urine Culture Reflexed (NO) Influenza Type A Ag (NEGATIVE) Influenza Type B Ag (NEGATIVE) RSV (PCR) (NEGATIVE) SARS-CoV-2 (PCR) (NEGATIVE) 03/21/24 03/21/24 03/22/24 Range/Units 22:39 Unknown 05:10 WBC (4.0-10.5) x10^3/uL RBC (4.1-5.6) x10^6/uL Hgb (12.5-18.0) g/dL Hct (42-50) % MCV (78-100) fL MCH (26-32) pg MCHC (32-36) g/dL RDW (11.5-14.0) % Plt Count (150-450) x10^3/uL MPV (7.5-11.0) fL Puncture Site pCO2 (35-45) mmHg pO2 (75-100) mmHg Base Excess (-2.0-2.0) O2 Saturation (94-100) g/dF ABG pH (7.35-7.45) ABG HCO3 (22-28) ABG O2 Sat (Measured) (95-100) % Brad Test A-a Gradient a/A Ratio Hemoglobin Carboxyhemoglobin (0.0-6.9) % THgb Methemoglobin (1.4-1.5) % Potassium 4.8 (3.5-5.1) Temperature C POC O2 Flow Rate % Sodium 139 (135-145) mmol/L Chloride 100 (98-107) mmol/L Carbon Dioxide 32 H (22-30) mmol/L Anion Gap 11.7 (5-15) MEQ/L BUN 16 (9-20) mg/dL Creatinine 1.43 H (0.66-1.25) mg/dL Estimated GFR 58.6 ML/MIN Glucose 193 H (74-106) mg/dL POC Glucometer 74 (74 to 106) mg/dL Calcium 10.7 H (8.4-10.2) mg/dL Magnesium (1.6-2.3) mg/dL Total Bilirubin 0.80 (0.2-1.3) mg/dL AST 23 (17-59) U/L ALT 24 (0-50) U/L Alkaline Phosphatase 67 (38-126) U/L Troponin I (0.000-0.033) ng/mL NT-Pro-B Natriuret Pep 5080 (<300) pg/mL Serum Total Protein 7.4 (6.3-8.2) g/dL Albumin 3.6 (3.5-5.0) g/dL Procalcitonin 0.088 H (0.030-0.080) ng/mL Urine Color (Yellow) Urine Appearance (Clear) Urine pH (4.6-8.0) Ur Specific Buda (1.005-1.030) Urine Protein (Negative) Urine Glucose (UA) (Negative) mg/dL Urine Ketones (Negative) Urine Blood (Negative) Urine Nitrite (Negative) Urine Bilirubin (Negative) Urine Urobilinogen (0.2) mg/dL Ur Leukocyte Esterase (Negative) U Hyaline Cast (Auto) (0-2) /LPF Urine Microscopic RBC (0-5) /HPF Urine Microscopic WBC (0-5) /HPF Ur Epithelial Cells (None Seen) /HPF Urine Bacteria (None Seen) /HPF Urine Yeast (Budding) (None Seen) /HPF Urine Culture Reflexed (NO) Influenza Type A Ag (NEGATIVE) Influenza Type B Ag (NEGATIVE) RSV (PCR) (NEGATIVE) SARS-CoV-2 (PCR) (NEGATIVE) 03/22/24 03/22/24 Range/Units 05:10 07:42 WBC 11.1 H (4.0-10.5) x10^3/uL RBC 2.85 L (4.1-5.6) x10^6/uL Hgb 8.2 L (12.5-18.0) g/dL Hct 27.0 L (42-50) % MCV 94.7 (78-100) fL MCH 28.8 (26-32) pg MCHC 30.4 L (32-36) g/dL RDW 18.3 H (11.5-14.0) % Plt Count 365 (150-450) x10^3/uL MPV 11.9 H (7.5-11.0) fL Puncture Site pCO2 (35-45) mmHg pO2 (75-100) mmHg Base Excess (-2.0-2.0) O2 Saturation (94-100) g/dF ABG pH (7.35-7.45) ABG HCO3 (22-28) ABG O2 Sat (Measured) (95-100) % Brad Test A-a Gradient a/A Ratio Hemoglobin Carboxyhemoglobin (0.0-6.9) % THgb Methemoglobin (1.4-1.5) % Potassium (3.5-5.1) Temperature C POC O2 Flow Rate % Sodium (135-145) mmol/L Chloride (98-107) mmol/L Carbon Dioxide (22-30) mmol/L Anion Gap (5-15) MEQ/L BUN (9-20) mg/dL Creatinine (0.66-1.25) mg/dL Estimated GFR ML/MIN Glucose (74-106) mg/dL POC Glucometer 200 H (74 to 106) mg/dL Calcium (8.4-10.2) mg/dL Magnesium (1.6-2.3) mg/dL Total Bilirubin (0.2-1.3) mg/dL AST (17-59) U/L ALT (0-50) U/L Alkaline Phosphatase (38-126) U/L Troponin I (0.000-0.033) ng/mL NT-Pro-B Natriuret Pep (<300) pg/mL Serum Total Protein (6.3-8.2) g/dL Albumin (3.5-5.0) g/dL Procalcitonin (0.030-0.080) ng/mL Urine Color (Yellow) Urine Appearance (Clear) Urine pH (4.6-8.0) Ur Specific Buda (1.005-1.030) Urine Protein (Negative) Urine Glucose (UA) (Negative) mg/dL Urine Ketones (Negative) Urine Blood (Negative) Urine Nitrite (Negative) Urine Bilirubin (Negative) Urine Urobilinogen (0.2) mg/dL Ur Leukocyte Esterase (Negative) U Hyaline Cast (Auto) (0-2) /LPF Urine Microscopic RBC (0-5) /HPF Urine Microscopic WBC (0-5) /HPF Ur Epithelial Cells (None Seen) /HPF Urine Bacteria (None Seen) /HPF Urine Yeast (Budding) (None Seen) /HPF Urine Culture Reflexed (NO) Influenza Type A Ag (NEGATIVE) Influenza Type B Ag (NEGATIVE) RSV (PCR) (NEGATIVE) SARS-CoV-2 (PCR) (NEGATIVE) Radiology Exams: Radiology Procedures Category Date Time Status CHEST 1 VIEW (PORTABLE) Stat Exams 03/21/24 07:28 Completed CHEST WITH CONTRAST [CT] Stat Exams 03/21/24 08:05 Completed Multi-Disciplinary Progress Notes: Multi-Disciplinary Progress Notes 03/22/24 00:58 Respiratory Note by Shanna Sabillon RT called to bedside to evaluate for low sats. Upon arrival patient was sleeping and appears to be mouth breathing. Pt's SpO2 on 6L nasal cannula while sleeping was 85%-87%. Patient was placed on 7L oxymask and SpO2 increased to 90-92%. Initialized on 03/22/24 00:58 - END OF NOTE 03/21/24 13:35 Case Management Note by Thuy Merrill PATIENT HAS [facility]. THEY WERE NOTIFIED HE IS HERE OBS. THEY WILL NEED NOTIFIED AT TIME OF DC AT [phone].THEY WILL NEED FAXED THE DC INSTRUCTIONS, DC MED LIST AND DC SUMMARY TO [phone] Initialized on 03/21/24 13:35 - END OF NOTE Assessment/Plan (1) CHF exacerbation Current Visit: Yes Status: Acute Code(s): I50.9 - HEART FAILURE, UNSPECIFIED (2) Pneumonia Current Visit: No Status: Acute Code(s): J18.9 - PNEUMONIA, UNSPECIFIED ORGANISM (3) Panic attack Current Visit: Yes Status: Resolved Code(s): F41.0 - PANIC DISORDER [EPISODIC PAROXYSMAL ANXIETY] (4) UTI (urinary tract infection) Current Visit: Yes Status: Acute Code(s): N39.0 - URINARY TRACT INFECTION, SITE NOT SPECIFIED (5) Hypercalcemia Current Visit: No Status: Acute Code(s): E83.52 - HYPERCALCEMIA (6) Type II diabetes mellitus Current Visit: Yes Status: Acute (7) Anemia Current Visit: Yes Status: Chronic Qualifiers: Anemia type: iron deficiency Code(s): D64.9 - ANEMIA, UNSPECIFIED (8) Obesity (BMI 30-39.9) Current Visit: Yes Status: Chronic Assessment & Plan: (1) CHF exacerbation Current Visit: Yes Status: Acute Assessment & Plan: - BNP 4760 - ECHO 03/10- EF 50-55% IMPRESSION: 1. LOW NORMAL CONTRACTILITY OF THE LEFT VENTRICLE. 2. MILD CONCENTRIC LEFT VENTRICULAR HYPERTROPHY. 3. MILD TO MODERATE MITRAL REGURGITATION. 4. MILD TRICUSPID REGURGITATION. 5. MILD PULMONARY HYPERTENSION. 6. MILD PULMONIC REGURGITATION. - On BL O2 6lNC-97% - CXR 03/21 Portable apical lordotic demonstrates reaccumulation moderate right effusion. Stable mild left base infiltrate/atelectasis/effusion and cardiomegaly. Bony thorax intact - Chest CTA 03/21 Impression: 1. Continued negative for pulmonary embolus compared to CT PE exams January 25, February 24, and March 06, 2024. 2. Again cardiomegaly with interval worsening moderate bilateral pleural effusions. Rule out cardiac decapitation/CHF versus fluid overload. 3. New diffuse bilateral groundglass airspace disease. 4. Chronic findings including degenerative spondylosis, left adrenal adenoma, and tiny gallstone. - Lasix 20mg IV BID - Monitor electrolytes - TELE - Daily weights, I&O's 03/22/23 - On Baseline O2 6lNC Code(s): I50.9 - HEART FAILURE, UNSPECIFIED (2) Pneumonia Current Visit: No Status: Acute Assessment & Plan: - As seen on CT -IV Hardyaqgricelda carballo - tele - On BL O2 of 6LNC 97% - BC x2 pending 03/22 - WBC 11.1- likely 2:2 steriods Code(s): J18.9 - PNEUMONIA, UNSPECIFIED ORGANISM (3) Panic attack Current Visit: Yes Status: Resolved Assessment & Plan: - resolved since admission - Gave IV Ativan in ER - has not been wearing oxygen at times - Noncompliance- admits to turning down O2 to 4lNC when needs 6lNC at baseline - Trazodone held d/t sleepiness 03/22 - resolved - continue Trazodone if more awake and alert this evening Code(s): F41.0 - PANIC DISORDER [EPISODIC PAROXYSMAL ANXIETY] (4) UTI (urinary tract infection) Current Visit: Yes Status: Acute Assessment & Plan: - Levaquin IV - UC pending Code(s): N39.0 - URINARY TRACT INFECTION, SITE NOT SPECIFIED (5) Hypercalcemia Current Visit: No Status: Acute Assessment & Plan: - Ca+ 12.0- recheck in AM - IV steroids 03/22 - Ca+ 10.7 - Pt has a hx of vit D deficiency- Vitamin D 12.8 on 12/27/23- daily supplement started PO today - PTH and TSH in AM - denies Abd pain - will need Op f/u with Pulm at d/c Code(s): E83.52 - HYPERCALCEMIA (6) Type II diabetes mellitus Current Visit: Yes Status: Acute Assessment & Plan: - hold metformin since had CTA - Continue all other home meds - accuchecks AC/HS - Humalog s/s - ADA diet - A1C 01/27/24- 6.24- controlled (7) Anemia Current Visit: Yes Status: Chronic Qualifiers: Anemia type: iron deficiency Assessment & Plan: - chronic iron def - Hgb 8.2 stable- trend - Continue ferrous sulfate Code(s): D64.9 - ANEMIA, UNSPECIFIED (8) Obesity (BMI 30-39.9) Current Visit: Yes Status: Chronic Assessment & Plan: - advised ADA diet and exercise control Code(s): E66.9 - OBESITY, UNSPECIFIED (9) Obstructive sleep apnea Current Visit: Yes Status: Acute Assessment & Plan: - Witnessed apneas per staff last night - OP sleep study ordered - Pt reports he wake up from sleep feeling like he is gasping for air. Code(s): G47.33 - OBSTRUCTIVE SLEEP APNEA (ADULT) (PEDIATRIC) (10) Vitamin D deficiency Current Visit: Yes Status: Chronic Assessment & Plan: - Pt has a hx of vit D deficiency- Vitamin D 12.8 on 12/27/23- daily supplement started PO today - Possible cause for elevated Ca+- trend VTE: Lovenox PPI: Pepcid Next of KIN: Daughter Billy D/C plan: 2-3 days Code status: Full Code(s): E55.9 - VITAMIN D DEFICIENCY, UNSPECIFIED
[2024-03-22] MEDS ORDERED: Lexapro PO SCH (10:00)
[2024-03-22] MEDS ORDERED: BABY ASPIRIN 81 MG CHEW PO SCH (10:00)
[2024-03-22] MEDS ORDERED: NON-FORMULARY ITEM (Amlodipine Besylate [Norvasc] 10 MG Tablet) PO SCH (10:00)
[2024-03-22] MEDS ORDERED: NON-FORMULARY ITEM (Losartan Potassium [Losartan Potassium] 100 MG Tablet) PO SCH (10:00)
[2024-03-22] MEDS ORDERED: NON-FORMULARY ITEM (Aripiprazole [Abilify] 2 MG Tablet) PO SCH (10:00)
[2024-03-22] MEDS: HUMALOG SQ PRN (12:30)
[2024-03-23 05:35] LABS: Hematocrit 27.3 % (42-50); Hemoglobin 8.4 g/dL (12.5-18.0); Mean Cell Volume 94.8 fL (78-100); Mean Corpuscular Hemoglobin 29.2 pg (26-32); Mean Corpuscular Hgb Concent. 30.8 g/dL (32-36); Mean Platelet Volume 11.8 fL (7.5-11.0); Platelet Count 363 x10^3/uL (150-450); Red Blood Count 2.88 x10^6/uL (4.1-5.6); Red Cell Distribution Width 17.8 % (11.5-14.0); White Blood Count 11.4 x10^3/uL (4.0-10.5)
[2024-03-23 05:54] LABS: ALBUMIN 3.8 g/dL (3.5-5.0); ANION GAP 11.6 MEQ/L (5-15); BILIRUBIN,TOTAL 1.1 mg/dL (0.2-1.3); Calcium 10.3 mg/dL (8.4-10.2); Creatinine 1 1.44 mg/dL (0.66-1.25); EST GLOMERULAR FILTRATION RATE 58.1 ML/MIN; Potassium 4.2 mmol/L (3.5-5.1); Total Protein 7.8 g/dL (6.3-8.2)
[2024-03-23] MEDS: solu-MEDROL 40 MG, Sterile H2O 10 ml 1 ML IV SCH (08:48)
[2024-03-23] MEDS: PATIENT OWN MEDICATION IM SCH (08:59)
--- NOTE | 2024-03-23 09:59 | PCM.NOTE ---
Date and Time: 03/23/24 0954 Subjective Assessment: 03/21/24 is a 53 year old male with PMHX of congestive heart failure, diabetes mellitus with right below-knee amputations, MT, HLD, HTN, GERD, and peripheral neuropathy. He was recently admitted here from 03/06/24- for CHF and pneumonia. He was d/c'd with 6LO2 and recommended for rehab placement and he refused. Today he presented to our emergency department with a complaint of "panic attack". Patient was brought in by the paramedics from [facility]. Patient's description of panic attack is shortness of breath and anxious and a feeling of "impending doom". Patient arrived to the emergency department off of his usual 6 L of oxygen via nasal cannula and with room air oxygen saturation level of 82 to 84%. Once he was placed on his usual 6 L of oxygen via nasal cannula his oxygenation saturation levels increased to 94 to 95%. D-Dimer 2.06, CT chest negative for PE. Will start lasix BID. He was started on levaquin in ER for pneumonia and UTI- will continue. Since admission he denies CP, SOB, abd. pain, N/V/D. Case management discussed with pt rehab again and he is refusing. He states the feeling of impending doom has resolved. 03/22/24 Pt resting in bed. He reports he is feeling much better today. He is awake and alert. Trazodone was held last night as he was rather sleepy after getting IV Atvan in ER. Calcium remains elevated at 10.7 but improved. Pt reports having this in the past with unknown cause. It appears per old records pt has a hx of Vitamin D deficiency and has not been taking any medication for this. Vit D supplement started today. PTH and TSH ordered for further evaluation. Pt denies Abd. pain. He was having witnessed apneas overnight and an OP sleep study was ordered. He is currently on baseline oxygen at 6LNC. Continue Lasix for CHF, antibiotics and steroids for pneumonia. He denies CP, SOB, Abd.pain, N/V/D. 03/23/24 Pt resting in bed. He states he did not sleep well last night since being on steroids. Ca+ improved- 10.3, will increase steroid dose. Continue lasix and recheck CXR tomorrow for further evaluation of pleural effusions. He continues to be on baseline O2 at 6lNC. Continue antibiotics for Pneumonia. Pt did c/o of difficulty starting urination. Post void bladder scan 260 ml - no intervention needed at this time. Pt denies CP, SOB, abd. pain, N/V/D. - Review of Systems Constitutional: No Fever, No Chills Eyes: No Symptoms Ears, Nose, & Throat: No Symptoms Respiratory: No Cough, No Short Of Breath Cardiac: No Chest Pain, No Edema, No Syncope Abdominal/Gastrointestinal: No Abdominal Pain, No Nausea, No Vomiting, No Diarrhea Genitourinary Symptoms: No Dysuria Musculoskeletal: No Back Pain, No Neck Pain Skin: No Rash Neurological: No Dizziness, No Focal Weakness, No Sensory Changes Psychological: No Symptoms Endocrine: No Symptoms Hematologic/Lymphatic: No Symptoms Immunological/Allergic: No Symptoms Objective Exam General Appearance: no apparent distress, alert, obese Neurologic Exam: alert, oriented x 3, cooperative, normal mood/affect, nml cerebellar function, sensation nml, No motor deficits Skin Exam: normal color, warm, dry Wound Assessment: Skin/Wound Assessment Wound/Incision Assessment Start: 03/21/24 12:07 Text: Status: Active Freq: Q6H Protocol: Document 03/23/24 08:00 AR (Rec: 03/23/24 09:25 AR [id number]) Wound/Incision Assessment LEFT OWER LEG Wound Assessment Shift Assessment Wound Type Abrasion Wound Stage Non Pressure Wound Dressing Status Drainage circled Primary Dressing mepilex Comment SMALL ABRASION NOTED TO BACK OF LOWER LEG, DRESSED PER [facility] 03/21/24 AM, drainage circled on dressing; SMALL SCABBED AREAS NOTED TO ANTERIOR LEG - remains true Wound Photo Photo Taken No Eye Exam: PERRL, EOMI, eyes nml inspection Ears, Nose, Throat Exam: normal ENT inspection, pharynx normal, moist mucous membranes Neck Exam: normal inspection, non-tender, supple, full range of motion Respiratory Exam: normal breath sounds, lungs clear, diminished breath sounds (BLLL), No respiratory distress Cardiovascular Exam: regular rate/rhythm, normal heart sounds Gastrointestinal/Abdomen Exam: soft, No tenderness, No mass Extremity Exam: normal inspection, normal range of motion Back Exam: normal inspection, normal range of motion, No CVA tenderness, No vertebral tenderness Male Genitalia Exam: deferred Rectal Exam: deferred Objective Data Vital Signs: Vital Signs - 24 hr Temp Pulse Resp BP Pulse Ox 03/23/24 08:00 97.0 F 77 18 127/73 92 L 03/23/24 07:08 72 17 92 L 03/23/24 04:00 97.7 F 72 20 131/75 97 03/22/24 23:44 98.2 F 74 18 129/70 98 03/22/24 19:17 97.7 F 74 20 136/77 95 03/22/24 18:59 78 18 92 L 03/22/24 16:39 96.6 F 76 20 140/76 94 L 03/22/24 11:42 97.4 F 73 20 134/78 95 Pain Assessment - Last Documented Pain Intensity 7 Pain Scale Used 0-10 Pain Scale Intake and Output: Intake & Output 03/20/24 03/21/24 03/22/24 03/23/24 11:59 11:59 11:59 11:59 Intake Total 830 2380 Output Total 1850 3175 Balance -1020 -795 Weight 132.5 kg 130.2 kg 131.7 kg Lab Results: Lab Results-Last 24 Hours 03/22/24 03/22/24 03/22/24 Range/Units 11:36 16:33 21:32 WBC (4.0-10.5) x10^3/uL RBC (4.1-5.6) x10^6/uL Hgb (12.5-18.0) g/dL Hct (42-50) % MCV (78-100) fL MCH (26-32) pg MCHC (32-36) g/dL RDW (11.5-14.0) % Plt Count (150-450) x10^3/uL MPV (7.5-11.0) fL Sodium (135-145) mmol/L Potassium (3.5-5.1) mmol/L Chloride (98-107) mmol/L Carbon Dioxide (22-30) mmol/L Anion Gap (5-15) MEQ/L BUN (9-20) mg/dL Creatinine (0.66-1.25) mg/dL Estimated GFR ML/MIN Glucose (74-106) mg/dL POC Glucometer 227 H 279 H 236 H (74 to 106) mg/dL Calcium (8.4-10.2) mg/dL Total Bilirubin (0.2-1.3) mg/dL AST (17-59) U/L ALT (0-50) U/L Alkaline Phosphatase (38-126) U/L Serum Total Protein (6.3-8.2) g/dL Albumin (3.5-5.0) g/dL TSH 3rd Generation (0.470-4.680) mIU/L 03/23/24 03/23/24 03/23/24 Range/Units 05:05 05:05 05:05 WBC 11.4 H (4.0-10.5) x10^3/uL RBC 2.88 L (4.1-5.6) x10^6/uL Hgb 8.4 L (12.5-18.0) g/dL Hct 27.3 L (42-50) % MCV 94.8 (78-100) fL MCH 29.2 (26-32) pg MCHC 30.8 L (32-36) g/dL RDW 17.8 H (11.5-14.0) % Plt Count 363 (150-450) x10^3/uL MPV 11.8 H (7.5-11.0) fL Sodium 138 (135-145) mmol/L Potassium 4.2 (3.5-5.1) mmol/L Chloride 98 (98-107) mmol/L Carbon Dioxide 32 H (22-30) mmol/L Anion Gap 11.6 (5-15) MEQ/L BUN 24 H (9-20) mg/dL Creatinine 1.44 H (0.66-1.25) mg/dL Estimated GFR 58.1 ML/MIN Glucose 244 H (74-106) mg/dL POC Glucometer (74 to 106) mg/dL Calcium 10.3 H (8.4-10.2) mg/dL Total Bilirubin 1.10 (0.2-1.3) mg/dL AST 19 (17-59) U/L ALT 20 (0-50) U/L Alkaline Phosphatase 60 (38-126) U/L Serum Total Protein 7.8 (6.3-8.2) g/dL Albumin 3.8 (3.5-5.0) g/dL TSH 3rd Generation 2.434 (0.470-4.680) mIU/L 03/23/24 Range/Units 07:59 WBC (4.0-10.5) x10^3/uL RBC (4.1-5.6) x10^6/uL Hgb (12.5-18.0) g/dL Hct (42-50) % MCV (78-100) fL MCH (26-32) pg MCHC (32-36) g/dL RDW (11.5-14.0) % Plt Count (150-450) x10^3/uL MPV (7.5-11.0) fL Sodium (135-145) mmol/L Potassium (3.5-5.1) mmol/L Chloride (98-107) mmol/L Carbon Dioxide (22-30) mmol/L Anion Gap (5-15) MEQ/L BUN (9-20) mg/dL Creatinine (0.66-1.25) mg/dL Estimated GFR ML/MIN Glucose (74-106) mg/dL POC Glucometer 186 H (74 to 106) mg/dL Calcium (8.4-10.2) mg/dL Total Bilirubin (0.2-1.3) mg/dL AST (17-59) U/L ALT (0-50) U/L Alkaline Phosphatase (38-126) U/L Serum Total Protein (6.3-8.2) g/dL Albumin (3.5-5.0) g/dL TSH 3rd Generation (0.470-4.680) mIU/L Assessment/Plan (1) CHF exacerbation Current Visit: Yes Status: Acute Code(s): I50.9 - HEART FAILURE, UNSPECIFIED (2) Pneumonia Current Visit: No Status: Acute Code(s): J18.9 - PNEUMONIA, UNSPECIFIED ORGANISM (3) Panic attack Current Visit: Yes Status: Resolved Code(s): F41.0 - PANIC DISORDER [EPISODI C PAROXYSMAL ANXIETY] (4) UTI (urinary tract infection) Current Visit: Yes Status: Resolved Code(s): N39.0 - URINARY TRACT INFECTION, SITE NOT SPECIFIED (5) Hypercalcemia Current Visit: No Status: Acute Code(s): E83.52 - HYPERCALCEMIA (6) Type II diabetes mellitus Current Visit: Yes Status: Acute (7) Anemia Current Visit: Yes Status: Chronic Qualifiers: Anemia type: iron deficiency Code(s): D64.9 - ANEMIA, UNSPECIFIED (8) Obesity (BMI 30-39.9) Current Visit: Yes Status: Chronic Code(s): E66.9 - OBESITY, UNSPECIFIED (9) Obstructive sleep apnea Current Visit: Yes Status: Acute Code(s): G47.33 - OBSTRUCTIVE SLEEP APNEA (ADULT) (PEDIATRIC) (10) Vitamin D deficiency Current Visit: Yes Status: Chronic Assessment & Plan: (1) CHF exacerbation Current Visit: Yes Status: Acute Assessment & Plan: - BNP 4760 - ECHO 03/10- EF 50-55% IMPRESSION: 1. LOW NORMAL CONTRACTILITY OF THE LEFT VENTRICLE. 2. MILD CONCENTRIC LEFT VENTRICULAR HYPERTROPHY. 3. MILD TO MODERATE MITRAL REGURGITATION. 4. MILD TRICUSPID REGURGITATION. 5. MILD PULMONARY HYPERTENSION. 6. MILD PULMONIC REGURGITATION. - On BL O2 6lNC-97% - CXR 03/21 Portable apical lordotic demonstrates reaccumulation moderate right effusion. Stable mild left base infiltrate/atelectasis/effusion and cardiomegaly. Bony thorax intact - Chest CTA 03/21 Impression: 1. Continued negative for pulmonary embolus compared to CT PE exams January 25, February 24, and March 06, 2024. 2. Again cardiomegaly with interval worsening moderate bilateral pleural effusions. Rule out cardiac decapitation/CHF versus fluid overload. 3. New diffuse bilateral groundglass airspace disease. 4. Chronic findings including degenerative spondylosis, left adrenal adenoma, and tiny gallstone. - Lasix 20mg IV BID - Monitor electrolytes - TELE - Daily weights, I&O's 03/22/24 - On Baseline O2 6lNC 03/24/24 - On Baseline O2 6lNC - CXR in AM to eval progress of pleural effusions Code(s): I50.9 - HEART FAILURE, UNSPECIFIED (2) Pneumonia Current Visit: No Status: Acute Assessment & Plan: - As seen on CT -IV Levaquingricelda - tele - On BL O2 of 6LNC 97% - BC x2 pending 03/22 - WBC 11.1- likely 2:2 steroids 03/23 - WBC 11.4-likely 2:2 steroids Code(s): J18.9 - PNEUMONIA, UNSPECIFIED ORGANISM (3) Panic attack Current Visit: Yes Status: Resolved Assessment & Plan: - resolved since admission - Gave IV Ativan in ER - has not been wearing oxygen at times - Noncompliance- admits to turning down O2 to 4lNC when needs 6lNC at baseline - Trazodone held d/t sleepiness 03/22 - resolved Code(s): F41.0 - PANIC DISORDER [EPISODIC PAROXYSMAL ANXIETY] (4) UTI (urinary tract infection) Current Visit: Yes Status: Acute Assessment & Plan: - UC negative Code(s): N39.0 - URINARY TRACT INFECTION, SITE NOT SPECIFIED (5) Hypercalcemia Current Visit: No Status: Acute Assessment & Plan: - Ca+ 12.0- recheck in AM - IV steroids - TELE 03/22 - Ca+ 10.7 - Pt has a hx of vit D deficiency- Vitamin D 12.8 on 12/27/23- daily supplement started PO today - PTH and TSH in AM - denies Abd pain - will need Op f/u with Pulm at d/c 03/23 - Ca+ 10.3- improved - Increased steroid dose to 40mg IV Q12 Code(s): E83.52 - HYPERCALCEMIA (6) Type II diabetes mellitus Current Visit: Yes Status: Acute Assessment & Plan: - hold metformin since had CTA - Continue all other home meds - accuchecks AC/HS - Humalog s/s - ADA diet - A1C 01/27/24- 6.24- controlled (7) Anemia Current Visit: Yes Status: Chronic Qualifiers: Anemia type: iron deficiency Assessment & Plan: - chronic iron def - Hgb 8.2 stable- trend - Continue ferrous sulfate Code(s): D64.9 - ANEMIA, UNSPECIFIED (8) Obesity (BMI 30-39.9) Current Visit: Yes Status: Chronic Assessment & Plan: - advised ADA diet and exercise control Code(s): E66.9 - OBESITY, UNSPECIFIED (9) Obstructive sleep apnea Current Visit: Yes Status: Acute Assessment & Plan: - Witnessed apneas per staff last night - OP sleep study ordered - Pt reports he wake up from sleep feeling like he is gasping for air. Code(s): G47.33 - OBSTRUCTIVE SLEEP APNEA (ADULT) (PEDIATRIC) (10) Vitamin D deficiency Current Visit: Yes Status: Chronic Assessment & Plan: - Pt has a hx of vit D deficiency- Vitamin D 12.8 on 12/27/23- daily supplement started PO today - Possible cause for elevated Ca+- trend VTE: Lovenox PPI: Pepcid Next of KIN: Daughter Billy D/C plan:tomorrow? Code status: Full Code(s): E55.9 - VITAMIN D DEFICIENCY, UNSPECIFIED
[2024-03-24 04:56] LABS: Hematocrit 28.2 % (42-50); Hemoglobin 8.6 g/dL (12.5-18.0); Mean Corpuscular Hemoglobin 28.7 pg (26-32); Mean Corpuscular Hgb Concent. 30.5 g/dL (32-36); Mean Platelet Volume 11.8 fL (7.5-11.0); Platelet Count 414 x10^3/uL (150-450); Red Cell Distribution Width 18.4 % (11.5-14.0); White Blood Count 16.1 x10^3/uL (4.0-10.5)
[2024-03-24 05:15] LABS: ALBUMIN 3.2 g/dL (3.5-5.0); ANION GAP 10.3 MEQ/L (5-15); BILIRUBIN,TOTAL 0.5 mg/dL (0.2-1.3); Calcium 9.1 mg/dL (8.4-10.2); Creatinine 1 1.41 mg/dL (0.66-1.25); EST GLOMERULAR FILTRATION RATE 59.6 ML/MIN; Potassium 4.1 mmol/L (3.5-5.1); Total Protein 6.8 g/dL (6.3-8.2)
[2024-03-24 05:48] LABS: Slide Review YES
[2024-03-24 08:06] VITALS: PULSE 68
--- NOTE | 2024-03-24 08:53 | XRAY ---
Indication: Progress of pleural effusions. Comparison: March 21, 2024 Portable apical lordotic demonstrates diminished cardiomegaly now within normal limits. Bilateral effusions/infiltrates/atelectasis have also improved with mild right and minimal left residual. No new cardiopulmonary abnormalities.
--- NOTE | 2024-03-24 09:33 | PCM.DS ---
Discharge Summary Date of Admission: 03/21/24 11:44 Date of Discharge: 03/24/24 Admitting Physician: EDD VAUGHAN Primary Care Provider: MARLYN NOEL MD Allergies Allergies Penicillins Allergy (Verified 03/21/24 07:44) Beta-Blockers (Beta-Adrenergic Bloc Adverse Reaction (Verified 03/21/24 07:44) Wheezing Hospital Summary - Hospital Course Hospital Course: 03/21/24 is a 53 year old male with PMHX of congestive heart failure, diabetes mellitus with right below-knee amputations, FL, HLD, HTN, GERD, and peripheral neuropathy. He was recently admitted here from 03/06/24- for CHF and pneumonia. He was d/c'd with 6LO2 and recommended for rehab placement and he refused. Today he presented to our emergency department with a complaint of "panic attack". Patient was brought in by the paramedics from [facility]. Patient's description of panic attack is shortness of breath and anxious and a feeling of "impending doom". Patient arrived to the emergency department off of his usual 6 L of oxygen via nasal cannula and with room air oxygen saturation level of 82 to 84%. Once he was placed on his usual 6 L of oxygen via nasal cannula his oxygenation saturation levels increased to 94 to 95%. D-Dimer 2.06, CT chest negative for PE. Will start lasix BID. He was started on levaquin in ER for pneumonia and UTI- will continue. Since admission he denies CP, SOB, abd. pain, N/V/D. Case management discussed with pt rehab again and he is refusing. He states the feeling of impending doom has resolved. 03/22/24 Pt resting in bed. He reports he is feeling much better today. He is awake and alert. Trazodone was held last night as he was rather sleepy after getting IV Atvan in ER. Calcium remains elevated at 10.7 but improved. Pt reports having this in the past with unknown cause. It appears per old records pt has a hx of Vitamin D deficiency and has not been taking any medication for this. Vit D supplement started today. PTH and TSH ordered for further evaluation. Pt denies Abd. pain. He was having witnessed apneas overnight and an OP sleep study was ordered. He is currently on baseline oxygen at 6LNC. Continue Lasix for CHF, antibiotics and steroids for pneumonia. He denies CP, SOB, Abd.pain, N/V/D. 03/23/24 Pt resting in bed. He states he did not sleep well last night since being on steroids. Ca+ improved- 10.3, will increase steroid dose. Continue lasix and recheck CXR tomorrow for further evaluation of pleural effusions. He continues to be on baseline O2 at 6lNC. Continue antibiotics for Pneumonia. Pt did c/o of difficulty starting urination. Post void bladder scan 260 ml - no intervention needed at this time. Pt denies CP, SOB, abd. pain, N/V/D. 03/24/24 Pt resting in bed. He states he feels better and ready to go home. He is refusing a rehab facility. He is on 5lNC and at prior d/c was on 6lNC. CXR shows improved pleural effusions. UC and BC all negative. WBC elevated today d/t increased dose of steroids gave to lower calcium. Ca+ 9.1 today. Will need need close OP f/u with PCP this week for repeat labs and further workup for repeated elevated Ca+. Home health care to come to pt's home today he reports. Will continue Levaquin Op for pneumonia. He denies CP, SOB, abd. pain, N/V/D. - Vitals & Intake/Output Vital Signs: Vital Signs Temperature 97.7 F 03/24/24 07:31 Pulse Rate 68 03/24/24 08:04 Respiratory Rate 16 03/24/24 08:04 Blood Pressure 109/58 03/24/24 07:31 O2 Sat by Pulse Oximetry 92 L 03/24/24 08:04 Intake & Output: Intake & Output 03/21/24 03/22/24 03/23/24 03/24/24 11:59 11:59 11:59 11:59 Intake Total 830 2380 3240 Output Total 5021 5440 5810 Balance -0711 -902 -580 Weight 132.5 kg 130.2 kg 131.7 kg 130.1 kg - Lab Result Diagrams: 03/24/24 04:30 03/24/24 04:30 Lab Results-Last 24 Hrs: Lab Results-Last 24 Hours 03/23/24 03/23/24 03/23/24 Range/Units 11:39 17:11 21:37 WBC (4.0-10.5) x10^3/uL RBC (4.1-5.6) x10^6/uL Hgb (12.5-18.0) g/dL Hct (42-50) % MCV (78-100) fL MCH (26-32) pg MCHC (32-36) g/dL RDW (11.5-14.0) % Plt Count (150-450) x10^3/uL MPV (7.5-11.0) fL Sodium (135-145) mmol/L Potassium (3.5-5.1) mmol/L Chloride (98-107) mmol/L Carbon Dioxide (22-30) mmol/L Anion Gap (5-15) MEQ/L BUN (9-20) mg/dL Creatinine (0.66-1.25) mg/dL Estimated GFR ML/MIN Glucose (74-106) mg/dL POC Glucometer 186 H 268 H 310 H (74 to 106) mg/dL Calcium (8.4-10.2) mg/dL Total Bilirubin (0.2-1.3) mg/dL AST (17-59) U/L ALT (0-50) U/L Alkaline Phosphatase (38-126) U/L Serum Total Protein (6.3-8.2) g/dL Albumin (3.5-5.0) g/dL Slides for Path Review 03/24/24 03/24/24 03/24/24 Range/Units 04:30 04:30 07:40 WBC 16.1 H (4.0-10.5) x10^3/uL RBC 3.00 L (4.1-5.6) x10^6/uL Hgb 8.6 L (12.5-18.0) g/dL Hct 28.2 L (42-50) % MCV 94.0 (78-100) fL MCH 28.7 (26-32) pg MCHC 30.5 L (32-36) g/dL RDW 18.4 H (11.5-14.0) % Plt Count 414 (150-450) x10^3/uL MPV 11.8 H (7.5-11.0) fL Sodium 137 (135-145) mmol/L Potassium 4.1 (3.5-5.1) mmol/L Chloride 97 L (98-107) mmol/L Carbon Dioxide 33 H (22-30) mmol/L Anion Gap 10.3 (5-15) MEQ/L BUN 32 H (9-20) mg/dL Creatinine 1.41 H (0.66-1.25) mg/dL Estimated GFR 59.6 ML/MIN Glucose 290 H (74-106) mg/dL POC Glucometer 250 H (74 to 106) mg/dL Calcium 9.1 (8.4-10.2) mg/dL Total Bilirubin 0.50 (0.2-1.3) mg/dL AST 23 (17-59) U/L ALT 18 (0-50) U/L Alkaline Phosphatase 63 (38-126) U/L Serum Total Protein 6.8 (6.3-8.2) g/dL Albumin 3.2 L (3.5-5.0) g/dL Slides for Path Review YES Micro Results-Entire Visit: Microbiology 03/21/24 08:15 Urine Culture - Final Urine, Void NO GROWTH 03/21/24 08:25 Blood Culture - Preliminary Blood 03/21/24 08:19 Blood Culture - Preliminary Blood Accuchecks Date 03/24/24 Date 03/23/24 Time 07:43 Time 11:54 - Radiology Exams Ordered Rad Exams-Entire Visit: Radiology Procedures Category Date Time Status CHEST 1 VIEW (PORTABLE) Routine Exams 03/24/24 07:00 Completed - Procedures and Test Procedures and Tests throughout Hospitalization: Therapy Orders & Screens 03/21/24 11:49 EKG REPEAT IN AM Comment: 03/21/24 13:19 Respiratory Therapy Consult ONCE Comment: Reason For Exam: Diagnosis: pneumonia 03/21/24 13:38 Oxygen NASAL CANNULA 6 lpm Comment: Diagnosis: pneumonia 03/21/24 18:45 Respiratory Therapy Assessment DAILY Comment: Diagnosis: pneumonia 03/21/24 19:53 RT Miscellaneous Order ROUTINE Comment: Physician Instructions: Reason For Exam: eval and treat Diagnosis: pneumonia Discharge Exam General Appearance: no apparent distress, alert Neurologic Exam: alert, oriented x 3, cooperative, normal mood/affect, nml cerebellar function, sensation nml, No motor deficits Eye Exam: PERRL, EOMI, eyes nml inspection Ears, Nose, Throat Exam: normal ENT inspection, pharynx normal, moist mucous membranes Neck Exam: normal inspection, non-tender, supple, full range of motion Respiratory Exam: normal breath sounds, lungs clear, No respiratory distress Cardiovascular Exam: regular rate/rhythm, normal heart sounds Gastrointestinal/Abdomen Exam: soft, No tenderness, No mass Male Genitalia Exam: deferred Rectal Exam: deferred Back Exam: normal inspection, normal range of motion, No CVA tenderness, No vertebral tenderness Extremity Exam: normal inspection, normal range of motion Skin Exam: normal color, warm, dry Wound Assessment: Skin/Wound Assessment Wound/Incision Assessment Start: 03/21/24 12:07 Text: Status: Active Freq: Q6H Protocol: Document 03/24/24 08:00 JV (Rec: 03/24/24 09:14 JV [id number]) Wound/Incision Assessment Right Lower Other Wound Assessment Shift Assessment Wound Type Abrasion Dressing Status Dry & Intact Drainage Amount None Primary Dressing mepilex LEFT OWER LEG Wound Assessment Shift Assessment Wound Type Abrasion Dressing Status Dry & Intact Drainage Amount None Primary Dressing mepilex Wound Photo Photo Taken No Final Diagnosis/Problem List - Final Discharge Diagnosis/Problem (1) CHF exacerbation Current Visit: Yes Status: Acute Code(s): I50.9 - HEART FAILURE, UNSPECIFIED (2) Pneumonia Current Visit: No Status: Acute Code(s): J18.9 - PNEUMONIA, UNSPECIFIED ORGANISM (3) Panic attack Current Visit: Yes Status: Resolved Code(s): F41.0 - PANIC DISORDER [EPISODIC PAROXYSMAL ANXIETY] (4) UTI (urinary tract infection) Current Visit: Yes Status: Resolved Code(s): N39.0 - URINARY TRACT INFECTION, SITE NOT SPECIFIED (5) Hypercalcemia Current Visit: No Status: Acute Code(s): E83.52 - HYPERCALCEMIA (6) Type II diabetes mellitus Current Visit: Yes Status: Acute (7) Anemia Current Visit: Yes Status: Chronic Code(s): D64.9 - ANEMIA, UNSPECIFIED (8) Obesity (BMI 30-39.9) Current Visit: Yes Status: Chronic Code(s): E66.9 - OBESITY, UNSPECIFIED (9) Obstructive sleep apnea Current Visit: Yes Status: Acute Code(s): G47.33 - OBSTRUCTIVE SLEEP APNEA (ADULT) (PEDIATRIC) (10) Vitamin D deficiency Current Visit: Yes Status: Chronic Assessment & Plan: (1) CHF exacerbation Current Visit: Yes Status: Acute Assessment & Plan: - BNP 4760 - ECHO 03/10- EF 50-55% IMPRESSION: 1. LOW NORMAL CONTRACTILITY OF THE LEFT VENTRICLE. 2. MILD CONCENTRIC LEFT VENTRICULAR HYPERTROPHY. 3. MILD TO MODERATE MITRAL REGURGITATION. 4. MILD TRICUSPID REGURGITATION. 5. MILD PULMONARY HYPERTENSION. 6. MILD PULMONIC REGURGITATION. - On BL O2 6lNC-97% - CXR 03/21 Portable apical lordotic demonstrates reaccumulation moderate right effusion. Stable mild left base infiltrate/atelectasis/effusion and cardiomegaly. Bony thorax intact - Chest CTA 03/21 Impression: 1. Continued negative for pulmonary embolus compared to CT PE exams January 25, February 24, and March 06, 2024. 2. Again cardiomegaly with interval worsening moderate bilateral pleural effusions. Rule out cardiac decapitation/CHF versus fluid overload. 3. New diffuse bilateral groundglass airspace disease. 4. Chronic findings including degenerative spondylosis, left adrenal adenoma, and tiny gallstone. - Lasix 20mg IV BID - Monitor electrolytes - TELE - Daily weights, I&O's 03/22/24 - On Baseline O2 6lNC 03/23/24 - On Baseline O2 6lNC - CXR in AM to eval progress of pleural effusions 03/24/24 - On 5lNC - CXR Portable apical lordotic demonstrates diminished cardiomegaly now within normal limits. Bilateral effusions/infiltrates/atelectasis have also improved with mild right and minimal left residual. No new cardiopulmonary abnormalities. Code(s): I50.9 - HEART FAILURE, UNSPECIFIED (2) Pneumonia Current Visit: No Status: Acute Assessment & Plan: - As seen on CT -IV Levaquin, steriods - tele - On BL O2 of 6LNC 97% - BC x2 pending 03/22 - WBC 11.1- likely 2:2 steroids 03/23 - WBC 11.4-likely 2:2 steroids 03/24 - CXR improved - WBC 16.1 2:2 steroids - Will continue Op Levaquin Code(s): J18.9 - PNEUMONIA, UNSPECIFIED ORGANISM (3) Panic attack Current Visit: Yes Status: Resolved Assessment & Plan: - resolved since admission - Gave IV Ativan in ER - has not been wearing oxygen at times - Noncompliance- admits to turning down O2 to 4lNC when needs 6lNC at baseline - Trazodone held d/t sleepiness 03/22 - resolved Code(s): F41.0 - PANIC DISORDER [EPISODIC PAROXYSMAL ANXIETY] (4) UTI (urinary tract infection) Current Visit: Yes Status: Acute Assessment & Plan: - UC negative Code(s): N39.0 - URINARY TRACT INFECTION, SITE NOT SPECIFIED (5) Hypercalcemia Current Visit: No Status: Acute Assessment & Plan: - Ca+ 12.0- recheck in AM - IV steroids - TELE 03/22 - Ca+ 10.7 - Pt has a hx of vit D deficiency- Vitamin D 12.8 on 12/27/23- daily supplement started PO today - PTH and TSH in AM - denies Abd pain - will need Op f/u with Pulm at d/c 03/23 - Ca+ 10.3- improved - Increased steroid dose to 40mg IV Q12 03/24 - Ca+ 9.1- resolved Code(s): E83.52 - HYPERCALCEMIA (6) Type II diabetes mellitus Current Visit: Yes Status: Acute Assessment & Plan: - hold metformin since had CTA - Continue all other home meds - accuchecks AC/HS - Humalog s/s - ADA diet - A1C 01/27/24- 6.24- controlled (7) Anemia Current Visit: Yes Status: Chronic Qualifiers: Anemia type: iron deficiency Assessment & Plan: - chronic iron def - Hgb 8.2 stable- trend - Continue ferrous sulfate 03/24 - Hgb 8.6 stable Code(s): D64.9 - ANEMIA, UNSPECIFIED (8) Obesity (BMI 30-39.9) Current Visit: Yes Status: Chronic Assessment & Plan: - advised ADA diet and exercise control Code(s): E66.9 - OBESITY, UNSPECIFIED (9) Obstructive sleep apnea Current Visit: Yes Status: Acute Assessment & Plan: - Witnessed apneas per staff last night - OP sleep study ordered - Pt reports he woke up from sleep feeling like he is gasping for air. Code(s): G47.33 - OBSTRUCTIVE SLEEP APNEA (ADULT) (PEDIATRIC) (10) Vitamin D deficiency Current Visit: Yes Status: Chronic Assessment & Plan: - Pt has a hx of vit D deficiency- Vitamin D 12.8 on 12/27/23- daily supplement started PO today - Possible cause for elevated Ca+- trend Code(s): E55.9 - VITAMIN D DEFICIENCY, UNSPECIFIED - Discharge Discharge Date: 03/24/24 Disposition: Home, Self-Care Condition: Fair Prescriptions: New Cholecalciferol (Vitamin D3) [Vitamin D] 1,000 unit PO DAILY 30 Days #30 tablet levoFLOXacin [Levofloxacin] 750 mg PO DAILY 5 Days #5 tablet Continue Sacubitril/Valsartan [Entresto 24 mg-26 mg Tablet] 1 tab PO BID Nitroglycerin 0.4 mg Tablet [Nitrostat 0.4 MG Tablet] 1 tab PO UD PRN PRN Reason: Chest Pain Empagliflozin [Jardiance] 25 mg PO DAILY Carvedilol 12.5 mg [Coreg 12.5 mg] 2 tab PO BID Atorvastatin Calcium 80 mg PO HS Aspirin 81 gm Chew [Baby Aspirin 81 mg Chew] 1 tab PO DAILY Trazodone HCl 50 mg [Desyrel 50 mg] 150 mg PO HS Spironolactone 25 mg [Aldactone 25 MG] 25 mg PO DAILY Amlodipine Besylate [Norvasc] 10 mg PO DAILY Folic Acid 1 mg [Folate 1 mg] 1 mg PO DAILY Citalopram Hydrobromide 20 mg* [ceLEXa 20 MG] 20 mg PO DAILY Aripiprazole [Abilify] 2 mg PO DAILY Bumetanide 0.5 mg PO DAILY Potassium Chloride 1 tab PO DAILY Testosterone Cypionate 1 ml IJ UD Glipizide 5 mg [Glucotrol 5 MG] 5 mg PO BID Famotidine 20 mg [Pepcid 20 MG] 20 mg PO DAILY Metformin HCl 500 mg [Glucophage 500 MG] 1,000 mg PO DAILY Ferrous Sulfate 325 mg [Feosol 325 mg] 325 mg PO DAILY 30 Days #30 tablet Outpatient Orders: Sleep Study Facility: [facility], Location: RESPIRATORY THERAPY Follow up with: MARLYN NOEL MD [Primary Care Provider] -
[2024-03-24 11:53] VITALS: BP 128/73; RESP 19; TEMP 97.5; O2SAT 96
== END 2024-03-24 14:11 | disposition home or self-care (01) ==
LOC: ED 07:22 → MED SURG 11:44
PROVIDERS: ADMIT Student in an Organized Health Care Education/Training Program; ATTEND Student in an Organized Health Care Education/Training Program
DX: I11.0 Hypertensive heart disease with heart failure (principal); I50.9 Heart failure, unspecified; J18.9 Pneumonia, unspecified organism; F41.0 Panic disorder [episodic paroxysmal anxiety]; N39.0 Urinary tract infection, site not specified; E11.9 Type 2 diabetes mellitus without complications; D64.9 Anemia, unspecified; E66.9 Obesity, unspecified; G47.33 Obstructive sleep apnea (adult) (pediatric); E55.9 Vitamin D deficiency, unspecified; E78.5 Hyperlipidemia, unspecified; Z79.899 Other long term (current) drug therapy; Z89.511 Acquired absence of right leg below knee
CPT/HCPCS: 0241U; 36000; 36415; 36600; 71045; 71260; 80053; 81001; 82375; 82803; 82947; 83735; 83880; 83970; 84145; 84443; 84484; 85025; 85027; 85379; 85610; 86308; 87040; 87086; 93005; 93041; 94640; 94760; 94762; 96365; 96374; 96375; 99284; 93268; J1650; J1817; J1940; J1956; J2060; J2919; J7609; Q3014; A9270-GY; G0378

== ENCOUNTER 2024-04-02 00:35 | Observation (INO) | payer OTHER ==
--- NOTE | 2024-04-02 00:54 | ERPHSYRPT ---
- History of Present Illness Time Seen by Provider: 04/02/24 00:50 Source: patient Exam Limitations: no limitations Physician History: 53-year-old male history of diabetes, right BKA presents to our ED via EMS for evaluation of hypoglycemia. Patient states he was alerted of the hypoglycemia by his Dexcom. Patient called EMS originally. Patient received D10. Blood white gar normalized. Patient observed that the blood sugar had dropped to 60 again EMS then brought patient to our ED. Prior to arrival to our ED glucose was 187. Glucose not trending downward. Glucoses now 64. Severity: moderate Associated Symptoms: denies symptoms Allergies/Adverse Reactions: Penicillins Allergy (Verified 04/02/24 00:40) Beta-Blockers (Beta-Adrenergic Bloc Adverse Reaction (Verified 04/02/24 00:40) Wheezing Home Medications: Aspirin 81 gm Chew [Baby Aspirin 81 mg Chew] 1 tab PO DAILY 02/22/23 [History] Atorvastatin Calcium 80 mg PO HS 02/22/23 [History] Carvedilol 12.5 mg [Coreg 12.5 mg] 2 tab PO BID 02/22/23 [History] Empagliflozin [Jardiance] 25 mg PO DAILY 02/22/23 [History] Nitroglycerin 0.4 mg Tablet [Nitrostat 0.4 MG Tablet] 1 tab PO UD PRN 02/22/23 [History] Sacubitril/Valsartan [Entresto 24 mg-26 mg Tablet] 1 tab PO BID 02/22/23 [His tory] Trazodone HCl 50 mg [Desyrel 50 mg] 150 mg PO HS 02/24/23 [History] Amlodipine Besylate [Norvasc] 10 mg PO DAILY 01/26/24 [History] Aripiprazole [Abilify] 2 mg PO DAILY 01/26/24 [History] Bumetanide 0.5 mg PO DAILY 01/26/24 [History] Citalopram Hydrobromide 20 mg* [ceLEXa 20 MG] 20 mg PO DAILY 01/26/24 [History] Folic Acid 1 mg [Folate 1 mg] 1 mg PO DAILY 01/26/24 [History] Potassium Chloride 1 tab PO DAILY 01/26/24 [History] Spironolactone 25 mg [Aldactone 25 MG] 25 mg PO DAILY 01/26/24 [History] Famotidine 20 mg [Pepcid 20 MG] 20 mg PO DAILY 03/06/24 [History] Glipizide 5 mg [Glucotrol 5 MG] 5 mg PO BID 03/06/24 [History] Metformin HCl 500 mg [Glucophage 500 MG] 1,000 mg PO DAILY 03/06/24 [History] Testosterone Cypionate 1 ml IJ UD 03/06/24 [History] Hx Tetanus, Diphtheria Vaccination/Date Given: Yes Hx Influenza Vaccination/Date Given: Yes Hx Pneumococcal Vaccination/Date Given: Yes Travel Risk - Emerging Infectious Disease Are you exhibiting symptoms associated with any current EIDs: Yes Symptoms: Cough: New Onset, Shortness of Breath - Review of Systems Constitutional: No Symptoms, No Fever, No Chills Eyes: No Symptoms Ears, Nose, & Throat: No Symptoms Respiratory: No Symptoms, No Cough, No Dyspnea Cardiac: No Symptoms, No Chest Pain, No Edema, No Syncope Abdominal/Gastrointestinal: No Symptoms, No Abdominal Pain, No Nausea, No Vomiting, No Diarrhea Genitourinary Symptoms: No Symptoms, No Dysuria Musculoskeletal: No Symptoms, No Back Pain, No Neck Pain Skin: No Symptoms, No Rash Neurological: No Symptoms, No Dizziness, No Focal Weakness, No Sensory Changes Psychological: No Symptoms Endocrine: No Symptoms Hematologic/Lymphatic: No Symptoms Immunological/Allergic: No Symptoms All Other Systems: Reviewed and Negative - Past Medical History Pertinent Past Medical History: Yes Neurological History: No Pertinent History, Peripheral Neuropathy ENT History: No Pertinent History Cardiac History: Angina, Congestive Heart Failure, Myocardial Infarction ([place]), High Cholesterol, Hypertension Respiratory History: CHF Endocrine Medical History: Diabetes Type II Musculoskeletal History: No Pertinent History, Other GI Medical History: No Pertinent History, GERD History: No Pertinent History Psycho-Social History: No Pertinent History, Depression Male Reproductive Disorders: No Pertinent History Other Medical History: diabetic foot ulcer that spread and has BKA - Past Surgical History Past Surgical History: Yes Neuro Surgical History: No Pertinent History Cardiac: No Pertinent History Respiratory: No Pertinent History Gastrointestinal: No Pertinent History Genitourinary: No Pertinent History Musculoskeletal: No Pertinent History, Amputation Male Surgical History: No Pertinent History Other Surgical History: BKA Significant Family History: no pertinent family hx - Social History Smoking Status: Former smoker How long have you smoked: 24 Exposure to second hand smoke: Yes Drug Use: marijuana Patient Lives Alone: No - Nursing Vital Signs Nursing Vital Signs: Initial Vital Signs Temperature 97.8 F 04/02/24 00:49 Pulse Rate 72 04/02/24 00:49 Respiratory Rate 19 04/02/24 00:49 Blood Pressure 101/65 04/02/24 00:49 O2 Sat by Pulse Oximetry 98 04/02/24 00:49 Pain Scale Pain Intensity 7 - Physical Exam General Appearance: no apparent distress, alert Eye Exam: PERRL/EOMI, eyes nml inspection Ears, Nose, Throat Exam: normal ENT inspection, moist mucous membranes Neck Exam: normal inspection, non-tender, supple, full range of motion Respiratory Exam: normal breath sounds, lungs clear, airway intact, No respiratory distress Cardiovascular Exam: regular rate/rhythm, normal heart sounds, normal peripheral pulses Gastrointestinal/Abdomen Exam: soft, normal bowel sounds, No tenderness, No mass Back Exam: normal inspection, normal range of motion, No CVA tenderness, No vertebral tenderness Extremity Exam: normal inspection, normal range of motion, pelvis stable Neurologic Exam: alert, oriented x 3, cooperative, normal mood/affect, nml cerebellar function, nml station & gait, sensation nml, No motor deficits Skin Exam: normal color, warm, dry, No rash Lymphatic Exam: No adenopathy SpO2 Interpretation: normal SpO2: 98 O2 Delivery: Room Air - Course Nursing assessment & vital signs reviewed: Yes Ordered Tests: Active Orders 24 hr Category Date Time Status Buzzsaw Operator Helper STAT Care 04/02/24 00:53 Active EKG-ER Only STAT Care 04/02/24 00:52 Active IV Insertion STAT Care 04/02/24 00:52 Active Pulse Oximetry (ED) STAT Care 04/02/24 00:52 Active CBC W DIFF Stat Lab 04/02/24 01:11 Completed POCT GLUCOSE Stat Lab 04/02/24 01:07 Completed POCT GLUCOSE Stat Lab 04/02/24 01:53 Received POCT GLUCOSE Stat Lab 04/02/24 01:54 Completed TROPONIN Q4H Lab 04/02/24 01:11 Completed TROPONIN Q4H Lab 04/02/24 05:00 Ordered TROPONIN Q4H Lab 04/02/24 09:00 Ordered UA W/RFX UR CULTURE Stat Lab 04/02/24 00:52 Ordered Transfer Order Routine Transfer 04/02/24 Ordered Medication Summary Generic Name Dose Route Start Last Admin Trade Name Sydnie PRN Reason Stop Dose Admin Dextrose 250 mls @ 10 mls/hr 04/02/24 01:00 04/02/24 01:00 Dextrose 10% 250 Ml IV 05/02/24 00:59 10 mls/hr .Q24H BRUNILDA Administration Discontinued Medications Generic Name Dose Route Start Last Admin Trade Name Sydnie PRN Reason Stop Dose Admin Dextrose 50 ml 04/02/24 01:26 04/02/24 01:27 Dextrose 50%-Water 50 Ml Abboject IV 04/02/24 01:27 50 ml STAT ONE Administration Dextrose Confirm 04/02/24 01:26 Dextrose 50%-Water 50 Ml Abboject Administered 04/02/24 01:27 Dose 50 ml IV .[employer]-Ret[employer] Im[employer] ONE Lab/Rad Data: Laboratory Result Diagrams 04/02/24 01:11 04/02/24 01:11 Laboratory Results 04/02/24 04/02/24 04/02/24 Range/Units 01:54 01:11 01:11 WBC (4.0-10.5) x10^3/uL RBC (4.1-5.6) x10^6/uL Hgb (12.5-18.0) g/dL Hct (42-50) % MCV (78-100) fL MCH (26-32) pg MCHC (32-36) g/dL RDW (11.5-14.0) % Plt Count (150-450) x10^3/uL MPV (7.5-11.0) fL Gran % (36.0-66.0) % Immature Gran % (Auto) (0.00-0.4) % Nucleat RBC Rel Count (0.00-0.1) % Eos # (Auto) (0-0.5) x10^3/uL Immature Gran # (Auto) (0.00-0.03) x10^3u/L Absolute Lymphs (auto) (1.0-4.6) x10^3/uL Absolute Monos (auto) (0.0-1.3) x10^3/uL Absolute Nucleated RBC (0.00-0.01) x10^3u/L Lymphocytes % (24.0-44.0) % Monocytes % (0.0-12.0) % Eosinophils % (0.00-5.0) % Basophils % (0.0-0.4) % Absolute Granulocytes (1.4-6.9) x10^3/uL Basophils # (0-0.4) x10^3/uL Sodium Direct 134 L (138-146) mmol/L Potassium 4.0 (3.5-4.9) mmol/L Chloride 97 L (98-109) mmol/L Carbon Dioxide 25 (24-29) mmol/L Venous BUN 41 H (8-26) mg/dL Creatinine 3.1 H (0.6-1.3) mg/dL Glucose 52 L (70-105) mg/dL POC Glucometer 114 H (74 to 106) mg/dL Ionized Calcium 1.38 H (1.12-1.32) mmol/L Troponin I 0.019 (0.000-0.033) ng/mL 04/02/24 04/02/24 Range/Units 01:11 01:07 WBC 9.2 (4.0-10.5) x10^3/uL RBC 2.72 L (4.1-5.6) x10^6/uL Hgb 8.0 L (12.5-18.0) g/dL Hct 26.0 L (42-50) % MCV 95.6 (78-100) fL MCH 29.4 (26-32) pg MCHC 30.8 L (32-36) g/dL RDW 18.6 H (11.5-14.0) % Plt Count 146 L (150-450) x10^3/uL MPV 13.6 H (7.5-11.0) fL Gran % 85.4 H (36.0-66.0) % Immature Gran % (Auto) 0.3 (0.00-0.4) % Nucleat RBC Rel Count 0.0 (0.00-0.1) % Eos # (Auto) 0.22 (0-0.5) x10^3/uL Immature Gran # (Auto) 0.03 (0.00-0.03) x10^3u/L Absolute Lymphs (auto) 0.37 L (1.0-4.6) x10^3/uL Absolute Monos (auto) 0.71 (0.0-1.3) x10^3/uL Absolute Nucleated RBC 0.00 (0.00-0.01) x10^3u/L Lymphocytes % 4.0 L (24.0-44.0) % Monocytes % 7.7 (0.0-12.0) % Eosinophils % 2.4 (0.00-5.0) % Basophils % 0.2 (0.0-0.4) % Absolute Granulocytes 7.88 H (1.4-6.9) x10^3/uL Basophils # 0.02 (0-0.4) x10^3/uL Sodium Direct (138-146) mmol/L Potassium (3.5-4.9) mmol/L Chloride (98-109) mmol/L Carbon Dioxide (24-29) mmol/L Venous BUN (8-26) mg/dL Creatinine (0.6-1.3) mg/dL Glucose (70-105) mg/dL POC Glucometer 60 L (74 to 106) mg/dL Ionized Calcium (1.12-1.32) mmol/L Troponin I (0.000-0.033) ng/mL - Progress Progress: improved Progress Note: 53-year-old male presents to our ED for evaluation of hypoglycemia. Physical exam essentially nonremarkable for acute pathology. Patient answering questions appropriately and mentating well. Upon arrival to our ED patient's blood glucose dropped down to 64 from 187. Patient received D10 and 1 amp of D50 upon arrival to our ED.. Glucose reassessed and is 114. Patient feels well and is asymptomatic. Patient received a sandwich as well in our ED. In light of patient's recurrent hypoglycemia patient admitted for further evaluation and treatment. Case discussed with Dr. Andrea hospitalist who accepts admission to observation at approximately 1:30 AM. Plan of care discussed with patient. Patient agrees to admission to [facility] for further evaluation and treatment. Portions of this note were created with voice recognition technology. There may be grammatical, spelling, punctuation or sound alike errors Complexity problem addressed is moderate acute complicated. No critical care time. Complex of data reviewed and analyzed is extensive. Test ordered test reviewed results analyzed and correlated clinically with history and physical examination. Management discussed with hospitalist who accepts admission to observation. Risk of complication and or risk of morbidity/mortality patient management is high. Patient requires hospitalization for further evaluation and treatment. Vital stable. Time spent to admit patient approximately 20 minutes. Plan of care established for shared decision making. No social determinants of health present impede follow-up. Portions of this note were created with voice recognition technology. There may be grammatical, spelling, punctuation or sound alike errors 04/02/24 02:07 Counseled pt/family regarding: lab results, diagnosis - Departure Departure Disposition: Observation Clinical Impression: Hypoglycemia, Acute renal injury Condition: Stable Critical Care Time: No Referrals: MARLYN NOEL MD [Primary Care Provider] - Follow up/PCP as directed Additional Instructions: Discharge/Care Plan ROSENDO MUNOZ was seen on 04/02/24 in the Emergency Room. The patient was counseled regarding Diagnosis,Lab results, Imaging studies, need for follow up and when to return to the Emergency Room. Prescriptions given: Discharge Note I have spoken with the patient and/or caregivers. I have explained the patient's condition, diagnosis and treatment plan based on the information available to me at this time. I have answered the patient's and/or caregiver's questions and addressed any concerns. The patient and/or caregivers have as good understanding of the patient's diagnosis, condition and treatment plan as can be expected at this point. The vital signs have been stable. The patient's condition is stable and appropriate for discharge from the emergency department. The patient will pursue further outpatient evaluation with the primary care physician or other designated or consulting physician as outlined in the discharge instructions. The patient and/or caregivers are agreeable to this plan of care and follow-up instructions have been explained in detail. The patient and/or caregivers have received these instruction. The patient/and or caregivers are aware that any significant change in condition or worsening of symptoms should prompt an immediate return to this or the closest emergency department or call 911.
[2024-04-02] MEDS: DEXTROSE 10% 250 ML 250 ML IV SCH ×2 (01:00→11:02)
[2024-04-02 01:15] LABS: Absolute Neutrophil Ct (ANC) 7.88 x10^3/uL (1.4-6.9); BASOPHIL % 0.2 % (0.0-0.4); Basophil (Absolute #) 0.02 x10^3/uL (0-0.4); Eosinophil % 2.4 % (0.00-5.0); Eosinophil (Absolute #) 0.22 x10^3/uL (0-0.5); IMMATURE GRAN # 0.03 x10^3u/L (0.00-0.03); IMMATURE GRAN % 0.3 % (0.00-0.4); Lymphocyte (Absolute #) 0.37 x10^3/uL (1.0-4.6); Mean Cell Volume 95.6 fL (78-100); Mean Corpuscular Hemoglobin 29.4 pg (26-32); Mean Corpuscular Hgb Concent. 30.8 g/dL (32-36); Mean Platelet Volume 13.6 fL (7.5-11.0); Monocyte (Absolute #) 0.71 x10^3/uL (0.0-1.3); Monocytes % 7.7 % (0.0-12.0); Neutrophil % 85.4 % (36.0-66.0); Platelet Count 146 x10^3/uL (150-450); Red Blood Count 2.72 x10^6/uL (4.1-5.6); Red Cell Distribution Width 18.6 % (11.5-14.0); White Blood Count 9.2 x10^3/uL (4.0-10.5)
[2024-04-02 01:19] LABS: ISTAT iCA 1.38 mmol/L (1.12-1.32)
[2024-04-02 01:20] LABS: ISTAT CREA 3.1 mg/dL (0.6-1.3)
[2024-04-02] MEDS ORDERED: D50W 50 ml Abboject IV ONE ×2 (01:26→06:29)
[2024-04-02] MEDS: D50W 50 ml Abboject IV ONE ×2 (01:27→08:41)
[2024-04-02] MEDS ORDERED: Docusate Sodium 100 MG PO PRN (04:11)
--- NOTE | 2024-04-02 04:27 | PCM.HP ---
History of Present Illness - Chief Complaint Chief Complaint: Hypoglycemia acute renal injury Date: 04/02/24 History of Present Illness: Mr. MUNOZ is a 53 year old male with a past medical history significant for hypertension, diabetes, hyperlipidemia, PAD status post R BKA, CHF and what appears to be some mild CKD with a baseline creatinine ~ 1.1-1.4 with recent hospitalization about two weeks ago who presents to the hospital with multiple episodes of hypoglycemia where blood sugars would drop into the 60s. He received one amp D50 with initial improvement, but it dropped once again. Initial labs demonstrated a sharp rise in his creatinine up to 3.1, so he was recommended for admission. He is evaluated in bed via telehealth, awake/alert. No fever/chills. No chest pain or shortness of breath. No nausea, vomiting or diarrhea. He reports that his sugars have dropped in the past before. He has been taking Glucotrol, Metformin, and possibly Jardiance but cannot recall when he may have stopped it. - Review of Systems Constitutional: No Fever, No Chills Eyes: No Vision Changes Ears, Nose, & Throat: No Nose Discharge Respiratory: No Cough, No Orthopnea, No Short Of Breath Cardiac: No Chest Pain, No Edema, No Palpitations Abdominal/Gastrointestinal: No Abdominal Pain, No Nausea, No Vomiting, No Diarrhea Genitourinary Symptoms: No Dysuria, No Frequency, No Hematuria Musculoskeletal: No Arthralgias Skin: No Cellulitis, No Rash Neurological: No Dizziness, No Focal Weakness Psychological: No Suicidal Ideations Endocrine: No Polyuria, No Polydipsia Hematologic/Lymphatic: No Blood Clots, No Easy Bleeding Medications & Allergies Home Medications: Home Medication List Aspirin 81 gm Chew [Baby Aspirin 81 mg Chew] 1 tab PO DAILY 02/22/23 [History Confirmed 04/02/24] Atorvastatin Calcium 80 mg PO HS 02/22/23 [History Confirmed 04/02/24] Carvedilol 12.5 mg [Coreg 12.5 mg] 2 tab PO BID 02/22/23 [History Confirmed 04/02/24] Empagliflozin [Jardiance] 25 mg PO DAILY 02/22/23 [History Confirmed 04/02/24] Nitroglycerin 0.4 mg Tablet [Nitrostat 0.4 MG Tablet] 1 tab PO UD PRN 02/22/23 [History Confirmed 04/02/24] Sacubitril/Valsartan [Entresto 24 mg-26 mg Tablet] 1 tab PO BID 02/22/23 [History Confirmed 04/02/24] Trazodone HCl 50 mg [Desyrel 50 mg] 150 mg PO HS 02/24/23 [History Confirmed 04/02/24] Amlodipine Besylate [Norvasc] 10 mg PO DAILY 01/26/24 [History Confirmed 04/02/24] Aripiprazole [Abilify] 2 mg PO DAILY 01/26/24 [History Confirmed 04/02/24] Bumetanide 0.5 mg PO DAILY 01/26/24 [History Confirmed 04/02/24] Citalopram Hydrobromide 20 mg* [ceLEXa 20 MG] 20 mg PO DAILY 01/26/24 [History Confirmed 04/02/24] Folic Acid 1 mg [Folate 1 mg] 1 mg PO DAILY 01/26/24 [History Confirmed 04/02/24] Potassium Chloride 1 tab PO DAILY 01/26/24 [History Confirmed 04/02/24] Spironolactone 25 mg [Aldactone 25 MG] 25 mg PO DAILY 01/26/24 [History Confirmed 04/02/24] Famotidine 20 mg [Pepcid 20 MG] 20 mg PO DAILY 03/06/24 [History Confirmed 04/02/24] Glipizide 5 mg [Glucotrol 5 MG] 5 mg PO BID 03/06/24 [History Confirmed 04/02/24] Metformin HCl 500 mg [Glucophage 500 MG] 1,000 mg PO DAILY 03/06/24 [History Confirmed 04/02/24] Testosterone Cypionate 1 ml IJ UD 03/06/24 [History Confirmed 04/02/24] Ferrous Sulfate 325 mg [Feosol 325 mg] 325 mg PO DAILY 30 Days #30 tablet 03/12/24 [Rx Confirmed 04/02/24] Cholecalciferol (Vitamin D3) [Vitamin D] 1,000 unit PO DAILY 30 Days #30 tablet 03/24/24 [Rx Confirmed 04/02/24] levoFLOXacin [Levofloxacin] 750 mg PO DAILY 5 Days #5 tablet 03/24/24 [Rx Confirmed 04/02/24] Allergies/Adverse Reactions: Allergies Allergy/AdvReac Type Severity Reaction Status Date / Time Penicillins Allergy Verified 04/02/24 00:40 Beta-Blockers AdvReac Wheezing Verified 04/02/24 00:40 (Beta-Adrenergic Bloc - Past Medical History Past Medical History: Yes Neurological History: No Pertinent History, Peripheral Neuropathy ENT History: No Pertinent History Cardiac History: Angina, Congestive Heart Failure, Myocardial Infarction (AL), High Cholesterol, Hypertension Respiratory History: CHF Endocrine Medical History: Diabetes Type II Musculoskelatal History: No Pertinent History, Other GI Medical History: No Pertinent History, GERD History: No Pertinent History Pyscho-Social History: No Pertinent History, Depression Male Reproductive Disorders: No Pertinent History Comment: diabetic foot ulcer that spread and has BKA - Past Surgical History Past Surgical History: Yes Neuro Surgical History: No Pertinent History Cardiac History: No Pertinent History Respiratory Surgery: No Pertinent History GI Surgical History: No Pertinent History Genitourinary Surgical Hx: No Pertinent History Musculskeletal Surgical Hx: No Pertinent History, Amputation Male Surgical History: No Pertinent History Other Surgical History: BKA Significant Family History: no pertinent family hx - Social History Smoking Status: Former smoker How long have you smoked: 24 Exposure to second hand smoke: Yes Alcohol: Weekly Drug Use: marijuana - Social Determinants of Health Will the patient participate in the screening: Yes Do you worry about a steady place to live?: No Do you have any problems with any of the following?: No known problems In the past 12 months,have you had to go without utilities?: No Have you or anyone in your house had to go without enough: No Transportation Issues: No Has anyone in your support network made you feel unsafe?: No Does the patient want assistance with any of the above?: No - Physical Exam Vital Signs: Vital Signs - 24 hr Temp Pulse Resp BP BP Pulse Ox 04/02/24 03:36 69 20 116/61 97 04/02/24 02:50 71 14 111/65 99 04/02/24 02:40 69 97 04/02/24 02:13 98 04/02/24 02:00 72 17 105/64 99 04/02/24 01:30 72 16 114/74 100 04/02/24 01:13 99 04/02/24 01:00 72 19 110/66 99 04/02/24 00:49 97.8 F 72 19 101/65 98 Oxygen-Last 24 hours Oxygen Flowrate (L/min)-RT 5 General Appearance: no apparent distress Neurologic Exam: alert, oriented x 3 Ears, Nose, Throat Exam: dry mucous membranes Neck Exam: supple Respiratory Exam: No respiratory distress Cardiovascular Exam: regular rate/rhythm Gastrointestinal/Abdomen Exam: soft Extremity Exam: No pedal edema, No swelling Skin Exam: normal color, No rash, No petechiae Results - Labs Lab/Micro Results: Lab Results-Last 24 Hours 04/02/24 04/02/24 04/02/24 Range/Units 01:07 01:11 01:11 WBC 9.2 (4.0-10.5) x10^3/uL RBC 2.72 L (4.1-5.6) x10^6/uL Hgb 8.0 L (12.5-18.0) g/dL Hct 26.0 L (42-50) % MCV 95.6 (78-100) fL MCH 29.4 (26-32) pg MCHC 30.8 L (32-36) g/dL RDW 18.6 H (11.5-14.0) % Plt Count 146 L (150-450) x10^3/uL MPV 13.6 H (7.5-11.0) fL Gran % 85.4 H (36.0-66.0) % Immature Gran % (Auto) 0.3 (0.00-0.4) % Nucleat RBC Rel Count 0.0 (0.00-0.1) % Eos # (Auto) 0.22 (0-0.5) x10^3/uL Immature Gran # (Auto) 0.03 (0.00-0.03) x10^3u/L Absolute Lymphs (auto) 0.37 L (1.0-4.6) x10^3/uL Absolute Monos (auto) 0.71 (0.0-1.3) x10^3/uL Absolute Nucleated RBC 0.00 (0.00-0.01) x10^3u/L Lymphocytes % 4.0 L (24.0-44.0) % Monocytes % 7.7 (0.0-12.0) % Eosinophils % 2.4 (0.00-5.0) % Basophils % 0.2 (0.0-0.4) % Absolute Granulocytes 7.88 H (1.4-6.9) x10^3/uL Basophils # 0.02 (0-0.4) x10^3/uL Sodium Direct 134 L (138-146) mmol/L Potassium 4.0 (3.5-4.9) mmol/L Chloride 97 L (98-109) mmol/L Carbon Dioxide 25 (24-29) mmol/L Venous BUN 41 H (8-26) mg/dL Creatinine 3.1 H (0.6-1.3) mg/dL Glucose 52 L (70-105) mg/dL POC Glucometer 60 L (74 to 106) mg/dL Ionized Calcium 1.38 H (1.12-1.32) mmol/L Troponin I (0.000-0.033) ng/mL 04/02/24 04/02/24 04/02/24 Range/Units 01:11 01:54 03:10 WBC (4.0-10.5) x10^3/uL RBC (4.1-5.6) x10^6/uL Hgb (12.5-18.0) g/dL Hct (42-50) % MCV (78-100) fL MCH (26-32) pg MCHC (32-36) g/dL RDW (11.5-14.0) % Plt Count (150-450) x10^3/uL MPV (7.5-11.0) fL Gran % (36.0-66.0) % Immature Gran % (Auto) (0.00-0.4) % Nucleat RBC Rel Count (0.00-0.1) % Eos # (Auto) (0-0.5) x10^3/uL Immature Gran # (Auto) (0.00-0.03) x10^3u/L Absolute Lymphs (auto) (1.0-4.6) x10^3/uL Absolute Monos (auto) (0.0-1.3) x10^3/uL Absolute Nucleated RBC (0.00-0.01) x10^3u/L Lymphocytes % (24.0-44.0) % Monocytes % (0.0-12.0) % Eosinophils % (0.00-5.0) % Basophils % (0.0-0.4) % Absolute Granulocytes (1.4-6.9) x10^3/uL Basophils # (0-0.4) x10^3/uL Sodium Direct (138-146) mmol/L Potassium (3.5-4.9) mmol/L Chloride (98-109) mmol/L Carbon Dioxide (24-29) mmol/L Venous BUN (8-26) mg/dL Creatinine (0.6-1.3) mg/dL Glucose (70-105) mg/dL POC Glucometer 114 H 85 (74 to 106) mg/dL Ionized Calcium (1.12-1.32) mmol/L Troponin I 0.019 (0.000-0.033) ng/mL 04/02/24 Range/Units 03:56 WBC (4.0-10.5) x10^3/uL RBC (4.1-5.6) x10^6/uL Hgb (12.5-18.0) g/dL Hct (42-50) % MCV (78-100) fL MCH (26-32) pg MCHC (32-36) g/dL RDW (11.5-14.0) % Plt Count (150-450) x10^3/uL MPV (7.5-11.0) fL Gran % (36.0-66.0) % Immature Gran % (Auto) (0.00-0.4) % Nucleat RBC Rel Count (0.00-0.1) % Eos # (Auto) (0-0.5) x10^3/uL Immature Gran # (Auto) (0.00-0.03) x10^3u/L Absolute Lymphs (auto) (1.0-4.6) x10^3/uL Absolute Monos (auto) (0.0-1.3) x10^3/uL Absolute Nucleated RBC (0.00-0.01) x10^3u/L Lymphocytes % (24.0-44.0) % Monocytes % (0.0-12.0) % Eosinophils % (0.00-5.0) % Basophils % (0.0-0.4) % Absolute Granulocytes (1.4-6.9) x10^3/uL Basophils # (0-0.4) x10^3/uL Sodium Direct (138-146) mmol/L Potassium (3.5-4.9) mmol/L Chloride (98-109) mmol/L Carbon Dioxide (24-29) mmol/L Venous BUN (8-26) mg/dL Creatinine (0.6-1.3) mg/dL Glucose (70-105) mg/dL POC Glucometer 75 (74 to 106) mg/dL Ionized Calcium (1.12-1.32) mmol/L Troponin I (0.000-0.033) ng/mL Assessment/Plan (1) Hypoglycemia Current Visit: Yes Status: Chronic Assessment & Plan: Likely from delayed excretion of sulfonylurea, Metformin, Jardiance, [place] insulin in setting of GHANSHYAM 1. Admit to hospital 2. D10 IVFs to keep up blood sugars 3. Hold Metformin, Jardiance, Glucotrol 4. Monitor blood sugars closely Code(s): E16.2 - HYPOGLYCEMIA, UNSPECIFIED (2) GHANSHYAM (acute kidney injury) Current Visit: Yes Status: Acute Assessment & Plan: Likely from overdiuresis in setting of Entresto, creatinine up to 3.1 (baseline appears to be 1.1-1.4) 1. IVFs 2. Hold diuretics, Entresto 3. Renal u/s 4. Follow I/Os 5. Watch electrolytes, creatinine closely - no need for dialysis yet, hopefully can avoid Code(s): N17.9 - ACUTE KIDNEY FAILURE, UNSPECIFIED (3) Hypertensive chronic kidney disease with stage 1 through stage 4 chronic kidney disease, or unspecified chronic kidney disease Current Visit: Yes Status: Acute Assessment & Plan: Blood pressure appears reasonable, a little on the low side due to hypovolemia 1. Hold Entresto 2. Continue Amlodipine, Carvedilol 3. Monitor blood pressure readings Code(s): I12.9 - HYPERTENSIVE CHRONIC KIDNEY DISEASE W STG 1-4/UNSP CHR KDNY (4) Chronic kidney disease in type 2 diabetes mellitus Current Visit: Yes Status: Acute Qualifiers: Chronic kidney disease stage: stage 3 (moderate) Chronic kidney disease stage 3 subtype: stage 3a (GFR 45-59) Code(s): E11.22 - TYPE 2 DIABETES MELLITUS W DIABETIC CHRONIC KIDNEY DISEASE (5) PAD (peripheral artery disease) Current Visit: Yes Status: Acute Assessment & Plan: Status post R BKA 1. Bedrest 2. DVT prophylaxis 3. PT eval Code(s): I73.9 - PERIPHERAL VASCULAR DISEASE, UNSPECIFIED (6) CHF (congestive heart failure) Current Visit: No Status: Acute Qualifiers: Heart failure type: systolic Heart failure chronicity: chronic Qualified Code(s): I50.22 - Chronic systolic (congestive) heart failure Assessment & Plan: Clinically euvolemic if not on the dry side 1. Hold diuretics 2. Hold Entresto 3. Continue telemetry 4. Monitor for signs/symptoms of fluid overload with gentle IVFs Code(s): I50.9 - HEART FAILURE, UNSPECIFIED Telemedicine Encounter - Telemedicine Encounter Telemedicine Encounter: The entirety of this encounter was performed via Telemedicine"
[2024-04-02 05:06] LABS: Hematocrit 22.5 % (42-50); Hemoglobin 7.1 g/dL (12.5-18.0); Mean Cell Volume 94.9 fL (78-100); Mean Corpuscular Hgb Concent. 31.6 g/dL (32-36); Mean Platelet Volume 13.7 fL (7.5-11.0); Platelet Count 134 x10^3/uL (150-450); Red Blood Count 2.37 x10^6/uL (4.1-5.6); Red Cell Distribution Width 18.9 % (11.5-14.0); White Blood Count 8.7 x10^3/uL (4.0-10.5)
[2024-04-02 05:29] LABS: PREALBUMIN 20.59 mg/dL (17.6-36.0); TROPONIN 0.018 ng/mL (0.000-0.033)
[2024-04-02] MEDS: TYLENOL 325 MG PO PRN (06:11)
[2024-04-02 08:51] LABS: Appearance Turbid (Clear); Bacteria None Seen /HPF (None Seen); Bilirubin Negative (Negative); Blood Moderate (Negative); Epithelial Cells Many /HPF (None Seen); Glucose, Urine 250 mg/dL (Negative); Hyaline Casts NONE SEEN /LPF (0-2); Ketones Negative (Negative); Leukocyte Esterase Large (Negative); Nitrite Negative (Negative); Protein,Urine Dip 100 (Negative); RBC >100 /HPF (0-5); Urobilinogen 0.2 mg/dL (0.2); WBC >100 /HPF (0-5)
[2024-04-02 08:54] LABS: ADD URINE CULTURE? YES (NO); Budding Yeast Moderate /HPF (None Seen)
[2024-04-02] MEDS ORDERED: MEDICATION INTERVENTION MC SCH (09:00)
[2024-04-02] MEDS: ceLEXa 20 MG PO SCH (09:36)
[2024-04-02] MEDS: VITAMIN D PO SCH (09:36)
[2024-04-02] MEDS: ECOTRIN 81 MG PO SCH (09:36)
[2024-04-02] MEDS: Protonix 40MG Tablet PO SCH (09:37)
[2024-04-02] MEDS: FEOSOL 325 MG PO SCH (09:37)
[2024-04-02] MEDS: ENOXAPARIN SODIUM SQ SCH (09:38)
[2024-04-02] MEDS: FOLATE 1 MG PO SCH (09:38)
[2024-04-02] MEDS ORDERED: BABY ASPIRIN 81 MG CHEW PO SCH (10:00)
[2024-04-02] MEDS ORDERED: NON-FORMULARY ITEM (Amlodipine Besylate [Norvasc] 10 MG Tablet) PO SCH (10:00)
[2024-04-02] MEDS ORDERED: NON-FORMULARY ITEM (Aripiprazole [Abilify] 2 MG Tablet) PO SCH (10:00)
[2024-04-02] MEDS: Sodium Chloride 0.9% 500 ML 500 ML IV SCH (11:26)
--- NOTE | 2024-04-02 11:26 | XRAY ---
Indication: Acute kidney injury. Two-dimensional renal sonogram performed. Comparison: None Both kidneys normal in reniform shape with normal color perfusion. Right kidney measures 12.4 x 6.1 x 6.3 cm and left measures 12.2 x 6.2 x 5.2 cm. No focal solid/cystic renal mass or hydronephrosis. Cortical medullary differentiation preserved. Normally distended urinary bladder is grossly unremarkable. Ureteral jets not seen within the allotted exam time. Impression: Negative renal sonogram.
[2024-04-02 11:29] LABS: ABO TYPING A; Antibody Screen NEGATIVE (NEGATIVE); RH TYPING POSITIVE
[2024-04-02 11:36] LABS: CROSS MATCH (PRBC) COMPATIBLE (COMPATIBLE)
[2024-04-02] MEDS: NORVASC 5 MG PO SCH (13:29)
[2024-04-02] MEDS: COREG 12.5 MG PO SCH (13:29)
[2024-04-02] MEDS: ROCEPHIN 2 GM/100 ML NACL 2 GM/100 ML IVPB IV SCH (14:32)
[2024-04-02 16:04] LABS: Hematocrit 24.6 % (42-50); Hemoglobin 7.6 g/dL (12.5-18.0)
[2024-04-02 16:17] LABS: ANION GAP 9.2 MEQ/L (5-15); Calcium 9.6 mg/dL (8.4-10.2); Creatinine 1 2.74 mg/dL (0.66-1.25); EST GLOMERULAR FILTRATION RATE 26.9 ML/MIN; Potassium 4.3 mmol/L (3.5-5.1)
[2024-04-02] MEDS: ZOCOR 20MG PO SCH (21:24)
[2024-04-02] MEDS ORDERED: DESYREL 50 MG PO SCH (22:00)
[2024-04-02] MEDS ORDERED: NON-FORMULARY ITEM (Atorvastatin Calcium [Atorvastatin Calcium] 80 MG Tablet) PO SCH (22:00)
[2024-04-02] MEDS ORDERED: Desyrel 150 MG PO SCH (22:00)
[2024-04-03] MEDS: D50W 50 ml Abboject IV PRN (01:45)
[2024-04-03] MEDS: NORCO 5/325 MG PO PRN (01:58)
[2024-04-03 05:05] LABS: Hematocrit 23.5 % (42-50); Hemoglobin 7.4 g/dL (12.5-18.0); Mean Corpuscular Hemoglobin 29.6 pg (26-32); Mean Corpuscular Hgb Concent. 31.5 g/dL (32-36); Mean Platelet Volume 14.3 fL (7.5-11.0); Platelet Count 115 x10^3/uL (150-450); Red Cell Distribution Width 18.6 % (11.5-14.0); White Blood Count 8.5 x10^3/uL (4.0-10.5)
[2024-04-03 05:27] LABS: ALBUMIN 3.3 g/dL (3.5-5.0); ANION GAP 9.7 MEQ/L (5-15); BILIRUBIN,TOTAL 0.5 mg/dL (0.2-1.3); Calcium 9.1 mg/dL (8.4-10.2); Creatinine 1 2.52 mg/dL (0.66-1.25); EST GLOMERULAR FILTRATION RATE 29.7 ML/MIN; Potassium 4.2 mmol/L (3.5-5.1); Total Protein 6.2 g/dL (6.3-8.2)
[2024-04-03 07:18] LABS: Lymphocytes 6 % (24-44); Monocyte 9 % (0.0-12.0); Neutrophils 85 % (36.-66.); Total Cells Counted 100
[2024-04-03 07:19] LABS: Hypochromia 2+; Platelet Estimate DECREASED (NORMAL)
[2024-04-03] MEDS: Sodium Chloride 0.9% 1000 ML 1,000 ML IV STA (10:06)
--- NOTE | 2024-04-03 10:38 | XRAY ---
Indication: Short of breath. Comparison: March 24, 2024 Portable chest less inflated again with bilateral effusions/infiltrates/atelectasis, grossly stable on the right and mildly worsened left base. Heart now borderline enlarged possibly due to underinflation. No other cardiopulmonary abnormalities.
[2024-04-03] MEDS: PHARMACY RENAL DOSING MC ONE (10:42)
[2024-04-03] MEDS: Diflucan 100 MG PO SCH (10:46)
--- NOTE | 2024-04-03 11:41 | PCM.NOTE ---
Date and Time: 04/03/24 1125 Subjective Assessment: Mr. MUNOZ is a 53 year old male with a past medical history significant for hypertension, diabetes, hyperlipidemia, PAD status post R BKA, CHF and what appears to be some mild CKD with a baseline creatinine ~ 1.1-1.4 with recent hospitalization about two weeks ago who presents to the hospital with multiple episodes of hypoglycemia where blood sugars would drop into the 60s. He received one amp D50 with initial improvement, but it dropped once again. Initial labs demonstrated a sharp rise in his creatinine up to 3.1, so he was recommended for admission. He is evaluated in bed via telehealth, awake/alert. No fever/chills. No chest pain or shortness of breath. No nausea, vomiting or diarrhea. He re ports that his sugars have dropped in the past before. He has been taking Glucotrol, Metformin, and possibly Jardiance but cannot recall when he may have stopped it. 04/03/24: Met with patient bedside. Overnight events noted, patient hypotensive and retaining urine with PVR >400 x 2. Patient states he is feeling better today but is very drowsy during interview. He was transfused one unit of LPRBC yesterday with mild improvement of hgb now at 7.4. Kidney function and blood glucose levels have improved some. Plan for 1L fluid bolus. Will anchor loco. Iron studies with occult stools. TSH level is elevated, will add FT4, most likely will start levothyroxine. Vitamin D level is low, will start vitamin D regimen weekly. CXR showing bilateral effusions/infiltrates/atelectasis L>R. Most recent echo with EF of 50-55%, will continue to hold Jardiance/entresto until OP follow up with cardiology. <DORIAN BRADEN - Last Filed: 04/03/24 11:25> Date and Time: 04/03/242051 <RAKAN LYON - Last Filed: 04/03/24 20:55> - Review of Systems Constitutional: Fatigue, Lethargy Eyes: No Symptoms Ears, Nose, & Throat: No Symptoms Respiratory: Cough, Short Of Breath Cardiac: Edema Abdominal/Gastrointestinal: No Symptoms Genitourinary Symptoms: Urinary Retention Musculoskeletal: Back Pain, Other (RBKA) Skin: No Symptoms Neurological: No Symptoms Psychological: Depression Hematologic/Lymphatic: Anemia Immunological/Allergic: No Symptoms <DORIAN BRADEN - Last Filed: 04/03/24 11:25> Objective Exam General Appearance: no apparent distress Neurologic Exam: alert, oriented x 3, cooperative Skin Exam: pale Eye Exam: PERRL Ears, Nose, Throat Exam: normal ENT inspection Neck Exam: normal inspection Respiratory Exam: diminished breath sounds, crackles/rales Cardiovascular Exam: regular rate/rhythm, normal heart sounds Gastrointestinal/Abdomen Exam: soft, normal bowel sounds Extremity Exam: amputations (RBKA), inflammation (LLE +2 pitting), pedal edema Back Exam: normal inspection Male Genitalia Exam: deferred Rectal Exam: deferred <DORIAN BRADEN - Last Filed: 04/03/24 11:25> Objective Data Vital Signs: Vital Signs - 24 hr Temp Pulse Resp BP Pulse Ox 04/03/24 11:01 67 21 92/52 97 04/03/24 10:01 60 15 95/60 100 04/03/24 09:21 61 14 96/57 98 04/03/24 09:01 61 14 84/51 98 04/03/24 08:01 97.3 F 61 16 90/60 97 04/03/24 08:00 61 04/03/24 07:36 99 04/03/24 07:01 62 12 108/53 100 04/03/24 06:08 60 17 103/67 04/03/24 06:07 60 15 95 04/03/24 06:00 60 14 92 L 04/03/24 05:50 60 13 99 04/03/24 05:40 62 16 04/03/24 05:30 62 19 04/03/24 05:20 63 18 93 L 04/03/24 05:10 62 20 95 04/03/24 05:02 65 13 103/67 88 L 04/03/24 04:00 98.8 F 61 14 105/68 98 04/03/24 03:55 61 16 96/63 97 04/03/24 03:54 61 12 97 04/03/24 03:50 61 19 04/03/24 03:40 61 19 04/03/24 03:30 61 16 04/03/24 03:20 62 16 100 04/03/24 03:10 62 15 98 04/03/24 03:02 61 19 96/67 98 04/03/24 02:29 64 04/03/24 02:00 63 15 110/66 04/03/24 01:17 63 20 105/66 95 04/03/24 01:10 62 20 94 L 04/03/24 01:00 62 21 95 04/03/24 00:01 63 04/03/24 00:00 63 13 95/66 94 L 04/02/24 23:00 63 19 99/75 100 04/02/24 22:03 63 17 105/69 98 04/02/24 22:02 61 14 99 04/02/24 22:01 61 12 04/02/24 21:00 61 15 111/66 99 04/02/24 20:00 98.6 F 62 19 101/60 93 L 04/02/24 19:00 63 17 99/65 99 04/02/24 18:33 99 04/02/24 18:00 62 16 98/62 97 04/02/24 17:00 63 12 101/62 99 04/02/24 16:00 97.0 F 63 16 88/60 96 04/02/24 15:00 62 18 101/62 97 04/02/24 14:45 63 18 96/60 04/02/24 14:00 63 18 89/57 93 L 04/02/24 13:00 62 16 100/59 100 04/02/24 12:38 97.1 F 63 19 96/62 98 04/02/24 12:07 63 18 94/61 99 04/02/24 12:00 64 17 100/68 99 04/02/24 11:44 97.1 F 67 19 91/61 96 Pain Assessment - Last Documented Pain Intensity 0 Pain Scale Used FLACC Intake and Output: Intake & Output 03/31/24 04/01/24 04/02/24 04/03/24 11:59 11:59 11:59 11:59 Intake Total 500 1580 Output Total 550 1650 Balance -50 -70 Weight 144 kg 144.7 kg Lab Results: Lab Results-Last 24 Hours 04/02/24 04/02/24 04/02/24 Range/Units 05:00 15:48 15:48 WBC (4.0-10.5) x10^3/uL RBC (4.1-5.6) x10^6/uL Hgb 7.6 L (12.5-18.0) g/dL Hct 24.6 L (42-50) % MCV (78-100) fL MCH (26-32) pg MCHC (32-36) g/dL RDW (11.5-14.0) % Plt Count (150-450) x10^3/uL MPV (7.5-11.0) fL Segmented Neutrophils (36.-66.) % Lymphocytes (Manual) (24-44) % Monocytes (Manual) (0.0-12.0) % Hypochromia Platelet Estimate (NORMAL) RBC Morphology Sodium 130 L (135-145) mmol/L Potassium 4.3 (3.5-5.1) mmol/L Chloride 99 (98-107) mmol/L Carbon Dioxide 27 (22-30) mmol/L Anion Gap 9.2 (5-15) MEQ/L BUN 48 H (9-20) mg/dL Creatinine 2.74 H (0.66-1.25) mg/dL Estimated GFR 26.9 ML/MIN Glucose 117 H (74-106) mg/dL Calcium 9.6 (8.4-10.2) mg/dL Total Bilirubin (0.2-1.3) mg/dL AST (17-59) U/L ALT (0-50) U/L Alkaline Phosphatase (38-126) U/L Serum Total Protein (6.3-8.2) g/dL Albumin (3.5-5.0) g/dL 25-OH Vitamin D Total 22.8 L (30-100) ng/mL TSH 3rd Generation (0.470-4.680) mIU/L ABO Group Rh Factor Antibody Screen (NEGATIVE) Crossmatch (COMPATIBLE) 04/02/24 04/03/24 04/03/24 Range/Units Unknown 04:50 04:50 WBC 8.5 (4.0-10.5) x10^3/uL RBC 2.50 L (4.1-5.6) x10^6/uL Hgb 7.4 L (12.5-18.0) g/dL Hct 23.5 L (42-50) % MCV 94.0 (78-100) fL MCH 29.6 (26-32) pg MCHC 31.5 L (32-36) g/dL RDW 18.6 H (11.5-14.0) % Plt Count 115 L (150-450) x10^3/uL MPV 14.3 H (7.5-11.0) fL Segmented Neutrophils 85 H (36.-66.) % Lymphocytes (Manual) 6 L (24-44) % Monocytes (Manual) 9 (0.0-12.0) % Hypochromia 2+ Platelet Estimate DECREASED (NORMAL) RBC Morphology ABNORMAL Sodium 129 L (135-145) mmol/L Potassium 4.2 (3.5-5.1) mmol/L Chloride 98 (98-107) mmol/L Carbon Dioxide 26 (22-30) mmol/L Anion Gap 9.7 (5-15) MEQ/L BUN 52 H (9-20) mg/dL Creatinine 2.52 H (0.66-1.25) mg/dL Estimated GFR 29.7 ML/MIN Glucose 115 H (74-106) mg/dL Calcium 9.1 (8.4-10.2) mg/dL Total Bilirubin 0.50 (0.2-1.3) mg/dL AST 24 (17-59) U/L ALT 20 (0-50) U/L Alkaline Phosphatase 60 (38-126) U/L Serum Total Protein 6.2 L (6.3-8.2) g/dL Albumin 3.3 L (3.5-5.0) g/dL 25-OH Vitamin D Total (30-100) ng/mL TSH 3rd Generation (0.470-4.680) mIU/L ABO Group A Rh Factor POSITIVE Antibody Screen NEGATIVE (NEGATIVE) Crossmatch COMPATIBLE (COMPATIBLE) 04/03/24 Range/Units 04:50 WBC (4.0-10.5) x10^3/uL RBC (4.1-5.6) x10^6/uL Hgb (12.5-18.0) g/dL Hct (42-50) % MCV (78-100) fL MCH (26-32) pg MCHC (32-36) g/dL RDW (11.5-14.0) % Plt Count (150-450) x10^3/uL MPV (7.5-11.0) fL Segmented Neutrophils (36.-66.) % Lymphocytes (Manual) (24-44) % Monocytes (Manual) (0.0-12.0) % Hypochromia Platelet Estimate (NORMAL) RBC Morphology Sodium (135-145) mmol/L Potassium (3.5-5.1) mmol/L Chloride (98-107) mmol/L Carbon Dioxide (22-30) mmol/L Anion Gap (5-15) MEQ/L BUN (9-20) mg/dL Creatinine (0.66-1.25) mg/dL Estimated GFR ML/MIN Glucose (74-106) mg/dL Calcium (8.4-10.2) mg/dL Total Bilirubin (0.2-1.3) mg/dL AST (17-59) U/L ALT (0-50) U/L Alkaline Phosphatase (38-126) U/L Serum Total Protein (6.3-8.2) g/dL Albumin (3.5-5.0) g/dL 25-OH Vitamin D Total (30-100) ng/mL TSH 3rd Generation 11.662 H (0.470-4.680) mIU/L ABO Group Rh Factor Antibody Screen (NEGATIVE) Crossmatch (COMPATIBLE) Radiology Exams: Radiology Procedures Category Date Time Status CHEST 1 VIEW (PORTABLE) Urgent Exams 04/03/24 09:38 Completed KIDNEY [US] Routine Exams 04/02/24 08:00 Completed Multi-Disciplinary Progress Notes: Multi-Disciplinary Progress Notes 04/03/24 10:54 Physical Therapy Note by Nathalia(Trey#[id number])Isabel SPOKE W/ PT'S NURSE THIS DATE AND HE IS STILL LETHARGIC. HGB SLIGHTLY INCREASED AFTER TRANSFUSION. TIGHNTESS IN ABD AND LES NOTED D/T FLUID. WILL MONITOR AND CHECK IN W/ NURSING RE: IMPROVED MEDICAL STATUS AND ABILITY TO ASSESS MOBILITY FOR P.T. EVAL. Initialized on 04/03/24 10:54 - END OF NOTE 04/02/24 13:12 Case Management Note by Juani Tejeda PATIENT HAS [facility]. THEY WERE NOTIFED THAT PATIENT HERE OBS. THEY WILL NEED NOTIFIED AT TIME OF DC AT [phone]. THEY WILL NEED FAXED THE DC INSTRUCTIONS, DC MED LIST AND DC SUMMARY (IF AVAILABLE) TO [phone]. Initialized on 04/02/24 13:12 - END OF NOTE <DORIAN BRADEN - Last Filed: 04/03/24 11:25> Vital Signs: Vital Signs - 24 hr Temp Pulse Resp BP Pulse Ox 04/03/24 20:30 64 16 102/65 94 L 04/03/24 20:16 62 14 97/64 95 04/03/24 20:00 63 15 107/71 97 04/03/24 19:45 64 15 99/67 96 04/03/24 19:30 62 17 105/63 95 04/03/24 19:15 63 13 97/65 96 04/03/24 19:00 63 13 102/66 96 04/03/24 18:45 64 17 94/68 96 04/03/24 18:30 64 18 94/57 94 L 04/03/24 18:15 63 15 102/60 95 04/03/24 18:00 64 21 101/64 97 04/03/24 17:45 65 17 101/70 04/03/24 17:31 65 16 92/61 96 04/03/24 17:15 65 16 107/62 04/03/24 17:00 64 21 93/61 98 04/03/24 16:01 97.1 F 63 14 94/64 95 04/03/24 16:00 64 04/03/24 15:00 63 13 94/57 99 04/03/24 14:43 61 15 90/51 97 04/03/24 14:02 62 14 86/58 97 04/03/24 13:00 95/57 04/03/24 12:04 97.5 F 57 L 17 93/66 98 04/03/24 12:00 58 L 04/03/24 11:01 67 21 92/52 97 04/03/24 10:01 60 15 95/60 100 04/03/24 09:21 61 14 96/57 98 04/03/24 09:01 61 14 84/51 98 04/03/24 08:01 97.3 F 61 16 90/60 97 04/03/24 08:00 61 04/03/24 07:36 99 04/03/24 07:01 62 12 108/53 100 04/03/24 06:08 60 17 103/67 04/03/24 06:07 60 15 95 04/03/24 06:00 60 14 92 L 04/03/24 05:50 60 13 99 04/03/24 05:40 62 16 04/03/24 05:30 62 19 04/03/24 05:20 63 18 93 L 04/03/24 05:10 62 20 95 04/03/24 05:02 65 13 103/67 88 L 04/03/24 04:00 98.8 F 61 14 105/68 98 04/03/24 03:55 61 16 96/63 97 04/03/24 03:54 61 12 97 04/03/24 03:50 61 19 04/03/24 03:40 61 19 04/03/24 03:30 61 16 04/03/24 03:20 62 16 100 04/03/24 03:10 62 15 98 04/03/24 03:02 61 19 96/67 98 04/03/24 02:29 64 04/03/24 02:00 63 15 110/66 04/03/24 01:17 63 20 105/66 95 04/03/24 01:10 62 20 94 L 04/03/24 01:00 62 21 95 04/03/24 00:01 63 04/03/24 00:00 63 13 95/66 94 L 04/02/24 23:00 63 19 99/75 100 04/02/24 22:03 63 17 105/69 98 04/02/24 22:02 61 14 99 04/02/24 22:01 61 12 04/02/24 21:00 61 15 111/66 99 Pain Assessment - Last Documented Pain Intensity 0 Pain Scale Used 0-10 Pain Scale Intake and Output: Intake & Output 04/01/24 04/02/24 04/03/24 04/04/24 11:59 11:59 11:59 11:59 Intake Total 500 1580 5842 Output Total 550 1650 750 Balance -50 -70 5092 Weight 144 kg 144.7 kg Lab Results: Lab Results-Last 24 Hours 04/02/24 04/03/24 04/03/24 Range/Units 05:00 04:50 04:50 WBC 8.5 (4.0-10.5) x10^3/uL RBC 2.50 L (4.1-5.6) x10^6/uL Hgb 7.4 L (12.5-18.0) g/dL Hct 23.5 L (42-50) % MCV 94.0 (78-100) fL MCH 29.6 (26-32) pg MCHC 31.5 L (32-36) g/dL RDW 18.6 H (11.5-14.0) % Plt Count 115 L (150-450) x10^3/uL MPV 14.3 H (7.5-11.0) fL Segmented Neutrophils 85 H (36.-66.) % Lymphocytes (Manual) 6 L (24-44) % Monocytes (Manual) 9 (0.0-12.0) % Hypochromia 2+ Platelet Estimate DECREASED (NORMAL) RBC Morphology ABNORMAL Puncture Site pCO2 (35-45) mmHg pO2 (75-100) mmHg Base Excess (-2.0-2.0) O2 Saturation (94-100) g/dF ABG pH (7.35-7.45) ABG HCO3 (22-28) ABG O2 Sat (Measured) (95-100) % Brad Test A-a Gradient a/A Ratio Hemoglobin Carboxyhemoglobin (0.0-6.9) % THgb Methemoglobin (1.4-1.5) % Temperature C POC O2 Flow Rate % Vent Mode Sodium 129 L (135-145) mmol/L Potassium 4.2 (3.5-5.1) mmol/L Chloride 98 (98-107) mmol/L Carbon Dioxide 26 (22-30) mmol/L Anion Gap 9.7 (5-15) MEQ/L BUN 52 H (9-20) mg/dL Creatinine 2.52 H (0.66-1.25) mg/dL Estimated GFR 29.7 ML/MIN Glucose 115 H (74-106) mg/dL Calcium 9.1 (8.4-10.2) mg/dL Iron (49-181) ug/dL TIBC (261-497) ug/dL Iron Saturation (20-39) % Ferritin (17.9-464) ng/mL Total Bilirubin 0.50 (0.2-1.3) mg/dL AST 24 (17-59) U/L ALT 20 (0-50) U/L Alkaline Phosphatase 60 (38-126) U/L NT-Pro-B Natriuret Pep (<300) pg/mL Serum Total Protein 6.2 L (6.3-8.2) g/dL Albumin 3.3 L (3.5-5.0) g/dL Vitamin B12 (239-931) pg/mL 25-OH Vitamin D Total 22.8 L (30-100) ng/mL Folic Acid (2.76 - >20) ng/mL Procalcitonin (0.030-0.080) ng/mL Free T4 (0.78-2.19) ng/dL TSH 3rd Generation (0.470-4.680) mIU/L Ur Random Creatinine MG/DL U Random Total Protein (0-12) mg/dL 04/03/24 04/03/24 04/03/24 Range/Units 04:50 05:00 05:00 WBC (4.0-10.5) x10^3/uL RBC (4.1-5.6) x10^6/uL Hgb (12.5-18.0) g/dL Hct (42-50) % MCV (78-100) fL MCH (26-32) pg MCHC (32-36) g/dL RDW (11.5-14.0) % Plt Count (150-450) x10^3/uL MPV (7.5-11.0) fL Segmented Neutrophils (36.-66.) % Lymphocytes (Manual) (24-44) % Monocytes (Manual) (0.0-12.0) % Hypochromia Platelet Estimate (NORMAL) RBC Morphology Puncture Site pCO2 (35-45) mmHg pO2 (75-100) mmHg Base Excess (-2.0-2.0) O2 Saturation (94-100) g/dF ABG pH (7.35-7.45) ABG HCO3 (22-28) ABG O2 Sat (Measured) (95-100) % Brad Test A-a Gradient a/A Ratio Hemoglobin Carboxyhemoglobin (0.0-6.9) % THgb Methemoglobin (1.4-1.5) % Temperature C POC O2 Flow Rate % Vent Mode Sodium (135-145) mmol/L Potassium (3.5-5.1) mmol/L Chloride (98-107) mmol/L Carbon Dioxide (22-30) mmol/L Anion Gap (5-15) MEQ/L BUN (9-20) mg/dL Creatinine (0.66-1.25) mg/dL Estimated GFR ML/MIN Glucose (74-106) mg/dL Calcium (8.4-10.2) mg/dL Iron 27 L (49-181) ug/dL TIBC 276 (261-497) ug/dL Iron Saturation 10 L (20-39) % Ferritin 252 (17.9-464) ng/mL Total Bilirubin (0.2-1.3) mg/dL AST (17-59) U/L ALT (0-50) U/L Alkaline Phosphatase (38-126) U/L NT-Pro-B Natriuret Pep (<300) pg/mL Serum Total Protein (6.3-8.2) g/dL Albumin (3.5-5.0) g/dL Vitamin B12 683 (239-931) pg/mL 25-OH Vitamin D Total (30-100) ng/mL Folic Acid 12.5 (2.76 - >20) ng/mL Procalcitonin 0.238 H (0.030-0.080) ng/mL Free T4 1.14 (0.78-2.19) ng/dL TSH 3rd Generation 11.662 H (0.470-4.680) mIU/L Ur Random Creatinine MG/DL U Random Total Protein (0-12) mg/dL 04/03/24 04/03/24 04/03/24 Range/Units 05:00 14:14 14:40 WBC (4.0-10.5) x10^3/uL RBC (4.1-5.6) x10^6/uL Hgb (12.5-18.0) g/dL Hct (42-50) % MCV (78-100) fL MCH (26-32) pg MCHC (32-36) g/dL RDW (11.5-14.0) % Plt Count (150-450) x10^3/uL MPV (7.5-11.0) fL Segmented Neutrophils (36.-66.) % Lymphocytes (Manual) (24-44) % Monocytes (Manual) (0.0-12.0) % Hypochromia Platelet Estimate (NORMAL) RBC Morphology Puncture Site RRA pCO2 42 (35-45) mmHg pO2 90 (75-100) mmHg Base Excess 1.8 (-2.0-2.0) O2 Saturation 96.9 (94-100) g/dF ABG pH 7.41 (7.35-7.45) ABG HCO3 26.6 (22-28) ABG O2 Sat (Measured) 98.6 (95-100) % Brad Test YES A-a Gradient 86 a/A Ratio 0.51 Hemoglobin 7.9 Carboxyhemoglobin 1.3 (0.0-6.9) % THgb Methemoglobin 0.4 L (1.4-1.5) % Temperature 37.0 C POC O2 Flow Rate 32 % Vent Mode CPAP Sodium 130 L (135-145) mmol/L Potassium 4.2 4.2 (3.5-5.1) mmol/L Chloride 99 (98-107) mmol/L Carbon Dioxide 23 (22-30) mmol/L Anion Gap 12.1 (5-15) MEQ/L BUN 52 H (9-20) mg/dL Creatinine 2.56 H (0.66-1.25) mg/dL Estimated GFR 29.1 ML/MIN Glucose 120 H (74-106) mg/dL Calcium 8.8 (8.4-10.2) mg/dL Iron (49-181) ug/dL TIBC (261-497) ug/dL Iron Saturation (20-39) % Ferritin (17.9-464) ng/mL Total Bilirubin 0.50 (0.2-1.3) mg/dL AST 22 (17-59) U/L ALT 20 (0-50) U/L Alkaline Phosphatase 60 (38-126) U/L NT-Pro-B Natriuret Pep 5670 (<300) pg/mL Serum Total Protein 6.0 L (6.3-8.2) g/dL Albumin 3.0 L (3.5-5.0) g/dL Vitamin B12 (239-931) pg/mL 25-OH Vitamin D Total (30-100) ng/mL Folic Acid (2.76 - >20) ng/mL Procalcitonin (0.030-0.080) ng/mL Free T4 (0.78-2.19) ng/dL TSH 3rd Generation (0.470-4.680) mIU/L Ur Random Creatinine MG/DL U Random Total Protein (0-12) mg/dL 04/03/24 Range/Units 16:39 WBC (4.0-10.5) x10^3/uL RBC (4.1-5.6) x10^6/uL Hgb (12.5-18.0) g/dL Hct (42-50) % MCV (78-100) fL MCH (26-32) pg MCHC (32-36) g/dL RDW (11.5-14.0) % Plt Count (150-450) x10^3/uL MPV (7.5-11.0) fL Segmented Neutrophils (36.-66.) % Lymphocytes (Manual) (24-44) % Monocytes (Manual) (0.0-12.0) % Hypochromia Platelet Estimate (NORMAL) RBC Morphology Puncture Site pCO2 (35-45) mmHg pO2 (75-100) mmHg Base Excess (-2.0-2.0) O2 Saturation (94-100) g/dF ABG pH (7.35-7.45) ABG HCO3 (22-28) ABG O2 Sat (Measured) (95-100) % Brad Test A-a Gradient a/A Ratio Hemoglobin Carboxyhemoglobin (0.0-6.9) % THgb Methemoglobin (1.4-1.5) % Temperature C POC O2 Flow Rate % Vent Mode Sodium (135-145) mmol/L Potassium (3.5-5.1) mmol/L Chloride (98-107) mmol/L Carbon Dioxide (22-30) mmol/L Anion Gap (5-15) MEQ/L BUN (9-20) mg/dL Creatinine (0.66-1.25) mg/dL Estimated GFR ML/MIN Glucose (74-106) mg/dL Calcium (8.4-10.2) mg/dL Iron (49-181) ug/dL TIBC (261-497) ug/dL Iron Saturation (20-39) % Ferritin (17.9-464) ng/mL Total Bilirubin (0.2-1.3) mg/dL AST (17-59) U/L ALT (0-50) U/L Alkaline Phosphatase (38-126) U/L NT-Pro-B Natriuret Pep (<300) pg/mL Serum Total Protein (6.3-8.2) g/dL Albumin (3.5-5.0) g/dL Vitamin B12 (239-931) pg/mL 25-OH Vitamin D Total (30-100) ng/mL Folic Acid (2.76 - >20) ng/mL Procalcitonin (0.030-0.080) ng/mL Free T4 (0.78-2.19) ng/dL TSH 3rd Generation (0.470-4.680) mIU/L Ur Random Creatinine 170.3 MG/DL U Random Total Protein 18 H (0-12) mg/dL Radiology Exams: Radiology Procedures Category Date Time Status CHEST 1 VIEW (PORTABLE) Urgent Exams 04/03/24 09:38 Completed KIDNEY [US] Routine Exams 04/02/24 08:00 Completed Multi-Disciplinary Progress Notes: Multi-Disciplinary Progress Notes 04/03/24 10:54 Physical Therapy Note by Nathalia(Tery#[id number]),Isabel SPOKE W/ PT'S NURSE THIS DATE AND HE IS STILL LETHARGIC. HGB SLIGHTLY INCREASED AFTER TRANSFUSION. TIGHNTESS IN ABD AND LES NOTED D/T FLUID. WILL MONITOR AND CHECK IN W/ NURSING RE: IMPROVED MEDICAL STATUS AND ABILITY TO ASSESS MOBILITY FOR P.T. EVAL. Initialized on 04/03/24 10:54 - END OF NOTE <RAKAN LYON - Last Filed: 04/03/24 20:55> Assessment/Plan (1) Hypoglycemia Current Visit: Yes Status: Chronic Assessment & Plan: Likely from delayed excretion of sulfonylurea, Metformin, Jardiance, [place] insulin in setting of GHANSHYAM -continue D10 IVFs to keep up blood sugars - Hold Metformin, Jardiance, Glucotrol -continue to hold Jardiance on d/c -will have him follow up with cardiology -Blood glucose levels are improving -Monitor blood sugars closely - wean D10 Code(s): E16.2 - HYPOGLYCEMIA, UNSPECIFIED (2) GHANSHYAM (acute kidney injury) Current Visit: Yes Status: Acute Assessment & Plan: -likely secondary from overdiuresis of entresto -Hold entresto/Jardiance -Creat slightly improving, will fluid bolus as pt is hypotensive today -AVOID IRASEMA/ARB/NSAIDS diuretics -Monitor renal/lytes closely -will repeat BMP follow bolus -renal US WNL Code(s): N17.9 - ACUTE KIDNEY FAILURE, UNSPECIFIED (3) Hypertensive chronic kidney disease with stage 1 through stage 4 chronic kidney disease, or unspecified chronic kidney disease Current Visit: Yes Status: Acute Assessment & Plan: -Hold Entresto/jardiance -Hold amlodipine/carvediolol as patient is hypotensive -Monitor BP/fluid bolus Code(s): I12.9 - HYPERTENSIVE CHRONIC KIDNEY DISEASE W STG 1-4/UNSP CHR KDNY (4) PAD (peripheral artery disease) Current Visit: Yes Status: Acute Assessment & Plan: -s/p RBKA -DVT prophylaxis -PT eval Code(s): I73.9 - PERIPHERAL VASCULAR DISEASE, UNSPECIFIED (5) Bilateral pleural effusion Current Visit: No Status: Acute Assessment & Plan: -Infection vs CHF, will add procal -No fever/leukocytosis -IS, supplemental oxygen with spo2 goal > 92% -CPAP for KASANDRA -Reviewed notes from last visit, ECHO performed 03/10/24 with EF of 50-55% - Thoracentesis with 60mls out -Hold lasix for now with elevated creat -Consider CT chest if no improvement Code(s): J90 - PLEURAL EFFUSION, NOT ELSEWHERE CLASSIFIED (6) CHF (congestive heart failure) Current Visit: No Status: Acute Qualifiers: Heart failure type: systolic Heart failure chronicity: chronic Qualified Code(s): I50.22 - Chronic systolic (congestive) heart failure Assessment & Plan: -Noted with ECHO EF at 50-55% -Hold entresto/diuretics for now -tele Code(s): I50.9 - HEART FAILURE, UNSPECIFIED (7) Urinary retention Current Visit: Yes Status: Acute Assessment & Plan: -PVR > 300mls x 2 -anchor loco, will need urology consult as OP Code(s): R33.9 - RETENTION OF URINE, UNSPECIFIED (8) Vitamin D deficiency Current Visit: Yes Status: Acute Assessment & Plan: -vitamin D level at 22.8, will start 74404 units weekly x 8 weeks Code(s): E55.9 - VITAMIN D DEFICIENCY, UNSPECIFIED (9) Hyponatremia Current Visit: Yes Status: Acute Assessment & Plan: -Most likely secondary to hypovolemia -IVF -TSH elevated, will add FT4, most likely will need levothyroxine -Monitor renal/lytes - repeat bmp this afternoon Code(s): E87.1 - HYPO-OSMOLALITY AND HYPONATREMIA <DORIAN BRADEN - Last Filed: 04/03/24 11:25> RHODA Encounter - RHODA Encounter Attestation RHODA Encounter Attestation: "IhavepersonallyseenandexaminedPRAUL,ROSENDO CHARLES andhavediscussed pertinent aspects of their care with Dorian Lainez agree with the history, physical exam (any modifications based on my personal exam will be noted below), assessment, and plan as outlined in original note. Please see immediately below for my summary of findings and additional assessment and plan along with any meaningful corrections/explanations to the Subjective/Objective portions of the RHODA note will be noted." My portion of the encounter took place via telemedicine. -Patient has had some improvement in his creatinine to 2.5 however urine output was low with hypotension, suggestive of intravascular volume depletion related to entresto and jardiance. He does have worsening peripheral edema however, due to hypotonic D10 fluid he has been receiving. D10 drip discontinued and patient given 1L of normal saline bolus with improvement in urine output. Midodrine was added for hypotension despite the bolus. Renal consulted, appreciate recs. Recommended albumin 25g x 1 and lasix drip, continue midodrine. Repeat labs this evening. <RAKAN LYON - Last Filed: 04/03/24 20:55>
[2024-04-03] MEDS: VITAMIN D2 PO SCH (11:43)
[2024-04-03 12:21] LABS: Free T4 1.14 ng/dL (0.78-2.19)
[2024-04-03] MEDS: PHARMACY DOSING REQUEST MC ONE (13:01)
[2024-04-03 13:13] LABS: Folate (Folic Acid) 12.5 ng/mL (2.76 - >20); PROCALCITONIN 0.238 ng/mL (0.030-0.080)
[2024-04-03] MEDS: Venofer 100 MG/5 ML*** 200 MG in Sodium Chloride 0.9% 100 ML IV SCH (13:48)
[2024-04-03 14:41] LABS: ANION GAP 12.1 MEQ/L (5-15); BILIRUBIN,TOTAL 0.5 mg/dL (0.2-1.3); Calcium 8.8 mg/dL (8.4-10.2); Creatinine 1 2.56 mg/dL (0.66-1.25); EST GLOMERULAR FILTRATION RATE 29.1 ML/MIN; Potassium 4.2 mmol/L (3.5-5.1)
[2024-04-03] MEDS ORDERED: Glutose 15 GM ORAL GEL PO PRN (14:45)
[2024-04-03] MEDS ORDERED: GlucaGen 1 MG IM PRN (14:45)
[2024-04-03 14:53] LABS: A-aADO2 86; ABG POTASSIUM 4.2 (3.5-5.1); ARTERIAL BLD GAS O2 SATURATION 98.6 % (95-100); ARTERIAL BLOOD GAS BASE EXCESS 1.8 (-2.0-2.0); ARTERIAL BLOOD GAS FIO2 32 %; ARTERIAL BLOOD GAS PCO2 42 mmHg (35-45); ARTERIAL BLOOD GAS PO2 90 mmHg (75-100); ARTERIAL BLOOD GAS VENT MODE CPAP; ARTERIAL BLOOD GAS pH 7.41 (7.35-7.45); CARBOXYHEMOGLOBIN 1.3 % THgb (0.0-6.9); HCO3- 26.6 (22-28); HGB O2 SAT 96.9 g/dF (94-100); Methhemoglobin 0.4 % (1.4-1.5); paO2 pAO1 0.51
[2024-04-03 14:55] LABS: ABG HEMOGLOBIN 7.9
[2024-04-03 14:56] LABS: ABG SITE RRA; ALLEN TEST OK? YES
[2024-04-03] MEDS ORDERED: D50W 50 ml Abboject IV PRN (15:09)
[2024-04-03] MEDS: PROAMATINE PO SCH (15:31)
[2024-04-03] MEDS: AlbuRx 25% 50ML VIAL*** 100 ML IV ONE (16:46)
[2024-04-03] MEDS ORDERED: NOREPINEPHRINE 8 MG/250 ML-D5W 8 MG/250 ML PLAST..BAG IV PRN (17:08)
[2024-04-03] MEDS: Furosemide 100mg/10 ml Vial*** 100 MG in Sodium Chloride 0.9% 90 ML IV SCH (17:15)
[2024-04-03 18:35] LABS: CREATININE,URINE RANDOM 170.3 MG/DL
[2024-04-03 20:54] LABS: ALBUMIN 3.2 g/dL (3.5-5.0); ANION GAP 12.4 MEQ/L (5-15); BILIRUBIN,TOTAL 0.6 mg/dL (0.2-1.3); Calcium 8.9 mg/dL (8.4-10.2); Creatinine 1 2.25 mg/dL (0.66-1.25); Potassium 4.4 mmol/L (3.5-5.1); Total Protein 6.2 g/dL (6.3-8.2)
[2024-04-04 04:43] LABS: Absolute Neutrophil Ct (ANC) 6.48 x10^3/uL (1.4-6.9); BASOPHIL % 0.1 % (0.0-0.4); Basophil (Absolute #) 0.01 x10^3/uL (0-0.4); Eosinophil % 2.7 % (0.00-5.0); Eosinophil (Absolute #) 0.22 x10^3/uL (0-0.5); Hematocrit 23.8 % (42-50); Hemoglobin 7.4 g/dL (12.5-18.0); IMMATURE GRAN # 0.03 x10^3u/L (0.00-0.03); IMMATURE GRAN % 0.4 % (0.00-0.4); Lymphocyte (Absolute #) 0.52 x10^3/uL (1.0-4.6); Lymphocytes % 6.4 % (24.0-44.0); Mean Cell Volume 94.1 fL (78-100); Mean Corpuscular Hemoglobin 29.2 pg (26-32); Mean Corpuscular Hgb Concent. 31.1 g/dL (32-36); Mean Platelet Volume 13.8 fL (7.5-11.0); Monocyte (Absolute #) 0.83 x10^3/uL (0.0-1.3); Monocytes % 10.3 % (0.0-12.0); Neutrophil % 80.1 % (36.0-66.0); Platelet Count 120 x10^3/uL (150-450); Red Blood Count 2.53 x10^6/uL (4.1-5.6); Red Cell Distribution Width 18.6 % (11.5-14.0); White Blood Count 8.1 x10^3/uL (4.0-10.5)
[2024-04-04 05:04] LABS: ALBUMIN 3.1 g/dL (3.5-5.0); ANION GAP 10.9 MEQ/L (5-15); BILIRUBIN,TOTAL 0.4 mg/dL (0.2-1.3); Calcium 8.9 mg/dL (8.4-10.2); Creatinine 1 2.32 mg/dL (0.66-1.25); EST GLOMERULAR FILTRATION RATE 32.8 ML/MIN; Total Protein 6.1 g/dL (6.3-8.2)
[2024-04-04 07:19] LABS: Slide Review 1 YES
[2024-04-04 07:51] VITALS: TEMP 96.8
--- NOTE | 2024-04-04 12:08 | PCM.DS ---
Discharge Summary Date of Admission: 04/02/24 02:31 Date of Discharge: 04/04/24 Admitting Physician: JULIA CHAN MD Consults: Consults on Case 04/03/24 15:06 Consult Nephrology ROUTINE Primary Care Provider: MARLYN NOEL MD <DORIAN BRADEN - Last Filed: 04/04/24 11:55> Date of Admission: 04/02/24 02:31 Admitting Physician: JULIA CHAN MD Consults: Consults on Case 04/03/24 15:06 Consult Nephrology ROUTINE Primary Care Provider: MARLYN NOEL MD <RAKAN LYON - Last Filed: 04/04/24 20:08> Allergies <DORIAN BRADEN - Last Filed: 04/04/24 11:55> <RAKAN LYON - Last Filed: 04/04/24 20:08> Allergies Penicillins Allergy (Verified 04/02/24 00:40) Beta-Blockers (Beta-Adrenergic Bloc Adverse Reaction (Verified 04/02/24 00:40) Wheezing Hospital Summary - Hospital Course Hospital Course: Mr. MUNOZ is a 53 year old male with a past medical history significant for hypertension, diabetes, hyperlipidemia, PAD status post R BKA, CHF and what appears to be some mild CKD with a baseline creatinine ~ 1.1-1.4 with recent hospitalization about two weeks ago who presents to the hospital with multiple episodes of hypoglycemia where blood sugars would drop into the 60s. He received one amp D50 with initial improvement, but it dropped once again. Initial labs demonstrated a sharp rise in his creatinine up to 3.1, so he was recommended for admission. He has been taking Glucotrol, Metformin, and possibly Jardiance but cannot recall when he may have stopped it. During hospital course, GHANSHYAM with some improvement in his creat now at 2.32. He was having low urinary output and hypotension suggestive of intravscular volume depletion r/t entresto and jardiance. Peripheral edema is worsening most likely secondary to D10 fluid. This has been discontinued and blood glucose levels have remained stable. Nephrology consulted and advised albumin 25g x 1 infusion and lasix drip. Midodrine to maintain BP. Patient to be transferred to higher level of care at [facility] for volume management under the direction of cardiology and nephrology. Discharge Note Latest Assessment & Plan (1) Hypoglycemia Current Visit: Yes Status: Chronic Assessment & Plan: Likely from delayed excretion of sulfonylurea, Metformin, Jardiance, [place] [employer] [place] insulin in setting of GHANSHYAM -continue D10 IVFs to keep up blood sugars - Hold Metformin, Jardiance, Glucotrol -continue to hold Jardiance on d/c -will have him follow up with cardiology -Blood glucose levels are improving -Monitor blood sugars closely - discontinue D10 Code(s): E16.2 - HYPOGLYCEMIA, UNSPECIFIED (2) GHANSHYAM (acute kidney injury) Current Visit: Yes Status: Acute Assessment & Plan: -likely secondary from overdiuresis of entresto -Hold entresto/Jardiance -Creat slightly improving, will fluid bolus as pt is hypotensive today -AVOID IRASEMA/ARB/NSAIDS diuretics -Monitor renal/lytes closely -will repeat BMP follow bolus -renal US WNL 04/04: Nephrology consulted with recs for 25g albumin x 1 and lasix drip, continue midodrine -creat 2.32>2.25 -Transfer accepted at [facility] Code(s): N17.9 - ACUTE KIDNEY FAILURE, UNSPECIFIED (3) Hypertensive chronic kidney disease with stage 1 through stage 4 chronic kidney disease, or unspecified chronic kidney disease Current Visit: Yes Status: Acute Assessment & Plan: -Hold Entresto/jardiance -Hold amlodipine/carvediolol as patient is hypotensive -Monitor BP/fluid bolus 04/04: -stable Code(s): I12.9 - HYPERTENSIVE CHRONIC KIDNEY DISEASE W STG 1-4/UNSP CHR KDNY (4) PAD (peripheral artery disease) Current Visit: Yes Status: Acute Assessment & Plan: -s/p RBKA -DVT prophylaxis -PT eval Code(s): I73.9 - PERIPHERAL VASCULAR DISEASE, UNSPECIFIED (5) Bilateral pleural effusion Current Visit: No Status: Acute Assessment & Plan: -Infection vs CHF, will add procal -No fever/leukocytosis -IS, supplemental oxygen with spo2 goal > 92% -CPAP for KASANDRA -Reviewed notes from last visit, ECHO performed 03/10/24 with EF of 50-55% - Thoracentesis with 60mls out -Hold lasix for now with elevated creat -Consider CT chest if no improvement 04/04: -Lasix drip initiated 04/03/24 by nephrology Code(s): J90 - PLEURAL EFFUSION, NOT ELSEWHERE CLASSIFIED (6) CHF (congestive heart failure) Current Visit: No Status: Acute Qualifiers: Heart failure type: systolic Heart failure chronicity: chronic Qualified Code(s): I50.22 - Chronic systolic (congestive) heart failure Assessment & Plan: -Noted with ECHO EF at 50-55% -Hold entresto/diuretics for now -tele 04/04: -Lasix drip initiated by nephrology, will continue, LLE / BUE with noted edema 2-3+ Code(s): I50.9 - HEART FAILURE, UNSPECIFIED (7) Urinary retention Current Visit: Yes Status: Acute Assessment & Plan: -PVR > 300mls x 2 -anchor loco, will need urology consult as OP Code(s): R33.9 - RETENTION OF URINE, UNSPECIFIED (8) Vitamin D deficiency Current Visit: Yes Status: Acute Assessment & Plan: -vitamin D level at 22.8, will start 62828 units weekly x 8 weeks Code(s): E55.9 - VITAMIN D DEFICIENCY, UNSPECIFIED (9) Hyponatremia Current Visit: Yes Status: Acute Assessment & Plan: -Most likely secondary to hypovolemia -IVF -TSH elevated, will add FT4, most likely will need levothyroxine -Monitor renal/lytes - repeat bmp this afternoon 04/04: -improving Code(s): E87.1 - HYPO-OSMOLALITY AND HYPONATREMIA I spent 35 minutes [id number] with the patient on the day of discharge performing discharge exam, discussing hospital stay and discharge instructions with patient and caregivers, preparation of discharge records, prescriptions & referral forms and addressing any questions/concerns the patient had as documented above. - Vitals & Intake/Output Vital Signs: Vital Signs Temperature 96.8 F 04/04/24 07:45 Pulse Rate 63 04/04/24 11:30 Respiratory Rate 16 04/04/24 11:30 Blood Pressure 106/69 04/04/24 11:30 O2 Sat by Pulse Oximetry 97 04/04/24 11:30 Intake & Output: Intake & Output 04/01/24 04/02/24 04/03/24 04/04/24 11:59 11:59 11:59 11:59 Intake Total 500 1580 6297 Output Total 550 1650 2620 Balance -50 -70 3677 Weight 144 kg 144.7 kg - Lab Result Diagrams: 04/04/24 04:14 04/04/24 04:14 Lab Results-Last 24 Hrs: Lab Results-Last 24 Hours 04/03/24 04/03/24 04/03/24 Range/Units 05:00 05:00 05:00 WBC (4.0-10.5) x10^3/uL RBC (4.1-5.6) x10^6/uL Hgb (12.5-18.0) g/dL Hct (42-50) % MCV (78-100) fL MCH (26-32) pg MCHC (32-36) g/dL RDW (11.5-14.0) % Plt Count (150-450) x10^3/uL MPV (7.5-11.0) fL Gran % (36.0-66.0) % Immature Gran % (Auto) (0.00-0.4) % Nucleat RBC Rel Count (0.00-0.1) % Eos # (Auto) (0-0.5) x10^3/uL Immature Gran # (Auto) (0.00-0.03) x10^3u/L Absolute Lymphs (auto) (1.0-4.6) x10^3/uL Absolute Monos (auto) (0.0-1.3) x10^3/uL Absolute Nucleated RBC (0.00-0.01) x10^3u/L Lymphocytes % (24.0-44.0) % Monocytes % (0.0-12.0) % Eosinophils % (0.00-5.0) % Basophils % (0.0-0.4) % Absolute Granulocytes (1.4-6.9) x10^3/uL Basophils # (0-0.4) x10^3/uL Puncture Site pCO2 (35-45) mmHg pO2 (75-100) mmHg Base Excess (-2.0-2.0) O2 Saturation (94-100) g/dF ABG pH (7.35-7.45) ABG HCO3 (22-28) ABG O2 Sat (Measured) (95-100) % Brad Test A-a Gradient a/A Ratio Hemoglobin Carboxyhemoglobin (0.0-6.9) % THgb Methemoglobin (1.4-1.5) % Temperature C POC O2 Flow Rate % Vent Mode Sodium (135-145) mmol/L Potassium (3.5-5.1) mmol/L Chloride (98-107) mmol/L Carbon Dioxide (22-30) mmol/L Anion Gap (5-15) MEQ/L BUN (9-20) mg/dL Creatinine (0.66-1.25) mg/dL Estimated GFR ML/MIN Glucose (74-106) mg/dL Calcium (8.4-10.2) mg/dL Iron 27 L (49-181) ug/dL TIBC 276 (261-497) ug/dL Iron Saturation 10 L (20-39) % Ferritin 252 (17.9-464) ng/mL Total Bilirubin (0.2-1.3) mg/dL AST (17-59) U/L ALT (0-50) U/L Alkaline Phosphatase (38-126) U/L NT-Pro-B Natriuret Pep 5670 (<300) pg/mL Serum Total Protein (6.3-8.2) g/dL Albumin (3.5-5.0) g/dL Vitamin B12 683 (239-931) pg/mL Folic Acid 12.5 (2.76 - >20) ng/mL Procalcitonin 0.238 H (0.030-0.080) ng/mL Free T4 1.14 (0.78-2.19) ng/dL Ur Random Creatinine MG/DL U Random Total Protein (0-12) mg/dL Slides for Path Review 04/03/24 04/03/24 04/03/24 Range/Units 14:14 14:40 16:39 WBC (4.0-10.5) x10^3/uL RBC (4.1-5.6) x10^6/uL Hgb (12.5-18.0) g/dL Hct (42-50) % MCV (78-100) fL MCH (26-32) pg MCHC (32-36) g/dL RDW (11.5-14.0) % Plt Count (150-450) x10^3/uL MPV (7.5-11.0) fL Gran % (36.0-66.0) % Immature Gran % (Auto) (0.00-0.4) % Nucleat RBC Rel Count (0.00-0.1) % Eos # (Auto) (0-0.5) x10^3/uL Immature Gran # (Auto) (0.00-0.03) x10^3u/L Absolute Lymphs (auto) (1.0-4.6) x10^3/uL Absolute Monos (auto) (0.0-1.3) x10^3/uL Absolute Nucleated RBC (0.00-0.01) x10^3u/L Lymphocytes % (24.0-44.0) % Monocytes % (0.0-12.0) % Eosinophils % (0.00-5.0) % Basophils % (0.0-0.4) % Absolute Granulocytes (1.4-6.9) x10^3/uL Basophils # (0-0.4) x10^3/uL Puncture Site RRA pCO2 42 (35-45) mmHg pO2 90 (75-100) mmHg Base Excess 1.8 (-2.0-2.0) O2 Saturation 96.9 (94-100) g/dF ABG pH 7.41 (7.35-7.45) ABG HCO3 26.6 (22-28) ABG O2 Sat (Measured) 98.6 (95-100) % Brad Test YES A-a Gradient 86 a/A Ratio 0.51 Hemoglobin 7.9 Carboxyhemoglobin 1.3 (0.0-6.9) % THgb Methemoglobin 0.4 L (1.4-1.5) % Temperature 37.0 C POC O2 Flow Rate 32 % Vent Mode CPAP Sodium 130 L (135-145) mmol/L Potassium 4.2 4.2 (3.5-5.1) mmol/L Chloride 99 (98-107) mmol/L Carbon Dioxide 23 (22-30) mmol/L Anion Gap 12.1 (5-15) MEQ/L BUN 52 H (9-20) mg/dL Creatinine 2.56 H (0.66-1.25) mg/dL Estimated GFR 29.1 ML/MIN Glucose 120 H (74-106) mg/dL Calcium 8.8 (8.4-10.2) mg/dL Iron (49-181) ug/dL TIBC (261-497) ug/dL Iron Saturation (20-39) % Ferritin (17.9-464) ng/mL Total Bilirubin 0.50 (0.2-1.3) mg/dL AST 22 (17-59) U/L ALT 20 (0-50) U/L Alkaline Phosphatase 60 (38-126) U/L NT-Pro-B Natriuret Pep (<300) pg/mL Serum Total Protein 6.0 L (6.3-8.2) g/dL Albumin 3.0 L (3.5-5.0) g/dL Vitamin B12 (239-931) pg/mL Folic Acid (2.76 - >20) ng/mL Procalcitonin (0.030-0.080) ng/mL Free T4 (0.78-2.19) ng/dL Ur Random Creatinine 170.3 MG/DL U Random Total Protein 18 H (0-12) mg/dL Slides for Path Review 04/03/24 04/04/24 04/04/24 Range/Units 20:10 04:14 04:14 WBC 8.1 (4.0-10.5) x10^3/uL RBC 2.53 L (4.1-5.6) x10^6/uL Hgb 7.4 L (12.5-18.0) g/dL Hct 23.8 L (42-50) % MCV 94.1 (78-100) fL MCH 29.2 (26-32) pg MCHC 31.1 L (32-36) g/dL RDW 18.6 H (11.5-14.0) % Plt Count 120 L (150-450) x10^3/uL MPV 13.8 H (7.5-11.0) fL Gran % 80.1 H (36.0-66.0) % Immature Gran % (Auto) 0.4 (0.00-0.4) % Nucleat RBC Rel Count 0.0 (0.00-0.1) % Eos # (Auto) 0.22 (0-0.5) x10^3/uL Immature Gran # (Auto) 0.03 (0.00-0.03) x10^3u/L Absolute Lymphs (auto) 0.52 L (1.0-4.6) x10^3/uL Absolute Monos (auto) 0.83 (0.0-1.3) x10^3/uL Absolute Nucleated RBC 0.00 (0.00-0.01) x10^3u/L Lymphocytes % 6.4 L (24.0-44.0) % Monocytes % 10.3 (0.0-12.0) % Eosinophils % 2.7 (0.00-5.0) % Basophils % 0.1 (0.0-0.4) % Absolute Granulocytes 6.48 (1.4-6.9) x10^3/uL Basophils # 0.01 (0-0.4) x10^3/uL Puncture Site pCO2 (35-45) mmHg pO2 (75-100) mmHg Base Excess (-2.0-2.0) O2 Saturation (94-100) g/dF ABG pH (7.35-7.45) ABG HCO3 (22-28) ABG O2 Sat (Measured) (95-100) % Brad Test A-a Gradient a/A Ratio Hemoglobin Carboxyhemoglobin (0.0-6.9) % THgb Methemoglobin (1.4-1.5) % Temperature C POC O2 Flow Rate % Vent Mode Sodium 130 L 131 L (135-145) mmol/L Potassium 4.4 4.0 (3.5-5.1) mmol/L Chloride 100 100 (98-107) mmol/L Carbon Dioxide 22 24 (22-30) mmol/L Anion Gap 12.4 10.9 (5-15) MEQ/L BUN 53 H 52 H (9-20) mg/dL Creatinine 2.25 H 2.32 H (0.66-1.25) mg/dL Estimated GFR 34.0 32.8 ML/MIN Glucose 109 H 107 H (74-106) mg/dL Calcium 8.9 8.9 (8.4-10.2) mg/dL Iron (49-181) ug/dL TIBC (261-497) ug/dL Iron Saturation (20-39) % Ferritin (17.9-464) ng/mL Total Bilirubin 0.60 0.40 (0.2-1.3) mg/dL AST 25 22 (17-59) U/L ALT 21 20 (0-50) U/L Alkaline Phosphatase 53 62 (38-126) U/L NT-Pro-B Natriuret Pep (<300) pg/mL Serum Total Protein 6.2 L 6.1 L (6.3-8.2) g/dL Albumin 3.2 L 3.1 L (3.5-5.0) g/dL Vitamin B12 (239-931) pg/mL Folic Acid (2.76 - >20) ng/mL Procalcitonin (0.030-0.080) ng/mL Free T4 (0.78-2.19) ng/dL Ur Random Creatinine MG/DL U Random Total Protein (0-12) mg/dL Slides for Path Review YES Micro Results-Entire Visit: Microbiology 04/02/24 08:35 Urine Culture - Final Urine, Void <10K NORMAL SKIN NISHA PROBABLE SKIN CONTAMINANT 04/03/24 10:36 Urine Culture - Preliminary Urine, Indwelling Catheter NO GROWTH TO DATE Accuchecks Date 04/04/24 Date 04/04/24 Date 04/03/24 Date 04/03/24 Date 04/03/24 Date 04/03/24 Date 04/03/24 Date 04/03/24 Date 04/03/24 Time 08:07 Time 18:52 Time 18:00 Time 17:04 Time 15:17 - Radiology Exams Ordered Rad Exams-Entire Visit: Radiology Procedures Category Date Time Status CHEST 1 VIEW (PORTABLE) Urgent Exams 04/03/24 09:38 Completed - Procedures and Test Procedures and Tests throughout Hospitalization: Therapy Orders & Screens 04/02/24 04:38 Oxygen Nasal Cannula 3 lpm Comment: Diagnosis: Hypoglycemia acute renal injury 04/02/24 06:06 OT Screen per Nursing Assess ONCE Comment: Protocol Order Physician Instructions: Greater than 3 points order OT Admission Screening Reason For Exam: Triggered on Admission Diagnosis: Hypoglycemia acute renal injury Acute Fx/ORIF/Change in wt bearing status: No Severe MUSCULOSKELETAL pain: No ADL Dysfunction: Yes Acute CVA w/Hemiparesis/Hemiplegia: No Decreased Functional Mobility/Strength: Yes Sprain/Strain: No Acute Post-op Mobility Dysfunction: No Total Points: 4 PT Screen per Nursing Assess ONCE Comment: Protocol Order Physician Instructions: Greater than 3 points order PT Admission Screenin Reason For Exam: Triggered on Admission Diagnosis: Hypoglycemia acute renal injury Acute Fx/ORIF/Change in wt bearing status: No Severe MUSCULOSKELETAL pain: No ADL Dysfunction: Yes Acute CVA w/Hemiparesis/Hemiplegia: No Decreased Functional Mobility/Strength: Yes Sprain/Strain: No Acute Post-op Mobility Dysfunction: No Total Points: 4 RT Screen per Nursing Assess ONCE Comment: Protocol Order Physician Instructions: Greater than 3 points order RT Admission Screen Reason For Exam: Triggered on Admission Diagnosis: Hypoglycemia acute renal injury Diagnosis: Hypoglycemia acute renal injury Pneumonia: No Home O2: Yes Asthma: No CHF: Yes Home CPAP/BIPAP: No Home Nebs/MDI: No Total Points: 8 04/02/24 07:08 EKG ONCE Comment: Diagnosis: Hypoglycemia acute renal injury 04/03/24 10:36 BiPap/CPAP ROUTINE Comment: CPAP Diagnosis: Hypoglycemia acute renal injury <DORIAN BRADEN - Last Filed: 04/04/24 11:55> - Vitals & Intake/Output Vital Signs: Vital Signs Temperature 96.8 F 04/04/24 07:45 Pulse Rate 68 04/04/24 14:00 Respiratory Rate 13 04/04/24 14:00 Blood Pressure 110/63 04/04/24 14:00 O2 Sat by Pulse Oximetry 94 L 04/04/24 14:00 Intake & Output: Intake & Output 04/02/24 04/03/24 04/04/24 04/05/24 11:59 11:59 11:59 11:59 Intake Total 500 1580 6297 180 Output Total 550 1650 2620 85 Balance -50 -70 3677 95 Weight 144 kg 144.7 kg - Lab Result Diagrams: 04/04/24 04:14 04/04/24 04:14 Lab Results-Last 24 Hrs: Lab Results-Last 24 Hours 04/03/24 04/04/24 04/04/24 Range/Units 20:10 04:14 04:14 WBC 8.1 (4.0-10.5) x10^3/uL RBC 2.53 L (4.1-5.6) x10^6/uL Hgb 7.4 L (12.5-18.0) g/dL Hct 23.8 L (42-50) % MCV 94.1 (78-100) fL MCH 29.2 (26-32) pg MCHC 31.1 L (32-36) g/dL RDW 18.6 H (11.5-14.0) % Plt Count 120 L (150-450) x10^3/uL MPV 13.8 H (7.5-11.0) fL Gran % 80.1 H (36.0-66.0) % Immature Gran % (Auto) 0.4 (0.00-0.4) % Nucleat RBC Rel Count 0.0 (0.00-0.1) % Eos # (Auto) 0.22 (0-0.5) x10^3/uL Immature Gran # (Auto) 0.03 (0.00-0.03) x10^3u/L Absolute Lymphs (auto) 0.52 L (1.0-4.6) x10^3/uL Absolute Monos (auto) 0.83 (0.0-1.3) x10^3/uL Absolute Nucleated RBC 0.00 (0.00-0.01) x10^3u/L Lymphocytes % 6.4 L (24.0-44.0) % Monocytes % 10.3 (0.0-12.0) % Eosinophils % 2.7 (0.00-5.0) % Basophils % 0.1 (0.0-0.4) % Absolute Granulocytes 6.48 (1.4-6.9) x10^3/uL Basophils # 0.01 (0-0.4) x10^3/uL Sodium 130 L 131 L (135-145) mmol/L Potassium 4.4 4.0 (3.5-5.1) mmol/L Chloride 100 100 (98-107) mmol/L Carbon Dioxide 22 24 (22-30) mmol/L Anion Gap 12.4 10.9 (5-15) MEQ/L BUN 53 H 52 H (9-20) mg/dL Creatinine 2.25 H 2.32 H (0.66-1.25) mg/dL Estimated GFR 34.0 32.8 ML/MIN Glucose 109 H 107 H (74-106) mg/dL Calcium 8.9 8.9 (8.4-10.2) mg/dL Total Bilirubin 0.60 0.40 (0.2-1.3) mg/dL AST 25 22 (17-59) U/L ALT 21 20 (0-50) U/L Alkaline Phosphatase 53 62 (38-126) U/L Serum Total Protein 6.2 L 6.1 L (6.3-8.2) g/dL Albumin 3.2 L 3.1 L (3.5-5.0) g/dL Slides for Path Review YES Micro Results-Entire Visit: Microbiology 04/02/24 08:35 Urine Culture - Final Urine, Void <10K NORMAL SKIN NISHA PROBABLE SKIN CONTAMINANT 04/03/24 10:36 Urine Culture - Preliminary Urine, Indwelling Catheter NO GROWTH TO DATE Accuchecks Date 04/04/24 Date 04/04/24 Time 08:07 - Radiology Exams Ordered Rad Exams-Entire Visit: Radiology Procedures Category Date Time Status CHEST 1 VIEW (PORTABLE) Urgent Exams 04/03/24 09:38 Completed - Procedures and Test Procedures and Tests throughout Hospitalization: Therapy Orders & Screens 04/02/24 04:38 Oxygen Nasal Cannula 3 lpm Comment: Diagnosis: Hypoglycemia acute renal injury 04/02/24 06:06 OT Screen per Nursing Assess ONCE Comment: Protocol Order Physician Instructions: Greater than 3 points order OT Admission Screening Reason For Exam: Triggered on Admission Diagnosis: Hypoglycemia acute renal injury Acute Fx/ORIF/Change in wt bearing status: No Severe MUSCULOSKELETAL pain: No ADL Dysfunction: Yes Acute CVA w/Hemiparesis/Hemiplegia: No Decreased Functional Mobility/Strength: Yes Sprain/Strain: No Acute Post-op Mobility Dysfunction: No Total Points: 4 PT Screen per Nursing Assess ONCE Comment: Protocol Order Physician Instructions: Greater than 3 points order PT Admission Screenin Reason For Exam: Triggered on Admission Diagnosis: Hypoglycemia acute renal injury Acute Fx/ORIF/Change in wt bearing status: No Severe MUSCULOSKELETAL pain: No ADL Dysfunction: Yes Acute CVA w/Hemiparesis/Hemiplegia: No Decreased Functional Mobility/Strength: Yes Sprain/Strain: No Acute Post-op Mobility Dysfunction: No Total Points: 4 RT Screen per Nursing Assess ONCE Comment: Protocol Order Physician Instructions: Greater than 3 points order RT Admission Screen Reason For Exam: Triggered on Admission Diagnosis: Hypoglycemia acute renal injury Diagnosis: Hypoglycemia acute renal injury Pneumonia: No Home O2: Yes Asthma: No CHF: Yes Home CPAP/BIPAP: No Home Nebs/MDI: No Total Points: 8 04/02/24 07:08 EKG ONCE Comment: Diagnosis: Hypoglycemia acute renal injury 04/03/24 10:36 BiPap/CPAP ROUTINE Comment: CPAP Diagnosis: Hypoglycemia acute renal injury <RAKAN LYON - Last Filed: 04/04/24 20:08> Discharge Exam General Appearance: no apparent distress Neurologic Exam: alert, oriented x 3, cooperative Eye Exam: PERRL Ears, Nose, Throat Exam: normal ENT inspection Neck Exam: normal inspection Respiratory Exam: crackles/rales Cardiovascular Exam: regular rate/rhythm, normal heart sounds Gastrointestinal/Abdomen Exam: soft, normal bowel sounds Male Genitalia Exam: deferred Rectal Exam: deferred Back Exam: normal inspection Extremity Exam: pedal edema (blisters/erythema), swelling (LLE/ BUE +2 pitting) Skin Exam: normal color <DORIAN BRADEN L. - Last Filed: 04/04/24 11:55> Final Diagnosis/Problem List - Final Discharge Diagnosis/Problem (1) GHANSHYAM (acute kidney injury) Status: Acute Code(s): N17.9 - ACUTE KIDNEY FAILURE, UNSPECIFIED (2) Hypoglycemia Status: Chronic Code(s): E16.2 - HYPOGLYCEMIA, UNSPECIFIED (3) Hypertensive chronic kidney disease with stage 1 through stage 4 chronic kidney disease, or unspecified chronic kidney disease Status: Acute Code(s): I12.9 - HYPERTENSIVE CHRONIC KIDNEY DISEASE W STG 1- 4/UNSP CHR KDNY (4) PAD (peripheral artery disease) Status: Acute Code(s): I73.9 - PERIPHERAL VASCULAR DISEASE, UNSPECIFIED (5) Bilateral pleural effusion Status: Acute Code(s): J90 - PLEURAL EFFUSION, NOT ELSEWHERE CLASSIFIED (6) CHF (congestive heart failure) Status: Acute Code(s): I50.9 - HEART FAILURE, UNSPECIFIED (7) Urinary retention Status: Acute Code(s): R33.9 - RETENTION OF URINE, UNSPECIFIED (8) Vitamin D deficiency Status: Acute Code(s): E55.9 - VITAMIN D DEFICIENCY, UNSPECIFIED (9) Hyponatremia Status: Acute Code(s): E87.1 - HYPO-OSMOLALITY AND HYPONATREMIA <DORIAN BRADEN L. - Last Filed: 04/04/24 11:55> <DORIAN BRADEN L. - Last Filed: 04/04/24 11:55> <RAKAN LYON - Last Filed: 04/04/24 20:08> - Discharge Disposition: XFER OTHER Condition: Stable Prescriptions: New Dextrose 50%-Water Syringe [D50W 50 ml Abboject] 25 ml IV Q3H PRN PRN PRN Reason: Hypoglycemia Fluconazole 100 mg [Diflucan 100 MG] 150 mg PO Q72H tablet Furosemide 100 mg/10 ml [Furosemide 100mg/10 ml Vial] 100 mg IV .Q10H Glucagon 1 mg [GlucaGen 1 MG] 1 mg IM PRN PRN PRN Reason: Hypoglycemia Dextrose 15 gm Oral Gel [Glutose 15 GM ORAL GEL] 15 gm PO PRN PRN PRN Reason: Hypoglycemia Midodrine HCl [Proamatine] 5 mg PO TID tablet PANTOPRAZOLE 40 mg Tablet [Protonix 40MG Tablet] 40 mg PO DAILY tablet Acetaminophen 325 mg [Tylenol 325 mg] 325 mg PO Q4H PRN PRN tablet PRN Reason: Pain, Fever, Headache Iron Sucrose Complex 100 mg/ 5 [Venofer 100 MG/5 ML] 200 mg IV Q48H Ergocalciferol (Vitamin D2) [Vitamin D2] 50,000 unit PO Q7D cap Continue Nitroglycerin 0.4 mg Tablet [Nitrostat 0.4 MG Tablet] 1 tab PO UD PRN PRN Reason: Chest Pain Carvedilol 12.5 mg [Coreg 12.5 mg] 2 tab PO BID Atorvastatin Calcium 80 mg PO HS Aspirin 81 gm Chew [Baby Aspirin 81 mg Chew] 1 tab PO DAILY Folic Acid 1 mg [Folate 1 mg] 1 mg PO DAILY Citalopram Hydrobromide 20 mg* [ceLEXa 20 MG] 20 mg PO DAILY Aripiprazole [Abilify] 2 mg PO DAILY Potassium Chloride 1 tab PO DAILY Testosterone Cypionate 1 ml IJ UD Famotidine 20 mg [Pepcid 20 MG] 20 mg PO DAILY Ferrous Sulfate 325 mg [Feosol 325 mg] 325 mg PO DAILY 30 Days #30 tablet Cholecalciferol (Vitamin D3) [Vitamin D] 1,000 unit PO DAILY 30 Days #30 tablet Discontinued Sacubitril/Valsartan [Entresto 24 mg-26 mg Tablet] 1 tab PO BID Empagliflozin [Jardiance] 25 mg PO DAILY Trazodone HCl 50 mg [Desyrel 50 mg] 150 mg PO HS Spironolactone 25 mg [Aldactone 25 MG] 25 mg PO DAILY Amlodipine Besylate [Norvasc] 10 mg PO DAILY Bumetanide 0.5 mg PO DAILY Glipizide 5 mg [Glucotrol 5 MG] 5 mg PO BID Metformin HCl 500 mg [Glucophage 500 MG] 1,000 mg PO DAILY levoFLOXacin [Levofloxacin] 750 mg PO DAILY 5 Days #5 tablet Follow up with: TARIK ROMAN [CONSULTING PHYSICIAN] - MARLYN NOEL MD [Primary Care Provider] - 04/08/24 2:00 pm RHODA Encounter - RHODA Encounter Attestation RHODA Encounter Attestation: "IhavepersonallyseenROSENDO Branham andhavediscussed pertinent aspects of their care with Dorian Lainez agree with the history, physical exam (any modifications based on my personal exam will be noted below), assessment, and plan as outlined in original note. Please see immediately below for my summary of findings and additional assessment and plan along with any meaningful corrections/explanations to the Subjective/Objective portions of the RHODA note will be noted." My portion of the encounter took place via telemedicine. -Patient being transferred to higher level of care for further management of GHANSHYAM, possible CHF under guidance of cardiology and nephrology. Sign out given to accepting hospitalist. <RAKAN LYON - Last Filed: 04/04/24 20:08>
[2024-04-04 14:13] VITALS: BP 110/63; PULSE 68; RESP 13; O2SAT 94
== END 2024-04-04 14:49 ==
LOC: ED 00:35 → ICU 02:31
PROVIDERS: ADMIT Internal Medicine Nephrology; ATTEND Internal Medicine Nephrology
DX: N17.9 Acute kidney failure, unspecified (principal); E16.2 Hypoglycemia, unspecified; N18.9 Chronic kidney disease, unspecified; I73.9 Peripheral vascular disease, unspecified; J90 Pleural effusion, not elsewhere classified; E11.22 Type 2 diabetes mellitus with diabetic chronic kidney disease; I13.0 Hypertensive heart and chronic kidney disease with heart failure and stage 1 through stage 4 chronic kidney disease, or unspecified chronic kidney disease; I50.9 Heart failure, unspecified; R33.9 Retention of urine, unspecified; E55.9 Vitamin D deficiency, unspecified; E87.1 Hypo-osmolality and hyponatremia; I25.2 Old myocardial infarction; E78.5 Hyperlipidemia, unspecified; Z89.511 Acquired absence of right leg below knee; Z79.899 Other long term (current) drug therapy
CPT/HCPCS: 36000; 36415; 36430; 36600; 71045; 76770; 80047; 80048; 80053; 81001; 82306; 82375; 82570; 82607; 82728; 82746; 82803; 82947; 83540; 83550; 83880; 84134; 84145; 84156; 84439; 84443; 84480; 84482; 84484; 85014; 85018; 85025; 85027; 86850; 86900; 86901; 86922; 87086; 93005; 93041; 93268; 94660; 94760; 96374; 99285; G0378; P9016; Q3014; J0696; J1650; J1756; J1940; P9047; A9270-GY

== ENCOUNTER 2024-04-20 08:52 | Emergency (ER) | payer OTHER ==
[2024-04-20 09:08] VITALS: BP 99/68; PULSE 66; RESP 20; TEMP 97.6; O2SAT 99
--- NOTE | 2024-04-20 09:09 | ERPHSYRPT ---
- History of Present Illness Time Seen by Provider: 04/20/24 09:02 Source: patient Exam Limitations: no limitations Physician History: Pt wants his Ramirez catheter removed; denies chest pain, shortness of air, abdominal pain, fever. Allergies/Adverse Reactions: Penicillins Allergy (Verified 04/20/24 09:00) Beta-Blockers (Beta-Adrenergic Bloc Adverse Reaction (Verified 04/20/24 09:00) Wheezing Home Medications: Aspirin 81 gm Chew [Baby Aspirin 81 mg Chew] 1 tab PO DAILY 02/22/23 [History] Atorvastatin Calcium 80 mg PO HS 02/22/23 [History] Carvedilol 12.5 mg [Coreg 12.5 mg] 2 tab PO BID 02/22/23 [History] Nitroglycerin 0.4 mg Tablet [Nitrostat 0.4 MG Tablet] 1 tab PO UD PRN 02/22/23 [History] Aripiprazole [Abilify] 2 mg PO DAILY 01/26/24 [History] Citalopram Hydrobromide 20 mg* [ceLEXa 20 MG] 20 mg PO DAILY 01/26/24 [History] Folic Acid 1 mg [Folate 1 mg] 1 mg PO DAILY 01/26/24 [History] Potassium Chloride 1 tab PO DAILY 01/26/24 [History] Famotidine 20 mg [Pepcid 20 MG] 20 mg PO DAILY 03/06/24 [History] Testosterone Cypionate 1 ml IJ UD 03/06/24 [History] Hx Tetanus, Diphtheria Vaccination/Date Given: Yes Hx Influenza Vaccination/Date Given: Yes Hx Pneumococcal Vaccination/Date Given: Yes Travel Risk - Emerging Infectious Disease Are you exhibiting symptoms associated with any current EIDs: Yes Symptoms: Cough: New Onset, Shortness of Breath - Past Medical History Pertinent Past Medical History: Yes Neurological History: No Pertinent History, Peripheral Neuropathy ENT History: No Pertinent History Cardiac History: Angina, Congestive Heart Failure, Myocardial Infarction ([place]), High Cholesterol, Hypertension Respiratory History: CHF Endocrine Medical History: Diabetes Type II Musculoskeletal History: No Pertinent History, Other GI Medical History: No Pertinent History, GERD History: No Pertinent History Psycho-Social History: No Pertinent History, Depression Male Reproductive Disorders: No Pertinent History Other Medical History: diabetic foot ulcer that spread and has BKA - Past Surgical History Past Surgical History: Yes Neuro Surgical History: No Pertinent History Cardiac: No Pertinent History Respiratory: No Pertinent History Gastrointestinal: No Pertinent History Genitourinary: No Pertinent History Musculoskeletal: No Pertinent History, Amputation Male Surgical History: No Pertinent History Other Surgical History: BKA Significant Family History: no pertinent family hx - Social History Smoking Status: Former smoker How long have you smoked: 24 Exposure to second hand smoke: Yes Drug Use: marijuana Patient Lives Alone: No - Social Determinants of Health Will the patient participate in the screening: Yes Do you worry about a steady place to live?: No In the past 12 months,have you had to go without utilities?: No Transportation Issues: No Has anyone in your support network made you feel unsafe?: No Have you or anyone in your house had to go without enough: No - Review of Systems Constitutional: No Fever Respiratory: No Dyspnea Cardiac: No Chest Pain Abdominal/Gastrointestinal: No Abdominal Pain - Nursing Vital Signs Nursing Vital Signs: Initial Vital Signs Temperature 97.6 F 04/20/24 09:02 Pulse Rate 66 04/20/24 09:02 Respiratory Rate 20 04/20/24 09:02 Blood Pressure 99/68 04/20/24 09:02 O2 Sat by Pulse Oximetry 99 04/20/24 09:02 Pain Scale Pain Intensity 0 - Physical Exam General Appearance: alert Eye Exam: PERRL/EOMI, eyes nml inspection Ears, Nose, Throat Exam: pharynx normal, moist mucous membranes Neck Exam: normal inspection Respiratory Exam: lungs clear Cardiovascular Exam: normal heart sounds Gastrointestinal/Abdomen Exam: normal bowel sounds Extremity Exam: other (Right BKA) Neurologic Exam: alert, cooperative Skin Exam: warm, dry - Progress Progress Note: 04/20/24 09:12 ER Nurse removed Ramirez catheter without difficulty and without bleeding. - Departure Departure Disposition: Home Clinical Impression: Encounter for Ramirez catheter removal Condition: Stable Critical Care Time: No Referrals: MARLYN NOEL MD [Primary Care Provider] - Follow up/PCP as directed Additional Instructions: Follow up with Dr. Canchola tomorrow.
== END 2024-04-20 09:15 ==
LOC: ED 08:52
DX: Z46.89 Encounter for fitting and adjustment of other specified devices (principal); E78.5 Hyperlipidemia, unspecified; I11.0 Hypertensive heart disease with heart failure; I50.9 Heart failure, unspecified; E11.42 Type 2 diabetes mellitus with diabetic polyneuropathy; Z79.899 Other long term (current) drug therapy
CPT/HCPCS: 99281

== ENCOUNTER 2024-05-11 03:01 | Emergency (ER) | payer OTHER ==
[2024-05-11 03:24] VITALS: TEMP 98.3
--- NOTE | 2024-05-11 03:40 | ERPHSYRPT ---
- History of Present Illness Time Seen by Provider: 05/11/24 03:15 Source: patient, EMS, old records Exam Limitations: no limitations Patient Subjective Stated Complaint: pt states his accu check at home was 43 and he usually keeps dropping after being given dextrose. Triage Nursing Assessment: pt alert and oriented, drowsy upon arrival to er. jessica brad per ambulane and transfers to stretcher with assist of 3. skin clammy upon arrival. respirations nonlabored. Physician History: This is a 53-year-old white male patient of Dr. Canchola who was brought to the emergency department secondary to hypoglycemia. Patient states that his Dexcom blood glucose monitoring device was ringing because of low blood sugar levels. It measured approximately 47 at home. Patient then contact the paramedics who arrived to provide the patient with 250 mg of D10 intravenously. His blood sugar then increased to the 120 range. By the time he arrived to our facility he had a blood sugar Accu-Chek level of 76. Patient then began eating here in our emergency department. Patient states that he was not symptomatic however after he received the D10 infusion and began eating, he did feel as though he is probably more awake. Patient states he has not adjusted his medication at all and he is eating his usual amount and at approximately the same time. He takes Jardiance. His last Jardiance dose was at 8 AM on 05/10/2024. He takes this daily. Patient does have a history of gastroesophageal reflux disease, chronic anemia, hyperlipidemia, depression, anxiety, diabetes, hypertension, CHF, chronic angina, coronary disease, peripheral neuropathy and has undergone a right below the knee amputation. He denies chest pain and he denies shortness of breath. Timing/Duration: today Severity: mild Associated Symptoms: denies symptoms Allergies/Adverse Reactions: Penicillins Allergy (Verified 05/11/24 03:24) Beta-Blockers (Beta-Adrenergic Bloc Adverse Reaction (Verified 05/11/24 03:24) Wheezing Home Medications: Aspirin 81 gm Chew [Baby Aspirin 81 mg Chew] 1 tab PO DAILY 02/22/23 [History] Atorvastatin Calcium 80 mg PO HS 02/22/23 [History] Carvedilol 12.5 mg [Coreg 12.5 mg] 2 tab PO BID 02/22/23 [History] Nitroglycerin 0.4 mg Tablet [Nitrostat 0.4 MG Tablet] 1 tab PO UD PRN 02/22/23 [History] Aripiprazole [Abilify] 2 mg PO DAILY 01/26/24 [History] Citalopram Hydrobromide 20 mg* [ceLEXa 20 MG] 20 mg PO DAILY 01/26/24 [History] Folic Acid 1 mg [Folate 1 mg] 1 mg PO DAILY 01/26/24 [History] Potassium Chloride 1 tab PO DAILY 01/26/24 [History] Famotidine 20 mg [Pepcid 20 MG] 20 mg PO DAILY 03/06/24 [History] Testosterone Cypionate 1 ml IJ UD 03/06/24 [History] Acetaminophen 325 mg [Tylenol 325 mg] 650 mg PO Q4H PRN PRN 05/11/24 [History] Bumetanide 0.5 mg PO DAILY 05/11/24 [History] Empagliflozin [Jardiance] 25 mg PO DAILY 05/11/24 [History] Trazodone HCl 150 mg PO HS 05/11/24 [History] Hx Tetanus, Diphtheria Vaccination/Date Given: Yes Hx Influenza Vaccination/Date Given: Yes Hx Pneumococcal Vaccination/Date Given: Yes Immunizations Up to Date: Yes Travel Risk - International Travel Have you traveled outside of the country in past 3 weeks: No - Emerging Infectious Disease Are you exhibiting symptoms associated with any current EIDs: No Symptoms: Cough: New Onset, Shortness of Breath - Review of Systems Constitutional: No Symptoms Eyes: No Symptoms Ears, Nose, & Throat: No Symptoms Respiratory: No Symptoms Cardiac: No Symptoms Abdominal/Gastrointestinal: No Symptoms Genitourinary Symptoms: No Symptoms Musculoskeletal: No Symptoms, Other (Right BKA) Skin: No Symptoms Neurological: No Symptoms Psychological: No Symptoms Endocrine: No Symptoms Hematologic/Lymphatic: No Symptoms Immunological/Allergic: No Symptoms All Other Systems: Reviewed and Negative - Past Medical History Pertinent Past Medical History: Yes Neurological History: No Pertinent History, Peripheral Neuropathy ENT History: No Pertinent History Cardiac History: Angina, Congestive Heart Failure, Myocardial Infarction ([place]), High Cholesterol, Hypertension Respiratory History: CHF Endocrine Medical History: Diabetes Type II Musculoskeletal History: No Pertinent History, Other GI Medical History: No Pertinent History, GERD History: No Pertinent History Psycho-Social History: No Pertinent History, Depression Male Reproductive Disorders: No Pertinent History Other Medical History: diabetic foot ulcer that spread and has BKA - Past Surgical History Past Surgical History: Yes Neuro Surgical History: No Pertinent History Cardiac: No Pertinent History Respiratory: No Pertinent History Gastrointestinal: No Pertinent History Genitourinary: No Pertinent History Musculoskeletal: No Pertinent History, Amputation Male Surgical History: No Pertinent History Other Surgical History: BKA Significant Family History: no pertinent family hx - Social History Smoking Status: Former smoker How long have you smoked: 24 Exposure to second hand smoke: No Drug Use: marijuana Patient Lives Alone: No - Social Determinants of Health Will the patient participate in the screening: Yes Do you worry about a steady place to live?: No Do you have any problems with any of the following?: No known problems In the past 12 months,have you had to go without utilities?: No Transportation Issues: No Has anyone in your support network made you feel unsafe?: No Have you or anyone in your house had to go without enough: No - Nursing Vital Signs Nursing Vital Signs: Initial Vital Signs Temperature 98.3 F 05/11/24 03:05 Pulse Rate 70 05/11/24 03:05 Respiratory Rate 18 05/11/24 03:05 Blood Pressure 115/74 05/11/24 03:05 O2 Sat by Pulse Oximetry 92 L 05/11/24 03:05 Pain Scale Pain Intensity 8 - Physical Exam General Appearance: no apparent distress, alert, obese Eye Exam: PERRL/EOMI, eyes nml inspection Ears, Nose, Throat Exam: normal ENT inspection, moist mucous membranes Neck Exam: normal inspection, non-tender, supple, full range of motion Respiratory Exam: normal breath sounds, lungs clear, airway intact, No chest tenderness, No respiratory distress Cardiovascular Exam: regular rate/rhythm, normal heart sounds, normal peripheral pulses Gastrointestinal/Abdomen Exam: soft, normal bowel sounds, No tenderness Rectal Exam: not done Back Exam: normal inspection, normal range of motion, No CVA tenderness, No vertebral tenderness Extremity Exam: normal range of motion, pelvis stable, other (Right BKA) Neurologic Exam: alert, oriented x 3, cooperative, 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 as tested, normal mood/affect Skin Exam: normal color, warm, dry Lymphatic Exam: No adenopathy SpO2 Interpretation: borderline oxygenation SpO2: 92 O2 Delivery: Room Air - Course Nursing assessment & vital signs reviewed: Yes Ordered Tests: Active Orders 24 hr Category Date Time Status AMYLASE Stat Lab 05/11/24 04:30 Completed CBC W DIFF Stat Lab 05/11/24 04:30 Completed CMP Stat Lab 05/11/24 04:30 Completed CULTURE,URINE Stat Lab 05/11/24 05:08 Received LIPASE Stat Lab 05/11/24 04:30 Completed POCT GLUCOSE Stat Lab 05/11/24 03:08 Completed POCT GLUCOSE Stat Lab 05/11/24 04:21 Completed POCT GLUCOSE Stat Lab 05/11/24 05:13 Completed POCT GLUCOSE Stat Lab 05/11/24 06:07 Completed UA W/RFX UR CULTURE Stat Lab 05/11/24 05:08 Completed Medication Summary Generic Name Dose Route Start Last Admin Trade Name Freq PRN Reason Stop Dose Admin Dextrose/Sodium Chloride 1,000 mls @ 125 mls/hr 05/11/24 04:00 05/11/24 04:24 Dextrose 5%-Ns Iv Solution 1000 Ml IV 06/10/24 03:59 125 mls/hr .Q8H BRUNILDA Administration Levofloxacin/Dextrose 500 mg in 100 mls @ 100 mls/hr 05/11/24 06:05 05/11/24 06:14 Levofloxacin 500mg/100ml D5w IV 05/11/24 07:04 100 mls/hr STAT STA 100 mls/hr Administration Morphine Sulfate 4 mg 05/11/24 06:35 Morphine Sulfate 4 Mg/Ml Injection IV 05/11/24 06:36 STAT ONE Ondansetron HCl 4 mg 05/11/24 06:35 Ondansetron Hcl 4 Mg/2 Ml Vial IV 05/11/24 06:36 STAT ONE Discontinued Medications Generic Name Dose Route Start Last Admin Trade Name Freq PRN Reason Stop Dose Admin Acetaminophen 650 mg 05/11/24 05:15 05/11/24 05:19 Acetaminophen 325 Mg Tablet PO 05/11/24 05:16 650 mg STAT STA Administration Dextrose Confirm 05/11/24 04:32 Dextrose 50%-Water 50 Ml Abboject Administered 05/11/24 04:33 Dose 50 ml IV .STK-MED ONE Dextrose 50 ml 05/11/24 04:38 05/11/24 04:39 Dextrose 50%-Water 50 Ml Abboject IV 05/11/24 04:39 50 ml STAT ONE Administration Levofloxacin/Dextrose Confirm 05/11/24 06:12 Levofloxacin 500mg/100ml D5w Administered 05/11/24 06:13 Dose 500 mg in 100 mls @ ud IV .STK-MED ONE Lab/Rad Data: Laboratory Result Diagrams 05/11/24 04:30 05/11/24 04:30 Laboratory Results 05/11/24 05/11/24 05/11/24 Range/Units 06:07 05:13 05:08 WBC (4.23-9.07) x10^3/uL RBC (4.63-6.08) x10^6/uL Hgb (13.7-17.5) g/dL Hct (40.1-51.0) % MCV (79.0-92.2) fL MCH (25.7-32.2) pg MCHC (32.3-36.5) g/dL RDW (11.6-14.4) % Plt Count (163-337) x10^3/uL MPV (9.4-12.4) fL Gran % (34.0-67.9) % Immature Gran % (Auto) (0.001-0.429) % Nucleat RBC Rel Count (0.00-0.2) % Eos # (Auto) (0.04-0.54) x10^3/uL Immature Gran # (Auto) (0.001-0.031) x10^3u/L Absolute Lymphs (auto) (1.32-3.57) x10^3/uL Absolute Monos (auto) (0.30-0.82) x10^3/uL Absolute Nucleated RBC (0.00-0.012) x10^3u/L Lymphocytes % (21.8-53.1) % Monocytes % (5.3-12.2) % Eosinophils % (0.8-7.0) % Basophils % (0.2-1.2) % Absolute Granulocytes (1.78-5.38) x10^3/uL Basophils # (0.01-0.08) x10^3/uL Sodium (135-145) mmol/L Potassium (3.5-5.1) mmol/L Chloride (98-107) mmol/L Carbon Dioxide (22-30) mmol/L Anion Gap (5-15) MEQ/L BUN (9-20) mg/dL Creatinine (0.66-1.25) mg/dL Estimated GFR ML/MIN Glucose (74-106) mg/dL POC Glucometer 92 113 H (74 to 106) mg/dL Calcium (8.4-10.2) mg/dL Total Bilirubin (0.2-1.3) mg/dL AST (17-59) U/L ALT (0-50) U/L Alkaline Phosphatase (38-126) U/L Serum Total Protein (6.3-8.2) g/dL Albumin (3.5-5.0) g/dL Amylase (30-110) U/L Lipase (23-300) U/L Urine Color Yellow (Yellow) Urine Appearance Turbid A (Clear) Urine pH 5.5 (4.6-8.0) Ur Specific [place] 1.010 (1.005-1.030) Urine Protein 30 (Negative) Urine Glucose (UA) >=1000 A (Negative) mg/dL Urine Ketones Negative (Negative) Urine Blood Moderate A (Negative) Urine Nitrite Negative (Negative) Urine Bilirubin Negative (Negative) Urine Urobilinogen 0.2 (0.2) mg/dL Ur Leukocyte Esterase Large A (Negative) U Hyaline Cast (Auto) 3-5 A (0-2) /LPF Urine Microscopic RBC 0-2 (0-5) /HPF Urine Microscopic WBC >100 A (0-5) /HPF Ur Epithelial Cells None Seen (None Seen) /HPF Urine Bacteria None Seen (None Seen) /HPF Urine Culture Reflexed YES (NO) 05/11/24 05/11/24 05/11/24 Range/Units 04:30 04:30 04:21 WBC 9.8 H (4.23-9.07) x10^3/uL RBC 3.44 L (4.63-6.08) x10^6/uL Hgb 10.1 L (13.7-17.5) g/dL Hct 32.3 L (40.1-51.0) % MCV 93.9 H (79.0-92.2) fL MCH 29.4 (25.7-32.2) pg MCHC 31.3 L (32.3-36.5) g/dL RDW 16.8 H (11.6-14.4) % Plt Count 320 (163-337) x10^3/uL MPV 10.4 (9.4-12.4) fL Gran % 79.5 H (34.0-67.9) % Immature Gran % (Auto) 0.4 (0.001-0.429) % Nucleat RBC Rel Count 0.0 (0.00-0.2) % Eos # (Auto) 0.51 (0.04-0.54) x10^3/uL Immature Gran # (Auto) 0.04 H (0.001-0.031) x10^3u/L Absolute Lymphs (auto) 0.76 L (1.32-3.57) x10^3/uL Absolute Monos (auto) 0.66 (0.30-0.82) x10^3/uL Absolute Nucleated RBC 0.00 (0.00-0.012) x10^3u/L Lymphocytes % 7.7 L (21.8-53.1) % Monocytes % 6.7 (5.3-12.2) % Eosinophils % 5.2 (0.8-7.0) % Basophils % 0.5 (0.2-1.2) % Absolute Granulocytes 7.80 H (1.78-5.38) x10^3/uL Basophils # 0.05 (0.01-0.08) x10^3/uL Sodium 138 (135-145) mmol/L Potassium 4.1 (3.5-5.1) mmol/L Chloride 105 (98-107) mmol/L Carbon Dioxide 24 (22-30) mmol/L Anion Gap 12.9 (5-15) MEQ/L BUN 27 H (9-20) mg/dL Creatinine 1.77 H (0.66-1.25) mg/dL Estimated GFR 45.4 ML/MIN Glucose 65 L (74-106) mg/dL POC Glucometer 59 L (74 to 106) mg/dL Calcium 9.4 (8.4-10.2) mg/dL Total Bilirubin 0.40 (0.2-1.3) mg/dL AST 31 (17-59) U/L ALT 25 (0-50) U/L Alkaline Phosphatase 69 (38-126) U/L Serum Total Protein 7.3 (6.3-8.2) g/dL Albumin 3.7 (3.5-5.0) g/dL Amylase 70 (30-110) U/L Lipase 65 (23-300) U/L Urine Color (Yellow) Urine Appearance (Clear) Urine pH (4.6-8.0) Ur Specific [place] (1.005-1.030) Urine Protein (Negative) Urine Glucose (UA) (Negative) mg/dL Urine Ketones (Negative) Urine Blood (Negative) Urine Nitrite (Negative) Urine Bilirubin (Negative) Urine Urobilinogen (0.2) mg/dL Ur Leukocyte Esterase (Negative) U Hyaline Cast (Auto) (0-2) /LPF Urine Microscopic RBC (0-5) /HPF Urine Microscopic WBC (0-5) /HPF Ur Epithelial Cells (None Seen) /HPF Urine Bacteria (None Seen) /HPF Urine Culture Reflexed (NO) 05/11/24 Range/Units 03:08 WBC (4.23-9.07) x10^3/uL RBC (4.63-6.08) x10^6/uL Hgb (13.7-17.5) g/dL Hct (40.1-51.0) % MCV (79.0-92.2) fL MCH (25.7-32.2) pg MCHC (32.3-36.5) g/dL RDW (11.6-14.4) % Plt Count (163-337) x10^3/uL MPV (9.4-12.4) fL Gran % (34.0-67.9) % Immature Gran % (Auto) (0.001-0.429) % Nucleat RBC Rel Count (0.00-0.2) % Eos # (Auto) (0.04-0.54) x10^3/uL Immature Gran # (Auto) (0.001-0.031) x10^3u/L Absolute Lymphs (auto) (1.32-3.57) x10^3/uL Absolute Monos (auto) (0.30-0.82) x10^3/uL Absolute Nucleated RBC (0.00-0.012) x10^3u/L Lymphocytes % (21.8-53.1) % Monocytes % (5.3-12.2) % Eosinophils % (0.8-7.0) % Basophils % (0.2-1.2) % Absolute Granulocytes (1.78-5.38) x10^3/uL Basophils # (0.01-0.08) x10^3/uL Sodium (135-145) mmol/L Potassium (3.5-5.1) mmol/L Chloride (98-107) mmol/L Carbon Dioxide (22-30) mmol/L Anion Gap (5-15) MEQ/L BUN (9-20) mg/dL Creatinine (0.66-1.25) mg/dL Estimated GFR ML/MIN Glucose (74-106) mg/dL POC Glucometer 76 (74 to 106) mg/dL Calcium (8.4-10.2) mg/dL Total Bilirubin (0.2-1.3) mg/dL AST (17-59) U/L ALT (0-50) U/L Alkaline Phosphatase (38-126) U/L Serum Total Protein (6.3-8.2) g/dL Albumin (3.5-5.0) g/dL Amylase (30-110) U/L Lipase (23-300) U/L Urine Color (Yellow) Urine Appearance (Clear) Urine pH (4.6-8.0) Ur Specific [place] (1.005-1.030) Urine Protein (Negative) Urine Glucose (UA) (Negative) mg/dL Urine Ketones (Negative) Urine Blood (Negative) Urine Nitrite (Negative) Urine Bilirubin (Negative) Urine Urobilinogen (0.2) mg/dL Ur Leukocyte Esterase (Negative) U Hyaline Cast (Auto) (0-2) /LPF Urine Microscopic RBC (0-5) /HPF Urine Microscopic WBC (0-5) /HPF Ur Epithelial Cells (None Seen) /HPF Urine Bacteria (None Seen) /HPF Urine Culture Reflexed (NO) - Progress Progress: improved, re-examined Progress Note: 05/11/24 03:37 My medical decision making and the assignment of moderate complexity to this rei ramirez's medical issue today is based on review of the patient's past medical history, review of the patient's medication list, review of patient drug allergy list, history present illness and findings on examination. The workup in this patient includes placement of intravenous line, and infusion of D5 normal saline, CBC, CMP, urinalysis, and to provide the patient with oral intake. Differential diagnosis includes dehydration, hypoglycemia 05/11/24 06:38 I interpreted the patient's laboratory data results. The patient was having intermittent drops in his blood sugar level. Patient might not be eating well enough or he is taking multiple hypoglycemic agents that he is not aware of. He was unsure of the medications that he is on. He does have a urinary tract infection and we will send a prescription of Cipro 500 mg orally twice a day for 7 days to his pharmacy. We will have him hold his diabetic medications for 24 hours. Counseled pt/family regarding: lab results, diagnosis, need for follow-up Medical Desision Making - Diagnostic Testing Diagnostic test were ordered, analyzed, and reviewed by me: Yes - Risk of complications The pt has a mod risk of morbidity or mortality based on: Need for prescription drug management - Departure Departure Disposition: Home Clinical Impression: Hypoglycemia, UTI (urinary tract infection) Condition: Stable Critical Care Time: No Referrals: MARLYN NOEL MD [Primary Care Provider] - Follow up/PCP as directed Additional Instructions: Plenty of fluids. Follow your diabetic diet closely. Monitor your blood sugar levels closely. Hold your diabetes medication for 24 hours then resume. Call your primary prescribing provider tomorrow, 05/12/2024 to make arrangements for follow-up appointment to be seen in the next 3 to 5 days. Prescriptions: Ciprofloxacin [Cipro 500 MG] 500 mg PO BID #14 tablet
[2024-05-11] MEDS ORDERED: Dextrose 5%-NS IV Solution 1000 ML 1,000 ML IV ONE (03:52)
[2024-05-11] MEDS: Dextrose 5%-NS IV Solution 1000 ML 1,000 ML IV SCH (04:24)
[2024-05-11] MEDS ORDERED: D50W 50 ml Abboject IV ONE (04:32)
[2024-05-11] MEDS ORDERED: D50W 50ML Vial IV ONE (04:36)
[2024-05-11] MEDS: D50W 50 ml Abboject IV ONE (04:39)
[2024-05-11 04:41] LABS: BASOPHIL % 0.5 % (0.2-1.2); Basophil (Absolute #) 0.05 x10^3/uL (0.01-0.08); Eosinophil % 5.2 % (0.8-7.0); Eosinophil (Absolute #) 0.51 x10^3/uL (0.04-0.54); Hematocrit 32.3 % (40.1-51.0); Hemoglobin 10.1 g/dL (13.7-17.5); IMMATURE GRAN # 0.04 x10^3u/L (0.001-0.031); IMMATURE GRAN % 0.4 % (0.001-0.429); Lymphocyte (Absolute #) 0.76 x10^3/uL (1.32-3.57); Lymphocytes % 7.7 % (21.8-53.1); Mean Cell Volume 93.9 fL (79.0-92.2); Mean Corpuscular Hemoglobin 29.4 pg (25.7-32.2); Mean Corpuscular Hgb Concent. 31.3 g/dL (32.3-36.5); Mean Platelet Volume 10.4 fL (9.4-12.4); Monocyte (Absolute #) 0.66 x10^3/uL (0.30-0.82); Monocytes % 6.7 % (5.3-12.2); Neutrophil % 79.5 % (34.0-67.9); Platelet Count 320 x10^3/uL (163-337); Red Blood Count 3.44 x10^6/uL (4.63-6.08); Red Cell Distribution Width 16.8 % (11.6-14.4); White Blood Count 9.8 x10^3/uL (4.23-9.07)
[2024-05-11 04:57] LABS: ALBUMIN 3.7 g/dL (3.5-5.0); ANION GAP 12.9 MEQ/L (5-15); BILIRUBIN,TOTAL 0.4 mg/dL (0.2-1.3); Calcium 9.4 mg/dL (8.4-10.2); Creatinine 1 1.77 mg/dL (0.66-1.25); EST GLOMERULAR FILTRATION RATE 45.4 ML/MIN; Potassium 4.1 mmol/L (3.5-5.1); Total Protein 7.3 g/dL (6.3-8.2)
[2024-05-11] MEDS: TYLENOL 325 MG PO STA (05:19)
[2024-05-11 05:23] LABS: ADD URINE CULTURE? YES (NO); Appearance Turbid (Clear); Bacteria None Seen /HPF (None Seen); Bilirubin Negative (Negative); Blood Moderate (Negative); Epithelial Cells None Seen /HPF (None Seen); Glucose, Urine >=1000 mg/dL (Negative); Ketones Negative (Negative); Leukocyte Esterase Large (Negative); Nitrite Negative (Negative); Ph 5.5 (4.6-8.0); Protein,Urine Dip 30 (Negative); RBC 0-2 /HPF (0-5); Urobilinogen 0.2 mg/dL (0.2); WBC >100 /HPF (0-5)
[2024-05-11] MEDS ORDERED: Levofloxacin 500MG/100ML D5W 500 MG/100 ML BAG IV ONE (06:12)
[2024-05-11] MEDS: Levofloxacin 500MG/100ML D5W 500 MG/100 ML BAG IV STA (06:14)
[2024-05-11 06:37] VITALS: RESP 18
[2024-05-11] MEDS ORDERED: Zofran 4 MG/2 ML VIAL ONE (06:59)
[2024-05-11] MEDS ORDERED: MORPHINE SULFATE 4 MG INJ ONE (07:00)
[2024-05-11] MEDS: MORPHINE SULFATE 4 MG INJ IV ONE (07:04)
[2024-05-11] MEDS: Zofran 4 MG/2 ML VIAL IV ONE (07:04)
[2024-05-11 07:14] VITALS: O2SAT 94
[2024-05-11 07:35] VITALS: BP 135/77; PULSE 80
== END 2024-05-11 08:18 | disposition home or self-care (01) ==
LOC: ED 03:01
DX: E11.649 Type 2 diabetes mellitus with hypoglycemia without coma (principal); N39.0 Urinary tract infection, site not specified; E78.5 Hyperlipidemia, unspecified; I11.0 Hypertensive heart disease with heart failure; I50.9 Heart failure, unspecified; E11.42 Type 2 diabetes mellitus with diabetic polyneuropathy; Z79.84 Long term (current) use of oral hypoglycemic drugs; Z79.899 Other long term (current) drug therapy
CPT/HCPCS: 36000; 36415; 80053; 81001; 82150; 82947; 83690; 85025; 87086; 96360; 96361; 96365; 96374; 96375; 99284; J1956; J2270; J2405; A9270-GY